=== PATIENT | female | born 1950 | race Caucasian/White ===

== ENCOUNTER → 2017-02-13 | Outpatient (CLI) | payer BC ==
[~2017-02-13] MED LIST: ALPR-411 PO; AMOX500C3 PO; AMT25 PO; ASCO500T16 PO; ASPI1CHW26 PO; CHOLTAB3 PO; ERGO1TAB10 PO; GABA-113 PO; GABA1CAP4 PO; LEVO112T4 PO; LSX40 PO; LXP/20 PO; MIRA1TAB3 PO; MULT-506 PO; NAPR550T22 PO; NRN600 PO; ONDA8TAB6 PO; OXYC-609 PO; PANT20TA PO; PLQ200 PO; SPR25 PO; SYMIN/8045 INH
== END | disposition home or self-care (01) ==
LOC: C.MAMM 10:04
DX: M85.89 Other specified disorders of bone density and structure, multiple sites (principal)

== ENCOUNTER → 2017-03-28 | Outpatient (CLI) | payer BC ==
[~2017-03-28] MED LIST changes: +DIAZ2TAB PO; +NAPR-1169 PO; -PANT20TA PO; +PANT20TA2 PO
[2017-03-28 14:40] LABS: BASO % 0.8 %; BASO ABS # 0.04 K/uL (0-0.2); COMPLETE YES; EOS % 9.1 %; HEMATOCRIT 36.8 % (37-47); IG% 0.4 %; LYMPH ABS # 1.37 K/uL (1.2-3.4); MEAN CELL VOLUME 94.4 fL (80-100); MEAN CORPUSCULAR HEMOGLOBIN 29.5 pg (25-34); MEAN CORPUSCULAR HGB CONC 31.3 g/dl (32-36); MEAN PLATELET VOLUME 9.6 fL (7.4-10.4); MONO % 11.2 %; NEUT % 52.5 %; PLATELET COUNT 287 K/uL (130-400); WHITE BLOOD COUNT 5.26 K/uL (4.8-10.8)
[2017-03-28 15:07] LABS: FERRITIN 336.7 ng/ml (8.0-388.0); THYROID STIMULATING HORMONE 0.052 uIu/ml (0.300-4.500)
[2017-04-02 00:28] LABS: CK TOTAL 107 U/L (29-143); CK-BB None Detected (None Detected); CK-MB 0 % (<5); CK-MM 100 % (95-100)
--- NOTE | 2017-04-04 07:04 | CODING QUERY MEDICAL NECESSITY ---
CQSUPPORTING DIAGNOSIS NEEDED A supporting diagnosis is required for the test/procedure performed on this patient in order for us to be reimbursed by the patient's insurance. Please provide a supporting diagnosis for the following test/procedure listed below next to the test name along with your signature. *If there is no additional diagnosis for this patient that would support the following test/procedure please document that below next to the test/procedure. Test(s)/Procedure(s) that require a supporting diagnosis: DOS 03/28/17 VITAMIN D TEST Provider Signature: Date: Thank you Azalea Chakraborty Health Information Management Once completed, please kindly fax back to [phone] For questions please call [phone]
== END | disposition home or self-care (01) ==
LOC: C.LAB 12:43
DX: D64.9 Anemia, unspecified (principal); M19.90 Unspecified osteoarthritis, unspecified site; R60.9 Edema, unspecified; E03.9 Hypothyroidism, unspecified; E55.9 Vitamin D deficiency, unspecified

== ENCOUNTER → 2017-04-08 | Outpatient (CLI) | payer BC ==
--- NOTE | 2017-04-08 18:12 | ECHOCARDIOGRAM REPORT ---
*NOTICE TO RECEIVING CONSTITUTION PARTY AGENCY This information is strictly Confidential and protected under [place] law. [place] law prohibits you from making any further disclosure of this information unless further disclosure is expressly permitted by the written consent of the person to whom it pertains or is authorized by law. A general authorization for the release of medical or other information is not sufficient for this purpose. Hospital accepts no responsibility if the information is made available to any other person, INCLUDING THE PATIENT. Interpretation Summary * Name: ELENI DILLON Study Date: 04/08/2017 02:58 PM BP: 124/61 mmHg * Patient Location: [facility] HR: 98 * : 1950 (M/d/yyyy) Gender: Female Height: 62 in * Age: 66 yrs Ethnicity: [place] Weight: 155 lb * Ordering Physician: Eleuterio Amaya * Referring Physician: Eleuterio Amaya D.O. * Performed By: Kristi Cooney RDCS * * Reason For Study: SYSTOLIC MURMUR * BSA: 1.7 m2 * -- Conclusions -- * There is borderline asymmetric left ventricular hypertrophy. * Left ventricular systolic function is normal. * Grade I diastolic dysfunction, (abnormal relaxation pattern). * There is moderate tricuspid regurgitation. * Right ventricular systolic pressure is normal. * Compared to an echocardiogram from 2014, the trans-aortic velocity is slightly higher but no significant Procedure Details * A complete two-dimensional transthoracic echocardiogram was performed (2D, M-mode, Doppler and color flow Doppler). Left Ventricle * The left ventricle is normal in size. * There is borderline asymmetric left ventricular hypertrophy. * Ejection Fraction = 60-65%. * Left ventricular systolic function is normal. * Grade I diastolic dysfunction, (abnormal relaxation pattern). Right Ventricle * The right ventricle is normal in size and function. Atria * The left atrial size is normal. * Right atrial size is normal. Mitral Valve * The mitral valve is grossly normal. * Significant mitral regurgitation is absent. Tricuspid Valve * The tricuspid valve is not well visualized, but is grossly normal. * There is moderate tricuspid regurgitation. * Right ventricular systolic pressure is normal. Aortic Valve * Aortic valve sclerosis mild, without significant aortic valvular stenosis. * No hemodynamically significant valvular aortic stenosis. * There is no significant aortic regurgitation. Great Vessels * The aortic root is normal size. Pericardium/Pleural * There is no pericardial effusion. MMode 2D Measurements and Calculations IVSd 1.2 cm IVSs 1.5 cm LVIDd 3.1 cm LVIDs 2.1 cm LVPWd 1.1 cm LVPWs 1.8 cm IVS/LVPW 1.2 FS 33.6 % EDV(Teich) 38.4 ml ESV(Teich) 13.9 ml EF(Teich) 63.8 % EDV(cubed) 30.3 ml ESV(cubed) 8.9 ml EF(cubed) 70.7 % % IVS thick 21.3 % % LVPW thick 64.9 % LV mass(C)d 107.4 grams LV mass(C)dI 62.6 grams/m\S\2 LV mass(C)s 118.5 grams LV mass(C)sI 69.1 grams/m\S\2 SV(Teich) 24.5 ml SI(Teich) 14.3 ml/m\S\2 SV(cubed) 21.4 ml SI(cubed) 12.5 ml/m\S\2 Ao root diam 2.7 cm Ao root area 5.7 cm\S\2 LA dimension 3.4 cm LA/Ao 1.3 LVOT diam 2.0 cm LVOT area 3.0 cm\S\2 LVAd ap4 25.7 cm\S\2 LVLd ap4 7.5 cm EDV(MOD-sp4) 72.7 ml EDV(sp4-el) 75.0 ml LVAs ap4 13.7 cm\S\2 LVLs ap4 5.9 cm ESV(MOD-sp4) 30.0 ml ESV(sp4-el) 27.1 ml EF(MOD-sp4) 58.8 % EF(sp4-el) 63.9 % LVAd ap2 24.9 cm\S\2 LVLd ap2 7.6 cm EDV(MOD-sp2) 70.8 ml EDV(sp2-el) 69.7 ml LVAs ap2 14.0 cm\S\2 LVLs ap2 6.3 cm ESV(MOD-sp2) 30.0 ml ESV(sp2-el) 26.3 ml EF(MOD-sp2) 57.6 % EF(sp2-el) 62.2 % LVLd %diff 1.4 % EDV(MOD-bp) 72.1 ml LVLs %diff 6.1 % ESV(MOD-bp) 30.9 ml EF(MOD-bp) 57.1 % SV(MOD-sp4) 42.7 ml SI(MOD-sp4) 24.9 ml/m\S\2 SV(MOD-sp2) 40.8 ml SI(MOD-sp2) 23.8 ml/m\S\2 SV(MOD-bp) 41.2 ml SI(MOD-bp) 24.0 ml/m\S\2 SV(sp4-el) 47.9 ml SI(sp4-el) 27.9 ml/m\S\2 SV(sp2-el) 43.4 ml SI(sp2-el) 25.3 ml/m\S\2 Doppler Measurements and Calculations MV E max claudia 56.8 cm/sec MV A max claudia 86.3 cm/sec MV E/A 0.66 MV dec time 0.28 sec Ao V2 max 232.4 cm/sec Ao max PG 21.6 mmHg Ao max PG (full) 17.8 mmHg Ao V2 mean 160.4 cm/sec Ao mean PG 11.5 mmHg Ao mean PG (full) 9.2 mmHg Ao V2 VTI 40.7 cm OLIVIA(I,A) 1.7 cm\S\2 OLIVIA(I,D) 1.7 cm\S\2 OLIVIA(V,A) 1.3 cm\S\2 OLIVIA(V,D) 1.3 cm\S\2 LV V1 max PG 3.8 mmHg LV V1 mean PG 2.4 mmHg LV V1 max 97.0 cm/sec LV V1 mean 72.0 cm/sec LV V1 VTI 22.1 cm SV(Ao) 232.5 ml SI(Ao) 135.6 ml/m\S\2 SV(LVOT) 67.3 ml SI(LVOT) 39.2 ml/m\S\2 TR max claudia 242.3 cm/sec
== END | disposition home or self-care (01) ==
LOC: C.CPL 14:48
DX: R01.1 Cardiac murmur, unspecified (principal)

== ENCOUNTER → 2017-06-06 | Outpatient (CLI) | payer BC ==
[~2017-06-06] MED LIST changes: -DIAZ2TAB PO; -NAPR-1169 PO; +PANT20TA PO; -PANT20TA2 PO
--- NOTE | 2017-06-06 10:08 | DIAGNOSTIC IMAGING REPORT ---
Limited pelvic ultrasound ABDOMEN FOR HERNIA CLINICAL HISTORY: R LABIA SWELLING labial edema TECHNIQUE: Ultrasound COMPARISON STUDY: None FINDINGS: Mild edematous change of the right leg is compared to the left. There is be a combination of mildly edematous tissue combine with potential post therapeutic scar formation. No evidence for abscess collection or hernia. IMPRESSION: Mild soft tissue edema combined with post therapeutic scar formation of the right labial region. No evidence for abscess collection or hernia. Electronically signed by: Sj Hassan M.D. 06/06/2017 10:07 AM Dictated Date/Time: 06/06/2017 10:05 AM
== END | disposition home or self-care (01) ==
LOC: C.ULTR 09:08
DX: R60.0 Localized edema (principal); K44.9 Diaphragmatic hernia without obstruction or gangrene

== ENCOUNTER → 2017-07-10 | Outpatient (CLI) | payer BC ==
--- NOTE | 2017-07-10 14:45 | DIAGNOSTIC IMAGING REPORT ---
ABDOMEN AND PELVIS CT WITHOUT CONTRAST CT DOSE: 784.69 mGycm HISTORY: LABIAL LESION TECHNIQUE: Multiaxial CT images of the abdomen and pelvis were performed without contrast. A dose lowering technique was utilized adhering to the principles of ALARA. COMPARISON STUDY: Abdomen and pelvis CT 03/15/2016. FINDINGS: Mild asymmetric thickening within the right labia in comparison to the left. The thickening has slight progressed. This measures up to 1.5 cm in thickness. No fluid collections identified. Mild subcutaneous fat stranding within the mons pubis. The lung bases are clear. No pneumoperitoneum. No pneumatosis. 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 This is progressed on the right and not significant changed on the left. Small bony fragment which extends into the right acetabulum. Fragmentation and nonunited fracture within the left iliac bone which extends to the sacroiliac joint. Progressive widening of the left sacroiliac joint. Abnormal thickening within the proximal right groin adductor muscles. These demonstrate irregularity with loss of the normal fat planes. This measures up to 3 cm in thickness, previous measuring 2.3 cm. There is also an irregular 12 mm nodule abutting the anterior surface of the adductor muscles within the right groin. There is a single enlarged right inguinal lymph node which is increased in size and a single enlarged left inguinal lymph node which is increased in size. These measure 2.1 x 1.2 cm and 1.7 x 1.1 cm, respectively. Right lower quadrant colostomy. Multiple small bowel loops within the parastomal hernia. The moderate to large peristomal hernia has increased in size. The bladder is unremarkable. Prior hysterectomy. Mild thickening along the left vaginal cuff, unchanged. Small hiatus hernia. A few prominent loops of small bowel within the left side the abdomen. These are fluid-filled. These measure up to 3 cm in diameter. This raises the possibility of a partial small bowel obstruction. No retroperitoneal lymphadenopathy. The unenhanced liver, spleen, adrenal glands, pancreas are unremarkable. There is a punctate stone within the left kidney. No hydronephrosis. There is an atrophic right kidney demonstrating moderate hydroureteronephrosis. This remains unchanged. There are few bladder calculi present. Cholelithiasis. Old, healed right sacral wing fracture. IMPRESSION: 1. Mild asymmetric thickening within the right labia in comparison to the left. This has slightly progressed. No fluid collections identified. 2. Increase in size of the bilateral inguinal lymph nodes as described above. This nonspecific but could be due to metastatic disease. 3. Progressive abnormal thickening within the proximal right groin adductor muscles has described above. There is also an irregular 12 mm soft tissue nodule abutting the anterior surface of the right groin muscles. These findings raise the possibility of metastatic disease. 4. Progressive fragmentation of the old nonunited right pubic ring fractures. There is a small fragment extending into the right acetabulum. Nonunited old left pubic ring fractures remain unchanged. 5. Subacute to old nonunited left iliac wing fracture which extends to the sacroiliac joint. There is also mild widening of the left sacroiliac joint. 6. No change in the moderate right hydroureteronephrosis. 7. A few prominent fluid-filled loops of small bowel within the left side the abdomen. This could represent a developing partial small bowel obstruction. Clinical correlation recommended. 8. Increase in size in the right lower quadrant peristomal hernia. 9. Additional findings as described above. Electronically signed by: Ben Gant M.D. 07/10/2017 2:43 PM Dictated Date/Time: 07/10/2017 2:24 PM
== END | disposition home or self-care (01) ==
LOC: C.CTS 13:40
PROVIDERS: ATTEND Colon & Rectal Surgery
DX: N90.89 Other specified noninflammatory disorders of vulva and perineum (principal)

== ENCOUNTER → 2017-08-14 | Day surgery (SDC) | payer BC ==
[~2017-08-14] VITALS: Ht 157.5 cm; Wt 72.0 kg
[2017-08-14 09:39] VITALS: BP 123/62; PULSE 86; TEMP 36.6; O2SAT 98; Ht 157.5 cm; Wt 72.0 kg
[2017-08-14 09:59] LABS: HEMATOCRIT 32.7 % (37-47); MEAN CELL VOLUME 93.7 fL (80-100); MEAN CORPUSCULAR HEMOGLOBIN 30.7 pg (25-34); MEAN PLATELET VOLUME 8.9 fL (7.4-10.4); PLATELET COUNT 230 K/uL (130-400); RED BLOOD COUNT 3.49 M/uL (4.2-5.4); WHITE BLOOD COUNT 5.03 K/uL (4.8-10.8)
[2017-08-14 10:10] LABS: PROTHROMBIN TIME (PATIENT) 10.5 SECONDS (9.0-12.0)
[2017-08-14 10:28] LABS: MEAN CORPUSCULAR HGB CONC 32.7 g/dl (32-36)
--- NOTE | 2017-08-14 11:54 | Discharge Instructions ---
Discharge Instructions Procedure Procedure Date: Aug 14, 2017. Reason for visit: Hx Anal Ca, Mass In Rt Groin Abductor Muscle. Discharge Discharge Date: Aug 14, 2017. Discharge Diagnosis: same Instructions Activity Recommendations: No limitations Return to School/Work: no limitations Recommended Home Diet: Resume Previous Diet Provider Instructions: ACTIVITY RECOMMENDATIONS: * Rest today. * Resume regular activity in one day. MEDICATIONS: * May take Tylenol or Ibuprofen as needed for pain. DIET: * Resume previous diet. SPECIAL CARE INSTRUCTIONS: Call your doctor if: * Temperature above 101 degrees F. * Pain not relieved by pain medicine ordered. * Increased drainage or redness from incision. * Notify your doctor with any questions or concerns. Call your doctor or go to the nearest Emergency Department if you experience: * Increased chest pain or shortness of breath. FOLLOW UP VISIT: Follow-up with Referring Physician as scheduled. Allergies Coded Allergies: POLLEN (Verified Allergy, Intermediate, RUNNY NOSE, ITCHY EYES, SNEEZING, 08/14/17) Denia Brian Recommendations: Call your doctor if: * Temperature above 101 degrees * Pain not relieved by pain medicine ordered * There is increased drainage or redness from any incision * You have any unanswered questions or concerns. Your Doctors Instructions noted above were prepared by provider Ben Gant. Patient Signature Section: Patient Instructions Signature Page Phyllis Sweeney Patient (or Guardian) Signature/Date: I have read and understand the instructions given to me by my caregivers. Caregiver/RN/Doctor Signature/Date: The above-named patient and/or guardian has received patient instructions on this date. + Original Patient Signature Page (only) stays with chart. Please make copy for patient.
--- NOTE | 2017-08-14 12:14 | DIAGNOSTIC IMAGING REPORT ---
CT-GUIDED FINE-NEEDLE ASPIRATION OF A RIGHT GROIN ABNORMALITY CLINICAL HISTORY: Right groin thickening. History of malignancy. Assess for metastatic disease. COMPARISON STUDY: Abdomen and pelvis CT 07/10/2017. PROCEDURE: Written informed consent was obtained. The patient was positioned supine on the CT table. Preliminary imaging was performed to determine a safe needle entry site. The right groin was prepped and draped in usual sterile fashion. 1% lidocaine was used for local anesthesia. A total of [address] guidance with a 22-gauge spinal needle and a 22-gauge Marcelo needle were made through the abnormal thickening within the proximal right adductor muscles and the adjacent 12 mm soft tissue nodule. Specimens were given to the on-site pathologist who determined adequate tissue for diagnosis. There were no immediate complications. IMPRESSION: CT-guided fine-needle aspiration of the abnormally thickened proximal right adductor muscles and the adjacent 12 mm soft tissue nodule. Pathology results pending. Electronically signed by: Ben Gant M.D. 08/14/2017 12:13 PM Dictated Date/Time: 08/14/2017 12:10 PM
[2017-08-14 12:15] VITALS: BP 109/58; PULSE 81; TEMP 36.5; O2SAT 98
[2017-08-14 12:33] VITALS: BP 116/55; PULSE 79; TEMP 36.4; O2SAT 96
[2017-08-14 12:45] VITALS: BP 121/61; PULSE 82; TEMP 36.6; O2SAT 95
[2017-08-14 13:15] VITALS: BP 127/61; PULSE 83; TEMP 36.5; O2SAT 95
== END | disposition home or self-care (01) ==
LOC: C.ACU 09:01
PROVIDERS: ATTEND Internal Medicine Hematology & Oncology
DX: C53.9 Malignant neoplasm of cervix uteri, unspecified (principal); C21.1 Malignant neoplasm of anal canal

== ENCOUNTER → 2017-08-27 | Outpatient (CLI) | payer BC ==
[~2017-08-27] MED LIST changes: -GABA1CAP4 PO; -NRN600 PO
--- NOTE | 2017-08-27 10:23 | DIAGNOSTIC IMAGING REPORT ---
PET/CT SKULL-THIGH CLINICAL HISTORY: CERVICAL CARCINOMA COMPARISON STUDY: 10/10/2014, CT scan dated 07/10/2017 FINDINGS: The patient was injected with 12.2 mCi of F 18 labeled FDG. Following the standard induction phase, PET/CT scanning was performed from the skull base to the upper thigh region. Within the neck, there is persistent increased activity fusing to the right lobe of the thyroid which appears larger than the left lobe. Activity within neck is otherwise unremarkable with no evidence of pathologic gianni activity. Within the thorax, there is no pathologic gianni or parenchymal activity. Within the abdomen and pelvis, there is evidence of right-sided hydronephrosis. There is no pathologic hepatic or adrenal gland activity. There is no pathologic gianni activity. There is physiologic urinary tract and bowel activity. Note is made of cholelithiasis. There is a punctate nonobstructing left renal calculus. There is a right lower quadrant ostomy with a parastomal hernia. There is rectal prolapse. There are multiple pelvic fractures. When compared the recent CT scan, there is persistent thickening and loss of the normal surrounding fat planes involving the right pectoralis muscle. This demonstrates mild diffuse increased FDG activity with SUV maximum of 3. By history, this area was previously biopsied. There are similar but less pronounced findings on the left. Given the multiple pelvic fractures, it is conceivable that this finding relates to hematoma and fibrosis IMPRESSION: 1. Asymmetric thyroid with persistent increased activity fusing to the right lobe 2. No evidence of pathologic gianni activity within the neck chest abdomen or pelvis 3. Cholelithiasis 4. Persistent right-sided hydronephrosis 5. Extensive pelvic fractures 6. Right lower quadrant ostomy with a parastomal hernia 7. Pelvic floor relaxation with rectal prolapse 8. Persistent thickening and loss of the normal surrounding fat planes involving the pectineus muscles, most pronounced on the right. There is mild associated increased FDG activity with SUV maximum of 3 on the right, and 2.7 the left. As stated above, given the multiple pelvic fractures, this may relate to secondary hematoma and fibrosis. Electronically signed by: Aayush Wood M.D. 08/27/2017 10:22 AM Dictated Date/Time: 08/27/2017 10:08 AM
== END | disposition home or self-care (01) ==
LOC: C.PET 07:50
PROVIDERS: ATTEND Internal Medicine Hematology & Oncology
DX: C53.9 Malignant neoplasm of cervix uteri, unspecified (principal); C21.1 Malignant neoplasm of anal canal; E07.9 Disorder of thyroid, unspecified; K80.20 Calculus of gallbladder without cholecystitis without obstruction; S32.9XXA Fracture of unspecified parts of lumbosacral spine and pelvis, initial encounter for closed fracture; X58.XXXA Exposure to other specified factors, initial encounter; K43.5 Parastomal hernia without obstruction or gangrene; Z93.3 Colostomy status; N81.89 Other female genital prolapse; K62.3 Rectal prolapse; R93.5 Abnormal findings on diagnostic imaging of other abdominal regions, including retroperitoneum

== ENCOUNTER → 2017-09-01 | Outpatient (CLI) | payer BC ==
--- NOTE | 2017-09-01 12:52 | DIAGNOSTIC IMAGING REPORT ---
ULTRASOUND OF THE THYROID GLAND CLINICAL HISTORY: Abnormal PET examination. COMPARISON STUDY: Thyroid ultrasound dated 10/20/2014. PET/CT dated 08/27/2017. TECHNIQUE: Real-time, grayscale, and color flow sonography of the thyroid gland is performed utilizing a high-frequency linear transducer. Images are reviewed in the transverse and longitudinal planes. FINDINGS: Right lobe: The right lobe of the thyroid gland is atrophic and heterogeneous in echotexture, measuring 3.5 x 1.6 x 1.1 cm. A 0.3 x 0.2 x 0.3 cm hypoechoic nodule is noted in the lower pole. This is unchanged from 2013. Left lobe: The left lobe of the thyroid gland is markedly atrophic and heterogeneous in echotexture, measuring 3.0 x 1.0 x 0.6 cm. Isthmus: The thyroid isthmus is heterogeneous in echotexture and measures 0.3 cm in AP diameter. IMPRESSION: 1. Atrophic and heterogeneous thyroid gland suggesting the sequelae of thyroiditis. Correlation with clinical history and serum thyroid function studies will be required. 2. No concerning thyroid lesion is identified. Electronically signed by: Abad Roque M.D. 09/01/2017 12:51 PM Dictated Date/Time: 09/01/2017 12:48 PM
== END | disposition home or self-care (01) ==
LOC: C.ULTR 12:09
DX: R94.6 Abnormal results of thyroid function studies (principal); Z86.39 Personal history of other endocrine, nutritional and metabolic disease; E03.4 Atrophy of thyroid (acquired)

== ENCOUNTER → 2017-09-11 | Day surgery (SDC) | payer BC ==
[2017-09-04 09:10] VITALS: Ht 157.5 cm; Wt 79.2 kg
--- NOTE | 2017-09-04 09:56 | PAT Medication Instructions ---
Service Date Sep 04, 2017. Current Home Medication List Alprazolam (Alprazolam), 0.25-0.5 MG PO Q4-6HRS PRN for Anxiety Amitriptyline HCl (Amitriptyline HCl), 25 MG PO HS Amoxicillin (Amoxil), 500 MG PO [id number] Ascorbic Acid (Ascorbic Acid), 500 MG PO BID Aspirin (Aspirin Adult Low Strengt), 81 MG PO QAM Budesonide/Formoterol Fumarate (Symbicort 80/4.5 Inhaler), 2 PUFFS INH BID PRN for SOB/Wheezing Ergocalciferol (Vitamin D2), 1 TAB PO QAM Escitalopram Oxalate (Escitalopram Oxalate), 30 MG PO QPM Furosemide (Furosemide), 40 MG PO QAM Gabapentin (Neurontin), 600 MG PO TID Hydroxychloroquine Sulfate (Hydroxychloroquine Sulfat), 100 MG PO QAM Levothyroxine Sodium (Levothyroxine Sodium), 112 MCG PO QAM Mirabegron (Myrbetriq Er), 50 MG PO QAM Multivitamin (Multivitamin), 1 TAB PO [id number] Naproxen Sodium (Naprosyn Ds), 550 MG PO BID Ondansetron Hcl (Zofran), 8 MG PO TID PRN for Nausea Oxycodone HCl (Oxycodone HCl), 5-10 MG PO Q3H PRN for Severe Pain Pantoprazole Sodium (Protonix), 40 MG PO QAM Spironolactone (Spironolactone), 25 MG PO BID Medication Instructions For Your Scheduled Surgery - Check with surgeon for instructions: Aspirin (Aspirin Adult Low Strengt), 81 MG PO QAM Naproxen Sodium (Naprosyn Ds), 550 MG PO BID - Hold the following medications the morning of surgery: Spironolactone (Spironolactone), 25 MG PO BID Ascorbic Acid (Ascorbic Acid), 500 MG PO BID Ergocalciferol (Vitamin D2), 1 TAB PO QAM Furosemide (Furosemide), 40 MG PO QAM - Take the following medications the morning of surgery with a sip of water OTHERWISE NOTHING TO EAT OR DRINK AFTER MIDNIGHT: Alprazolam (Alprazolam), 0.25-0.5 MG PO Q4-6HRS PRN for Anxiety Amoxicillin (Amoxil), 500 MG PO [id number] Pantoprazole Sodium (Protonix), 40 MG PO QAM Gabapentin (Neurontin), 600 MG PO TID Budesonide/Formoterol Fumarate (Symbicort 80/4.5 Inhaler), 2 PUFFS INH BID PRN for SOB/Wheezing Oxycodone HCl (Oxycodone HCl), 5-10 MG PO Q3H PRN for Severe Pain (use if needed up to 4 hours prior to surgery) Mirabegron (Myrbetriq Er), 50 MG PO QAM Ondansetron Hcl (Zofran), 8 MG PO TID PRN for Nausea Levothyroxine Sodium (Levothyroxine Sodium), 112 MCG PO QAM Hydroxychloroquine Sulfate (Hydroxychloroquine Sulfat), 100 MG PO QAM - Take the following medications as scheduled the night before surgery: Spironolactone (Spironolactone), 25 MG PO BID Ascorbic Acid (Ascorbic Acid), 500 MG PO BID Amitriptyline HCl (Amitriptyline HCl), 25 MG PO HS Alprazolam (Alprazolam), 0.25-0.5 MG PO Q4-6HRS PRN for Anxiety Gabapentin (Neurontin), 600 MG PO TID Escitalopram Oxalate (Escitalopram Oxalate), 30 MG PO QPM Budesonide/Formoterol Fumarate (Symbicort 80/4.5 Inhaler), 2 PUFFS INH BID PRN for SOB/Wheezing Oxycodone HCl (Oxycodone HCl), 5-10 MG PO Q3H PRN for Severe Pain Multivitamin (Multivitamin), 1 TAB PO [id number] Ondansetron Hcl (Zofran), 8 MG PO TID PRN for Nausea If you have any questions please call us at [phone] or [phone] or [phone]
[2017-09-04 10:26] LABS: BASO % 0.6 %; BASO ABS # 0.03 K/uL (0-0.2); COMPLETE YES; EOS % 10.8 %; HEMATOCRIT 35.3 % (37-47); IG% 0.6 %; LYMPH % 28.9 %; LYMPH ABS # 1.34 K/uL (1.2-3.4); MEAN CELL VOLUME 94.4 fL (80-100); MEAN CORPUSCULAR HEMOGLOBIN 29.9 pg (25-34); MEAN CORPUSCULAR HGB CONC 31.7 g/dl (32-36); MEAN PLATELET VOLUME 9.4 fL (7.4-10.4); MONO % 7.5 %; NEUT % 51.6 %; PLATELET COUNT 261 K/uL (130-400); RED BLOOD COUNT 3.74 M/uL (4.2-5.4); WHITE BLOOD COUNT 4.64 K/uL (4.8-10.8)
[2017-09-04 11:38] LABS: BUN/CREATININE RATIO 16.7 (10-20); CALCIUM 9.5 mg/dl (8.5-10.1); CREATININE 1.7 mg/dl (0.60-1.20); POTASSIUM 4.1 mmol/L (3.5-5.1)
[~2017-09-11] VITALS: Ht 157.5 cm; Wt 79.2 kg
[~2017-09-11] MED LIST changes: +CEFAZOLIN 1000MG/55 ML D5W 55 ML IV SCH; -CHOLTAB3 PO; +LACTATED RINGER'S 1000ML IV SCH
--- NOTE | 2017-09-11 08:31 | History & Physical Bridge Note ---
H&P Re-Evaluation Bridge Note: I have examined the patient, reviewed the History & Physical and in the interval since the performance of the History & Physical I have noted the following changes of clinical significance: No changes noted
== END | disposition home or self-care (01) ==
LOC: C.ACU 08:30
PROVIDERS: ATTEND Surgery
DX: R19.09 Other intra-abdominal and pelvic swelling, mass and lump (principal); Z53.9 Procedure and treatment not carried out, unspecified reason

== ENCOUNTER → 2017-09-12 | Outpatient (CLI) | payer BC ==
[~2017-09-12] MED LIST changes: -CEFAZOLIN 1000MG/55 ML D5W 55 ML IV SCH; -LACTATED RINGER'S 1000ML IV SCH
[2017-09-12 15:07] LABS: BLOOD UREA NITROGEN 32 mg/dl (7-18); BUN/CREATININE RATIO 19.1 (10-20); CALCIUM 9.9 mg/dl (8.5-10.1); CARBON DIOXIDE 29 mmol/L (21-32); CHLORIDE 103 mmol/L (98-107); GLUCOSE 94 mg/dl (70-99); POTASSIUM 3.7 mmol/L (3.5-5.1); SODIUM 138 mmol/L (136-145)
[2017-09-12 15:08] LABS: PHOSPHORUS 2.9 mg/dl (2.5-4.9)
== END | disposition home or self-care (01) ==
LOC: C.LAB 12:42
DX: N18.3 Chronic kidney disease, stage 3 (moderate) (principal)

== ENCOUNTER 2017-09-25 10:50 | Emergency (ER) | payer BC ==
[~2017-09-25] VITALS: Ht 157.5 cm; Wt 75.0 kg
[~2017-09-25 10:50] MED LIST changes: -PANT20TA PO; +PANT20TA2 PO
[2017-09-25 11:02] VITALS: PULSE 90; TEMP 36.7; O2SAT 95; Ht 157.5 cm; Wt 75.0 kg
[2017-09-25] MEDS ORDERED: DIAZEPAM 5MG TAB PO STA (11:36)
--- NOTE | 2017-09-25 11:42 | EMERGENCY ROOM VISIT NOTE ---
History Report prepared by Susu: Kristi Chong Under the Supervision of: Dr. Charlie Barney M.D. First contact with patient: 11:34 Chief Complaint: PELVIC PAIN Stated Complaint: RT PELVIC PAIN History of Present Illness The patient is a 67 year old female who presents to the Emergency Room with complaints of worsened pelvic pain that began 7 days ago after standing up from a chair. She currently rates her discomfort as a 10/10 in severity and describes her pain as a sharp pain. 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 She states that her last radiation treatment was in [id number]. The patient states that due to this she always experiences pain. She states that her pain worsened over the past week. The patient states that she has been using Gabapentin, Naproxen, and Oxycodone for her pain. She additionally notes chronic sciatic nerve pain. The patient denies burning with urination. She additionally reports that in March 2016 she was evaluated in [facility] for a week and then a week in [place] after being found to have pelvic bone fractures. The patient states that she then spent two weeks in [facility]. She denies any fever, chills, nausea, or vomiting. Source of History: patient Onset: 7 days ago Position: pelvis Symptom Intensity: 10/10 Quality: sharp Timing: worsening Associated Symptoms: No fevers, No chills, No nausea, No vomiting Review of Systems See HPI for pertinent positives and negatives. A total of ten systems were reviewed and were otherwise negative. Past Medical & Surgical Medical Problems: (1) Anal cancer (2) Back pain with sciatica (3) Cervical cancer (4) Colorectal cancer (5) DVT (deep venous thrombosis) (6) Encephalopathy (7) Gait instability (8) Pelvic fracture (9) severe lower back pain Family History Hypertension Social History Smoking Status: Never Smoker Alcohol Use: none Drug Use: none Marital Status: Housing Status: lives with family Occupation Status: retired Current/Historical Medications Scheduled Amitriptyline HCl (Amitriptyline HCl), 25 MG PO HS Amoxicillin (Amoxil), 500 MG PO [id number] Ascorbic Acid (Ascorbic Acid), 500 MG PO BID Aspirin (Aspirin Adult Low Strengt), 81 MG PO QAM Ergocalciferol (Vitamin D2), 1 TAB PO QAM Escitalopram Oxalate (Escitalopram Oxalate), 30 MG PO QPM Furosemide (Furosemide), 40 MG PO QAM Gabapentin (Neurontin), 600-900 MG PO TID Hydroxychloroquine Sulfate (Hydroxychloroquine Sulfat), 100 MG PO QAM Levothyroxine Sodium (Levothyroxine Sodium), 112 MCG PO QAM Mirabegron (Myrbetriq Er), 50 MG PO QAM Multivitamin (Multivitamin), 1 TAB PO [id number] Naproxen (Naprosyn), 500 MG PO BID Pantoprazole Sodium (Protonix), 40 MG PO QAM Spironolactone (Spironolactone), 25 MG PO BID Scheduled PRN Alprazolam (Alprazolam), 0.25-0.5 MG PO Q4-6HRS PRN for Anxiety Budesonide/Formoterol Fumarate (Symbicort 80/4.5 Inhaler), 2 PUFFS INH BID PRN for SOB/Wheezing Diazepam (Valium), 2 MG PO QID PRN for Muscle Spasms Ondansetron Hcl (Zofran), 8 MG PO TID PRN for Nausea Oxycodone HCl (Oxycodone HCl), 1-3 TAB PO Q4 PRN for Severe Pain Allergies Coded Allergies: POLLEN (Verified Allergy, Intermediate, RUNNY NOSE, ITCHY EYES, SNEEZING, 09/25/17) NO KNOWN DRUG ALLERGIES (Verified Allergy, Unknown, , 09/25/17) Physical Exam Vital Signs Date Time Temp Pulse Resp B/P (MAP) Pulse Ox O2 Delivery O2 Flow Rate FiO2 09/25/17 13:57 110/59 09/25/17 11:02 36.7 90 16 116/72 95 Room Air Physical Exam GENERAL: Awake, alert, well-appearing, in no distress HENT: Normocephalic, atraumatic. Oropharynx unremarkable. EYES: Normal conjunctiva. Sclera non-icteric. NECK: Supple. No nuchal rigidity. FROM. No JVD. RESPIRATORY: Clear to auscultation. CARDIAC: Regular rate, normal rhythm. Extremities warm and well perfused. Pulses equal. ABDOMEN: Soft, non-distended. No tenderness to palpation. No rebound or guarding. No masses. Anterior ostomy site c/d/i. RECTAL: Deferred. MUSCULOSKELETAL: Chest examination reveals no tenderness. Mild tenderness in the right lumbar region extending distally in the sciatica distribution otherwise distal strength and sensation intact. There is no CVA tenderness to palpation. No joint edema. LOWER EXTREMITIES: Calves are equal size bilaterally and non-tender. No edema. No discoloration. NEURO: Normal sensorium. No sensory or motor deficits noted. SKIN: No rash or jaundice noted. Medical Decision & Procedures Medications Administered Medications (Trade) Dose Ordered Sig/Dave Route Start Time Stop Time Status Last Admin Dose Admin Diazepam (Valium Tab) 5 mg NOW STAT PO 09/25/17 11:36 09/25/17 11:48 DC 09/25/17 12:21 5 MG Dexamethasone Sodium Phosphate (Decadron Inj) 10 mg NOW ONCE IM 09/25/17 12:30 09/25/17 12:31 DC 09/25/17 12:31 10 MG ED Course 1135: The patient was evaluated in room B9. A complete history and physical exam was performed. 1136: Ordered Valium Tab 5 mg PO. 1230: Ordered Decadron Inj 10 mg IM. 1315: The patient was reevaluated and she is doing well. I discussed the exam findings and she is ready for discharge shortly. Medical Decision I reviewed the patient's past medical history, medications, and the nursing notes as described above. The patient's presentation and history were concerning for Lumbar radiculopathy , muscular strain, chronic arthritis. The patient is a a 67 yo woman with a pmhx of chronic pain with chronic pelvic pain 2/2 pelvic fx and chronic sciatica who presents to the ED with right lumbar pain for past 7 days after feeling onset after standing up from a chair per HPI. On arrival the patient is in NAD, AFVSS. Patient has mild ttp in right lower lumbar area extending distally in sciatic distribution. Distal PMS intact. Denies urinary retention. Patient already taking Naproxen and oxycodone at home. Given Valium for muscle relaxation and single dose of dexamethasone for additional anti-inflammatory effect. Patient feeling improved. Findings and plan for follow-up reviewed with patient. Patient agreeable and d/c'd per discharge instructions. Medication Reconcilliation Current Medication List: was personally reviewed by me Blood Pressure Screening Patient's blood pressure: Normal blood pressure Blood pressure disposition: Did not require urgent referral Impression Primary Impression: Radiculopathy of lumbar region Scribe Attestation The scribe's documentation has been prepared under my direction and personally reviewed by me in its entirety. I confirm that the note above accurately reflects all work, treatment, procedures, and medical decision making performed by me. Departure Information Dispostion Home / Self-Care Prescriptions Diazepam (VALIUM) 2 Mg Tab 2 MG PO QID Y for Muscle Spasms, #5 TAB Prov: Charlie Barney M.D. 09/25/17 Referrals No Doctor, Assigned (PCP) Forms HOME CARE DOCUMENTATION FORM, IMPORTANT VISIT INFORMATION, WORK / SCHOOL INSTRUCTIONS Patient Instructions Lumbar Radiculopathy, My [facility] Additional Instructions Please follow up with your primary care physician in the next 1-3 days for re- evaluation. You likely have sciatica. Otherwise, your exam did not show signs of an emergent condition at this time. Continue your current medications as prescribed. Valium for additional muscle relaxation as needed. (Do not take your Xanax if using this medication. Do not take your oxycodone at the same time as this medication). Heating pad at 20 minute intervals throughout the day for muscle relaxation. Return to the emergency department for worsening symptoms as described in the accompanying instructions.
[2017-09-25] MEDS: DEXAMETHASONE SOD INJ 10 MG/ML VIAL IV ONE ×2 (12:21→12:27)
[2017-09-25] MEDS ORDERED: DEXAMETHASONE SOD INJ 10 MG/ML VIAL IM ONE (12:30)
[2017-09-25] MEDS ORDERED: NAPR-1169 PO (12:40)
[2017-09-25] MEDS ORDERED: DIAZ2TAB PO (13:33)
[2017-09-25 13:57] VITALS: BP 110/59
== END 2017-09-25 13:59 | disposition home or self-care (01) ==
LOC: C.EDB 10:51
DX: M54.16 Radiculopathy, lumbar region (principal); C21.0 Malignant neoplasm of anus, unspecified; C76.0 Malignant neoplasm of head, face and neck; G93.40 Encephalopathy, unspecified; R26.9 Unspecified abnormalities of gait and mobility; Z82.49 Family history of ischemic heart disease and other diseases of the circulatory system; Z79.82 Long term (current) use of aspirin

== ENCOUNTER → 2017-12-22 | Outpatient (CLI) | payer BC ==
[~2017-12-22] MED LIST changes: +ACET-749 PO; +NAPR-1169 PO; -NAPR550T22 PO
[2017-12-22 14:40] LABS: BASO ABS # 0.05 K/uL (0-0.2); EOS % 6.3 %; EOS ABS # 0.33 K/uL (0-0.5); HEMATOCRIT 35.2 % (37-47); HEMOGLOBIN 11.1 g/dL (12.0-16.0); IG# 0.02 K/uL (0.00-0.02); LYMPH % 32.2 %; LYMPH ABS # 1.68 K/uL (1.2-3.4); MEAN CELL VOLUME 93.4 fL (80-100); MEAN CORPUSCULAR HEMOGLOBIN 29.4 pg (25-34); MEAN CORPUSCULAR HGB CONC 31.5 g/dl (32-36); MEAN PLATELET VOLUME 9.6 fL (7.4-10.4); MONO % 11.7 %; MONO ABS # 0.61 K/uL (0.11-0.59); NEUT % 48.4 %; NEUT ABS # 2.52 K/uL (1.4-6.5); PLATELET COUNT 295 K/uL (130-400); RED CELL DISTRIBUTION WIDTH CV 14.4 % (11.5-14.5); RED CELL DISTRIBUTION WIDTH SD 49.3 fL (36.4-46.3); WHITE BLOOD COUNT 5.21 K/uL (4.8-10.8)
[2017-12-22 14:54] LABS: BLOOD UREA NITROGEN 21 mg/dl (7-18); CALCIUM 9.8 mg/dl (8.5-10.1); CARBON DIOXIDE 33 mmol/L (21-32); CREATININE 1.21 mg/dl (0.60-1.20); GLUCOSE 82 mg/dl (70-99); POTASSIUM 3.8 mmol/L (3.5-5.1); SODIUM 138 mmol/L (136-145)
== END | disposition home or self-care (01) ==
LOC: C.LAB 13:22
DX: N28.9 Disorder of kidney and ureter, unspecified (principal)

== ENCOUNTER → 2017-12-24 | Day surgery (SDC) | payer BC ==
[2017-12-19 12:07] VITALS: Ht 157.5 cm; Wt 72.7 kg
[~2017-12-24] VITALS: Ht 157.5 cm; Wt 72.7 kg
[~2017-12-24] MED LIST changes: +ATROPINE SULFATE 0.1 MG/ML 5ML SYR IV PRN; +BUPIVACAINE 0.5 % 5 MG/1 ML PF 10ML VIAL ONE; +CEFAZOLIN 1000MG IV PUSH 5 ML IV SCH; +EpHEDrine SULFATE INJ 50 MG/ML AMP IV PRN; +FENTANYL CITRATE INJ 50 MCG/1 ML 2 ML VIAL IV PRN; +FENTANYL CITRATE INJ 50 MCG/1 ML 2 ML VIAL ONE; +LACTATED RINGER'S 1000ML 1,000 ML IV SCH; +LIDOCAINE HCL 2% 2 ML VIAL (20MG/ML) ONE; +LIDOCAINE HCL 2% LOCAL 20 ML VIAL ONE; +MIDAZOLAM HCL 1 MG/ML 2ML VIAL ONE; +ONDANSETRON INJ 2 MG/ML 2 ML VIAL IV PRN; +PROPOFOL IV EMULSION 10 MG/ML 20 ML VIAL IV ONE; +SODIUM CHLORIDE 0.9% 1000ML 1,000 ML IV SCH
--- NOTE | 2017-12-24 07:37 | [facility] Post Operative Brief Note ---
Immediate Operative Summary Operative Date Dec 24, 2017. Pre-Operative Diagnosis Right Carpal Tunnel Syndrome Post-Operative Diagnosis same Procedure(s) Performed Right Carpal Tunnel Release Surgeon Dr Burch Technical Planner Surgeon(s) BRAYAN Colmenares Estimated Blood Loss minimal Findings Consistent with Post-Op Diagnosis Specimens none Drains None Anesthesia Type MAC Disposition Accompanied Pt To Recover: no Disposition: Recovery Room / PACU
[2017-12-24 07:40] VITALS: TEMP 37
--- NOTE | 2017-12-24 07:41 | Discharge Instructions-SurgCtr ---
Discharge Instructions Date of Service Dec 24, 2017. Visit Reason for Visit: Right Carpal Tunnel Syndrome Discharge Discharge Diagnosis / Problem: RIGHT CARPAL TUNNEL SYNDROME Discharge Goals Goal(s): Decrease discomfort, Therapeutic intervention Activity Recommendations Activity Limitations: per Instructions/Follow-up section Anesthesia . Post Anesthesia Instructions: If you have had General Anesthesia or IV Sedation: * Do not drive today. * Resume driving when surgeon permits. * Do not make important decisions or sign legal documents today. * Call surgeon for: 1. Temperature elevations greater than 101 degrees F. 2. Uncontrollable pain. 3. Excessive bleeding. 4. Persistent nausea and vomiting. 5. Medication intolerance (nausea, vomiting or rash). * For nausea and vomiting use only clear liquids such as: tea, soda, bouillon until nausea subsides, then gradually increase diet as tolerated. * If you have any concerns or questions, call your surgeon's office. If physician is unavailable and it is an emergency, call 911 or go to the nearest emergency room. . Instructions / Follow-Up Instructions / Follow-Up MEDICATIONS: * Resume previous medications unless instructed otherwise by your surgeon. * Always take pain medication on a full stomach or with food to avoid upset stomach. * Do not drink alcohol or drive while taking narcotics. * Tylenol may be taken if narcotic not needed. SPECIAL CARE INSTRUCTIONS: __ None __ Keep extremity elevated and iced x 48 hours; apply ice 20-30 minutes 8-10 times/day. May remove at night. __ Sling __24 hrs/day __ Remove at night __ Shoulder Immobilizer __ 24 hrs/day __ Remove at night _X_ Dressing _X_ Maintain until seen in office, may shower with plastic over site __ Remove dressings in 24-48 hours and then may shower __ Cover incisions with band-aids after showering __ Do not remove steri-strips Call physician if chills or temperature rises above 102 degrees or pain unrelieved by prescribed pain medications at . . FOLLOW UP IN 2 WEEKS Diet Recommendations Home Diet: resume previous diet Procedures Procedures Performed: Right Carpal Tunnel Release Pending Studies Studies pending at discharge: no Medical Emergencies . Who to Call and When: Medical Emergencies: If at any time you feel your situation is an emergency, please call 911 immediately. . Non-Emergent Contact Non-Emergency issues call your: Surgeon . . "Provider Documentation" section prepared by Nick Luong. .
--- NOTE | 2017-12-24 07:56 | OPERATIVE REPORT ---
DATE OF OPERATION: 12/24/2017 SURGEON: Ziggy Burch MD CUSTOMS IMPORT SPECIALIST: BRAYAN Tipton PREOPERATIVE DIAGNOSIS: Right carpal tunnel syndrome. POSTOPERATIVE DIAGNOSIS: Same. PROCEDURE PERFORMED: Right carpal tunnel release. COMPLICATIONS: None. ESTIMATED BLOOD LOSS: Minimal. TOURNIQUET TIME: 5 minutes at 250 mmHg. ANESTHESIA: Local with IV sedation. OPERATIVE INDICATIONS: The patient is a 67-year-old female who has had a history of multiple recurrent cancers in the past. She has also developed multiple insufficiency fractures particular around her pelvis region. Over the years, she developed numbness and discomfort in both hands, right side a bit worse than the left. She had some thenar atrophy. She had nerve studies that showed moderate to severe bilateral carpal tunnel syndrome. It also has suggested some slight ulnar nerve compression at the wrist. The patient elected to proceed with right carpal tunnel release. She really was not having much in the way ulnar nerve symptoms and I felt that the release of the transverse carpal ligament does increase the dimensions of the Guyon's canal and I felt confident that this would treat both of her nerve issues distally. OPERATIVE PROCEDURE: The patient was taken to the operating room, identified and placed on the operating table in the supine position. All contact areas were appropriately padded. IV antibiotics were provided by anesthesia team. A right forearm tourniquet was placed. Some IV sedation was provided. 7 mL of a 50:50 combination of 0.5% Marcaine and 2% lidocaine were then injected in and around the proposed incision site. The right hand was then prepped and draped in the usual sterile fashion. The right hand was elevated and exsanguinated with Esmarch and tourniquet was placed at 250 mmHg. A 2.5-cm incision was made just ulnar to the palmaris longus tendon. Blunt dissection was carried through the subcutaneous tissue down the level of the palmar fascia. The palmar fascia was incised longitudinally in line with skin incision. The underlying transverse carpal ligament was identified. It was transected distally with the use of a [place] blade knife and then bluntly spread. Attention was then drawn proximally. Blunt dissection was carried out above and below the ligament proximally. The ligament was then transected for a minimum distance of 2 cm proximal to the wrist flexion crease. The ligament was bluntly spread and found to be completely released. The wound was irrigated with copious amounts of normal saline. Tourniquet was let down for a tourniquet time of 5 minutes. Hemostasis was assured with the use of electrocautery. The skin was then closed with 5-0 nylon suture in a horizontal mattress fashion. The hand was then cleaned and dried and a sterile dressing of Xeroform, 4 x 4, sterile cast padding and Mj bandage were applied. The patient then transferred to the recovery room in stable condition. The patient tolerated the procedure well with no complications. All needle and sponge counts were correct at the end of the operation. I attest to the content of the Intraoperative Record and any orders documented therein. Any exception s are noted below.
[2017-12-24 08:05] VITALS: BP 145/75; PULSE 87; O2SAT 100
--- NOTE | 2017-12-24 08:13 | Anesthesiology Progress Note ---
Anesthesia Post Op Note Date & Time Dec 24, 2017 at 08:12 Vital Signs Pain Intensity: 0 Vital Signs Past 12 Hours Date Time Temp Pulse Resp B/P (MAP) Pulse Ox O2 Delivery O2 Flow Rate FiO2 12/24/17 08:05 87 16 145/75 (98) 100 Room Air 12/24/17 07:40 37.0 90 16 111/66 (81) 95 Room Air 12/24/17 06:30 37.1 92 16 124/79 (94) 96 Room Air Notes Mental Status: alert / awake / arousable, participated in evaluation Nausea / Vomiting: adequately controlled Pain: adequately controlled Airway Patency, RR, SpO2: stable & adequate BP & HR: stable & adequate Hydration State: stable & adequate Anesthetic Complications: no major complications apparent
== END | disposition home or self-care (01) ==
LOC: X.SURG 06:11
PROVIDERS: ATTEND Orthopaedic Surgery Sports Medicine
DX: G56.01 Carpal tunnel syndrome, right upper limb (principal); Z85.048 Personal history of other malignant neoplasm of rectum, rectosigmoid junction, and anus; Z98.890 Other specified postprocedural states; Z90.710 Acquired absence of both cervix and uterus; Z82.49 Family history of ischemic heart disease and other diseases of the circulatory system; Z82.3 Family history of stroke; Z83.3 Family history of diabetes mellitus; Z80.3 Family history of malignant neoplasm of breast

== ENCOUNTER → 2018-01-28 | Outpatient (CLI) | payer BC ==
[~2018-01-28] MED LIST changes: -ATROPINE SULFATE 0.1 MG/ML 5ML SYR IV PRN; -BUPIVACAINE 0.5 % 5 MG/1 ML PF 10ML VIAL ONE; -CEFAZOLIN 1000MG IV PUSH 5 ML IV SCH; -EpHEDrine SULFATE INJ 50 MG/ML AMP IV PRN; -FENTANYL CITRATE INJ 50 MCG/1 ML 2 ML VIAL IV PRN; -FENTANYL CITRATE INJ 50 MCG/1 ML 2 ML VIAL ONE; -LACTATED RINGER'S 1000ML 1,000 ML IV SCH; -LIDOCAINE HCL 2% 2 ML VIAL (20MG/ML) ONE; -LIDOCAINE HCL 2% LOCAL 20 ML VIAL ONE; -MIDAZOLAM HCL 1 MG/ML 2ML VIAL ONE; -ONDANSETRON INJ 2 MG/ML 2 ML VIAL IV PRN; -PROPOFOL IV EMULSION 10 MG/ML 20 ML VIAL IV ONE; -SODIUM CHLORIDE 0.9% 1000ML 1,000 ML IV SCH; +SULI200T4 PO
[2018-01-28 17:24] LABS: BLOOD UREA NITROGEN 27 mg/dl (7-18); CALCIUM 9.8 mg/dl (8.5-10.1); CARBON DIOXIDE 31 mmol/L (21-32); CREATININE 1.43 mg/dl (0.60-1.20); GLUCOSE 93 mg/dl (70-99); POTASSIUM 3.6 mmol/L (3.5-5.1); SODIUM 139 mmol/L (136-145)
== END | disposition home or self-care (01) ==
LOC: C.LABBC 13:48
DX: I10 Essential (primary) hypertension (principal)

== ENCOUNTER → 2018-02-11 | Day surgery (SDC) | payer BC ==
[2018-02-04 09:25] VITALS: Ht 157.5 cm; Wt 75.0 kg
[~2018-02-11] VITALS: Ht 157.5 cm; Wt 75.0 kg
[~2018-02-11] MED LIST changes: -ACET-749 PO; +ATROPINE SULFATE 0.1 MG/ML 5ML SYR IV PRN; +BUPIVACAINE 0.5 % 5 MG/1 ML MPF 30ML VIAL ONE; +CEFAZOLIN 1000MG IV PUSH 7.5 ML IV SCH; +DEXAMETHASONE SOD INJ 4 MG/ML VIAL ONE; +EpHEDrine SULFATE INJ 50 MG/ML AMP IV PRN; +FENTANYL CITRATE INJ 50 MCG/1 ML 2 ML VIAL IV PRN; +FENTANYL CITRATE INJ 50 MCG/1 ML 2 ML VIAL ONE; +FLUMAZENIL 0.1 MG/1 ML 10 ML VIAL IV PRN; +HYDROmorphone INJ 2 MG/ML SYR/VIAL IV PRN; +LABETALOL HCL IV 5 MG/ML 20ML IV PRN; +LACTATED RINGER'S 1000ML 1,000 ML IV SCH; +LIDOCAINE HCL 2% 2 ML VIAL (20MG/ML) ONE; +LIDOCAINE HCL 2% LOCAL 20 ML VIAL ONE; +MEPERIDINE HCL 25 MG/ML CARP IV PRN; +MIDAZOLAM HCL 1 MG/ML 2ML VIAL ONE; +NALOXONE HCL 0.4 MG/1 ML VIAL/CARP IV PRN; -NAPR-1169 PO; -ONDA8TAB6 PO; +ONDANSETRON INJ 2 MG/ML 2 ML VIAL IV PRN; +ONDANSETRON INJ 2 MG/ML 2 ML VIAL ONE; +PHENYLEPHRINE 100MCG/ML 5ML SYR IV PRN; +PROPOFOL IV EMULSION 10 MG/ML 20 ML VIAL IV ONE; +SODIUM CHLORIDE 0.9% 1000ML 1,000 ML IV SCH
--- NOTE | 2018-02-11 08:16 | [facility] Post Operative Brief Note ---
Immediate Operative Summary Operative Date Feb 11, 2018. Pre-Operative Diagnosis Left Carpal Tunnel Syndrome Post-Operative Diagnosis Same Procedure(s) Performed Left Carpal Tunnel Release Surgeon Dr. Burch Environmental Engineering Aide Surgeon(s) Nicole Luong PA-C Estimated Blood Loss Minimal Findings Consistent with Post-Op Diagnosis Specimens None Drains None Anesthesia Type MAC Complication(s) none Disposition Disposition: Recovery Room / PACU
[2018-02-11 08:19] VITALS: TEMP 36.5
--- NOTE | 2018-02-11 08:19 | Discharge Instructions-SurgCtr ---
Discharge Instructions Date of Service Feb 11, 2018. Visit Reason for Visit: Left Carpal Tunnel Syndrome Discharge Discharge Diagnosis / Problem: left carpal tunnel syndrome Discharge Goals Goal(s): Decrease discomfort, Improve function, Therapeutic intervention Activity Recommendations Activity Limitations: per Instructions/Follow-up section Anesthesia . Post Anesthesia Instructions: If you have had General Anesthesia or IV Sedation: * Do not drive today. * Resume driving when surgeon permits. * Do not make important decisions or sign legal documents today. * Call surgeon for: 1. Temperature elevations greater than 101 degrees F. 2. Uncontrollable pain. 3. Excessive bleeding. 4. Persistent nausea and vomiting. 5. Medication intolerance (nausea, vomiting or rash). * For nausea and vomiting use only clear liquids such as: tea, soda, bouillon until nausea subsides, then gradually increase diet as tolerated. * If you have any concerns or questions, call your surgeon's office. If physician is unavailable and it is an emergency, call 911 or go to the nearest emergency room. . Instructions / Follow-Up Instructions / Follow-Up MEDICATIONS: * Resume previous medications unless instructed otherwise by your surgeon. * Always take pain medication on a full stomach or with food to avoid upset stomach. * Do not drink alcohol or drive while taking narcotics. * Ibuprofen or Tylenol may be taken if narcotic not needed. SPECIAL CARE INSTRUCTIONS: __ None __ Keep extremity elevated and iced x 48 hours; apply ice 20-30 minutes 8-10 times/day. May remove at night. __ Sling __24 hrs/day __ Remove at night __ Shoulder Immobilizer __ 24 hrs/day __ Remove at night _x_ Dressing _x_ Maintain until seen in office, may shower with plastic over site __ Remove dressings in 24-48 hours and then may shower __ Cover incisions with band-aids after showering __ Do not remove steri-strips Call physician if chills or temperature rises above 102 degrees or pain unrelieved by prescribed pain medications at . . follow up in 2 weeks Diet Recommendations Home Diet: resume previous diet Procedures Procedures Performed: Left Carpal Tunnel Release Pending Studies Studies pending at discharge: no Medical Emergencies . Who to Call and When: Medical Emergencies: If at any time you feel your situation is an emergency, please call 911 immediately. . Non-Emergent Contact Non-Emergency issues call your: Surgeon . . "Provider Documentation" section prepared by Nick Luong. .
--- NOTE | 2018-02-11 08:39 | OPERATIVE REPORT ---
DATE OF OPERATION: 02/11/2018 SURGEON: Ziggy Burch MD. CORPORATE PILOT: BRAYAN Tipton. PREOPERATIVE DIAGNOSIS: Left carpal tunnel syndrome. POSTOPERATIVE DIAGNOSIS: Same. PROCEDURE PERFORMED: Left carpal tunnel release. COMPLICATIONS: None. ESTIMATED BLOOD LOSS: Minimal. TOURNIQUET TIME: 6 minutes at 250 mmHg. ANESTHESIA: Local with IV sedation. OPERATIVE INDICATIONS: The patient is a 67-year-old female who has had multiple cancers in the past, who has had a several year history of bilateral hand pain, discomfort and numbness that gradually gotten worse over time. She had nerve studies that revealed moderate to severe bilateral carpal tunnel syndrome. It was suggested that she had a little bit of a mild ulnar neuropathy at the wrist as well based on the nerve test. She had underwent a right carpal tunnel release about 6 weeks ago and she is making significant recovery and elected to proceed with left carpal tunnel release. I did not feel she needed additional addressing of The Guyon's canal as releasing the carpal tunnel will increase the dimensions of the canal and take pressure off the ulnar nerve as well. OPERATIVE PROCEDURE: The patient was taken to the operating room, identified and placed on the operating table in supine position. All contact areas were appropriately padded. IV antibiotics were provided by anesthesia team. A left forearm tourniquet was placed. Some IV sedation was provided. About 5 mL of a 50:50 combination of 0.5% Marcaine and 2% lidocaine were then injected in and around the proposed incision site. The left hand was then prepped and draped in usual sterile fashion. Left arm was elevated and exsanguinated with Esmarch and tourniquet was placed at 250 mmHg. A 2.5-3 cm incision was made in the palm just ulnar to the palmaris longus tendon. Blunt dissection carried through subcutaneous tissue down below the palmar fascia. The palmar fascia was incised longitudinally in line with skin incision. The underlying transverse carpal ligament was identified. It was cleaned of all soft tissues. We transected distally with use of a [place] blade knife and then bluntly spread. Attention was then drawn proximally. Blunt dissection was carried out above and below the ligament proximally. The ligament was then transected from minimum distance of 3 cm proximal to the wrist flexion crease. The ligament was bluntly spread and found to be completely released. The wound was irrigated with copious amounts of normal saline. The tourniquet was let down for a tourniquet time of 6 minutes. Hemostasis was assured with use of electrocautery. The wound was once again irrigated and the skin was closed with 5-0 nylon suture in a horizontal mattress fashion. The hand was then cleaned and dried and a sterile dressing of Xeroform, 4 x 4, sterile cast padding and Mj bandage were applied. The patient then transferred to the recovery room in stable condition. The patient tolerated the procedure well with no complication. All needle and sponge counts were correct at the end of the operation. I attest to the content of the Intraoperative Record and any orders documented therein. Any exception s are noted below.
[2018-02-11 08:45] VITALS: BP 152/78; PULSE 82; O2SAT 95
--- NOTE | 2018-02-11 08:59 | Anesthesia Progress Nt - [facility] ---
Anesthesia Post Op Note Date & Time Feb 11, 2018 at 08:59 Vital Signs Pain Intensity: 0 Vital Signs Past 12 Hours Date Time Temp Pulse Resp B/P (MAP) Pulse Ox O2 Delivery O2 Flow Rate FiO2 02/11/18 08:45 82 16 152/78 (102) 95 Room Air 02/11/18 08:19 36.5 86 12 130/74 (92) 97 Room Air 02/11/18 06:47 36.8 89 20 128/78 (95) 97 Room Air Notes Mental Status: alert / awake / arousable, participated in evaluation Pt Amnestic to Procedure: Yes Nausea / Vomiting: adequately controlled Pain: adequately controlled Airway Patency, RR, SpO2: stable & adequate BP & HR: stable & adequate Hydration State: stable & adequate Anesthetic Complications: no major complications apparent
== END | disposition home or self-care (01) ==
LOC: X.SURG 06:30
PROVIDERS: ATTEND Orthopaedic Surgery Sports Medicine
DX: G56.02 Carpal tunnel syndrome, left upper limb (principal); M19.90 Unspecified osteoarthritis, unspecified site; E06.3 Autoimmune thyroiditis; E66.9 Obesity, unspecified; Z68.30 Body mass index [BMI] 30.0-30.9, adult; Z90.710 Acquired absence of both cervix and uterus; Z79.899 Other long term (current) drug therapy; Z98.890 Other specified postprocedural states; Z86.718 Personal history of other venous thrombosis and embolism; Z85.048 Personal history of other malignant neoplasm of rectum, rectosigmoid junction, and anus; Z85.41 Personal history of malignant neoplasm of cervix uteri

== ENCOUNTER 2018-04-06 14:07 | Inpatient (IN) | payer BC, OTHER ==
[~2018-04-06] VITALS: Ht 157.5 cm; Wt 73.6 kg
[~2018-04-06 14:07] MED LIST changes: -ATROPINE SULFATE 0.1 MG/ML 5ML SYR IV PRN; -BUPIVACAINE 0.5 % 5 MG/1 ML MPF 30ML VIAL ONE; -CEFAZOLIN 1000MG IV PUSH 7.5 ML IV SCH; -DEXAMETHASONE SOD INJ 4 MG/ML VIAL ONE; -EpHEDrine SULFATE INJ 50 MG/ML AMP IV PRN; -FENTANYL CITRATE INJ 50 MCG/1 ML 2 ML VIAL IV PRN; -FENTANYL CITRATE INJ 50 MCG/1 ML 2 ML VIAL ONE; -FLUMAZENIL 0.1 MG/1 ML 10 ML VIAL IV PRN; -HYDROmorphone INJ 2 MG/ML SYR/VIAL IV PRN; -LABETALOL HCL IV 5 MG/ML 20ML IV PRN; -LACTATED RINGER'S 1000ML 1,000 ML IV SCH; -LIDOCAINE HCL 2% 2 ML VIAL (20MG/ML) ONE; -LIDOCAINE HCL 2% LOCAL 20 ML VIAL ONE; -MEPERIDINE HCL 25 MG/ML CARP IV PRN; -MIDAZOLAM HCL 1 MG/ML 2ML VIAL ONE; -NALOXONE HCL 0.4 MG/1 ML VIAL/CARP IV PRN; -ONDANSETRON INJ 2 MG/ML 2 ML VIAL IV PRN; -ONDANSETRON INJ 2 MG/ML 2 ML VIAL ONE; -PHENYLEPHRINE 100MCG/ML 5ML SYR IV PRN; -PROPOFOL IV EMULSION 10 MG/ML 20 ML VIAL IV ONE; -SODIUM CHLORIDE 0.9% 1000ML 1,000 ML IV SCH
[2018-04-06] MEDS ORDERED: MoRPHine SULFATE 4 MG/ML 1 ML CARP\\VIAL IV STA ×2 (14:41→20:27)
[2018-04-06] MEDS ORDERED: SODIUM CHLORIDE 0.9% 500ML 500 ML IV STA (14:41)
[2018-04-06] MEDS ORDERED: ONDANSETRON INJ 2 MG/ML 2 ML VIAL IV STA (14:41)
--- NOTE | 2018-04-06 14:49 | EMERGENCY ROOM VISIT NOTE ---
ED Visit Note First contact with patient: 14:27 CHIEF COMPLAINT: Abdominal pain HISTORY OF PRESENTING ILLNESS: This is a 67-year-old female presents to the emergency department with complaint of abdominal pain. Patient was referred here by her doctor with concern for possible bowel obstruction. Patient states that she has been having increased abdominal pain and pressure for the past 2 days. She has a complex surgical history of a resection of the anus and rectum and colostomy from 2007 secondary to cancer, she reports a history of bowel obstruction in the past, and states this feels the same. She reports that she had some vomiting and diarrhea approximately 4-5 days ago with some chills, she states that her son also had GI symptoms that she felt that she just had a viral GI illness. She has not had any output from her colostomy since Friday morning, though she has been passing a little bit of gas. She has associated nausea and decreased appetite, but has not been vomiting since . She states the pain has been constant, progressively worsening, describes as a pressure and bloating feeling, worse with eating, currently rates as 5/10. She denies any other symptoms of headache, fevers, chest pain, shortness of breath, back pain, bloody or black stools, urinary symptoms, or unusual rash. She does note that she has had a cough for the past 5 days with a runny nose and congestion, she thinks that she may have bronchitis. The cough has been mostly nonproductive. REVIEW OF SYSTEMS: A complete 10 point review of systems was reviewed with the patient with pertinent positives and negatives as per history of present illness. All else were negative. PAST MEDICAL HISTORY: Reviewed in chart. SOCIAL HISTORY: Lives at home. Denies tobacco use. ALLERGIES: No known allergies. PHYSICAL EXAM: CONSTITUTIONAL: Pleasant and cooperative. No acute distress. Slightly pale, but nontoxic appearing. Well appearing and well nourished. HEENT: Normocephalic, atraumatic. Pupils equal, round and reactive to light, EOMI. TMs normal. Pharynx normal. Tacky mucous membranes. NECK: Supple, full active range of motion without discomfort. RESPIRATORY: Clear to auscultation bilaterally with no wheezing, crackles, rhonchi or stridor. Equal expansion bilaterally. CARDIOVASCULAR: Regular rate and rhythm with no murmurs, rubs or gallops. Normal peripheral perfusion. No edema. GASTROINTESTINAL: Soft, diffusely tender to palpation, protuberant, but not distended. No rebound tenderness or guarding. No palpable masses or HSM. Hypoactive bowel sounds in all quadrants. No CVA tenderness. Right lower quadrant colostomy stoma, no drainage noted in the bag. MUSCULOSKELETAL: Full range of motion of all joints without discomfort. INTEGUMENTARY: No rash or other significant dermatologic conditions noted. NEUROLOGIC: Alert and oriented X 4 with normal affect. Normal strength and sensation in all 4 extremities. No focal neurologic deficits noted. Normal speech. ED COURSE AND MEDICAL DECISION MAKING: CC: Patient presenting with complaint of abdominal pain and nausea DIFFERENTIAL DIAGNOSIS: Includes, but not limited to small bowel obstruction, ileus, partial bowel obstruction, incarcerated/strangulated hernia, colitis, adhesions, postviral gastroparesis, dehydration, among others. INTERPRETATION OF LABS: No leukocytosis, no anemia, mild hypokalemia, no other significant electrolyte abnormalities, renal function within baseline, elevated alk phos, normal lipase. UA negative. IMAGING: ABDOMEN AND PELVIS CT WITH IV AND ORAL CONTRAST CT DOSE: 556.67 mGy.cm HISTORY: Acute generalized abdominal pain . History of cervical carcinoma eval obstruction TECHNIQUE: Multiaxial CT images of the abdomen and pelvis were performed following the use of intravenous and oral contrast. A dose lowering technique was utilized adhering to the principles of ALARA. COMPARISON STUDY: CT abdomen and pelvis 07/10/2017, PET CT 08/27/2017, pelvic MRI 10/03/2017 FINDINGS: Multifocal multisegmental partially imaged groundglass opacities about the lung bases are noted which are seen most prominently within a bronchovascular distribution measuring up to 7 mm. Minimal tree-in-bud nodularity of the right middle lobe. Additionally, there is mild subsegmental bibasilar atelectasis. No pneumatosis or pneumoperitoneum. Imaged inferior cardiac chambers are unremarkable. Partially imaged catheter is seen within the cavoatrial junction superiorly. Coronary arterial calcifications are noted. Liver is unremarkable without suspicious mass lesions or intrahepatic biliary ductal dilation. Mild gallbladder distention with layering cholelithiasis. No wall thickening or pericholecystic fluid identified. The pancreas and adrenal glands are within normal limits. 1.27 m cyst of the inferior pole left kidney. Redemonstration of multifocal cortical thinning about the right kidney with moderate right-sided hydroureteronephrosis extending to level of the ureterovesicular junction. Moderate urinary bladder distention. Postoperative changes of the pelvis with prior hysterectomy. Relaxation of the pelvic floor musculature redemonstrated with prolapsed rectum. Moderate atherosclerosis of the aorta without aneurysm. No bulky adenopathy identified. Bilateral inguinal chain lymph nodes are seen measuring up to 8 mm on the right, unchanged. Small sliding-type hiatal hernia. There is no small bowel obstruction. Right lower quadrant ostomy with peristomal hernia containing mesenteric fat and small bowel loops is seen, diastases of 4.7 cm. There is mild swirling of the mid mesentery with mild mesenteric edema. No suspicious lytic or blastic bony lesions. Severe facet arthrosis of the lower lumbar spine. Remote fractures of the sacrum with multiple subacute appearing pelvic ring and right acetabular fractures redemonstrated. Severe intervertebral disc space narrowing at L4-L5 and L5-S1. There is mild displacement of the right acetabular fractures. Prominent subcortical cystic changes with severe joint space narrowing about the left hip. Prominent subcortical cystic changes involve the right femoral neck. IMPRESSION: 1. Right lower quadrant ostomy with parastomal hernia redemonstrated. No evidence of small bowel obstruction. 2. Multiple groundglass opacities of the imaged bilateral lung bases suggest infectious or inflammatory pneumonitis. 3. Mild gallbladder distention with cholelithiasis. 4. Multiple subacute appearing pelvic fractures redemonstrated. 5. Postoperative changes of the pelvis with pelvic floor relaxation and rectal prolapse redemonstrated. 6. Additional findings as above. MEDICATION RECONCILIATION: I attest that I have personally reviewed the patient 's current medication list. INITIAL VITAL SIGNS REVIEW: I reviewed the patient's initial vital signs and interpret them as follows: T: Afebrile; BP: Normotensive; HR: Tachycardic; RR : Within normal limits; Pulse Ox: Within normal limits on room air. Blood pressure screening: The patient was found to have normal blood pressure on screening and does not require follow-up for repeat blood pressure check. SUMMARY: Patient was evaluated at bedside, history and physical exam performed. She is pleasant and overall in good spirits. Patient is alert and oriented, no acute distress, but does appear uncomfortable , resting in the stretcher. Patient's abdomen is protuberant but soft and nondistended. She is diffusely tender throughout, but no rebound tenderness. She is noted to be mildly tachycardic and does appear to be slightly dehydrated on exam. She is nontoxic-appearing. Orders were placed at bedside for labs, UA, IV fluids for hydration, CT abdomen/ pelvis with IV and oral contrast to evaluate for bowel obstruction. Patient discussed with Dr. Chairez, who agrees with my assessment and plan. Labs and imaging reviewed as above, no significant abnormalities and CT read by radiologist as no bowel obstruction. I discussed at length with Dr. Chairez, while there is no evidence of definite bowel obstruction, I do feel the patient may have a developing obstruction, or an ileus, as she still has not had any output from her colostomy and she states the symptoms are similar to previous bowel obstructions. I discussed with Dr. Archer, general surgery, who agrees to consult on the patient and recommends nasogastric tube to low intermittent suction, keeping n.p.o. with IV fluids. I spoke with Dr. Burch, hospitalist service, who agrees to admit the patient. I discussed CT findings of the lungs concerning for a possible pneumonia, given patient's recent complaint of cough. A chest x-ray was added and will defer to the hospitalist team regarding antibiotic treatment. Patient reassessed multiple times throughout ED stay, she remained stable and well-appearing, her pain has been well controlled with IV morphine. Patient was updated on all results and plan for admission, she verbalized understanding and was agreeable to this plan. The patient was stable at time of admission. Problem List Medical Problems: (1) Anal cancer Status: Resolved (2) Back pain with sciatica Status: Chronic (3) Cervical cancer Status: Resolved (4) Colorectal cancer Status: Chronic (5) DVT (deep venous thrombosis) Status: Resolved (6) Encephalopathy Status: Resolved Current/Historical Medications Scheduled Amitriptyline HCl (Amitriptyline HCl), 25 MG PO HS Amoxicillin (Amoxil), 500 MG PO [id number] Ascorbic Acid (Ascorbic Acid), 500 MG PO BID Aspirin (Aspirin Adult Low Strengt), 81 MG PO QAM Ergocalciferol (Vitamin D2), 1 TAB PO QAM Escitalopram Oxalate (Escitalopram Oxalate), 30 MG PO QPM Furosemide (Furosemide), 40 MG PO QAM Gabapentin (Neurontin), 900 MG PO TID Hydroxychloroquine Sulfate (Hydroxychloroquine Sulfat), 100 MG PO QAM Levothyroxine Sodium (Levothyroxine Sodium), 112 MCG PO QAM Mirabegron (Myrbetriq Er), 50 MG PO QAM Multivitamin (Multivitamin), 1 TAB PO [id number] Pantoprazole Sodium (Protonix), 40 MG PO QAM Spironolactone (Spironolactone), 25 MG PO BID Sulindac (Clinoril), 200 MG PO Q12H Scheduled PRN Alprazolam (Alprazolam), 0.25-0.5 MG PO Q4-6HRS PRN for Anxiety Budesonide/Formoterol Fumarate (Symbicort 80/4.5 Inhaler), 2 PUFFS INH BID PRN for SOB/Wheezing Oxycodone HCl (Oxycodone HCl), 1-3 TAB PO Q4 PRN for Severe Pain Allergies Coded Allergies: POLLEN (Verified Allergy, Intermediate, RUNNY NOSE, ITCHY EYES, SNEEZING, 02/11/18) NO KNOWN DRUG ALLERGIES (Verified Allergy, Unknown, , 02/11/18) Vital Signs Date Time Temp Pulse Resp B/P (MAP) Pulse Ox O2 Delivery O2 Flow Rate FiO2 04/06/18 23:35 90 18 178/91 93 Room Air 04/06/18 22:26 91 18 144/87 90 Room Air 04/06/18 21:11 99 18 144/87 90 Room Air 04/06/18 19:31 83 18 142/78 96 Room Air 04/06/18 18:03 91 18 169/87 93 Room Air 04/06/18 16:10 85 18 171/94 97 Room Air 04/06/18 15:47 86 04/06/18 14:14 36.9 111 18 125/71 93 Room Air Laboratory Results 04/06/18 15:00 Red Blood Count 4.37, Mean Corpuscular Volume 88.1, Mean Corpuscular Hemoglobin 30.0, Mean Corpuscular Hemoglobin Concent 34.0, Mean Platelet Volume 9.4, Neutrophils (%) (Auto) 60.9, Lymphocytes (%) (Auto) 23.6, Monocytes (%) (Auto) 7.4, Eosinophils (%) (Auto) 6.5, Basophils (%) (Auto) 0.9, Neutrophils # (Auto) 3.57, Lymphocytes # (Auto) 1.38, Monocytes # (Auto) 0.43, Eosinophils # (Auto) 0.38, Basophils # (Auto) 0.05 04/06/18 15:00 Test 04/06/18 15:00 04/06/18 15:30 White Blood Count 5.85 K/uL (4.8-10.8) Red Blood Count 4.37 M/uL (4.2-5.4) Hemoglobin 13.1 g/dL (12.0-16.0) Hematocrit 38.5 % (37-47) Mean Corpuscular Volume 88.1 fL (80-100) Mean Corpuscular Hemoglobin 30.0 pg (25-34) Mean Corpuscular Hemoglobin Concent 34.0 g/dl (32-36) Platelet Count 304 K/uL (130-400) Mean Platelet Volume 9.4 fL (7.4-10.4) Neutrophils (%) (Auto) 60.9 % Lymphocytes (%) (Auto) 23.6 % Monocytes (%) (Auto) 7.4 % Eosinophils (%) (Auto) 6.5 % Basophils (%) (Auto) 0.9 % Neutrophils # (Auto) 3.57 K/uL (1.4-6.5) Lymphocytes # (Auto) 1.38 K/uL (1.2-3.4) Monocytes # (Auto) 0.43 K/uL (0.11-0.59) Eosinophils # (Auto) 0.38 K/uL (0-0.5) Basophils # (Auto) 0.05 K/uL (0-0.2) RDW Standard Deviation 45.0 fL (36.4-46.3) RDW Coefficient of Variation 13.9 % (11.5-14.5) Immature Granulocyte % (Auto) 0.7 % Immature Granulocyte # (Auto) 0.04 K/uL (0.00-0.02) Anion Gap 8.0 mmol/L (3-11) Est Creatinine Clear Calc Drug Dose 28.7 ml/min Estimated GFR () 33.8 Estimated GFR (Non- 29.2 BUN/Creatinine Ratio 11.8 (10-20) Calcium Level 10.2 mg/dl (8.5-10.1) Total Bilirubin 0.7 mg/dl (0.2-1) Direct Bilirubin 0.4 mg/dl (0-0.2) Aspartate Amino Transf (AST/SGOT) 50 U/L (15-37) Alanine Aminotransferase (ALT/SGPT) 44 U/L (12-78) Alkaline Phosphatase 221 U/L (45-117) Total Protein 8.8 gm/dl (6.4-8.2) Albumin 4.3 gm/dl (3.4-5.0) Lipase 288 U/L (73-393) Urine Color YELLOW Urine Appearance CLEAR (CLEAR) Urine pH 5.0 (4.5-7.5) Urine Specific [place] 1.013 (1.000-1.030) Urine Protein NEG (NEG) Urine Glucose (UA) NEG (NEG) Urine Ketones NEG (NEG) Urine Occult Blood NEG (NEG) Urine Nitrite NEG (NEG) Urine Bilirubin NEG (NEG) Urine Urobilinogen NEG (NEG) Urine Leukocyte Esterase NEG (NEG) Medications Administered Medications (Trade) Dose Ordered Sig/Dave Route Start Time Stop Time Status Last Admin Dose Admin Ondansetron HCl (Zofran Inj) 4 mg NOW STAT IV 04/06/18 14:41 04/06/18 14:44 DC 04/06/18 15:02 4 MG Morphine Sulfate (MoRPHine SULFATE INJ) 4 mg NOW STAT IV 04/06/18 14:41 04/06/18 14:44 DC 04/06/18 15:03 4 MG Sodium Chloride 500 ml @ 999 mls/hr Q31M STAT IV 04/06/18 14:41 04/06/18 15:11 DC 04/06/18 15:02 999 MLS/HR Sodium Chloride 1,000 ml @ 125 mls/hr Q8H STAT IV 04/06/18 20:27 04/07/18 04:26 04/06/18 21:12 125 MLS/HR Morphine Sulfate (MoRPHine SULFATE INJ) 4 mg NOW STAT IV 04/06/18 20:27 04/06/18 20:30 DC 04/06/18 20:27 4 MG Departure Information Impression Primary Impression: Abdominal pain Additional Impression: Nausea Dispostion Admitted as an inpatient Condition FAIR Referrals Eleuterio Amaya Jr,D.O. (PCP) Patient Instructions [facility] Problem Qualifiers Primary Impression: Abdominal pain Abdominal location: generalized Qualified Codes: R10.84 - Generalized abdominal pain
[2018-04-06] MEDS ORDERED: OPTIRAY 320 IV PRN (15:00)
[2018-04-06 15:18] LABS: BASO % 0.9 %; BASO ABS # 0.05 K/uL (0-0.2); EOS % 6.5 %; EOS ABS # 0.38 K/uL (0-0.5); HEMATOCRIT 38.5 % (37-47); HEMOGLOBIN 13.1 g/dL (12.0-16.0); IG# 0.04 K/uL (0.00-0.02); LYMPH % 23.6 %; LYMPH ABS # 1.38 K/uL (1.2-3.4); MEAN CELL VOLUME 88.1 fL (80-100); MEAN PLATELET VOLUME 9.4 fL (7.4-10.4); MONO % 7.4 %; MONO ABS # 0.43 K/uL (0.11-0.59); NEUT % 60.9 %; NEUT ABS # 3.57 K/uL (1.4-6.5); PLATELET COUNT 304 K/uL (130-400); RED CELL DISTRIBUTION WIDTH CV 13.9 % (11.5-14.5); WHITE BLOOD COUNT 5.85 K/uL (4.8-10.8)
[2018-04-06 15:37] LABS: ALBUMIN 4.3 gm/dl (3.4-5.0); CALCIUM 10.2 mg/dl (8.5-10.1); CREATININE 1.75 mg/dl (0.60-1.20); POTASSIUM 3.2 mmol/L (3.5-5.1)
[2018-04-06 15:40] LABS: TOTAL PROTEIN 8.8 gm/dl (6.4-8.2)
--- NOTE | 2018-04-06 18:14 | DIAGNOSTIC IMAGING REPORT ---
ABDOMEN AND PELVIS CT WITH IV AND ORAL CONTRAST CT DOSE: 556.67 mGy.cm HISTORY: Acute generalized abdominal pain . History of cervical carcinoma eval obstruction TECHNIQUE: Multiaxial CT images of the abdomen and pelvis were performed following the use of intravenous and oral contrast. A dose lowering technique was utilized adhering to the principles of ALARA. COMPARISON STUDY: CT abdomen and pelvis 07/10/2017, PET CT 08/27/2017, pelvic MRI 10/03/2017 FINDINGS: Multifocal multisegmental partially imaged groundglass opacities about the lung bases are noted which are seen most prominently within a bronchovascular distribution measuring up to 7 mm. Minimal tree-in-bud nodularity of the right middle lobe. Additionally, there is mild subsegmental bibasilar atelectasis. No pneumatosis or pneumoperitoneum. Imaged inferior cardiac chambers are unremarkable. Partially imaged catheter is seen within the cavoatrial junction superiorly. Coronary arterial calcifications are noted. Liver is unremarkable without suspicious mass lesions or intrahepatic biliary ductal dilation. Mild gallbladder distention with layering cholelithiasis. No wall thickening or pericholecystic fluid identified. The pancreas and adrenal glands are within normal limits. 1.27 m cyst of the inferior pole left kidney. Redemonstration of multifocal cortical thinning about the right kidney with moderate right-sided hydroureteronephrosis extending to level of the ureterovesicular junction. Moderate urinary bladder distention. Postoperative changes of the pelvis with prior hysterectomy. Relaxation of the pelvic floor musculature redemonstrated with prolapsed rectum. Moderate atherosclerosis of the aorta without aneurysm. No bulky adenopathy identified. Bilateral inguinal chain lymph nodes are seen measuring up to 8 mm on the right, unchanged. Small sliding-type hiatal hernia. There is no small bowel obstruction. Right lower quadrant ostomy with peristomal hernia containing mesenteric fat and small bowel loops is seen, diastases of 4.7 cm. There is mild swirling of the mid mesentery with mild mesenteric edema. No suspicious lytic or blastic bony lesions. Severe facet arthrosis of the lower lumbar spine. Remote fractures of the sacrum with multiple subacute appearing pelvic ring and right acetabular fractures redemonstrated. Severe intervertebral disc space narrowing at L4-L5 and L5-S1. There is mild displacement of the right acetabular fractures. Prominent subcortical cystic changes with severe joint space narrowing about the left hip. Prominent subcortical cystic changes involve the right femoral neck. IMPRESSION: 1. Right lower quadrant ostomy with parastomal hernia redemonstrated. No evidence of small bowel obstruction. 2. Multiple groundglass opacities of the imaged bilateral lung bases suggest infectious or inflammatory pneumonitis. 3. Mild gallbladder distention with cholelithiasis. 4. Multiple subacute appearing pelvic fractures redemonstrated. 5. Postoperative changes of the pelvis with pelvic floor relaxation and rectal prolapse redemonstrated. 6. Additional findings as above. Electronically signed by: Kenton Hilton M.D. 04/06/2018 6:13 PM Dictated Date/Time: 04/06/2018 5:58 PM
--- NOTE | 2018-04-06 19:09 | EMERGENCY ROOM VISIT NOTE ---
ED Visit Note First contact with patient: 14:29 Patient was seen by our PA/ATTORNEY. I was involved in the patient's care and did evaluate the patient myself. I was involved in the care throughout the ER stay. The patient presents with symptoms of a small bowel obstruction. She has had obstructions before. She has a colostomy and has had no output in several days. She feels bloated and has colicky pain. Workup here does not show any obvious findings of small bowel obstruction by CT imaging. Laboratory testing was somewhat reassuring. Despite fluids and pain and nausea medication, the patient does not feel any better, there has been no output in her colostomy bag. Surgery will be consulted. Medicine will also be consulted. I think she has an ileus or possibly an early partial small bowel obstruction.
[2018-04-06] MEDS ORDERED: SODIUM CHLORIDE 0.9% 1000ML 1,000 ML IV STA (20:27)
--- NOTE | 2018-04-06 20:41 | Surgery Consultation ---
Consultation Date of Consultation: April 06, 2018. Attending Physician: History of Present Illness CHIEF COMPLAINT: Abdominal pain HISTORY OF PRESENTING ILLNESS: This is a 67-year-old female presents to the emergency department with complaint of abdominal pain. Patient was referred here by her doctor with concern for possible bowel obstruction. Patient states that she has been having increased abdominal pain and pressure for the past 2 days. She has a history of a total colectomy and colostomy from 2007 secondary to cancer, she reports a history of bowel obstruction in the past, and states this feels the same. She reports that she had some vomiting and diarrhea approximately 4-5 days ago with some chills, she states that her son also had GI symptoms that she felt that she just had a viral GI illness. She has not had any output from her colostomy since Friday morning. She has associated nausea and decreased appetite, but has not been vomiting since .[] REVIEW OF SYSTEMS: A complete 10 point review of systems was reviewed with the patient with pertinent positives and negatives as per history of present illness. All else were negative. I saw pt at ER, I reviewed pt's H/P with pt, pt is still have some abdominal pain, nothing pass in stoma, pt denies fever, but pt has some cough, Past Medical/Surgical History Medical Problems: (1) Abdominal pain Status: Acute (2) Arthritis Status: Acute (3) Head trauma Status: Acute (4) Laceration of ear Status: Acute (5) Leg pain, right Status: Acute (6) Nausea Status: Acute (7) Radiculopathy of lumbar region Status: Acute (8) Sciatica Status: Acute (9) Seizure-like activity Status: Acute Family History Hypertension Social History Smoking Status: Never Smoker Smokeless Tobacco Use: No Alcohol Use: none Drug Use: none Marital Status: Housing Status: lives with family Occupation Status: retired Allergies Coded Allergies: POLLEN (Verified Allergy, Intermediate, RUNNY NOSE, ITCHY EYES, SNEEZING, 02/11/18) NO KNOWN DRUG ALLERGIES (Verified Allergy, Unknown, , 02/11/18) Home Medications Scheduled Amitriptyline HCl (Amitriptyline HCl), 25 MG PO HS Amoxicillin (Amoxil), 500 MG PO [id number] Ascorbic Acid (Ascorbic Acid), 500 MG PO BID Aspirin (Aspirin Adult Low Strengt), 81 MG PO QAM Ergocalciferol (Vitamin D2), 1 TAB PO QAM Escitalopram Oxalate (Escitalopram Oxalate), 30 MG PO QPM Furosemide (Furosemide), 40 MG PO QAM Gabapentin (Neurontin), 900 MG PO TID Hydroxychloroquine Sulfate (Hydroxychloroquine Sulfat), 100 MG PO QAM Levothyroxine Sodium (Levothyroxine Sodium), 112 MCG PO QAM Mirabegron (Myrbetriq Er), 50 MG PO QAM Multivitamin (Multivitamin), 1 TAB PO [id number] Pantoprazole Sodium (Protonix), 40 MG PO QAM Spironolactone (Spironolactone), 25 MG PO BID Sulindac (Clinoril), 200 MG PO Q12H Scheduled PRN Alprazolam (Alprazolam), 0.25-0.5 MG PO Q4-6HRS PRN for Anxiety Budesonide/Formoterol Fumarate (Symbicort 80/4.5 Inhaler), 2 PUFFS INH BID PRN for SOB/Wheezing Oxycodone HCl (Oxycodone HCl), 1-3 TAB PO Q4 PRN for Severe Pain Current Inpatient Medications Current Inpatient Medications Medications (Trade) Dose Ordered Sig/Dave Route Start Time Stop Time Status Last Admin Dose Admin Ioversol (Optiray 320) 100 ml UD PRN IV 04/06/18 15:00 04/10/18 14:59 Review of Systems Constitutional: No fever, No chills, No sweats, No weight loss, No weakness, No fatigue, No problem reported Eyes: No worsening of vision, No eye pain, No redness, No discharge, No diplopia, No problem reported ENT: No hearing loss, No unusual epistaxis, No nasal symptoms, No sore throat, No tinnitus, No dental problems, No trouble swallowing, No problem reported Respiratory: + cough Cardiovascular: No chest pain, No orthopnea, No PND, No edema, No claudication , No palpitations, No problem reported Abdomen: + pain, + nausea, + vomiting, + problem reported (rectal and colon cancer, total colectomy with stoma) Musculoskeletal: No joint pain, No muscle pain, No swelling, No calf pain, No problem reported Genitourinary - Female: No dysuria, No urinary frequency, No urinary urgency, No urinary incontinence, No urinary retention, No hematuria, No dysmenorrhea, No menorrhagia, No metrorrhagia, No rash, No vaginal bleeding, No vaginal discharge, No vaginal itching, No vulvodynia, No , No problem reported Neurologic: No memory loss, No paralysis, No weakness, No numbness/tingling, No vertigo, No balance problems, No problem reported Psychiatric: No depression symptoms, No anhedonism, No anxiety, No insomnia, No substance abuse, No problem reported Endocrine: No fatigue, No excessive thirst, No excessive urination, No problem reported Hematologic / Lymphatic: + problem reported (right groin lymph node resection) , No abnormal bleeding/bruising, No clotting problems, No swollen lymph nodes, No night sweats Physical Exam Date Time Temp Pulse Resp B/P (MAP) Pulse Ox O2 Delivery O2 Flow Rate FiO2 04/06/18 19:31 83 18 142/78 96 Room Air 04/06/18 18:03 91 18 169/87 93 Room Air 04/06/18 16:10 85 18 171/94 97 Room Air 04/06/18 15:47 86 04/06/18 14:14 36.9 111 18 125/71 93 Room Air General Appearance: WD/WN, no apparent distress Head: normocephalic Eyes: normal inspection ENT: normal ENT inspection Neck: supple, no JVD Respiratory/Chest: chest non-tender, lungs clear, normal breath sounds Cardiovascular: regular rate, rhythm, no edema, no gallop, no JVD, no murmur Abdomen/GI: normal bowel sounds, soft (stoma intactno gas and stool in bag, no rebound pain), + tenderness Extremities/Musculoskelatal: normal inspection, no calf tenderness, normal capillary refill Neurologic/Psych: no motor/sensory deficits, alert, normal mood/affect, oriented x 3 Skin: normal color, warm/dry, no rash Lymphatic: no adenopathy Laboratory Results Last 24 Hours Test 04/06/18 15:00 04/06/18 15:30 White Blood Count 5.85 K/uL Red Blood Count 4.37 M/uL Hemoglobin 13.1 g/dL Hematocrit 38.5 % Mean Corpuscular Volume 88.1 fL Mean Corpuscular Hemoglobin 30.0 pg Mean Corpuscular Hemoglobin Concent 34.0 g/dl Platelet Count 304 K/uL Mean Platelet Volume 9.4 fL Neutrophils (%) (Auto) 60.9 % Lymphocytes (%) (Auto) 23.6 % Monocytes (%) (Auto) 7.4 % Eosinophils (%) (Auto) 6.5 % Basophils (%) (Auto) 0.9 % Neutrophils # (Auto) 3.57 K/uL Lymphocytes # (Auto) 1.38 K/uL Monocytes # (Auto) 0.43 K/uL Eosinophils # (Auto) 0.38 K/uL Basophils # (Auto) 0.05 K/uL RDW Standard Deviation 45.0 fL RDW Coefficient of Variation 13.9 % Immature Granulocyte % (Auto) 0.7 % Immature Granulocyte # (Auto) 0.04 K/uL Sodium Level 139 mmol/L Potassium Level 3.2 mmol/L Chloride Level 101 mmol/L Carbon Dioxide Level 30 mmol/L Anion Gap 8.0 mmol/L Blood Urea Nitrogen 21 mg/dl Creatinine 1.75 mg/dl Est Creatinine Clear Calc Drug Dose 28.7 ml/min Estimated GFR () 33.8 Estimated GFR (Non- 29.2 BUN/Creatinine Ratio 11.8 Random Glucose 88 mg/dl Calcium Level 10.2 mg/dl Total Bilirubin 0.7 mg/dl Direct Bilirubin 0.4 mg/dl Aspartate Amino Transf (AST/SGOT) 50 U/L Alanine Aminotransferase (ALT/SGPT) 44 U/L Alkaline Phosphatase 221 U/L Total Protein 8.8 gm/dl Albumin 4.3 gm/dl Lipase 288 U/L Urine Color YELLOW Urine Appearance CLEAR Urine pH 5.0 Urine Specific [place] 1.013 Urine Protein NEG Urine Glucose (UA) NEG Urine Ketones NEG Urine Occult Blood NEG Urine Nitrite NEG Urine Bilirubin NEG Urine Urobilinogen NEG Urine Leukocyte Esterase NEG Assessment & Plan CT scan- FINDINGS: Multifocal multisegmental partially imaged groundglass opacities about the lung bases are noted which are seen most prominently within a bronchovascular distribution measuring up to 7 mm. Minimal tree-in-bud nodularity of the right middle lobe. Additionally, there is mild subsegmental bibasilar atelectasis. No pneumatosis or pneumoperitoneum. Imaged inferior cardiac chambers are unremarkable. Partially imaged catheter is seen within the cavoatrial junction superiorly. Coronary arterial calcifications are noted. Liver is unremarkable without suspicious mass lesions or intrahepatic biliary ductal dilation. Mild gallbladder distention with layering cholelithiasis. No wall thickening or pericholecystic fluid identified. The pancreas and adrenal glands are within normal limits. 1.27 m cyst of the inferior pole left kidney. Redemonstration of multifocal cortical thinning about the right kidney with moderate right-sided hydroureteronephrosis extending to level of the ureterovesicular junction. Moderate urinary bladder distention. Postoperative changes of the pelvis with prior hysterectomy. Relaxation of the pelvic floor musculature redemonstrated with prolapsed rectum. Moderate atherosclerosis of the aorta without aneurysm. No bulky adenopathy identified. Bilateral inguinal chain lymph nodes are seen measuring up to 8 mm on the right, unchanged. Small sliding-type hiatal hernia. There is no small bowel obstruction. Right lower quadrant ostomy with peristomal hernia containing mesenteric fat and small bowel loops is seen, diastases of 4.7 cm. There is mild swirling of the mid mesentery with mild mesenteric edema. No suspicious lytic or blastic bony lesions. Severe facet arthrosis of the lower lumbar spine. Remote fractures of the sacrum with multiple subacute appearing pelvic ring and right acetabular fractures redemonstrated. Severe intervertebral disc space narrowing at L4-L5 and L5-S1. There is mild displacement of the right acetabular fractures. Prominent subcortical cystic changes with severe joint space narrowing about the left hip. Prominent subcortical cystic changes involve the right femoral neck. IMPRESSION: 1. Right lower quadrant ostomy with parastomal hernia redemonstrated. No evidence of small bowel obstruction. 2. Multiple groundglass opacities of the imaged bilateral lung bases suggest infectious or inflammatory pneumonitis. 3. Mild gallbladder distention with cholelithiasis. 4. Multiple subacute appearing pelvic fractures redemonstrated. 5. Postoperative changes of the pelvis with pelvic floor relaxation and rectal prolapse redemonstrated. 6. Additional findings as above. assessment: This is a 67-year-old female presents to the emergency department with complaint of abdominal pain. Patient was referred here by her doctor with concern for possible bowel obstruction. Patient states that she has been having increased abdominal pain and pressure for the past 2 days. She has a history of a total colectomy and colostomy from 2007 secondary to cancer, IMP: possible partial SBO. pneumonitis plan: now no indication for surgery, I recommend that hospitalist will admit pt to hospital , NPO, NG Tube, iv fluid, iv antibiotic, repeat labs in am i will F/U pt,
--- NOTE | 2018-04-06 20:46 | DIAGNOSTIC IMAGING REPORT ---
CHEST ONE VIEW PORTABLE CLINICAL HISTORY: cough, eval PNA dyspnea COMPARISON STUDY: 03/14/2016 FINDINGS: Residual central catheter in the right atrium. Lungs are clear. Mild chronic elevation right hemidiaphragm. IMPRESSION: No acute process. Chronic change. The above report was generated using voice recognition software. It may contain grammatical, syntax or spelling errors. Electronically signed by: Sj Hassan M.D. 04/06/2018 8:45 PM Dictated Date/Time: 04/06/2018 8:44 PM
[2018-04-06] MEDS ORDERED: ALPRAZOLAM 0.5 MG TAB PO PRN (22:30)
[2018-04-06] MEDS ORDERED: BUDESONIDE/FORMOTEROL FUMARATE 80/4.5 60 PUFFS/INHALER INH PRN (22:30)
[2018-04-06] MEDS ORDERED: PIPERACILL/TAZOBAC CONSULT ACTIVE PRN (22:30)
[2018-04-06] MEDS ORDERED: ONDANSETRON INJ 2 MG/ML 2 ML VIAL IV PRN (22:30)
--- NOTE | 2018-04-06 22:59 | History and Physical ---
History & Physical Date & Time of Service: April 06, 2018 at 22:35 Chief Complaint: Dr Referred Primary Care Physician: Eleuterio Amaya Jr,D.O. History of Present Illness Source: patient 67yo female with history of total colectomy with end-colostomy for malignancy in 2007 presenting with diffuse abdominal pain, distention and pressure x 2 days as well as decreased output from her colostomy over the last 3 days. She was seen by her PCP earlier today for concern for possible SBO. Patient reports nausea/vomiting and diarrhea as well as some fevers 4-5 days ago, + sick contacts. Patient with diffuse abdominal pain and fullness presently. States that it feels similar to prior episode of SBO. ER Course: NSS, Morphine, Zofran, Past Medical/Surgical History Medical Problems: 1. Anal cancer 2. Anemia 3. Cervical cancer 4. Colorectal cancer 5. DVT Past Surgical History: Total colectomy Colestomy - 2007 Hysterectomy Hernia repair Foot Family History Hypertension Social History Smoking Status: Never Smoker Smokeless Tobacco Use: No Alcohol Use: none Drug Use: none Marital Status: Housing status: lives with family Occupational Status: retired Immunizations History of Influenza Vaccine: No History of Tetanus Vaccine?: UTD Tetanus Immunization Date: March 31, 2008 History of Pneumococcal: Yes Pneumococcal Date: Aug 14, 2008 History of Hepatitis B Vaccine: Unknown Allergies Coded Allergies: POLLEN (Verified Allergy, Intermediate, RUNNY NOSE, ITCHY EYES, SNEEZING, 02/11/18) NO KNOWN DRUG ALLERGIES (Verified Allergy, Unknown, , 02/11/18) Home Medications Scheduled Amitriptyline HCl (Amitriptyline HCl), 25 MG PO HS Amoxicillin (Amoxil), 500 MG PO [id number] Ascorbic Acid (Ascorbic Acid), 500 MG PO BID Aspirin (Aspirin Adult Low Strengt), 81 MG PO QAM Ergocalciferol (Vitamin D2), 1 TAB PO QAM Escitalopram Oxalate (Escitalopram Oxalate), 30 MG PO QPM Furosemide (Furosemide), 40 MG PO QAM Gabapentin (Neurontin), 900 MG PO TID Hydroxychloroquine Sulfate (Hydroxychloroquine Sulfat), 100 MG PO QAM Levothyroxine Sodium (Levothyroxine Sodium), 112 MCG PO QAM Mirabegron (Myrbetriq Er), 50 MG PO QAM Multivitamin (Multivitamin), 1 TAB PO [id number] Pantoprazole Sodium (Protonix), 40 MG PO QAM Spironolactone (Spironolactone), 25 MG PO BID Sulindac (Clinoril), 200 MG PO Q12H Scheduled PRN Alprazolam (Alprazolam), 0.25-0.5 MG PO Q4-6HRS PRN for Anxiety Budesonide/Formoterol Fumarate (Symbicort 80/4.5 Inhaler), 2 PUFFS INH BID PRN for SOB/Wheezing Oxycodone HCl (Oxycodone HCl), 1-3 TAB PO Q4 PRN for Severe Pain Review of Systems Constitutional: No fever, No chills, No sweats, No weight loss, No fatigue Eyes: No worsening of vision, No eye pain ENT: No hearing loss, No sore throat, No trouble swallowing Respiratory: No cough, No sputum, No wheezing, No shortness of breath Cardiovascular: No chest pain, No orthopnea, No edema, No claudication, No palpitations Abdomen: + pain, + nausea, + vomiting, + constipation, No diarrhea Musculoskeletal: No joint pain, No muscle pain Genitourinary - Female: No dysuria, No urinary frequency, No urinary urgency, No urinary incontinence Neurologic: No memory loss, No paralysis Hematologic / Lymphatic: No abnormal bleeding/bruising, No clotting problems Physical Exam Vital Signs Date Time Temp Pulse Resp B/P (MAP) Pulse Ox O2 Delivery O2 Flow Rate FiO2 04/06/18 22:26 91 18 144/87 90 Room Air 04/06/18 21:11 99 18 144/87 90 Room Air 04/06/18 19:31 83 18 142/78 96 Room Air 04/06/18 18:03 91 18 169/87 93 Room Air 04/06/18 16:10 85 18 171/94 97 Room Air 04/06/18 15:47 86 04/06/18 14:14 36.9 111 18 125/71 93 Room Air General Appearance: WD/WN, no apparent distress Head: normocephalic, atraumatic Eyes: normal inspection, PERRL, EOMI ENT: normal ENT inspection, hearing grossly normal, pharynx normal Neck: supple, no adenopathy, thyroid normal, no JVD, no carotid bruits, trachea midline Respiratory/Chest: chest non-tender, lungs clear, normal breath sounds, no respiratory distress, no accessory muscle use Cardiovascular: regular rate, rhythm, no edema, no gallop, no murmur Abdomen/GI: normal bowel sounds (diffusely tender with voluntary guarding), soft (colostomy in place, no output noted) Back: normal inspection, no CVA tenderness Extremities/Musculoskelatal: normal inspection, no calf tenderness, no pedal edema Diagnostics Laboratory Results Results Past 24 Hours Test 04/06/18 15:00 04/06/18 15:30 Range/Units White Blood Count 5.85 4.8-10.8 K/uL Red Blood Count 4.37 4.2-5.4 M/uL Hemoglobin 13.1 12.0-16.0 g/dL Hematocrit 38.5 37-47 % Mean Corpuscular Volume 88.1 80-100 fL Mean Corpuscular Hemoglobin 30.0 25-34 pg Mean Corpuscular Hemoglobin Concent 34.0 32-36 g/dl Platelet Count 304 130-400 K/uL Mean Platelet Volume 9.4 7.4-10.4 fL Neutrophils (%) (Auto) 60.9 % Lymphocytes (%) (Auto) 23.6 % Monocytes (%) (Auto) 7.4 % Eosinophils (%) (Auto) 6.5 % Basophils (%) (Auto) 0.9 % Neutrophils # (Auto) 3.57 1.4-6.5 K/uL Lymphocytes # (Auto) 1.38 1.2-3.4 K/uL Monocytes # (Auto) 0.43 0.11-0.59 K/uL Eosinophils # (Auto) 0.38 0-0.5 K/uL Basophils # (Auto) 0.05 0-0.2 K/uL RDW Standard Deviation 45.0 36.4-46.3 fL RDW Coefficient of Variation 13.9 11.5-14.5 % Immature Granulocyte % (Auto) 0.7 % Immature Granulocyte # (Auto) 0.04 0.00-0.02 K/uL Sodium Level 139 136-145 mmol/L Potassium Level 3.2 3.5-5.1 mmol/L Chloride Level 101 98-107 mmol/L Carbon Dioxide Level 30 21-32 mmol/L Anion Gap 8.0 3-11 mmol/L Blood Urea Nitrogen 21 7-18 mg/dl Creatinine 1.75 0.60-1.20 mg/dl Est Creatinine Clear Calc Drug Dose 28.7 ml/min Estimated GFR () 33.8 Estimated GFR (Non- 29.2 BUN/Creatinine Ratio 11.8 10-20 Random Glucose 88 70-99 mg/dl Calcium Level 10.2 8.5-10.1 mg/dl Total Bilirubin 0.7 0.2-1 mg/dl Direct Bilirubin 0.4 0-0.2 mg/dl Aspartate Amino Transf (AST/SGOT) 50 15-37 U/L Alanine Aminotransferase (ALT/SGPT) 44 12-78 U/L Alkaline Phosphatase 221 45-117 U/L Total Protein 8.8 6.4-8.2 gm/dl Albumin 4.3 3.4-5.0 gm/dl Lipase 288 73-393 U/L Urine Color YELLOW Urine Appearance CLEAR CLEAR Urine pH 5.0 4.5-7.5 Urine Specific [place] 1.013 1.000-1.030 Urine Protein NEG NEG Urine Glucose (UA) NEG NEG Urine Ketones NEG NEG Urine Occult Blood NEG NEG Urine Nitrite NEG NEG Urine Bilirubin NEG NEG Urine Urobilinogen NEG NEG Urine Leukocyte Esterase NEG NEG Diagnostic Radiology CHEST ONE VIEW PORTABLE CLINICAL HISTORY: cough, eval PNA dyspnea COMPARISON STUDY: 03/14/2016 FINDINGS: Residual central catheter in the right atrium. Lungs are clear. Mild chronic elevation right hemidiaphragm. IMPRESSION: No acute process. Chronic change. ################################################################################ ################ ABDOMEN AND PELVIS CT WITH IV AND ORAL CONTRAST CT DOSE: 556.67 mGy.cm HISTORY: Acute generalized abdominal pain . History of cervical carcinoma eval obstruction TECHNIQUE: Multiaxial CT images of the abdomen and pelvis were performed following the use of intravenous and oral contrast. A dose lowering technique was utilized adhering to the principles of ALARA. COMPARISON STUDY: CT abdomen and pelvis 07/10/2017, PET CT 08/27/2017, pelvic MRI 10/03/2017 FINDINGS: Multifocal multisegmental partially imaged groundglass opacities about the lung bases are noted which are seen most prominently within a bronchovascular distribution measuring up to 7 mm. Minimal tree-in-bud nodularity of the right middle lobe. Additionally, there is mild subsegmental bibasilar atelectasis. No pneumatosis or pneumoperitoneum. Imaged inferior cardiac chambers are unremarkable. Partially imaged catheter is seen within the cavoatrial junction superiorly. Coronary arterial calcifications are noted. Liver is unremarkable without suspicious mass lesions or intrahepatic biliary ductal dilation. Mild gallbladder distention with layering cholelithiasis. No wall thickening or pericholecystic fluid identified. The pancreas and adrenal glands are within normal limits. 1.27 m cyst of the inferior pole left kidney. Redemonstration of multifocal cortical thinning about the right kidney with moderate right-sided hydroureteronephrosis extending to level of the ureterovesicular junction. Moderate urinary bladder distention. Postoperative changes of the pelvis with prior hysterectomy. Relaxation of the pelvic floor musculature redemonstrated with prolapsed rectum. Moderate atherosclerosis of the aorta without aneurysm. No bulky adenopathy identified. Bilateral inguinal chain lymph nodes are seen measuring up to 8 mm on the right, unchanged. Small sliding-type hiatal hernia. There is no small bowel obstruction. Right lower quadrant ostomy with peristomal hernia containing mesenteric fat and small bowel loops is seen, diastases of 4.7 cm. There is mild swirling of the mid mesentery with mild mesenteric edema. No suspicious lytic or blastic bony lesions. Severe facet arthrosis of the lower lumbar spine. Remote fractures of the sacrum with multiple subacute appearing pelvic ring and right acetabular fractures redemonstrated. Severe intervertebral disc space narrowing at L4-L5 and L5-S1. There is mild displacement of the right acetabular fractures. Prominent subcortical cystic changes with severe joint space narrowing about the left hip. Prominent subcortical cystic changes involve the right femoral neck. IMPRESSION: 1. Right lower quadrant ostomy with parastomal hernia redemonstrated. No evidence of small bowel obstruction. 2. Multiple groundglass opacities of the imaged bilateral lung bases suggest infectious or inflammatory pneumonitis. 3. Mild gallbladder distention with cholelithiasis. 4. Multiple subacute appearing pelvic fractures redemonstrated. 5. Postoperative changes of the pelvis with pelvic floor relaxation and rectal prolapse redemonstrated. 6. Additional findings as above. Impression Assessment and Plan 67yo C female s/p colostomy presenting with concern for SBO 1. SBO - imaging does not suggest SBO at this time, however, patient's symptoms are concerning. Her abdomen is soft, nondistended, +BS, NGT in place for decompression. She is diffusely tender with voluntary guarding. No rebound. -NPO except meds -NGT in place to LIWS -IVF hydration -Replete electrolytes -Zosyn 3.375gm IV q 6 hours -Surgery consulted from the ER, recs appreciated. 2. Hypothytroidism - stable -Continue Synthroid 3. Anxiety - stable -Continue Xanax, Elavil and Lexapro 4. GERD - stable -Continue Protonix 5. F/E/N - NSS, monitor electrolytes, give Kdur 40meq po, NPO except meds 6. Ppx - Lovenox for DVT prophylaxis 7. Code - Full Resuscitation Status Full VTE Prophylaxis Will order VTE Prophylaxis: Yes
[2018-04-06 23:17] VITALS: Ht 157.5 cm; Wt 73.6 kg
[2018-04-06 23:52] VITALS: O2SAT 97
[2018-04-07 00:20] VITALS: BP 153/88; PULSE 90; TEMP 36.7; O2SAT 94
[2018-04-07] MEDS: SODIUM CHLORIDE 0.9% 1000ML 1,000 ML IV SCH ×2 (01:14→11:07)
[2018-04-07] MEDS ORDERED: PIPERACILL/TAZOBAC IV 3.375 GM in DEXTROSE 5% 100ML 100 ML IV ONE (01:15)
[2018-04-07] MEDS ORDERED: POTASSIUM CHLORIDE 10 MEQ TABCR PO ONE (01:30)
[2018-04-07] MEDS: ACETAMINOPHEN IV 650 MG in EMPTY BAG 0 ML IV PRN ×3 (03:06→17:13)
[2018-04-07 05:38] LABS: BASO % 0.6 %; BASO ABS # 0.04 K/uL (0-0.2); EOS % 4.5 %; EOS ABS # 0.29 K/uL (0-0.5); HEMOGLOBIN 11.4 g/dL (12.0-16.0); IG# 0.04 K/uL (0.00-0.02); LYMPH % 22.9 %; LYMPH ABS # 1.47 K/uL (1.2-3.4); MEAN CELL VOLUME 89.3 fL (80-100); MEAN CORPUSCULAR HEMOGLOBIN 29.1 pg (25-34); MEAN CORPUSCULAR HGB CONC 32.6 g/dl (32-36); MEAN PLATELET VOLUME 8.9 fL (7.4-10.4); MONO % 5.1 %; MONO ABS # 0.33 K/uL (0.11-0.59); NEUT % 66.3 %; NEUT ABS # 4.24 K/uL (1.4-6.5); PLATELET COUNT 269 K/uL (130-400); RED CELL DISTRIBUTION WIDTH CV 14.2 % (11.5-14.5); RED CELL DISTRIBUTION WIDTH SD 46.6 fL (36.4-46.3); WHITE BLOOD COUNT 6.41 K/uL (4.8-10.8)
[2018-04-07] MEDS: LEVOTHYROXINE 112 MCG TAB PO SCH (05:50)
[2018-04-07] MEDS: PIPERACILL/TAZOBAC IV 3.375 GM in DEXTROSE 5% 100ML 100 ML IV SCH ×2 (05:50→14:00)
[2018-04-07 05:58] LABS: ALBUMIN 3.4 gm/dl (3.4-5.0); CREATININE 1.52 mg/dl (0.60-1.20); POTASSIUM 3.5 mmol/L (3.5-5.1)
[2018-04-07 06:01] LABS: TOTAL PROTEIN 7.1 gm/dl (6.4-8.2)
[2018-04-07 07:14] VITALS: BP 131/77; PULSE 80; TEMP 36.5; O2SAT 92
[2018-04-07 07:55] VITALS: BP 146/75; PULSE 80; TEMP 36.6; O2SAT 94
[2018-04-07] MEDS: PANTOprazole SOD 40 MG TAB PO SCH (09:25)
[2018-04-07] MEDS: POTASSIUM CHLORIDE 20 MEQ TABCR PO SCH ×2 (09:25→17:13)
[2018-04-07] MEDS: ASCORBIC ACID 500 MG TAB PO SCH ×2 (09:25→20:39)
[2018-04-07] MEDS: ENOXAPARIN 30 MG/0.3 ML SYR SQ SCH (09:25)
[2018-04-07] MEDS: HYDROXYCHLOROQUINE SULFATE 200 MG TAB PO SCH (09:26)
[2018-04-07] MEDS: CHOLECALCIFEROL 400 INTER.UNIT TAB PO SCH (09:26)
[2018-04-07] MEDS: GABAPENTIN 300 MG CAP PO SCH ×3 (09:27→20:38)
[2018-04-07] MEDS: MIRABEGRON ER 25 MG TAB PO SCH (09:27)
[2018-04-07] MEDS: MULTIVITAMIN TAB PO SCH (09:28)
[2018-04-07] MEDS: ASPIRIN 81 MG ECTAB PO SCH (09:28)
[2018-04-07] MEDS: SULINDAC 200 MG TAB PO SCH ×2 (09:28→20:38)
--- NOTE | 2018-04-07 11:18 | Surgery Progress Note ---
Surgery Progress Note Date of Service April 07, 2018. Subjective Post OP Day: HD # 1 Feeling better today than last evening and yesterday. Less abdominal bloating and pain Has ostomy output this morning, light brown thick liquid stool about 75 cc No nausea or vomiting NGT with 230 cc dark brown output, some bleeding of right nares from NGT Objective Vital Signs: Date Time Temp Pulse Resp B/P (MAP) Pulse Ox O2 Delivery O2 Flow Rate FiO2 04/07/18 07:55 36.6 80 14 146/75 (98) 94 Room Air 04/07/18 07:22 Room Air 04/07/18 07:14 36.5 80 18 131/77 (95) 92 Room Air 04/07/18 00:20 Room Air 04/07/18 00:20 36.7 90 18 153/88 (109) 94 Room Air 04/06/18 23:52 91 18 153/76 97 Room Air 04/06/18 23:35 90 18 178/91 93 Room Air 04/06/18 23:17 Room Air 04/06/18 22:26 91 18 144/87 90 Room Air 04/06/18 21:11 99 18 144/87 90 Room Air 04/06/18 19:31 83 18 142/78 96 Room Air 04/06/18 18:03 91 18 169/87 93 Room Air 04/06/18 16:10 85 18 171/94 97 Room Air 04/06/18 15:47 86 04/06/18 14:14 36.9 111 18 125/71 93 Room Air Physical Exam: nasogastric drainage (dark brown/black output) General Appearance: WD/WN, no apparent distress Head: + pertinent finding (NGT in right nares) Neck: trachea midline Respiratory/Chest: no respiratory distress, no accessory muscle use Abdomen: non distended, soft, no organomegaly, no pulsatile mass, + abnormal bowel sounds (hypoactive bowel sounds), + pertinent finding (colostomy of the RLQ, with air present. Stool removed) Laboratory Results: Results Past 24 Hours Test 04/06/18 15:00 04/06/18 15:30 04/07/18 05:16 Range/Units White Blood Count 5.85 6.41 4.8-10.8 K/uL Red Blood Count 4.37 3.92 4.2-5.4 M/uL Hemoglobin 13.1 11.4 12.0-16.0 g/dL Hematocrit 38.5 35.0 37-47 % Mean Corpuscular Volume 88.1 89.3 80-100 fL Mean Corpuscular Hemoglobin 30.0 29.1 25-34 pg Mean Corpuscular Hemoglobin Concent 34.0 32.6 32-36 g/dl Platelet Count 304 269 130-400 K/uL Mean Platelet Volume 9.4 8.9 7.4-10.4 fL Neutrophils (%) (Auto) 60.9 66.3 % Lymphocytes (%) (Auto) 23.6 22.9 % Monocytes (%) (Auto) 7.4 5.1 % Eosinophils (%) (Auto) 6.5 4.5 % Basophils (%) (Auto) 0.9 0.6 % Neutrophils # (Auto) 3.57 4.24 1.4-6.5 K/uL Lymphocytes # (Auto) 1.38 1.47 1.2-3.4 K/uL Monocytes # (Auto) 0.43 0.33 0.11-0.59 K/uL Eosinophils # (Auto) 0.38 0.29 0-0.5 K/uL Basophils # (Auto) 0.05 0.04 0-0.2 K/uL RDW Standard Deviation 45.0 46.6 36.4-46.3 fL RDW Coefficient of Variation 13.9 14.2 11.5-14.5 % Immature Granulocyte % (Auto) 0.7 0.6 % Immature Granulocyte # (Auto) 0.04 0.04 0.00-0.02 K/uL Prothrombin Time 10.5 9.0-12.0 SECONDS Prothromb Time International Ratio 1.0 0.9-1.1 Sodium Level 139 140 136-145 mmol/L Potassium Level 3.2 3.5 3.5-5.1 mmol/L Chloride Level 101 103 98-107 mmol/L Carbon Dioxide Level 30 29 21-32 mmol/L Anion Gap 8.0 8.0 3-11 mmol/L Blood Urea Nitrogen 21 18 7-18 mg/dl Creatinine 1.75 1.52 0.60-1.20 mg/dl Est Creatinine Clear Calc Drug Dose 28.7 32.8 ml/min Estimated GFR () 33.8 40.1 Estimated GFR (Non- 29.2 34.6 BUN/Creatinine Ratio 11.8 11.7 10-20 Random Glucose 88 90 70-99 mg/dl Calcium Level 10.2 9.0 8.5-10.1 mg/dl Total Bilirubin 0.7 0.7 0.2-1 mg/dl Direct Bilirubin 0.4 0.3 0-0.2 mg/dl Aspartate Amino Transf (AST/SGOT) 50 37 15-37 U/L Alanine Aminotransferase (ALT/SGPT) 44 34 12-78 U/L Alkaline Phosphatase 221 179 45-117 U/L Total Protein 8.8 7.1 6.4-8.2 gm/dl Albumin 4.3 3.4 3.4-5.0 gm/dl Lipase 288 73-393 U/L Hepatitis C Antibody Screen NEG NEG Urine Color YELLOW Urine Appearance CLEAR CLEAR Urine pH 5.0 4.5-7.5 Urine Specific [place] 1.013 1.000-1.030 Urine Protein NEG NEG Urine Glucose (UA) NEG NEG Urine Ketones NEG NEG Urine Occult Blood NEG NEG Urine Nitrite NEG NEG Urine Bilirubin NEG NEG Urine Urobilinogen NEG NEG Urine Leukocyte Esterase NEG NEG Assessment & Plan Partial SBO? CT scan showing no evidence of bowel dilatation or obstruction. Had no ostomy output since Friday. 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 No obstruction. -Vitals stable, afebrile, no leukocytosis - NGT with 230 cc of dark brown/black output - + ostomy output - abdominal pain improved Plan: Continue current pain management, limit narcotics if possible DC NGT Start clear liquids, advised to take slow encourage ambulation and OOB to chair when possible Continue current medical management will follow Dr. Archer has seen and examined pt, agrees with above
[2018-04-07 11:56] VITALS: BP 137/86; PULSE 84; TEMP 36.4; O2SAT 96
[2018-04-07 15:05] VITALS: BP 169/92; PULSE 79; TEMP 36.5; O2SAT 95
--- NOTE | 2018-04-07 17:55 | Progress Note ---
Subjective Date of Service: April 07, 2018. Subjective Pt evaluation today including: conversation w/ patient, conversation w/ family , physical exam, chart review, lab review, review of studies, conversation w/ data management consultant, review of inpatient medication list Mild abdominal cramping pain, has passing gas, no nausea vomiting, NG tube has removed per surgeon Problem List Medical Problems: (1) Abdominal pain Status: Acute (2) Arthritis Status: Acute (3) Head trauma Status: Acute (4) Laceration of ear Status: Acute (5) Leg pain, right Status: Acute (6) Nausea Status: Acute (7) Radiculopathy of lumbar region Status: Acute (8) Sciatica Status: Acute (9) Seizure-like activity Status: Acute Review of Systems Constitutional: + weakness, + fatigue, No fever, No chills, No sweats, No weight loss, No problem reported Eyes: No worsening of vision, No eye pain, No redness, No discharge, No diplopia ENT: No hearing loss, No unusual epistaxis, No nasal symptoms, No sore throat, No tinnitus, No dental problems, No trouble swallowing Respiratory: No cough, No sputum, No wheezing, No shortness of breath, No dyspnea on exertion, No dyspnea at rest, No hemoptysis Cardiac: No chest pain, No orthopnea, No PND, No edema, No claudication, No palpitations Abdomen: No pain, No nausea, No vomiting, No diarrhea, No constipation Musculoskeletal: No joint pain, No muscle pain, No swelling, No calf pain Female : No dysuria, No urinary frequency, No hematuria, No incontinence, No abnormal vaginal bleeding, No vaginal discharge Neurologic: No memory loss, No paralysis, No weakness, No numbness/tingling, No vertigo, No balance problems Psychiatric: No depression symptoms, No anhedonism, No anxiety, No insomnia, No substance abuse Heme: No abnormal bleeding/bruising, No clotting problems, No swollen lymph nodes, No night sweats Endo: No fatigue, No excessive thirst, No excessive urination Skin: No rash, No itch, No new/changing skin lesions, No color change, No bleeding Objective Vital Signs Date Time Temp Pulse Resp B/P (MAP) Pulse Ox O2 Delivery O2 Flow Rate FiO2 04/07/18 15:15 Room Air 04/07/18 15:05 36.5 79 18 169/92 (117) 95 5/8/18 11:56 36.4 84 16 137/86 (103) 96 Room Air 04/07/18 11:17 Room Air 04/07/18 07:55 36.6 80 14 146/75 (98) 94 Room Air 04/07/18 07:22 Room Air 04/07/18 07:14 36.5 80 18 131/77 (95) 92 Room Air 04/07/18 00:20 Room Air 04/07/18 00:20 36.7 90 18 153/88 (109) 94 Room Air 04/06/18 23:52 91 18 153/76 97 Room Air 04/06/18 23:35 90 18 178/91 93 Room Air 04/06/18 23:17 Room Air 04/06/18 22:26 91 18 144/87 90 Room Air 04/06/18 21:11 99 18 144/87 90 Room Air 04/06/18 19:31 83 18 142/78 96 Room Air 04/06/18 18:03 91 18 169/87 93 Room Air Physical Exam General Appearance: WD/WN, no apparent distress Eyes: normal inspection, PERRL, EOMI, sclerae normal ENT: normal ENT inspection, hearing grossly normal, pharynx normal Neck: supple, no adenopathy, thyroid normal, no JVD, no carotid bruits, trachea midline Respiratory/Chest: chest non-tender, normal breath sounds, no respiratory distress, no accessory muscle use, + decreased breath sounds Cardiovascular: regular rate, rhythm, no edema, no gallop, no JVD, no murmur Abdomen: normal bowel sounds, non tender, soft, no organomegaly, no pulsatile mass, + pertinent finding (Colostomy bag in place is full of gas ) Extremities: normal range of motion, non-tender, normal inspection, no pedal edema, no calf tenderness, normal capillary refill, pelvis stable Neurologic/Psychiatric: sponsorship manager II-XII nml as tested, no motor/sensory deficits, alert, normal mood/affect, oriented x 3, + abnormal cerebellar tests Skin: normal color, warm/dry, no rash Lymphatic: no adenopathy Laboratory Results Last 24 Hours Test 04/07/18 05:16 White Blood Count 6.41 K/uL Red Blood Count 3.92 M/uL Hemoglobin 11.4 g/dL Hematocrit 35.0 % Mean Corpuscular Volume 89.3 fL Mean Corpuscular Hemoglobin 29.1 pg Mean Corpuscular Hemoglobin Concent 32.6 g/dl Platelet Count 269 K/uL Mean Platelet Volume 8.9 fL Neutrophils (%) (Auto) 66.3 % Lymphocytes (%) (Auto) 22.9 % Monocytes (%) (Auto) 5.1 % Eosinophils (%) (Auto) 4.5 % Basophils (%) (Auto) 0.6 % Neutrophils # (Auto) 4.24 K/uL Lymphocytes # (Auto) 1.47 K/uL Monocytes # (Auto) 0.33 K/uL Eosinophils # (Auto) 0.29 K/uL Basophils # (Auto) 0.04 K/uL RDW Standard Deviation 46.6 fL RDW Coefficient of Variation 14.2 % Immature Granulocyte % (Auto) 0.6 % Immature Granulocyte # (Auto) 0.04 K/uL Sodium Level 140 mmol/L Potassium Level 3.5 mmol/L Chloride Level 103 mmol/L Carbon Dioxide Level 29 mmol/L Anion Gap 8.0 mmol/L Blood Urea Nitrogen 18 mg/dl Creatinine 1.52 mg/dl Est Creatinine Clear Calc Drug Dose 32.8 ml/min Estimated GFR () 40.1 Estimated GFR (Non- 34.6 BUN/Creatinine Ratio 11.7 Random Glucose 90 mg/dl Calcium Level 9.0 mg/dl Total Bilirubin 0.7 mg/dl Direct Bilirubin 0.3 mg/dl Aspartate Amino Transf (AST/SGOT) 37 U/L Alanine Aminotransferase (ALT/SGPT) 34 U/L Alkaline Phosphatase 179 U/L Total Protein 7.1 gm/dl Albumin 3.4 gm/dl Assessment and Plan 67yo female s/p colostomy admitted for possible concern for SBO Possible SBO, improved, Surgeon on the case, removed NG tube, start clear liquid diet, and follow-up, continue IV fluids and supportive care Hypothytroidism - stable, Continue Synthroid Anxiety - stable, Continue Xanax, Elavil and Lexapro GERD - stable, Continue Protonix Possible aspiration pneumonitis, was on zosyn upon admission, repeat chest x- ray was no signs of infection, will DC antibiotic Decrease IV fluid GI DVT prophylaxis covered Increase activity Continued [facility] stay due to: multiple IV medications needed Discharge planning: home
[2018-04-07] MEDS: AMITRIPTYLINE HCL 25 MG TAB PO SCH (20:38)
[2018-04-07] MEDS: ESCITALOPRAM OXALATE 20 MG TAB PO SCH (20:38)
[2018-04-07 23:10] VITALS: BP 115/68; PULSE 80; TEMP 36.6; O2SAT 96
[2018-04-08 05:15] LABS: CALCIUM 9.1 mg/dl (8.5-10.1); CREATININE 1.94 mg/dl (0.60-1.20); POTASSIUM 3.6 mmol/L (3.5-5.1)
[2018-04-08] MEDS: LEVOTHYROXINE 112 MCG TAB PO SCH (05:41)
[2018-04-08 07:23] VITALS: BP 114/65; PULSE 80; TEMP 36.5; O2SAT 98
[2018-04-08] MEDS: CHOLECALCIFEROL 400 INTER.UNIT TAB PO SCH (08:45)
[2018-04-08] MEDS: MIRABEGRON ER 25 MG TAB PO SCH (08:45)
[2018-04-08] MEDS: MULTIVITAMIN TAB PO SCH (08:45)
[2018-04-08] MEDS: GABAPENTIN 300 MG CAP PO SCH ×3 (08:45→20:45)
[2018-04-08] MEDS: PANTOprazole SOD 40 MG TAB PO SCH (08:45)
[2018-04-08] MEDS: SULINDAC 200 MG TAB PO SCH ×2 (08:46→20:44)
[2018-04-08] MEDS: HYDROXYCHLOROQUINE SULFATE 200 MG TAB PO SCH (08:46)
[2018-04-08] MEDS: ASPIRIN 81 MG ECTAB PO SCH (08:46)
[2018-04-08] MEDS: POTASSIUM CHLORIDE 20 MEQ TABCR PO SCH ×2 (08:46→17:27)
[2018-04-08] MEDS: ASCORBIC ACID 500 MG TAB PO SCH ×2 (08:47→21:18)
[2018-04-08] MEDS: ENOXAPARIN 30 MG/0.3 ML SYR SQ SCH (08:47)
[2018-04-08] MEDS: LACTATED RINGER'S 1000ML 1,000 ML IV SCH (08:53)
[2018-04-08 10:31] VITALS: BP 114/65; PULSE 80; TEMP 36.5; O2SAT 98
[2018-04-08 15:17] VITALS: BP 133/79; PULSE 65; TEMP 36.7; O2SAT 97
--- NOTE | 2018-04-08 15:45 | Progress Note ---
Subjective Date of Service: April 08, 2018. Subjective Pt evaluation today including: conversation w/ patient, conversation w/ family , physical exam, chart review, lab review, review of studies, conversation w/ j2ee consultant, review of inpatient medication list Has bowel movement in \the colostomy bag, up and walk, no fever and chill, deny nausea vomiting, Problem List Medical Problems: (1) Abdominal pain Status: Acute (2) Arthritis Status: Acute (3) Head trauma Status: Acute (4) Laceration of ear Status: Acute (5) Leg pain, right Status: Acute (6) Nausea Status: Acute (7) Radiculopathy of lumbar region Status: Acute (8) Sciatica Status: Acute (9) Seizure-like activity Status: Acute Review of Systems Constitutional: No fever, No chills, No sweats, No weight loss, No weakness, No fatigue, No problem reported Eyes: No worsening of vision, No eye pain, No redness, No discharge, No diplopia ENT: No hearing loss, No unusual epistaxis, No nasal symptoms, No sore throat, No tinnitus, No dental problems, No trouble swallowing Respiratory: No cough, No sputum, No wheezing, No shortness of breath, No dyspnea on exertion, No dyspnea at rest, No hemoptysis Cardiac: No chest pain, No orthopnea, No PND, No edema, No claudication, No palpitations Abdomen: No pain, No nausea, No vomiting, No diarrhea, No constipation Musculoskeletal: No joint pain, No muscle pain, No swelling, No calf pain Female : No dysuria, No urinary frequency, No hematuria, No incontinence, No abnormal vaginal bleeding, No vaginal discharge Neurologic: No memory loss, No paralysis, No weakness, No numbness/tingling, No vertigo, No balance problems Psychiatric: No depression symptoms, No anhedonism, No anxiety, No insomnia, No substance abuse Heme: No abnormal bleeding/bruising, No clotting problems, No swollen lymph nodes, No night sweats Endo: No fatigue, No excessive thirst, No excessive urination Skin: No rash, No itch, No new/changing skin lesions, No color change, No bleeding Objective Vital Signs Date Time Temp Pulse Resp B/P (MAP) Pulse Ox O2 Delivery O2 Flow Rate FiO2 04/08/18 15:17 36.7 65 16 133/79 (97) 97 Room Air 04/08/18 10:31 36.5 80 18 98 Room Air 04/08/18 07:40 Room Air 04/08/18 07:23 36.5 80 18 114/65 (81) 98 Room Air 04/07/18 23:11 Room Air 04/07/18 23:10 36.6 80 16 115/68 (84) 96 Room Air Physical Exam General Appearance: WD/WN, no apparent distress Eyes: normal inspection, PERRL, EOMI, sclerae normal ENT: normal ENT inspection, hearing grossly normal, pharynx normal Neck: supple, no adenopathy, thyroid normal, no JVD, no carotid bruits, trachea midline Respiratory/Chest: chest non-tender, lungs clear, normal breath sounds, no respiratory distress, no accessory muscle use Cardiovascular: regular rate, rhythm, no edema, no gallop, no JVD, no murmur Abdomen: normal bowel sounds, soft, no organomegaly, no pulsatile mass, + pertinent finding (Colostomy bag in place, has stool in the back) Extremities: normal range of motion, non-tender, normal inspection, no pedal edema, no calf tenderness, normal capillary refill, pelvis stable Neurologic/Psychiatric: order editor II-XII nml as tested, no motor/sensory deficits, alert, normal mood/affect, oriented x 3 Skin: normal color, warm/dry, no rash Lymphatic: no adenopathy Laboratory Results Last 24 Hours Test 04/08/18 04:00 Sodium Level 138 mmol/L Potassium Level 3.6 mmol/L Chloride Level 106 mmol/L Carbon Dioxide Level 26 mmol/L Anion Gap 6.0 mmol/L Blood Urea Nitrogen 16 mg/dl Creatinine 1.94 mg/dl Est Creatinine Clear Calc Drug Dose 25.7 ml/min Estimated GFR () 29.9 Estimated GFR (Non- 25.8 BUN/Creatinine Ratio 8.1 Random Glucose 89 mg/dl Calcium Level 9.1 mg/dl Magnesium Level 1.9 mg/dl Assessment and Plan 67 yo female s/p colostomy admitted for possible concern for SBO Possible SBO, continue improved, Surgeon on the case, removed NG tube, start clear liquid diet, and follow-up, continue IV fluids and supportive care Further input will be per surgeon Hypothytroidism - stable, Continue Synthroid Anxiety - stable, Continue Xanax, Elavil and Lexapro GERD - stable, Continue Protonix Possible aspiration pneumonitis, was on zosyn upon admission, repeat chest x- ray was no signs of infection, will DC antibiotic Decrease IV fluid GI DVT prophylaxis covered Increase activity Discussed with patient and family answered a question Continued [facility] stay due to: multiple IV medications needed Discharge planning: home
[2018-04-08] MEDS: ESCITALOPRAM OXALATE 20 MG TAB PO SCH (20:44)
[2018-04-08] MEDS: AMITRIPTYLINE HCL 25 MG TAB PO SCH (20:45)
--- NOTE | 2018-04-08 21:04 | Surgery Progress Note ---
Surgery Progress Note Date of Service April 08, 2018. Subjective + feeling well pt is doing better, no abdominal pain, passed gas and BM, Objective Vital Signs: Date Time Temp Pulse Resp B/P (MAP) Pulse Ox O2 Delivery O2 Flow Rate FiO2 04/08/18 15:20 Room Air 04/08/18 15:17 36.7 65 16 133/79 (97) 97 Room Air 04/08/18 10:31 36.5 80 18 98 Room Air 04/08/18 07:40 Room Air 04/08/18 07:23 36.5 80 18 114/65 (81) 98 Room Air 04/07/18 23:11 Room Air 04/07/18 23:10 36.6 80 16 115/68 (84) 96 Room Air General Appearance: WD/WN, no apparent distress Head: normocephalic Neck: supple, no JVD Respiratory/Chest: chest non-tender, lungs clear Cardiovascular: regular rate, rhythm, no edema, no gallop Abdomen: normal bowel sounds, non tender, non distended, soft, no organomegaly Extremities: normal range of motion, non-tender, normal inspection Laboratory Results: Results Past 24 Hours Test 04/08/18 04:00 Range/Units Sodium Level 138 136-145 mmol/L Potassium Level 3.6 3.5-5.1 mmol/L Chloride Level 106 98-107 mmol/L Carbon Dioxide Level 26 21-32 mmol/L Anion Gap 6.0 3-11 mmol/L Blood Urea Nitrogen 16 7-18 mg/dl Creatinine 1.94 0.60-1.20 mg/dl Est Creatinine Clear Calc Drug Dose 25.7 ml/min Estimated GFR () 29.9 Estimated GFR (Non- 25.8 BUN/Creatinine Ratio 8.1 10-20 Random Glucose 89 70-99 mg/dl Calcium Level 9.1 8.5-10.1 mg/dl Magnesium Level 1.9 1.8-2.4 mg/dl Assessment & Plan soft diet may D/C home tomorrow,
[2018-04-08 23:15] VITALS: BP 125/65; PULSE 87; TEMP 36.5; O2SAT 95
[2018-04-08] MEDS: ACETAMINOPHEN IV 650 MG in EMPTY BAG 0 ML IV PRN (23:54)
[2018-04-09] MEDS: LEVOTHYROXINE 112 MCG TAB PO SCH (05:27)
[2018-04-09] MEDS: LACTATED RINGER'S 1000ML 1,000 ML IV SCH (05:28)
[2018-04-09 06:17] LABS: CALCIUM 8.8 mg/dl (8.5-10.1); CREATININE 1.47 mg/dl (0.60-1.20); POTASSIUM 3.8 mmol/L (3.5-5.1)
[2018-04-09 07:34] VITALS: BP 144/77; PULSE 79; TEMP 36.5; O2SAT 96
[2018-04-09] MEDS: ENOXAPARIN 30 MG/0.3 ML SYR SQ SCH (10:07)
[2018-04-09] MEDS: SULINDAC 200 MG TAB PO SCH (10:08)
[2018-04-09] MEDS: ASPIRIN 81 MG ECTAB PO SCH (10:09)
[2018-04-09] MEDS: PANTOprazole SOD 40 MG TAB PO SCH (10:09)
[2018-04-09] MEDS: HYDROXYCHLOROQUINE SULFATE 200 MG TAB PO SCH (10:09)
[2018-04-09] MEDS: ASCORBIC ACID 500 MG TAB PO SCH (10:09)
[2018-04-09] MEDS: MIRABEGRON ER 25 MG TAB PO SCH (10:09)
[2018-04-09] MEDS: GABAPENTIN 300 MG CAP PO SCH (10:09)
[2018-04-09] MEDS: MULTIVITAMIN TAB PO SCH (10:09)
[2018-04-09] MEDS: POTASSIUM CHLORIDE 20 MEQ TABCR PO SCH (10:09)
[2018-04-09] MEDS: CHOLECALCIFEROL 400 INTER.UNIT TAB PO SCH (10:09)
--- NOTE | 2018-04-09 12:39 | Discharge Instructions ---
Discharge Instructions Date of Service April 09, 2018. Admission Reason for Admission: Small Bowel Obstruction Discharge Discharge Diagnosis / Problem: partial small bowel obstruction Discharge Goals Goal(s): Decrease discomfort, Improve function, Increase independence, Improve disease control, Improve nutritional status, Learn about illness, Diagnostic testing, Therapeutic intervention, Screening, Prevent Disease Progression Activity Recommendations Activity Limitations: resume your previous activity . Instructions / Follow-Up Instructions / Follow-Up you have Partial SBO, resolved, continue low fiber diet - you need to follow up with your primary care physician in 1 week, - take medication as instructed, never overdose or any misuse, or take with alcohol, because misuse of medicine may cause organ damage or , call me , or your primary care physician if have questions of discharge medicaitons. - call your primary care physician, or go to local emergency room if has any fever/chill, chest pain, shortness of breathing, nausea/vomiting/abdominal pain , facial droop/slurry speech/local weakness, or if has any questions. - fall precaution - diet as instructed - you need to follow up with your subspecialist, as instructed - you should understand that it is important to follow up the above instruction , and "not following the above instruction" may cause delayed or missed care of your medical conditions which may cause permanent organ damage and even . Current Hospital Diet Patient's current hospital diet: Low Fiber Diet Discharge Diet Recommended Diet: Low Fiber Diet Pending Studies Studies pending at discharge: no Laboratory Results Meds Administered (Past 24Hrs) Medications (Trade) Dose Ordered Sig/Dave Route Start Time Stop Time Status Last Admin Dose Admin Amitriptyline HCl (Elavil Tab) 25 mg HS PO 04/07/18 21:00 05/07/18 20:59 04/08/18 20:45 25 MG Escitalopram Oxalate (Lexapro Tab) 30 mg QPM PO 04/07/18 21:00 05/07/18 20:59 04/08/18 20:44 30 MG Lactated Ringer's 1,000 ml @ 50 mls/hr Q20H IV 04/08/18 08:31 05/08/18 08:30 04/09/18 05:28 50 MLS/HR Medical Emergencies . Who to Call and When: Medical Emergencies: If at any time you feel your situation is an emergency, please call 911 immediately. . Non-Emergent Contact Non-Emergency issues call your: Primary Care Provider . . "Provider Documentation" section prepared by Nikolai Orta. .
--- NOTE | 2018-04-09 17:01 | Discharge Summary ---
Discharge Summary Date of Service April 09, 2018. Discharge Summary Admission Date: April 06, 2018 at 22:30 Discharge Date: April 09, 2018 Discharge Disposition: Home Principal Diagnosis: Partial SBO Immunizations: Have You Had Influenza Vaccine: No History of Tetanus Vaccine?: UTD Tetanus Immunization Date: March 31, 2008 History of Pneumococcal: Yes Pneumococcal Date: Aug 14, 2008 History of Hepatitis B Vaccine: Unknown Procedures: No Consultations: Surgeon Medication Reconciliation Continued Medications: Alprazolam (Alprazolam) 0.5 Mg Tab 0.25-0.5 MG PO Q4-6HRS PRN for Anxiety Amitriptyline HCl (Amitriptyline HCl) 25 Mg Tab 25 MG PO HS Ascorbic Acid (Ascorbic Acid) 500 Mg Tab 500 MG PO BID, TAB Aspirin (Aspirin Adult Low Strengt) 81 Mg Chw 81 MG PO QAM Budesonide/Formoterol Fumarate (Symbicort 80/4.5 Inhaler) Aero 2 PUFFS INH BID PRN for SOB/Wheezing, INHALER Ergocalciferol (Vitamin D2) 400 Unit Tab 1 TAB PO QAM Escitalopram Oxalate (Escitalopram Oxalate) 20 Mg Tab 30 MG PO QPM Furosemide (Furosemide) 40 Mg Tab 40 MG PO QAM Gabapentin (Neurontin) 300 Mg Cap 900 MG PO TID, CAP Hydroxychloroquine Sulfate (Hydroxychloroquine Sulfat) 200 Mg Tab 100 MG PO QAM Levothyroxine Sodium (Levothyroxine Sodium) 112 Mcg Tab 112 MCG PO QAM Mirabegron (Myrbetriq Er) 50 Mg Tab 50 MG PO QAM Multivitamin (Multivitamin) Tab 1 TAB PO [id number] Oxycodone HCl (Oxycodone HCl) 5 Mg Tab 1-3 TAB PO Q4 PRN for Severe Pain Pantoprazole Sodium (Protonix) 20 Mg Tab 40 MG PO QAM Spironolactone (Spironolactone) 25 Mg Tab 25 MG PO BID Sulindac (Clinoril) 200 Mg Tab 200 MG PO Q12H, TAB Discontinued Medications: Amoxicillin (Amoxil) 500 Mg Cap 500 MG PO [id number], CAP Discharge Exam Up and walk doing well, colostomy bag has produced of gas, no abdominal pain, denies nausea vomiting Review of Systems: Constitutional: No fever, No chills, No sweats, No weight loss, No weakness , No fatigue, No problem reported Eyes: No worsening of vision, No eye pain, No redness, No discharge, No diplopia, No problem reported ENT: No hearing loss, No unusual epistaxis, No nasal symptoms, No sore throat, No tinnitus, No dental problems, No trouble swallowing, No problem reported Respiratory: No cough, No sputum, No wheezing, No shortness of breath, No dyspnea on exertion, No dyspnea at rest, No hemoptysis, No problem reported Cardiovascular: No chest pain, No orthopnea, No PND, No edema, No claudication, No palpitations, No problem reported Abdomen: No pain, No nausea, No vomiting, No diarrhea, No constipation, No GI bleeding, No problem reported Musculoskeletal: No joint pain, No muscle pain, No swelling, No calf pain, No problem reported Genitourinary - Female: No dysuria, No urinary frequency, No urinary urgency , No urinary incontinence, No urinary retention, No hematuria, No dysmenorrhea, No menorrhagia, No metrorrhagia, No rash, No vaginal bleeding, No vaginal discharge, No vaginal itching, No vulvodynia, No , No problem reported Neurologic: No memory loss, No paralysis, No weakness, No numbness/tingling , No vertigo, No balance problems, No problem reported Psychiatric: No depression symptoms, No anhedonism, No anxiety, No insomnia , No substance abuse, No problem reported Endocrine: No fatigue, No excessive thirst, No excessive urination, No problem reported Hematologic / Lymphatic: No abnormal bleeding/bruising, No clotting problems , No swollen lymph nodes, No night sweats, No problem reported Integumentary: No rash, No itch, No new/changing skin lesions, No color change, No bleeding, No problem reported Physical Exam: General Appearance: WD/WN Eyes: normal inspection, PERRL ENT: normal ENT inspection, hearing grossly normal, TMs normal Neck: supple, no adenopathy, thyroid normal Respiratory/Chest: chest non-tender, normal breath sounds, no respiratory distress, + decreased breath sounds Cardiovascular: regular rate, rhythm, no edema, no gallop, no JVD Abdomen / GI: normal bowel sounds, non tender, soft, no organomegaly, no pulsatile mass, + pertinent finding (Colostomy bag in place, has production of gas and stool) Extremities: normal inspection, no calf tenderness, normal capillary refill , no pedal edema, normal range of motion Neurologic/Psychiatric: clinic physician II-XII nml as tested, no motor/sensory deficits , alert, normal mood/affect, normal reflexes Skin: normal color, warm/dry, no rash Hospital Course 67 yo female s/p colostomy admitted on April 06, 2018 for possible concern for SBO Possible partial SBO, continue improved, resolved Surgeon on the case, removed NG tube, started clear liquid diet, which has been advanced to low fiber diet, patient tolerated well Hypothyroidism - stable, Continue Synthroid Anxiety - stable, Continue Xanax, Elavil and Lexapro GERD - stable, Continue Protonix Possible aspiration pneumonitis upon admission, was on Zosyn upon admission, repeat chest x-ray was no signs of infection, DC'ed antibiotic Instructions / Follow-Up you have Partial SBO, resolved, continue low fiber diet - you need to follow up with your primary care physician in 1 week, - take medication as instructed, never overdose or any misuse, or take with alcohol, because misuse of medicine may cause organ damage or , call me , or your primary care physician if have questions of discharge medicaitons. - call your primary care physician, or go to local emergency room if has any fever/chill, chest pain, shortness of breathing, nausea/vomiting/abdominal pain , facial droop/slurry speech/local weakness, or if has any questions. - fall precaution - diet as instructed - you need to follow up with your subspecialist, as instructed - you should understand that it is important to follow up the above instruction , and "not following the above instruction" may cause delayed or missed care of your medical conditions which may cause permanent organ damage and even . Total Time Spent: Less than 30 minutes This includes examination of the patient, discharge planning, medication reconciliation, and communication with other providers. Discharge Instructions Please refer to the electronic Patient Visit Report (Discharge Instructions) for additional information. Additional Copies To Eleuterio Amaya Jr, D.O.
== END 2018-04-09 13:50 | disposition home or self-care (01) | DRG 390 ==
LOC: C.EDB 14:09 → C.MSW 22:30 → ENRESERV 23:32
PROVIDERS: ADMIT Internal Medicine; ATTEND Hospitalist
DX: K56.600 Partial intestinal obstruction, unspecified as to cause (principal); K43.5 Parastomal hernia without obstruction or gangrene; E03.9 Hypothyroidism, unspecified; K21.9 Gastro-esophageal reflux disease without esophagitis; F41.9 Anxiety disorder, unspecified; M54.16 Radiculopathy, lumbar region; R56.9 Unspecified convulsions; Z85.048 Personal history of other malignant neoplasm of rectum, rectosigmoid junction, and anus; Z85.41 Personal history of malignant neoplasm of cervix uteri; Z86.718 Personal history of other venous thrombosis and embolism

== ENCOUNTER 2021-04-23 10:33 | Inpatient (IN) ==
[2021-04-23] MEDS ORDERED: SODIUM CHLORIDE 0.9% 500 ML IV STA (11:34)
[2021-04-23] MEDS ORDERED: KETOROLAC TROMETHAMINE 15 MG/ML VIAL IV STA (11:34)
--- NOTE | 2021-04-23 11:49 | Emergency Department Note ---
Impression & Plan Acute left flank pain, Hematuria, Hydronephrosis, GISELL (acute kidney injury), Right shoulder strain ED Provider Note NAME: ELENI DILLON AGE: 70 SEX: F : 1950 ARRIVES VIA: Walk-In INFORMANT: [Patient] ED PROVIDER(S): [Abad Chairez MD] CHIEF COMPLAINT: Left flank pain HISTORY OF PRESENT ILLNESS: The patient is a 70-year-old female presents with 4 days of left flank pain. The pain is an 8/10. There has been no nausea or vomiting, no fever, no shortness of breath, no diarrhea. She has noticed some urgency and pressure with urination. The patient did take an oxycodone this morning and it did help the pain. The patient has had kidney stones before and she thinks this feels somewhat similar. There has been no fall or trauma. No cough or cold or congestion. The patient states that in addition to the flank pain, she has pain in her right shoulder from twisting when she reached today. REVIEW OF SYSTEMS: See HPI for pertinent positives and negatives. A total of ten systems were reviewed and were otherwise negative. PMHx/PSHx: See Below SOCIAL HISTORY: See Below. PHYSICAL EXAM: GENERAL: Patient is in no acute distress. HEENT: No acute trauma, normocephalic atraumatic, mucous membranes moist, no nasal congestion, no scleral icterus. NECK: No stridor, no adenopathy, no meningismus, trachea is midline. LUNGS: Clear to auscultation bilaterally, no wheeze, no rhonchi, breath sounds equal. HEART: 3/6 systolic murmur, regular rate and rhythm. ABDOMEN: Soft, nontender, bowel sounds positive, no hernias, no peritonitis. A colostomy is present. EXTREMITIES: No cyanosis. Patient does have some chronic skin change and chronic edema to her lower extremities. She has pain with movement of the right shoulder although, there is clinically no findings of dislocation. She has no evidence for right upper extremity neurovascular compromise. NEUROLOGIC: Oriented x 3, no acute motor or sensory deficits, no focal weakness. SKIN: No rash, no jaundice, no diaphoresis. Back: Left flank discomfort to percussion. No rash. DIFFERENTIAL DIAGNOSIS: Appendicitis, ovarian cyst, ovarian torsion, infections, diverticulitis, UTI, obstruction, mesenteric ischemia, aortic pathology, inflammatory bowel disease, renal colic, PUD, pancreatitis, biliary pathology, hernia, volvulus, constipation, shoulder strain, shoulder dislocation, shoulder fracture, as well as other pathologies. EMERGENCY DEPARTMENT COURSE/PROCEDURES: ECG: Indication was for flank pain/chest pain. The ECG shows a normal sinus rhythm with a rate of 70. There is some LVH present. There is no ST elevation, no PVCs. The QTc is 414. Continuous Cardiac Monitoring: An order was placed for continuous cardiac monitoring. The monitor shows a rate of 73 with normal sinus rhythm. MEDICAL DECISION MAKING: There is no leukocytosis or concerning anemia. There is a normal platelet count. Creatinine is 1.5, mildly elevated. There was a normal potassium. Calcium slightly high at 10.4. No worrisome liver enzyme elevation. No evidence for pancreatitis. ECG shows a sinus rhythm, no acute ischemia. Cardiac enzyme testing x1 is not consistent with acute cardiac injury. Urinalysis shows hematuria, no infection. Covid testing is negative. Chest film does not show pneumonia or free air. Abdominal and pelvis CT shows an atrophied right kidney with hydronephrosis. The left kidney has new moderate hydronephrosis. No ureteral stone seen. Right shoulder film did not show any fracture or dislocation. The patient presents with left flank discomfort. She was not toxic, she was not febrile. She was given IV Toradol for pain control, she received IV saline. I discussed the patient's case with urology. Hospitalization is warranted as the patient is likely going to need a ureteral stent. She basally only has 1 functioning kidney and now this kidney demonstrates obstructed urine flow. I spoke to the patient, I talked to the case resource manager. The on-call hospitalist was consulted. Of note, I suspect the patient has strained her right shoulder, no fracture or dislocation by exam or imaging. 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 History of pelvic fracture History of recurrent UTIs NONE CURRENT/ON MAINTENANCE ABX FOR Incomplete bladder emptying Iron deficiency HX OF Left knee DJD Lymphedema THERAPY FOR Pathologic acetabular fracture Pelvic fracture Pressure ulcer of right buttock, stage 1 Seasonal allergies Spinal stenosis Urge and stress incontinence Surgical History Colostomy in place H/O foot surgery History of carpal tunnel release of both wrists History of colonoscopy History of hernia repair X2 SURGERIES WITH STOMA RELOCATED FOR BOTH HERNIA SURGERIES History of hysterectomy History of urologic surgery HX URETERAL STENT AND SINCE REMOVED History of wisdom tooth extraction Nausea and vomiting after administration of anesthetic agent Family History Sister Coronary heart disease Diabetes Nephrolithiasis Breast cancer Brother Diabetes Father Coronary heart disease Diabetes Hypertension Myocardial infarction Grandmother Diabetes Social History Smoking Status: Never smoker Hx Alcohol Use: No Hx Substance Use: No Preferred Language: Spanish Communication Ability: Effective Visual Impairment: Limited Hearing Ability: Normal Beliefs That Will Affect Care: None marital status: Current Living Situation: Spouse current occupational status: retired Feels Safe at Home: Yes Assistive Devices: Glasses and Walker Allergies Allergies Allergy/AdvReac Type Severity Reaction Status Date / Time pollen extracts Allergy Intermediate RUNNY Verified 04/23/21 11:42 NOSE, ITCHY EYES, SNEEZING sulfamethoxazole Allergy Unknown Shakiness Verified 04/23/21 11:42 [From Bactrim] trimethoprim [From Bactrim] Allergy Unknown Shakiness Verified 04/23/21 11:42 Home Meds Home Medications Medication Instructions Recorded Confirmed mirabegron 50 mg tablet,extended 50 mg PO QAM 06/15/19 04/23/21 release 24 hr multivitamin 1 tab PO QDL 06/15/19 04/23/21 amoxicillin 500 mg capsule 125 mg PO QAM cap 06/16/19 04/23/21 budesonide-formoterol HFA 80 2 puffs INH BID PRN 06/16/19 04/23/21 mcg-4.5 mcg/actuation aerosol inhaler escitalopram oxalate 20 mg tablet 30 mg PO HS tab 06/16/19 04/23/21 gabapentin 600 mg tablet 900 mg PO TID tab 06/16/19 04/23/21 hydrochlorothiazide 25 mg tablet 25 mg PO QAM 06/16/19 04/23/21 hydroxychloroquine 200 mg tablet 100 mg PO QAM tab 06/16/19 04/23/21 oxycodone 5 mg capsule 5 mg PO UD PRN cap 06/16/19 04/23/21 pantoprazole 40 mg tablet,delayed 40 mg PO QAM 06/16/19 04/23/21 release spironolactone 25 mg tablet 25 mg PO BID 06/16/19 04/23/21 sulindac 200 mg tablet 200 - 300 mg PO BID 06/16/19 04/23/21 ascorbic acid (vitamin C) [Vitamin 500 mg PO BID 09/15/19 04/23/21 C] cholecalciferol (vitamin D3) 2,000 unit PO BID 09/15/19 04/23/21 [Vitamin D3] denosumab 60 mg/mL subcutaneous 60 mg SQ UD ml 01/06/20 04/23/21 syringe amitriptyline 25 mg tablet 25 mg PO HS tab 05/08/20 04/23/21 calcium carbonate 500 mg calcium 500 mg PO UD PRN 05/08/20 04/23/21 (1,250 mg) capsule tamsulosin 0.4 mg PO QAM 05/17/20 04/23/21 levothyroxine 150 mcg PO DAILY 04/23/21 04/23/21 pregabalin 100 mg PO TID 04/23/21 04/23/21 rosuvastatin 5 mg PO HS 04/23/21 04/23/21 Results & Data (ED) Vital Signs Vital Signs - 24 hr 04/23/21 10:37 04/23/21 11:12 04/23/21 11:18 Temperature 36.5 C Temperature Source Temporal Artery Scan Pulse Rate 72 72 Pulse Rate [Right Finger] 73 Pulse Rhythm Respiratory Rate 16 16 18 Respiratory Effort / Characteristics Non-Labored Spontaneous Respiratory Depth Normal Respiratory Pattern Regular Blood Pressure 155/82 H 171/80 H Blood Pressure [Right Arm] 171/80 H Blood Pressure Mean 106 110 Blood Pressure Mean [Right Arm] 110 Blood Pressure Position Sitting Blood Pressure Position [Right Arm] Lying Pulse Oximetry 92 95 Oxygen Delivery Method Room Air Room Air Sepsis Recent Fever Within 48 Hours No Sepsis New/Unexplained Change in Mental Status N/A Sepsis Action Taken by Nursing No Action Required 04/23/21 12:07 04/23/21 12:30 04/23/21 13:31 Temperature Temperature Source Pulse Rate 70 75 68 Pulse Rate [Right Finger] 70 Pulse Rhythm Regular Respiratory Rate 16 14 15 Respiratory Effort / Characteristics Respiratory Depth Respiratory Pattern Blood Pressure 164/67 H 158/60 H 173/91 H Blood Pressure [Right Arm] 164/67 H Blood Pressure Mean 99 92 118 Blood Pressure Mean [Right Arm] 99 Blood Pressure Position Blood Pressure Position [Right Arm] Lying Pulse Oximetry 95 Oxygen Delivery Method Room Air Sepsis Recent Fever Within 48 Hours Sepsis New/Unexplained Change in Mental Status Sepsis Action Taken by Nursing 04/23/21 14:00 04/23/21 15:41 04/23/21 16:00 Temperature Temperature Source Pulse Rate 68 71 69 Pulse Rate [Right Finger] Pulse Rhythm Respiratory Rate 13 14 14 Respiratory Effort / Characteristics Respiratory Depth Respiratory Pattern Blood Pressure 174/89 H 161/84 H 140/63 Blood Pressure [Right Arm] Blood Pressure Mean 117 109 88 Blood Pressure Mean [Right Arm] Blood Pressure Position Blood Pressure Position [Right Arm] Pulse Oximetry Oxygen Delivery Method Sepsis Recent Fever Within 48 Hours Sepsis New/Unexplained Change in Mental Status Sepsis Action Taken by Detention Medications Current Medication List: was personally reviewed by me Laboratory Data Attestation: I reviewed the patient's lab results. Result diagrams: 04/23/21 12:09 04/23/21 12:09 Lab Results 04/23/21 04/23/21 04/23/21 Range/Units 12:09 12:09 13:05 WBC 7.61 (4.8-10.8) K/uL RBC 4.08 L (4.2-5.4) M/uL Hgb 13.0 (12.0-16.0) g/dL Hct 40.3 (37-47) % MCV 98.8 (80-100) fL MCH 31.9 (25-34) pg MCHC 32.3 (32-36) g/dL RDW Std Deviation 48.4 H (36.4-46.3) fL RDW Coeff of Anh 13.4 (11.5-14.5) % Plt Count 217 (130-400) K/uL MPV 9.4 (7.4-10.4) fL Immature Gran % (Auto) 1.1 % Neut % (Auto) 42.2 % Lymph % (Auto) 44.0 % Patrick % (Auto) 8.5 % Eos % (Auto) 3.8 % Baso % (Auto) 0.4 % Neut # (Auto) 3.21 (1.4-6.5) K/uL Lymph # (Auto) 3.35 (1.2-3.4) K/uL Patrick # (Auto) 0.65 H (0.11-0.59) K/uL Eos # (Auto) 0.29 (0-0.5) K/uL Baso # (Auto) 0.03 (0-0.2) K/uL Immature Gran # (Auto) 0.08 H (0.00-0.02) K/uL Sodium 140 (136-145) mmol/L Potassium 4.2 (3.5-5.1) mmol/L Chloride 106 (98-107) mmol/L Carbon Dioxide 29 (21-32) mmol/L Anion Gap 5.0 (3-11) BUN 36 H (7-18) mg/dl Creatinine 1.50 H (0.6-1.2) mg/dl Est Cr Clr Drug Dosing 33.0 ml/min Est GFR ( Amer) 39.9 ml/min Est GFR (Non-Af Amer) 34.4 ml/min BUN/Creatinine Ratio 24.2 H (10-20) Glucose 84 (70-99) mg/dl Calcium 10.4 H (8.5-10.1) mg/dl Total Bilirubin 0.4 (0.2-1) mg/dl AST 20 (15-37) U/L ALT 22 (12-78) U/L Alkaline Phosphatase 77 (45-117) U/L Troponin I < 0.015 (0-0.045) ng/ml Total Protein 7.9 (6.4-8.2) gm/dl Albumin 4.2 (3.4-5.0) gm/dl Globulin 3.7 (2.5-4.0) gm/dl Albumin/Globulin Ratio 1.1 (0.9-2) Lipase 141 (73-393) U/L Urine Color Yellow Urine Appearance Clear (Clear) Urine pH 5.5 (4.5-7.5) Ur Specific [place] 1.014 (1.000-1.030) Urine Protein Negative (Negative) Urine Glucose (UA) Negative (Negative) Urine Ketones Negative (Negative) Urine Blood Trace H (Negative) Urine Nitrite Negative (Negative) Urine Bilirubin Negative (Negative) Urine Urobilinogen Negative (Negative) Ur Leukocyte Esterase Negative (Negative) Urine WBC (Auto) 1-5 (0-5) /hpf Urine RBC (Auto) >30 H (0-4) /hpf U Hyaline Cast (Auto) 1-5 (0-5) /lpf U Epithel Cells (Auto) 20-30 H (0-5) /lpf Urine Bacteria (Auto) Negative (Negative) COVID-19 Eval Order SARS-CoV-2 (PCR) (Negative) 04/23/21 04/23/21 Range/Units 14:09 14:09 WBC (4.8-10.8) K/uL RBC (4.2-5.4) M/uL Hgb (12.0-16.0) g/dL Hct (37-47) % MCV (80-100) fL MCH (25-34) pg MCHC (32-36) g/dL RDW Std Deviation (36.4-46.3) fL RDW Coeff of Anh (11.5-14.5) % Plt Count (130-400) K/uL MPV (7.4-10.4) fL Immature Gran % (Auto) % Neut % (Auto) % Lymph % (Auto) % Patrick % (Auto) % Eos % (Auto) % Baso % (Auto) % Neut # (Auto) (1.4-6.5) K/uL Lymph # (Auto) (1.2-3.4) K/uL Patrick # (Auto) (0.11-0.59) K/uL Eos # (Auto) (0-0.5) K/uL Baso # (Auto) (0-0.2) K/uL Immature Gran # (Auto) (0.00-0.02) K/uL Sodium (136-145) mmol/L Potassium (3.5-5.1) mmol/L Chloride (98-107) mmol/L Carbon Dioxide (21-32) mmol/L Anion Gap (3-11) BUN (7-18) mg/dl Creatinine (0.6-1.2) mg/dl Est Cr Clr Drug Dosing ml/min Est GFR ( Amer) ml/min Est GFR (Non-Af Amer) ml/min BUN/Creatinine Ratio (10-20) Glucose (70-99) mg/dl Calcium (8.5-10.1) mg/dl Total Bilirubin (0.2-1) mg/dl AST (15-37) U/L ALT (12-78) U/L Alkaline Phosphatase (45-117) U/L Troponin I (0-0.045) ng/ml Total Protein (6.4-8.2) gm/dl Albumin (3.4-5.0) gm/dl Globulin (2.5-4.0) gm/dl Albumin/Globulin Ratio (0.9-2) Lipase (73-393) U/L Urine Color Urine Appearance (Clear) Urine pH (4.5-7.5) Ur Specific [place] (1.000-1.030) Urine Protein (Negative) Urine Glucose (UA) (Negative) Urine Ketones (Negative) Urine Blood (Negative) Urine Nitrite (Negative) Urine Bilirubin (Negative) Urine Urobilinogen (Negative) Ur Leukocyte Esterase (Negative) Urine WBC (Auto) (0-5) /hpf Urine RBC (Auto) (0-4) /hpf U Hyaline Cast (Auto) (0-5) /lpf U Epithel Cells (Auto) (0-5) /lpf Urine Bacteria (Auto) (Negative) COVID-19 Eval Order Covid19 at [facility] SARS-CoV-2 (PCR) NEGATIVE (Negative) Administered Medications Discontinued Medications Sodium Chloride (Nss) 500 mls @ 999 mls/hr IV .Q31M STA Stop: 04/23/21 12:04 Last Infusion: 04/23/21 14:36 Dose: 0 mls/hr Documented by: [id number] Admin: 04/23/21 12:00 Dose: 999 mls/hr Documented by: [id number] Ketorolac Tromethamine (Ketorolac Tromethamine 15 Mg/Ml Vial) 15 mg IV NOW STA Stop: 04/23/21 11:35 Last Admin: 04/23/21 12:10 Dose: 15 mg Documented by: [id number] Imaging Data Radiologist's Impression: Shoulder X-Ray 04/23/21 11:33 XR shoulder RT min 2V routine CLINICAL HISTORY: Right shoulder pain status post trauma COMPARISON: None. DISCUSSION: No acute fractures or dislocations are visualized. There are nonaggressive appearing subcentimeter cystic humeral head lesions with sclerotic rims. There are mild degenerative changes. IMPRESSION: No fractures or dislocations identified. ACT 112: Negative or not required by law. Electronically signed by: Aayush Wood M.D. 04/23/2021 1:28 PM Abdomen/Pelvis CT 04/23/21 11:34 CT SCAN OF THE ABDOMEN AND PELVIS WITHOUT IV CONTRAST CLINICAL HISTORY: Left flank pain. COMPARISON STUDY: Abdominal CT dated 08/26/2019. TECHNIQUE: CT scan of the abdomen and pelvis is performed from the lung bases to the proximal femora. Images are reviewed in the axial, sagittal, and coronal planes. IV contrast was not administered for this examination. A dose lowering technique was utilized adhering to the principles of ALARA. The examination is degraded by streak artifact from the right arm which could not be elevated above the abdomen. CT DOSE: 963.45 mGycm FINDINGS: Lung bases: The heart is normal in size and without pericardial effusion. The lung bases are clear noting bibasilar scarring/atelectasis. There is a small hiatal hernia. Liver: The unenhanced liver is normal in size, contour, and attenuation. There is no intrahepatic biliary ductal dilatation. Gallbladder: There are calcified gallstones with no CT evidence of acute cholecystitis. Spleen: Normal in size and attenuation. Pancreas: The unenhanced pancreas is moderately atrophic and grossly unremarkable. Adrenal glands: Unremarkable. Kidneys: There is markedly asymmetric cortical atrophy of the right kidney as compared to the left. Severe right hydroureteronephrosis is unchanged from prior studies. Moderate left hydroureteronephrosis is new from previous. No obstructing stone or lesion is clearly identified. There are least 5 nonobstructing left renal calculi which measure up to 9 mm. There are least 3 small nonobstructing right renal calculi which measure up to 4 mm. There is no evidence of contour deforming renal mass lesion. Abdominal vasculature: The abdominal aorta is normal in course and caliber noting moderate atherosclerotic calcification. Bowel: There is postoperative change from left colonic resection with a double barrel colostomy in the left lower quadrant. There is a large parastomal hernia which contains small bowel loops. No bowel obstruction is identified. The cecum appears to be located in the expected location of the rectum. A structure that may represent the appendix is seen on image #323. This is similar to previous. Peritoneum: There is no intraperitoneal free air or abdominal ascites. Lymphadenopathy: A prominent left inguinal lymph node on image #302 measures 1.1 cm in short axis. This is similar to previous. Pelvic viscera: Numerous surgical clips are seen throughout the pelvis. The bladder is normal as visualized. The uterus is surgically absent. Skeletal structures: The skeletal structures are osteopenic. There is moderate lumbosacral spondylosis. 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 No lytic or blastic lesions are seen. IMPRESSION: 1. There is moderate left hydroureteronephrosis, which is age indeterminant but new from 08/26/2019. No obstructing stone or lesion is clearly identified. 2. Severe right hydroureteronephrosis with marked cortical atrophy of the right kidney is similar to previous. 3. Bilateral nephrolithiasis. 4. Cholelithiasis. 5. A left lower quadrant colostomy with a large parastomal hernia is unchanged. No bowel obstruction is identified. 6. 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 7. Additional findings as above. ACT 112: Negative or not required by law. Electronically signed by: Abad Roque M.D. 04/23/2021 1:08 PM Chest X-Ray 04/23/21 11:34 XR chest 1V portable HISTORY: left flank pain COMPARISON: Chest 10/23/2020. FINDINGS: No pneumothorax. No pleural effusions. The heart is top normal in size. This remains unchanged. Left subclavian catheter terminates in the distal SVC. Mild bibasilar interstitial thickening persists. No new focal lung consolidations to suggest pneumonia. No evidence for pulmonary edema. IMPRESSION: No significant change compared to the prior study. No acute process. ACT 112: Negative or not required by law. Electronically signed by: Ben Gant M.D. 04/23/2021 2:17 PM Discharge Plan Visit Data Chief Complaint: Flank Pain Stated Complaint: PAIN IN LEFT SIDE ED Provider: Abad Chairez Discharge Problem: Acute left flank pain, Hematuria, Hydronephrosis, GISELL (acute kidney injury), Right shoulder strain Patient Disposition: Admitted As Inpatient Condition: Good Discharge Instructions Interventions: ED Discharge Assessment Last Done: 04/23/21 16:21 Forms Stand Alone Forms: [facility] [place] CadenceMD Prescriptions Prescriptions: No Action Prolia 60 mg/mL syringe 60 mg SQ UD RF: 0 oxycodone 5 mg capsule 5 mg PO UD PRN (Reason: pain) RF: 0 gabapentin 600 mg tablet 900 mg PO TID RF: 0 amoxicillin 500 mg capsule 125 mg PO QAM RF: 0 hydrochlorothiazide 25 mg tablet 25 mg PO QAM RF: 0 pantoprazole [Protonix] 40 mg tablet,delayed release (DR/EC) 40 mg PO QAM RF: 0 spironolactone [Aldactone] 25 mg tablet 25 mg PO BID RF: 0 sulindac 200 mg tablet 200 - 300 mg PO BID RF: 0 multivitamin [Multiple Vitamins] tablet 1 tab PO QDL RF: 0 Myrbetriq 50 mg tablet extended release 24 hr 50 mg PO QAM RF: 0 Symbicort 80-4.5 mcg/actuation HFA aerosol inhaler 2 puffs INH BID PRN (Reason: SEASONAL ALLERGIES) RF: 0 escitalopram oxalate [Lexapro] 20 mg tablet 30 mg PO HS RF: 0 hydroxychloroquine [Plaquenil] 200 mg tablet 100 mg PO QAM RF: 0 ascorbic acid (vitamin C) [Vitamin C] 500 mg Tablet 500 mg PO BID RF: 0 cholecalciferol (vitamin D3) [Vitamin D3] 2,000 unit Capsule 2,000 unit PO BID RF: 0 amitriptyline 25 mg tablet 25 mg PO HS RF: 0 calcium carbonate 500 mg calcium (1,250 mg) capsule 500 mg PO UD PRN (Reason: Heartburn) RF: 0 tamsulosin 0.4 mg capsule 0.4 mg PO QAM RF: 0 levothyroxine 150 mcg tablet 150 mcg PO DAILY RF: 0 rosuvastatin 5 mg tablet 5 mg PO HS RF: 0 pregabalin 100 mg capsule 100 mg PO TID RF: 0 Referrals Referrals: Eleuterio Amaya Jr, DO [Primary Care Provider] - Discharge Problem: Hematuria Qualifiers: Hematuria type: other microscopic Qualified Code(s): R31.29 - Other microscopic hematuria Hydronephrosis Qualifiers: Hydronephrosis type: unspecified Qualified Code(s): N13.30 - Unspecified hydronephrosis Right shoulder strain Qualifiers: Encounter type: initial encounter Qualified Code(s): S46.911A - Strain of unspecified muscle, fascia and tendon at shoulder and upper arm level, right arm, initial encounter
[2021-04-23 12:20] LABS: Basophils # (auto) 0.03 K/uL (0-0.2); Basophils % (auto) 0.4 %; Eosinophils # (auto) 0.29 K/uL (0-0.5); Eosinophils % (auto) 3.8 %; Hematocrit (blood only) 40.3 % (37-47); Immature Granulocytes # (auto) 0.08 K/uL (0.00-0.02); Immature Granulocytes % (auto) 1.1 %; Lymphocytes # (auto) 3.35 K/uL (1.2-3.4); Mean Corpuscular Hemoglobin 31.9 pg (25-34); Mean Corpuscular Hgb Conc 32.3 g/dL (32-36); Mean Corpuscular Volume 98.8 fL (80-100); Mean Platelet Volume 9.4 fL (7.4-10.4); Monocytes # (auto) 0.65 K/uL (0.11-0.59); Monocytes % (auto) 8.5 %; Neutrophils # (auto) 3.21 K/uL (1.4-6.5); Neutrophils % (auto) 42.2 %; Platelet Count 217 K/uL (130-400); RDW Coefficient of Variation 13.4 % (11.5-14.5); RDW Standard Deviation 48.4 fL (36.4-46.3); Red Blood Count 4.08 M/uL (4.2-5.4); White Blood Count 7.61 K/uL (4.8-10.8)
[2021-04-23 12:37] LABS: Alanine Aminotransferase 22 U/L (12-78); Albumin Level 4.2 gm/dl (3.4-5.0); Aspartate Aminotransferase 20 U/L (15-37); BUN Creatinine Ratio 24.2 (10-20); Blood Urea Nitrogen 36 mg/dl (7-18); Calcium 10.4 mg/dl (8.5-10.1); Carbon Dioxide 29 mmol/L (21-32); Chloride 106 mmol/L (98-107); Est GFR (African American) 39.9 ml/min; Est GFR (Non-African American) 34.4 ml/min; Glucose 84 mg/dl (70-99); Lipase 141 U/L (73-393); Potassium 4.2 mmol/L (3.5-5.1); Sodium 140 mmol/L (136-145)
[2021-04-23 12:42] LABS: Albumin Globulin Ratio 1.1 (0.9-2); Alkaline Phosphatase 77 U/L (45-117); Bilirubin,Total 0.4 mg/dl (0.2-1); Globulin 3.7 gm/dl (2.5-4.0); Total Protein 7.9 gm/dl (6.4-8.2); Troponin I < 0.015 ng/ml (0-0.045)
--- NOTE | 2021-04-23 13:09 | CT Scan Report ---
CT SCAN OF THE ABDOMEN AND PELVIS WITHOUT IV CONTRAST CLINICAL HISTORY: Left flank pain. COMPARISON STUDY: Abdominal CT dated 08/26/2019. TECHNIQUE: CT scan of the abdomen and pelvis is performed from the lung bases to the proximal femora. Images are reviewed in the axial, sagittal, and coronal planes. IV contrast was not administered for this examination. A dose lowering technique was utilized adhering to the principles of ALARA. The ex amination is degraded by streak artifact from the right arm which could not be elevated above the abd omen. CT DOSE: 963.45 mGycm FINDINGS: Lung bases: The heart is normal in size and without pericardial effusion. The lung bases are clear no ting bibasilar scarring/atelectasis. There is a small hiatal hernia. Liver: The unenhanced liver is normal in size, contour, and attenuation. There is no intrahepatic jorge iary ductal dilatation. Gallbladder: There are calcified gallstones with no CT evidence of acute cholecystitis. Spleen: Normal in size and attenuation. Pancreas: The unenhanced pancreas is moderately atrophic and grossly unremarkable. Adrenal glands: Unremarkable. Kidneys: There is markedly asymmetric cortical atrophy of the right kidney as compared to the left. S evere right hydroureteronephrosis is unchanged from prior studies. Moderate left hydroureteronephrosi s is new from previous. No obstructing stone or lesion is clearly identified. There are least 5 nonob structing left renal calculi which measure up to 9 mm. There are least 3 small nonobstructing right r enal calculi which measure up to 4 mm. There is no evidence of contour deforming renal mass lesion. Abdominal vasculature: The abdominal aorta is normal in course and caliber noting moderate atheroscle rotic calcification. Bowel: There is postoperative change from left colonic resection with a double barrel colostomy in th e left lower quadrant. There is a large parastomal hernia which contains small bowel loops. No bowel obstruction is identified. The cecum appears to be located in the expected location of the rectum. A structure that may represent the appendix is seen on image #323. This is similar to previous. Peritoneum: There is no intraperitoneal free air or abdominal ascites. Lymphadenopathy: A prominent left inguinal lymph node on image #302 measures 1.1 cm in short axis. Th is is similar to previous. Pelvic viscera: Numerous surgical clips are seen throughout the pelvis. The bladder is normal as visu alized. The uterus is surgically absent. Skeletal structures: The skeletal structures are osteopenic. There is moderate lumbosacral spondylosi s. Chronic nonunited pelvic fractures are similar to previous. 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 No lytic or blastic lesions are seen. IMPRESSION: 1. There is moderate left hydroureteronephrosis, which is age indeterminant but new from 08/26/2019. N o obstructing stone or lesion is clearly identified. 2. Severe right hydroureteronephrosis with marked cortical atrophy of the right kidney is similar to previous. 3. Bilateral nephrolithiasis. 4. Cholelithiasis. 5. A left lower quadrant colostomy with a large parastomal hernia is unchanged. No bowel obstruction is identified. 6. Chronic nonunited pelvic fractures and chronic deformity of the bony pelvis is similar to previous . 7. Additional findings as above. ACT 112: Negative or not required by law. Electronically signed by: Abad Roque M.D. 04/23/2021 1:08 PM
[2021-04-23 13:15] LABS: Appearance Urine Clear (Clear); Bacteria Urine Automated Negative (Negative); Bilirubin Urine Negative (Negative); Blood Urine Trace (Negative); Color Urine Yellow; Epithelial Cell Urine Auto 20-30 /lpf (0-5); Glucose Urine UA Negative (Negative); Ketones Urine Negative (Negative); Leukocyte Esterase Urine Negative (Negative); Nitrite Urine Negative (Negative); Protein Urine Negative (Negative); RBC Urine Automated >30 /hpf (0-4); Specific Gravity Urine 1.014 (1.000-1.030); Urobilinogen Urine Negative (Negative); pH Urine 5.5 (4.5-7.5)
--- NOTE | 2021-04-23 13:29 | XRay Report ---
XR shoulder RT min 2V routine CLINICAL HISTORY: Right shoulder pain status post trauma COMPARISON: None. DISCUSSION: No acute fractures or dislocations are visualized. There are nonaggressive appearing subc entimeter cystic humeral head lesions with sclerotic rims. There are mild degenerative changes. IMPRESSION: No fractures or dislocations identified. ACT 112: Negative or not required by law. Electronically signed by: Aayush Wood M.D. 04/23/2021 1:28 PM
--- NOTE | 2021-04-23 14:18 | XRay Report ---
XR chest 1V portable HISTORY: left flank pain COMPARISON: Chest 10/23/2020. FINDINGS: No pneumothorax. No pleural effusions. The heart is top normal in size. This remains unchan ged. Left subclavian catheter terminates in the distal SVC. Mild bibasilar interstitial thickening pe rsists. No new focal lung consolidations to suggest pneumonia. No evidence for pulmonary edema. IMPRESSION: No significant change compared to the prior study. No acute process. ACT 112: Negative or not required by law. Electronically signed by: Ben Gant M.D. 04/23/2021 2:17 PM
--- NOTE | 2021-04-23 14:43 | Electrocardiogram Report ---
Test Reason : Blood Pressure : / mmHG Vent. Rate : 070 BPM Atrial Rate : 070 BPM P-R Int : 154 ms QRS Dur : 086 ms QT Int : 384 ms P-R-T Axes : 062 022 031 degrees QTc Int : 414 ms Normal sinus rhythm Possible Left atrial enlargement Left ventricular hypertrophy Abnormal ECG When compared with ECG of 17-MAY-2020 13:59, Nonspecific T wave abnormality no longer evident in Lateral leads Confirmed by Tonio Carrillo ([id number]) on 04/23/2021 2:43:15 PM Referred By: Confirmed By:Tonio Carrillo
--- NOTE | 2021-04-23 15:08 | History & Physical Report ---
Date of Service April 23, 2021 Assessment & Plan (1) Hydronephrosis: Unclear etiology of left hydronephrosis, patient has no obstructing stone. Has accompanying GISELL with mildly elevated creatinine. Hold HCTZ and spironolactone for now Admit to a nonmonitored bed Gentle IV hydration overnight N.p.o. after midnight for a urological procedure, stent placement on left per Dr. Christine Low-dose Dilaudid for analgesia (2) Heart murmur: Per 10/20 echo, patient has moderate to severe aortic stenosis which is likely etiology of her murmur This does increase surgical risk somewhat, still believe the benefits will outweigh risk Will need to be followed during the basis by cardiology History of Present Illness Chief Complaint: flank pain Primary Care Provider: Eleuterio Amaya Jr, DO This is a 70-year-old female with past medical history of anal cancer status post colostomy, nonfunctioning right-sided kidney that presents today complaining left flank pain. Patient is pleasant good historian. Patient is a known approximately 4 days of left flank pain which is worsened over time. She has had no systemic symptoms such as fever chills. She has not noticed any dysuria. I the did note that the patient is currently on any compression treatment for her lower extremity lymphedema and may have had increased urinary output which he attributed to this. Patient denies any nausea or vomiting. CT scan showed bilateral hydro which was unchanged on the right but no on the left. There were multiple stones on both sides, none of which were considered obstructing. Emergency room physician is already spoken to urology, tentative plan for left ureteral stent placement tomorrow. Allergies Allergy/AdvReac Type Severity Reaction Status Date / Time pollen extracts Allergy Intermediate RUNNY Verified 04/23/21 11:42 NOSE, ITCHY EYES, SNEEZING sulfamethoxazole Allergy Unknown Shakiness Verified 04/23/21 11:42 [From Bactrim] trimethoprim [From Bactrim] Allergy Unknown Shakiness Verified 04/23/21 11:42 Home Medications Medication Instructions Recorded Confirmed Type mirabegron 50 mg tablet,extended 50 mg PO QAM 06/15/19 04/23/21 History release 24 hr multivitamin 1 tab PO QDL 06/15/19 04/23/21 History amoxicillin 500 mg capsule 125 mg PO QAM cap 06/16/19 04/23/21 History budesonide-formoterol HFA 80 2 puffs INH BID PRN 06/16/19 04/23/21 History mcg-4.5 mcg/actuation aerosol inhaler escitalopram oxalate 20 mg tablet 30 mg PO HS tab 06/16/19 04/23/21 History gabapentin 600 mg tablet 900 mg PO TID tab 06/16/19 04/23/21 History hydrochlorothiazide 25 mg tablet 25 mg PO QAM 06/16/19 04/23/21 History hydroxychloroquine 200 mg tablet 100 mg PO QAM tab 06/16/19 04/23/21 History oxycodone 5 mg capsule 5 mg PO UD PRN cap 06/16/19 04/23/21 History pantoprazole 40 mg tablet,delayed 40 mg PO QAM 06/16/19 04/23/21 History release spironolactone 25 mg tablet 25 mg PO BID 06/16/19 04/23/21 History sulindac 200 mg tablet 200 - 300 mg PO BID 06/16/19 04/23/21 History ascorbic acid (vitamin C) [Vitamin 500 mg PO BID 09/15/19 04/23/21 History C] cholecalciferol (vitamin D3) 2,000 unit PO BID 09/15/19 04/23/21 History [Vitamin D3] denosumab 60 mg/mL subcutaneous 60 mg SQ UD ml 01/06/20 04/23/21 History syringe amitriptyline 25 mg tablet 25 mg PO HS tab 05/08/20 04/23/21 History calcium carbonate 500 mg calcium 500 mg PO UD PRN 05/08/20 04/23/21 History (1,250 mg) capsule tamsulosin 0.4 mg PO QAM 05/17/20 04/23/21 History levothyroxine 150 mcg PO DAILY 04/23/21 04/23/21 History pregabalin 100 mg PO TID 04/23/21 04/23/21 History rosuvastatin 5 mg PO HS 04/23/21 04/23/21 History Past Med/Surg History Medical History (Updated 04/23/21 @ 15:15 by Kulwinder Smallwood DO) Acid reflux OCCASSIONAL Anal cancer (~03/2008) HX OF Arthritis Bladder stone Brittle bones CURRENT FRACTURE R HIP, MULTIPLE PELVICE BREAKS AND FRACTURE IN BONE BELOW KNEE Carpal tunnel syndrome, bilateral Cervical cancer (~05/1990) HX OF Colorectal cancer HX OF Degenerative joint disease of both hips DVT (deep venous thrombosis) L LEG YRS AGO/NONE SINCE 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 History of pelvic fracture History of recurrent UTIs NONE CURRENT/ON MAINTENANCE ABX FOR Incomplete bladder emptying Iron deficiency HX OF Left knee DJD Lymphedema THERAPY FOR Pathologic acetabular fracture Pelvic fracture Pressure ulcer of right buttock, stage 1 Seasonal allergies Spinal stenosis Urge and stress incontinence Surgical History Colostomy in place H/O foot surgery History of carpal tunnel release of both wrists History of colonoscopy History of hernia repair X2 SURGERIES WITH STOMA RELOCATED FOR BOTH HERNIA SURGERIES History of hysterectomy History of urologic surgery HX URETERAL STENT AND SINCE REMOVED History of wisdom tooth extraction Nausea and vomiting after administration of anesthetic agent Family History Sister Coronary heart disease Diabetes Nephrolithiasis Breast cancer Brother Diabetes Father Coronary heart disease Diabetes Hypertension Myocardial infarction Grandmother Diabetes Social History Smoking Status: Never smoker Hx Alcohol Use: No Hx Substance Use: No Preferred Language: Bahamian Communication Ability: Effective Visual Impairment: Limited Hearing Ability: Normal Beliefs That Will Affect Care: None marital status: Current Living Situation: Spouse current occupational status: retired Feels Safe at Home: Yes Assistive Devices: Glasses and Walker Review of Systems Constitutional: no fever, no chills, no body aches, no weakness and no anorexia Respiratory: no cough, no chest congestion, no dyspnea, no dyspnea on exertion, no pain on inspiration and no pain with cough Cardiovascular: no chest pain, no chest pain at rest, no radiating jaw, neck or arm pain, no dyspnea, no dyspnea on exertion, no orthopnea, no palpitations and no lightheadedness Gastrointestinal: no abdominal pain, no nausea, no vomiting, no change in stools, no constipation and no diarrhea/loose stools Genitourinary: + urinary frequency and + flank pain; no dysuria, no urinary urgency, no urinary incontinence and no hematuria Musculoskeletal: no back pain, no neck pain, no loss of height, no joint pain and no swelling Integumentary: no rash and no lesions Neurologic: no gait abnormality and no localized weakness Psychiatric: as per Subjective / HPI Physical Exam Constitutional: well developed, cooperative and comfortable; no acute distress Neck: trachea midline, no thyromegaly Respiratory: normal respiratory effort, lungs clear to auscultation Auscultation: no crackles, no rales and no wheezes Cardiovascular: Rate/Rhythm: regular rate and regular rhythm Heart Sounds: normal S1, normal S2 and + murmur (systolic) Vessels: no JVD and no carotid bruit Gastrointestinal (Abdomen): normal bowel sounds, soft, nontender, no hepatosplenomegaly Musculoskeletal: no cyanosis or clubbing, extremities motor strength 5/5 Skin: no rashes, warm and dry Neurologic: PERRL, EOMI, accommodation nl, no face palsy, no dysarthria Results & Data Results & Data ([facility]) Vital Signs (Past 12 Hours) Vital Signs Temp Pulse Pulse Resp BP BP Pulse Ox 04/23/21 12:30 75 14 158/60 H 04/23/21 12:07 70 70 16 164/67 H 164/67 H 95 04/23/21 11:18 73 18 171/80 H 95 04/23/21 11:12 72 16 171/80 H 04/23/21 10:37 36.5 C 72 16 155/[address] SCAN OF THE ABDOMEN AND PELVIS WITHOUT IV CONTRAST CLINICAL HISTORY: Left flank pain. COMPARISON STUDY: Abdominal CT dated 08/26/2019. TECHNIQUE: CT scan of the abdomen and pelvis is performed from the lung bases to the proximal femora. Images are reviewed in the axial, sagittal, and coronal planes. IV contrast was not administered for this examination. A dose lowering technique was utilized adhering to the principles of ALARA. The examination is degraded by streak artifact from the right arm which could not be elevated above the abdomen. CT DOSE: 963.45 mGycm FINDINGS: Lung bases: The heart is normal in size and without pericardial effusion. The lung bases are clear noting bibasilar scarring/atelectasis. There is a small hiatal hernia. Liver: The unenhanced liver is normal in size, contour, and attenuation. There is no intrahepatic biliary ductal dilatation. Gallbladder: There are calcified gallstones with no CT evidence of acute cholecystitis. Spleen: Normal in size and attenuation. Pancreas: The unenhanced pancreas is moderately atrophic and grossly unremarkable. Adrenal glands: Unremarkable. Kidneys: There is markedly asymmetric cortical atrophy of the right kidney as compared to the left. Severe right hydroureteronephrosis is unchanged from prior studies. Moderate left hydroureteronephrosis is new from previous. No obstructing stone or lesion is clearly identified. There are least 5 nonobstructing left renal calculi which measure up to 9 mm. There are least 3 small nonobstructing right renal calculi which measure up to 4 mm. There is no evidence of contour deforming renal mass lesion. Abdominal vasculature: The abdominal aorta is normal in course and caliber noting moderate atherosclerotic calcification. Bowel: There is postoperative change from left colonic resection with a double barrel colostomy in the left lower quadrant. There is a large parastomal hernia which contains small bowel loops. No bowel obstruction is identified. The cecum appears to be located in the expected location of the rectum. A structure that may represent the appendix is seen on image #323. This is similar to previous. Peritoneum: There is no intraperitoneal free air or abdominal ascites. Lymphadenopathy: A prominent left inguinal lymph node on image #302 measures 1.1 cm in short axis. This is similar to previous. Pelvic viscera: Numerous surgical clips are seen throughout the pelvis. The bladder is normal as visualized. The uterus is surgically absent. Skeletal structures: The skeletal structures are osteopenic. There is moderate lumbosacral spondylosis. 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 No lytic or blastic lesions are seen. IMPRESSION: 1. There is moderate left hydroureteronephrosis, which is age indeterminant but new from 08/26/2019. No obstructing stone or lesion is clearly identified. 2. Severe right hydroureteronephrosis with marked cortical atrophy of the right kidney is similar to previous. 3. Bilateral nephrolithiasis. 4. Cholelithiasis. 5. A left lower quadrant colostomy with a large parastomal hernia is unchanged. No bowel obstruction is identified. 6. 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 7. Additional findings as above. PG Care Time/CCT Total # of Minutes Spent Total Time Spent with Patient: Total time spent is greater than 50% in coordination of care (as documented) at patient's floor/unit and/or counseling patient: Coding Level of Care Code 84254 Initial Inpt Care Lvl 3 Diagnoses Hydronephrosis N13.30 Heart murmur R01.1
[2021-04-23] MEDS ORDERED: HYDROmorphone INJ 0.5 MG/0.5 ML SYR IV PRN (16:55)
[2021-04-23] MEDS ORDERED: ONDANSETRON INJ 2 MG/ML 2 ML VIAL IV PRN (16:55)
[2021-04-23] MEDS ORDERED: ACETAMINOPHEN 325 MG TAB PO PRN (16:55)
[2021-04-23] MEDS ORDERED: CALCIUM CARBONATE 500 MG CHEWABLE TAB PO PRN (17:44)
[2021-04-23] MEDS: SODIUM CHLORIDE 0.9% 1000ML 1,000 ML IV SCH (17:46)
[2021-04-23] MEDS ORDERED: FLUTICASONE/VILANTEROL 200/25MCG 14 PUFFS/INHALER INH PRN (17:58)
[2021-04-23] MEDS: AMITRIPTYLINE HCL 25 MG TAB PO SCH (20:24)
[2021-04-23] MEDS: ASCORBIC ACID 500 MG TAB PO SCH (20:25)
[2021-04-23] MEDS: ROSUVASTATIN CALCIUM 5 MG TAB PO SCH (20:25)
[2021-04-23] MEDS: GABAPENTIN 300 MG CAP PO SCH (20:25)
[2021-04-23] MEDS: ESCITALOPRAM OXALATE 10 MG TAB PO SCH (20:25)
[2021-04-23] MEDS: CHOLECALCIFEROL 1,000 UNITS 25 MCG TAB PO SCH (20:25)
[2021-04-23] MEDS: oxyCODONE HCL IR 5 MG TAB (IMMEDIATE RELEASE) PO PRN (20:27)
[2021-04-24] MEDS ORDERED: oxyCODONE HCL IR 5 MG TAB (IMMEDIATE RELEASE) PO STA (04:35)
[2021-04-24] MEDS: LEVOTHYROXINE SODIUM 150 MCG TABLET PO SCH (04:43)
[2021-04-24] MEDS: SODIUM CHLORIDE 0.9% 1000ML 1,000 ML IV SCH ×2 (04:44→17:13)
[2021-04-24 06:33] LABS: Basophils # (auto) 0.05 K/uL (0-0.2); Basophils % (auto) 0.7 %; Eosinophils # (auto) 0.37 K/uL (0-0.5); Eosinophils % (auto) 5.4 %; Hematocrit (blood only) 33.1 % (37-47); Hemoglobin 10.6 g/dL (12.0-16.0); Immature Granulocytes # (auto) 0.03 K/uL (0.00-0.02); Immature Granulocytes % (auto) 0.4 %; Lymphocytes # (auto) 2.66 K/uL (1.2-3.4); Lymphocytes % (auto) 38.8 %; Mean Corpuscular Hemoglobin 31.6 pg (25-34); Mean Corpuscular Volume 98.8 fL (80-100); Mean Platelet Volume 9.1 fL (7.4-10.4); Monocytes # (auto) 0.64 K/uL (0.11-0.59); Monocytes % (auto) 9.3 %; Neutrophils % (auto) 45.4 %; Platelet Count 193 K/uL (130-400); RDW Coefficient of Variation 13.3 % (11.5-14.5); RDW Standard Deviation 48.3 fL (36.4-46.3); Red Blood Count 3.35 M/uL (4.2-5.4); White Blood Count 6.85 K/uL (4.8-10.8)
[2021-04-24 06:59] LABS: BUN Creatinine Ratio 21.5 (10-20); Calcium 8.9 mg/dl (8.5-10.1); Creatinine Clr Calc Pharmacy 32.7 ml/min; Est GFR (African American) 39.6 ml/min; Est GFR (Non-African American) 34.2 ml/min; Magnesium 2.3 mg/dl (1.8-2.4); Potassium 4.4 mmol/L (3.5-5.1)
[2021-04-24] MEDS: TAMSULOSIN HCL 0.4 MG CAP PO SCH (07:36)
[2021-04-24] MEDS: CHOLECALCIFEROL 1,000 UNITS 25 MCG TAB PO SCH ×2 (07:37→21:07)
[2021-04-24] MEDS: PANTOprazole 40 MG TAB PO SCH (07:37)
[2021-04-24] MEDS: ASCORBIC ACID 500 MG TAB PO SCH ×2 (07:37→21:07)
[2021-04-24] MEDS: HYDROXYCHLOROQUINE SULFATE 200 MG TAB PO SCH (07:37)
[2021-04-24] MEDS: GABAPENTIN 300 MG CAP PO SCH ×3 (07:37→21:07)
[2021-04-24] MEDS ORDERED: NON-FORMULARY MEDICATION (Mirabegron [Myrbetriq] 50 mg tablet extended release 24 hr) PO SCH (09:00)
--- NOTE | 2021-04-24 09:07 | Urology Consultation ---
Date of Consultation April 24, 2021 Assessment & Plan (1) Hydronephrosis: (2) GISELL (acute kidney injury): (3) Acute left flank pain: 70yo F with a hx of nonfunctioning right-sided kidney who was admitted with intractable left flank pain, GISELL, and left-sided hydronephrosis - Hospital course, CT imaging, labs, and past medical/surgical hx reviewed. - Plan of care and imaging reviewed with Dr. Christine. - CT abdomen pelvis remarkable for moderate left hydronephrosis and severe right hydronephrosis with marked cortical atrophy of the right kidney. - Unclear etiology of left hydronephrosis, patient has no obstructing stones or lesions noted on CT. - She is afebrile, VSS. - Labs reviewed -Wbc stable, Creatinine 1.51 - Urinalysis not suggestive of infection - Given her history of nonfunctioning right kidney in the setting of left flank pain, left-sided hydronephrosis, and GISELL will proceed with OR today for Cystoscopy, left ureteral stent placement. - Risks and benefits to be reviewed with patient by . OR notified. Preoperative CXR and EKG in chart. - Will cover with IV Ciprofloxacin preoperatively. - Keep NPO for procedure - Patient agreeable with plan. Expected clinical course reviewed with patient, all questions were answered Supervising Physician Co-Signing Physician Notes agree with above. plan for cysto, left ureteral stent placement History of Present Illness Attending Physician: Tad Morin MD History of Present Illness 70-year-old female with a complex medical hx who presented to the ER with left flank pain for approximately [address] abdomen pelvis was completed and remarkable for moderate left hydronephrosis and severe right hydronephrosis with marked cortical atrophy of the right kidney. Past medical hx includes mixed incontinence, pelvic fracture, DJD, anal cancer with colostomy, chronic back pain Past surgical hx includes cystolithopaxy, colostomy, hernia repair, hysterectomy Patient is known to our service, previously followed with Dr. Christine. Prior office notes reviewed - Complex medical history including numerous abd ominal surgeries -colectomy, colostomyrevisions on multiple occasions, abdominal hernia repairs on multiple occasions. Prior right ureteral stenting secondary to scarring presumably from other surgeries- Question of a right ureteral reimplant. Hx of cystolithopaxy and right retrograde pyelogram Aug [address] a/p IMPRESSION: 1. There is moderate left hydroureteronephrosis, which is age indeterminant but new from 08/26/2019. No obstructing stone or lesion is clearly identified. 2. Severe right hydroureteronephrosis with marked cortical atrophy of the right kidney is similar to previous. 3. Bilateral nephrolithiasis. 4. Cholelithiasis. 5. A left lower quadrant colostomy with a large parastomal hernia is unchanged. No bowel obstruction is identified. 6. 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 Chart review: Afebrile Wbc 6.85 Hgb 10.6 Cr 1.51 Urinalysis with >30RBC, Negative bacteria, negative leukocyte, negative nitrite Pt examined at bedside this AM. Awake, resting in bed on arrival. Appears fatigued. She reports ongoing left flank pain, currently rates pain 3/10. Denies right- sided pain. Denies suprapubic pain. Denies fevers or chills. No nausea or vomiting. Denies hematuria. Some mild dysuria. Feels she is emptying her bladder well. Some urgency and frequency. No hesitancy. She reports some baseline urinary incontinence/leakage, wears a daily safety pad. She is on flomax. Offers no additional complaints at this time. Allergies Allergy/AdvReac Type Severity Reaction Status Date / Time pollen extracts Allergy Intermediate RUNNY Verified 04/23/21 11:42 NOSE, ITCHY EYES, SNEEZING sulfamethoxazole Allergy Unknown Shakiness Verified 04/23/21 11:42 [From Bactrim] trimethoprim [From Bactrim] Allergy Unknown Shakiness Verified 04/23/21 11:42 Home Medications Medication Instructions Recorded Confirmed Type mirabegron 50 mg tablet,extended 50 mg PO QAM 06/15/19 04/23/21 History release 24 hr multivitamin 1 tab PO QDL 06/15/19 04/23/21 History amoxicillin 500 mg capsule 125 mg PO QAM cap 06/16/19 04/23/21 History budesonide-formoterol HFA 80 2 puffs INH BID PRN 06/16/19 04/23/21 History mcg-4.5 mcg/actuation aerosol inhaler escitalopram oxalate 20 mg tablet 30 mg PO HS tab 06/16/19 04/23/21 History gabapentin 600 mg tablet 900 mg PO TID tab 06/16/19 04/23/21 History hydrochlorothiazide 25 mg tablet 25 mg PO QAM 06/16/19 04/23/21 History hydroxychloroquine 200 mg tablet 100 mg PO QAM tab 06/16/19 04/23/21 History oxycodone 5 mg capsule 5 mg PO UD PRN cap 06/16/19 04/23/21 History pantoprazole 40 mg tablet,delayed 40 mg PO QAM 06/16/19 04/23/21 History release spironolactone 25 mg tablet 25 mg PO BID 06/16/19 04/23/21 History sulindac 200 mg tablet 200 - 300 mg PO BID 06/16/19 04/23/21 History ascorbic acid (vitamin C) [Vitamin 500 mg PO BID 09/15/19 04/23/21 History C] cholecalciferol (vitamin D3) 2,000 unit PO BID 09/15/19 04/23/21 History [Vitamin D3] denosumab 60 mg/mL subcutaneous 60 mg SQ UD ml 01/06/20 04/23/21 History syringe amitriptyline 25 mg tablet 25 mg PO HS tab 05/08/20 04/23/21 History calcium carbonate 500 mg calcium 500 mg PO UD PRN 05/08/20 04/23/21 History (1,250 mg) capsule tamsulosin 0.4 mg PO QAM 05/17/20 04/23/21 History levothyroxine 150 mcg PO DAILY 04/23/21 04/23/21 History pregabalin 100 mg PO TID 04/23/21 04/23/21 History rosuvastatin 5 mg PO HS 04/23/21 04/23/21 History Patient History Medical History (Updated 04/24/21 @ 14:38 by Arthur Mazariegos MD) Acid reflux OCCASSIONAL Anal cancer (~03/2008) HX OF Aortic stenosis, moderate Arthritis Bladder stone Brittle bones CURRENT FRACTURE R HIP, MULTIPLE PELVICE BREAKS AND FRACTURE IN BONE BELOW KNEE Carpal tunnel syndrome, bilateral Cervical cancer (~05/1990) HX OF Colorectal cancer HX OF Degenerative joint disease of both hips DVT (deep venous thrombosis) L LEG YRS AGO/NONE SINCE 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 History of pelvic fracture History of recurrent UTIs NONE CURRENT/ON MAINTENANCE ABX FOR Incomplete bladder emptying Iron deficiency HX OF Left knee DJD Lymphedema THERAPY FOR Pathologic acetabular fracture Pelvic fracture Pressure ulcer of right buttock, stage 1 Seasonal allergies Spinal stenosis Urge and stress incontinence Surgical History Colostomy in place H/O foot surgery History of carpal tunnel release of both wrists History of colonoscopy History of hernia repair X2 SURGERIES WITH STOMA RELOCATED FOR BOTH HERNIA SURGERIES History of hysterectomy History of urologic surgery HX URETERAL STENT AND SINCE REMOVED History of wisdom tooth extraction Nausea and vomiting after administration of anesthetic agent Family History Sister Coronary heart disease Diabetes Nephrolithiasis Breast cancer Brother Diabetes Father Coronary heart disease Diabetes Hypertension Myocardial infarction Grandmother Diabetes Social History Smoking Status: Never smoker Second Hand Exposure: No; Do You Dip or Chew Tobacco: No; Tobacco Cessation Education Requested by Patient: No Hx Alcohol Use: No Hx Substance Use: No Preferred Language: Tamazight Communication Ability: Effective Visual Impairment: Limited Hearing Ability: Normal Stoner Out Required: No Beliefs That Will Affect Care: None marital status: Current Living Situation: Spouse current occupational status: retired Other Information That Helps Us Care for You: No Feels Safe at Home: Yes Assistive Devices: Glasses and Walker Review of Systems Review of Systems: All systems reviewed & are unremarkable except as noted in HPI & below Physical Exam Constitutional: well developed and well nourished; no acute distress Neck: normal visual inspection Respiratory: normal respiratory effort and able to speak in complete sentences; no labored breathing and no audible wheezes Cardiovascular: Extremities: no calf tenderness Gastrointestinal (Abdomen): Percussion/Palpation: abdomen soft; abdomen nontender and no guarding Colostomy present Musculoskeletal: Head/Neck/Chest: normocephalic and head atraumatic Skin: Warm and dry Neurologic: awake Psychiatric: Orientation: alert, oriented x 3 and cooperative Genitourinary: + CVA tenderness (Left ) Results & Data ([facility]) Vital Signs (Past 12 Hours) Vital Signs Temp Pulse Resp BP BP Pulse Ox 04/24/21 07:36 36.6 C 82 16 134/75 95 04/23/21 22:13 37 C 78 14 129/72 95 PG Care Time/CCT Total # of Minutes Spent Total Time Spent with Patient: Total time spent is greater than 50% in coordination of care (as documented) at patient's floor/unit and/or counseling patient: Coding Level of Care Code 75649 Initial Inpt Care Lvl 3 Diagnoses Hydronephrosis N13.30 Hydronephrosis type: unspecified GISELL (acute kidney injury) N17.9 Acute left flank pain R10.9 (1) Hydronephrosis Hydronephrosis type: unspecified Qualified Code(s): N13.30 - Unspecified hydronephrosis
[2021-04-24] MEDS: MULTIVITAMIN TAB PO SCH (10:18)
[2021-04-24] MEDS: oxyCODONE HCL IR 5 MG TAB (IMMEDIATE RELEASE) PO PRN ×2 (10:32→21:29)
[2021-04-24] MEDS ORDERED: CIPROFLOXACIN / D5W 200 MG/100 ML BAG IV STA (11:30)
[2021-04-24] MEDS ORDERED: ONDANSETRON INJ 2 MG/ML 2 ML VIAL IV PRN (14:35)
[2021-04-24] MEDS ORDERED: fentaNYL citrate 100 MCG/2 ML VIAL IV PRN (14:35)
[2021-04-24] MEDS ORDERED: ePHEDrine sulfate 50 MG/ML AMP IV PRN (14:35)
[2021-04-24] MEDS ORDERED: ATROPINE SULFATE 0.1 MG/ML 10ML SYR IV PRN (14:35)
--- NOTE | 2021-04-24 14:39 | Anesthesiology Consultation ---
Date of Service April 24, 2021 Assessment & Plan (1) Encounter for pre-operative examination: Chart Review Chart Review: Acceptable Risk for Surgery and Patient NOT seen in Pre Admission Testing Consults Requested none History Surgery Operation Date: 04/24/21 07:00 Proposed Procedures p Cystoscopy, Left Ureteral Stent Insertion - Madhav Christine MD Height/Weight Height: 5 ft Weight: 85.7 kg Allergies Allergy/AdvReac Type Severity Reaction Status Date / Time pollen extracts Allergy Intermediate RUNNY Verified 04/23/21 11:42 NOSE, ITCHY EYES, SNEEZING sulfamethoxazole Allergy Unknown Shakiness Verified 04/23/21 11:42 [From Bactrim] trimethoprim [From Bactrim] Allergy Unknown Shakiness Verified 04/23/21 11:42 Medications Home Medications Medication Instructions Recorded Confirmed Last Taken mirabegron 50 mg tablet,extended 50 mg PO QAM 06/15/19 04/23/21 04/23/21 release 24 hr multivitamin 1 tab PO QDL 06/15/19 04/23/21 04/22/21 amoxicillin 500 mg capsule 125 mg PO QAM cap 06/16/19 04/23/21 04/22/21 budesonide-formoterol HFA 80 2 puffs INH BID PRN 06/16/19 04/23/21 04/22/21 mcg-4.5 mcg/actuation aerosol inhaler escitalopram oxalate 20 mg tablet 30 mg PO HS tab 06/16/19 04/23/21 04/22/21 gabapentin 600 mg tablet 900 mg PO TID tab 06/16/19 04/23/21 04/23/21 hydrochlorothiazide 25 mg tablet 25 mg PO QAM 06/16/19 04/23/21 04/22/21 hydroxychloroquine 200 mg tablet 100 mg PO QAM tab 06/16/19 04/23/21 04/22/21 oxycodone 5 mg capsule 5 mg PO UD PRN cap 06/16/19 04/23/21 04/23/21 pantoprazole 40 mg tablet,delayed 40 mg PO QAM 06/16/19 04/23/21 04/23/21 release spironolactone 25 mg tablet 25 mg PO BID 06/16/19 04/23/21 04/22/21 sulindac 200 mg tablet 200 - 300 mg PO BID 06/16/19 04/23/21 04/22/21 ascorbic acid (vitamin C) [Vitamin 500 mg PO BID 09/15/19 04/23/21 04/22/21 C] cholecalciferol (vitamin D3) 2,000 unit PO BID 09/15/19 04/23/21 04/22/21 [Vitamin D3] denosumab 60 mg/mL subcutaneous 60 mg SQ UD ml 01/06/20 04/23/21 04/22/21 syringe amitriptyline 25 mg tablet 25 mg PO HS tab 05/08/20 04/23/21 04/22/21 calcium carbonate 500 mg calcium 500 mg PO UD PRN 05/08/20 04/23/21 04/22/21 (1,250 mg) capsule tamsulosin 0.4 mg PO QAM 05/17/20 04/23/21 04/22/21 levothyroxine 150 mcg PO DAILY 04/23/21 04/23/21 04/22/21 pregabalin 100 mg PO TID 04/23/21 04/23/21 04/22/21 rosuvastatin 5 mg PO HS 04/23/21 04/23/21 04/22/21 Active Medications Generic Name Dose Route Start Last Admin Trade Name Freq PRN Reason Stop Dose Admin Amitriptyline HCl 25 mg 04/23/21 21:00 04/23/21 20:24 Amitriptyline Hcl 25 Mg Tab PO 05/23/21 20:59 25 mg HS RICARDO Administration Ascorbic Acid 500 mg 04/23/21 21:00 04/24/21 07:37 Ascorbic Acid 500 Mg Tab PO 05/23/21 20:59 Not Given BID RICARDO Escitalopram Oxalate 30 mg 04/23/21 21:00 04/23/21 20:25 Escitalopram Oxalate 10 Mg Tab PO 05/23/21 20:59 30 mg HS RICARDO Administration Gabapentin 900 mg 04/23/21 21:00 04/24/21 14:39 Gabapentin 300 Mg Cap PO 05/23/21 20:59 Not Given TID RICARDO Hydroxychloroquine Sulfate 100 mg 04/24/21 09:00 04/24/21 07:37 Hydroxychloroquine Sulfate 200 Mg Tab PO 05/24/21 08:59 100 mg QAM RICARDO Administration Sodium Chloride 1,000 mls @ 75 mls/hr 04/23/21 16:55 04/24/21 04:44 Nss 1000ml IV 05/23/21 16:54 75 mls/hr .[id number] RICARDO Administration Levothyroxine Sodium 150 mcg 04/24/21 06:30 04/24/21 04:43 Levothyroxine Sodium 150 Mcg Tablet PO 05/24/21 06:29 150 mcg DAILYBB RICARDO Administration Miscellaneous 1 ea 04/24/21 00:00 04/24/21 07:35 Mirabegron [Myrbetriq] 50 Mg Tablet Extended Release 24 Hr~Order Awaiting Action N/A 05/24/21 00:00 Not Given QS RICARDO Miscellaneous 1 ea 04/24/21 00:00 04/24/21 07:35 Denosumab ((Prolia)~Order Awaiting Action N/A 05/24/21 00:00 Not Given QS RICARDO Multivitamins 1 tab 04/24/21 11:30 04/24/21 10:18 Multivitamin Tab PO 05/24/21 11:29 Not Given QDL RICARDO Oxycodone HCl 5 mg 04/23/21 17:53 04/24/21 10:32 Oxycodone Hcl Ir 5 Mg Tab (Immediate Release) PO 05/07/21 17:52 5 mg DAILY PRN Administration Pain Pantoprazole Sodium 40 mg 04/24/21 09:00 04/24/21 07:37 Pantoprazole 40 Mg Tab PO 05/24/21 08:59 40 mg QAM RICARDO Administration Rosuvastatin Calcium 5 mg 04/23/21 21:00 04/23/21 20:25 Rosuvastatin Calcium 5 Mg Tab PO 05/23/21 20:59 5 mg HS RICARDO Administration Tamsulosin HCl 0.4 mg 04/24/21 09:00 04/24/21 07:36 Tamsulosin Hcl 0.4 Mg Cap PO 05/24/21 08:59 0.4 mg QAM RICARDO Administration Vitamin D 2,000 units 04/23/21 21:00 04/24/21 07:37 Cholecalciferol 1,000 Units 25 Mcg Tab PO 05/23/21 20:59 Not Given BID RICARDO NPO Date Last Intake of Fluids: 04/23/21 Time Last Intake of Fluids: 22:30 Last Intake of Fluids Comment: small sip with medications Date Last Intake of Solids: 04/23/21 Time Last Intake of Solids: 22:30 Past Medical History Medical History (Updated 04/24/21 @ 14:38 by Arthur Mazariegos MD) Acid reflux OCCASSIONAL Anal cancer (~03/2008) HX OF Aortic stenosis, moderate Arthritis Bladder stone Brittle bones CURRENT FRACTURE R HIP, MULTIPLE PELVICE BREAKS AND FRACTURE IN BONE BELOW KNEE Carpal tunnel syndrome, bilateral Cervical cancer (~05/1990) HX OF Colorectal cancer HX OF Degenerative joint disease of both hips DVT (deep venous thrombosis) L LEG YRS AGO/NONE SINCE 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 History of pelvic fracture History of recurrent UTIs NONE CURRENT/ON MAINTENANCE ABX FOR Incomplete bladder emptying Iron deficiency HX OF Left knee DJD Lymphedema THERAPY FOR Pathologic acetabular fracture Pelvic fracture Pressure ulcer of right buttock, stage 1 Seasonal allergies Spinal stenosis Urge and stress incontinence Exercise / Class Metabolic Activity II 4-5 Yardwork/Stairs/Walk up hill Past Family History Family History Sister Coronary heart disease Diabetes Nephrolithiasis Breast cancer Brother Diabetes Father Coronary heart disease Diabetes Hypertension Myocardial infarction Grandmother Diabetes Past Surgical History Surgical History Colostomy in place H/O foot surgery History of carpal tunnel release of both wrists History of colonoscopy History of hernia repair X2 SURGERIES WITH STOMA RELOCATED FOR BOTH HERNIA SURGERIES History of hysterectomy History of urologic surgery HX URETERAL STENT AND SINCE REMOVED History of wisdom tooth extraction Nausea and vomiting after administration of anesthetic agent Past Anesthesia History No Hx of Anesthesia Complications and No Family Hx of Anesthesia Complications History of PONV No Hx of Motion Sickness and History of PONV Social History Smoking Status: Never smoker Do You Dip or Chew Tobacco: No Hx Alcohol Use: No Hx Substance Use: No substance use type: does not use Physical Exam Vital Signs Last Vital Signs Temp 36.8 C 04/24/21 12:57 Pulse 82 04/24/21 07:36 Resp 18 04/24/21 12:57 BP 147/66 H 04/24/21 12:57 Pulse Ox 98 04/24/21 12:57 Testing Laboratory Results 04/24/21 06:13 04/24/21 06:13 Urine Color Yellow 04/23/21 13:05 Urine Appearance Clear (Clear) 04/23/21 13:05 Urine pH 5.5 (4.5-7.5) 04/23/21 13:05 Ur Specific [place] 1.014 (1.000-1.030) 04/23/21 13:05 Urine Protein Negative (Negative) 04/23/21 13:05 Urine Glucose (UA) Negative (Negative) 04/23/21 13:05 Urine Ketones Negative (Negative) 04/23/21 13:05 Urine Nitrite Negative (Negative) 04/23/21 13:05 Ur Leukocyte Esterase Negative (Negative) 04/23/21 13:05 Urine WBC (Auto) 1-5 /hpf (0-5) 04/23/21 13:05 Urine RBC (Auto) >30 /hpf (0-4) H 04/23/21 13:05 U Hyaline Cast (Auto) 1-5 /lpf (0-5) 04/23/21 13:05 U Epithel Cells (Auto) 20-30 /lpf (0-5) H 04/23/21 13:05 Urine Bacteria (Auto) Negative (Negative) 04/23/21 13:05 Electrocardiogram Date: 04/23/21 DICTATED BY: Tonio Carrillo MD Test Reason : Blood Pressure : / mmHG Vent. Rate : 070 BPM Atrial Rate : 070 BPM P-R Int : 154 ms QRS Dur : 086 ms QT Int : 384 ms P-R-T Axes : 062 022 031 degrees QTc Int : 414 ms Normal sinus rhythm Possible Left atrial enlargement Left ventricular hypertrophy Abnormal ECG When compared with ECG of 17-MAY-2020 13:59, Nonspecific T wave abnormality no longer evident in Lateral leads Confirmed by Tonio Carrillo ([id number]) on 04/23/2021 2:43:15 PM Echocardiogram Date: 10/13/20 LV Function: normal Valvular Disease: + EF 60%
[2021-04-24] MEDS ORDERED: MIDAZOLAM HCL 1 MG/ML 2ML VIAL ONE ×2 (15:27→15:44)
[2021-04-24] MEDS ORDERED: fentaNYL citrate 100 MCG/2 ML VIAL ONE (15:27)
--- NOTE | 2021-04-24 16:20 | Anesthesiology Progress Note ---
Date of Service April 24, 2021 Anesthesia Post Procedure Vital Signs Vital Signs: Temp Pulse Pulse Resp BP BP Pulse Ox 04/24/21 16:15 86 12 164/71 H 97 04/24/21 16:05 36 C L 90 12 170/76 H 95 04/24/21 12:57 36.8 C 18 147/66 H 98 04/24/21 07:36 36.6 C 82 16 134/75 95 04/23/21 22:13 37 C 78 14 129/72 95 04/23/21 17:13 36.6 C 68 18 158/82 H 99 Pain Intensity Left Flank: Pain Intensity: 7 Right Shoulder: Pain Intensity: 7 Transfer of Care Handoff Completed per policy Notes Mental Status: alert / awake / arousable Patient Amnestic to Procedure: Yes Nausea / Vomiting: adequately controlled Pain: adequately controlled Airway Patency, RR, SpO2: stable & adequate BP & HR: stable & adequate Hydration State: stable & adequate Anesthetic Complications: no major complications apparent
--- NOTE | 2021-04-24 16:27 | Fluoroscopy Report ---
INTRAOPERATIVE RADIOGRAPHS CLINICAL HISTORY: Left ureteral stent placement. Fluoroscopy time: 6 seconds FINDINGS: 2 spot fluoroscopic views of the left abdomen are correlated with abdominal CT dated 021. On the initial image a calcification projects over the upper pole of the left kidney. Numerous s urgical clips are seen in the pelvis. The second image shows the proximal end of a left ureteral sten t coiled in the expected location of the left renal pelvis. IMPRESSION: Intraoperative images from a left ureteral stent placement procedure as above. Electronically signed by: Abad Roque M.D. 04/24/2021 4:26 PM
[2021-04-24] MEDS ORDERED: LIDOCAINE 2% 2 ML VIAL/AMP(20MG/ML) INFIL ONE (16:42)
[2021-04-24] MEDS ORDERED: PROPOFOL IV EMULSION 10 MG/ML 20 ML VIAL IV ONE (16:42)
[2021-04-24] MEDS ORDERED: ONDANSETRON INJ 2 MG/ML 2 ML VIAL ONE (16:42)
--- NOTE | 2021-04-24 17:05 | Hospitalist Progress Note ---
Date of Service April 24, 2021 Assessment & Plan (1) Hydronephrosis: Mrs. Sweeney is a 70 year old female who was admitted with admitted with intractable left flank pain, GISELL, and left-sided hydronephrosis yesterday. Dr Christine took her to the OR today for a systolic STEMI, left ureteral stent placement and cystolitholapaxy. She has just returned to her room. Patient offers no complaints at this time. She denies any pain in her abdomen or left flank. She denies any nausea or vomiting. She has not had any fever or chills. She denies any complications related to anesthesia. Retrograde Pyelogram showed appropriate ureteral stent placement -- which hopefully will relieve for hydronephrosis. Patient has chronic right severe hydronephrosis and her right kidney is nonfunctional. -- Continue IVF's. -- Monitor daily labs. -- Analgesics for pain. (2) GISELL (acute kidney injury): -- Continue IVF's. -- Monitor daily labs. -- Hold Hydrochlorothiazide. -- Hold Spironolactone. (3) Aortic stenosis: Moderate . -- No symptoms related to aortic stenosis. -- Continue Rosuvastatin 5 mg daily at bedtime which can slow the progression of aortic valvular disease. Admission and Anticipated Discharge Date Admission Date: April 23, 2021 Subjective Mrs. Sweeney is a 70 year old female who was admitted with admitted with intractable left flank pain, GISELL, and left-sided hydronephrosis yesterday. Dr Christine took her to the OR today for a systolic STEMI, left ureteral stent placement and cystolitholapaxy. She has just returned to her room. Patient offers no complaints at this time. She denies any pain in her abdomen or left flank. She denies any nausea or vomiting. She has not had any fever or chills. She denies any complications related to anesthesia. Review of Systems Review of Systems: All systems reviewed & are unremarkable except as noted in Subjective Physical Exam Physical Exam: GENERAL: Patient in no acute distress. HEENT: Head is atraumatic, normocephalic. EOM's intact. Facies symmetric. No perioral cyanosis. NECK: No JVD. JVP is at the level of the clavicle sitting upright. Carotid upstrokes are + 2 bilaterally. No bruits are noted. CHEST/LUNGS: Clear to auscultation throughout all lung alvarez. No wheezes, rales, or crackles. CVS: S1 and S2 are regular with a grade 2/6 crescendo decrescendo basal systolic murmur heard best over the right 2nd intercostal space, radiates the left sternal border. Aortic valve closure sound is audible both the apex and the base. PMI is nonpalpable. No lifts, heaves, or thrills. No abdominal aortic or renal bruits. ABDOMINAL EXAM: Bowel sounds are present. No masses, organomegaly, or tenderness. Left lower quadrant colostomy noted. EXTREMITIES: No clubbing or cyanosis. Very mild lymphedema bilateral lower extremities. Intact posterior tibial and radial pulses bilaterally. NEUROLOGIC EXAM: Patient is awake, alert, and oriented. Pleasant and cooperative. Answers questions appropriately. Speech is clear. Gait pattern was not assessed. Results & Data Results & Data ([facility]) Vital Signs (Past 12 Hours) Vital Signs Temp Pulse Pulse Resp BP Pulse Ox 04/24/21 16:15 86 12 164/71 H 97 04/24/21 16:05 36 C L 90 12 170/76 H 95 04/24/21 12:57 36.8 C 18 147/66 H 98 04/24/21 07:36 36.6 C 82 16 134/75 95 Laboratory Results Laboratory Results - last 24 hr 04/24/21 04/24/21 04/24/21 06:13 06:13 15:56 WBC 6.85 RBC 3.35 L Hgb 10.6 L Hct 33.1 L MCV 98.8 MCH 31.6 MCHC 32.0 RDW Std Deviation 48.3 H RDW Coeff of Anh 13.3 Plt Count 193 MPV 9.1 Immature Gran % (Auto) 0.4 Neut % (Auto) 45.4 Lymph % (Auto) 38.8 Gulf % (Auto) 9.3 Eos % (Auto) 5.4 Baso % (Auto) 0.7 Neut # (Auto) 3.10 Lymph # (Auto) 2.66 Gulf # (Auto) 0.64 H Eos # (Auto) 0.37 Baso # (Auto) 0.05 Immature Gran # (Auto) 0.03 H Sodium 143 Potassium 4.4 Chloride 110 H Carbon Dioxide 27 Anion Gap 6.0 BUN 33 H Creatinine 1.51 H Est Cr Clr Drug Dosing 32.7 Est GFR ( Amer) 39.6 Est GFR (Non-Af Amer) 34.2 BUN/Creatinine Ratio 21.5 H Glucose 91 Calcium 8.9 Magnesium 2.3 Stone Source Pending Stone Weight Pending Stone Composition Pending Stone Composition 2 Pending Diagnostic Findings Retrograde Pyelogram 04/24/21: 2 spot fluoroscopic views of the left abdomen are correlated with abdominal CT dated 04/23/2021. On the initial image a calcification projects over the upper pole of the left kidney. Numerous surgical clips are seen in the pelvis. The second image shows the proximal end of a left ureteral stent coiled in the expected location of the left renal pelvis. IMPRESSION: -- Intraoperative images from a left ureteral stent placement procedure as above. CT SCAN ABDOMEN PELVIS 04/23/21: Lung bases: The heart is normal in size and without pericardial effusion. The lung bases are clear noting bibasilar scarring/atelectasis. There is a small hiatal hernia. Liver: The unenhanced liver is normal in size, contour, and attenuation. There is no intrahepatic biliary ductal dilatation. Gallbladder: There are calcified gallstones with no CT evidence of acute cholecystitis. Spleen: Normal in size and attenuation. Pancreas: The unenhanced pancreas is moderately atrophic and grossly unremarkable. Adrenal glands: Unremarkable. Kidneys: There is markedly asymmetric cortical atrophy of the right kidney as compared to the left. Severe right hydroureteronephrosis is unchanged from prior studies. Moderate left hydroureteronephrosis is new from previous. No obs tructing stone or lesion is clearly identified. There are least 5 nonobstructing left renal calculi which measure up to 9 mm. There are least 3 small nonobstructing right renal calculi which measure up to 4 mm. There is no evidence of contour deforming renal mass lesion. Abdominal vasculature: The abdominal aorta is normal in course and caliber noting moderate atherosclerotic calcification. Bowel: There is postoperative change from left colonic resection with a double barrel colostomy in the left lower quadrant. There is a large parastomal hernia which contains small bowel loops. No bowel obstruction is identified. The cecum appears to be located in the expected location of the rectum. A structure that may represent the appendix is seen on image #323. This is similar to previous. Peritoneum: There is no intraperitoneal free air or abdominal ascites. Lymphadenopathy: A prominent left inguinal lymph node on image #302 measures 1.1 cm in short axis. This is similar to previous. Pelvic viscera: Numerous surgical clips are seen throughout the pelvis. The bladder is normal as visualized. The uterus is surgically absent. Skeletal structures: The skeletal structures are osteopenic. There is moderate lumbosacral spondylosis. 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 No lytic or blastic lesions are seen. IMPRESSION: 1. There is moderate left hydroureteronephrosis, which is age indeterminant but new from 08/26/2019. No obstructing stone or lesion is clearly identified. 2. Severe right hydroureteronephrosis with marked cortical atrophy of the right kidney is similar to previous. 3. Bilateral nephrolithiasis. 4. Cholelithiasis. 5. A left lower quadrant colostomy with a large parastomal hernia is unchanged. No bowel obstruction is identified. 6. 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 7. Additional findings as above. Medications Administered Medications mirabegron 50 mg tablet,extended release 24 hr 50 mg PO QAM 06/15/19 [History Confirmed 04/23/21] multivitamin 1 tab PO QDL 06/15/19 [History Confirmed 04/23/21] amoxicillin 500 mg capsule 125 mg PO QAM cap 06/16/19 [History Confirmed 04/23/21] budesonide-formoterol HFA 80 mcg-4.5 mcg/actuation aerosol inhaler 2 puffs INH BID PRN 06/16/19 [History Confirmed 04/23/21] escitalopram oxalate 20 mg tablet 30 mg PO HS tab 06/16/19 [History Confirmed 04/23/21] gabapentin 600 mg tablet 900 mg PO TID tab 06/16/19 [History Confirmed 04/23/21] hydrochlorothiazide 25 mg tablet 25 mg PO QAM 06/16/19 [History Confirmed 04/23/21] hydroxychloroquine 200 mg tablet 100 mg PO QAM tab 06/16/19 [History Confirmed 04/23/21] oxycodone 5 mg capsule 5 mg PO UD PRN cap 06/16/19 [History Confirmed 04/23/21] pantoprazole 40 mg tablet,delayed release 40 mg PO QAM 06/16/19 [History Confirmed 04/23/21] spironolactone 25 mg tablet 25 mg PO BID 06/16/19 [History Confirmed 04/23/21] sulindac 200 mg tablet 200 - 300 mg PO BID 06/16/19 [History Confirmed 04/23/21] ascorbic acid (vitamin C) [Vitamin C] 500 mg PO BID 09/15/19 [History Confirmed 04/23/21] cholecalciferol (vitamin D3) [Vitamin D3] 2,000 unit PO BID 09/15/19 [History Confirmed 04/23/21] denosumab 60 mg/mL subcutaneous syringe 60 mg SQ UD ml 01/06/20 [History Confirmed 04/23/21] amitriptyline 25 mg tablet 25 mg PO HS tab 05/08/20 [History Confirmed 04/23/21] calcium carbonate 500 mg calcium (1,250 mg) capsule 500 mg PO UD PRN 05/08/20 [History Confirmed 04/23/21] tamsulosin 0.4 mg PO QAM 05/17/20 [History Confirmed 04/23/21] levothyroxine 150 mcg PO DAILY 04/23/21 [History Confirmed 04/23/21] pregabalin 100 mg PO TID 04/23/21 [History Confirmed 04/23/21] rosuvastatin 5 mg PO HS 04/23/21 [History Confirmed 04/23/21] Home Medications Acetaminophen (Acetaminophen 325 Mg Tab) 650 mg PO Q4H PRN PRN Reason: pain/fever Stop: 05/23/21 16:54 Amitriptyline HCl (Amitriptyline Hcl 25 Mg Tab) 25 mg PO HS RICARDO Stop: 05/23/21 20:59 Last Admin: 04/23/21 20:24 Dose: 25 mg Documented by: Ascorbic Acid (Ascorbic Acid 500 Mg Tab) 500 mg PO BID RICARDO Stop: 05/23/21 20:59 Last Admin: 04/24/21 07:37 Dose: Not Given Documented by: Calcium Carbonate (Calcium Carbonate 500 Mg Chewable Tab) 500 mg PO UD PRN PRN Reason: Heartburn Stop: 05/23/21 17:43 Escitalopram Oxalate (Escitalopram Oxalate 10 Mg Tab) 30 mg PO HS RICARDO Stop: 05/23/21 20:59 Last Admin: 04/23/21 20:25 Dose: 30 mg Documented by: Fluticasone/Vilanterol (Fluticasone/Vilanterol 200/25mcg 14 Puffs/Inhaler) 1 puffs INH DAILY PRN; Protocol PRN Reason: SEASONAL ALLERGIES Stop: 05/23/21 17:57 Gabapentin (Gabapentin 300 Mg Cap) 900 mg PO TID [facility] Stop: 05/23/21 20:59 Last Admin: 04/24/21 14:39 Dose: Not Given Documented by: Hydromorphone HCl (Hydromorphone Inj 0.5 Mg/0.5 Ml Syr) 0.5 mg IV Q8H PRN PRN Reason: Pain Stop: 05/07/21 16:54 Hydroxychloroquine Sulfate (Hydroxychloroquine Sulfate 200 Mg Tab) 100 mg PO QAM [facility] Stop: 05/24/21 08:59 Last Admin: 04/24/21 07:37 Dose: 100 mg Documented by: Sodium Chloride (Nss 1000ml) 1,000 mls @ 75 mls/hr IV .[id number] [facility] Stop: 05/23/21 16:54 Last Admin: 04/24/21 17:13 Dose: 75 mls/hr Documented by: Levothyroxine Sodium (Levothyroxine Sodium 150 Mcg Tablet) 150 mcg PO DAILYBB [facility] Stop: 05/24/21 06:29 Last Admin: 04/24/21 04:43 Dose: 150 mcg Documented by: Miscellaneous (Mirabegron [Myrbetriq] 50 Mg Tablet Extended Release 24 Hr~Order Awaiting Action) 1 ea N/A QS [facility] Stop: 05/24/21 00:00 Last Admin: 04/24/21 17:14 Dose: Not Given Documented by: Miscellaneous (Denosumab ((Prolia)~Order Awaiting Action) 1 ea N/A QS [facility] Stop: 05/24/21 00:00 Last Admin: 04/24/21 17:14 Dose: Not Given Documented by: Multivitamins (Multivitamin Tab) 1 tab PO QDL [facility] Stop: 05/24/21 11:29 Last Admin: 04/24/21 10:18 Dose: Not Given Documented by: Ondansetron HCl (Ondansetron Inj 2 Mg/Ml 2 Ml Vial) 4 mg IV Q6H PRN PRN Reason: Nausea Stop: 05/23/21 16:54 Oxycodone HCl (Oxycodone Hcl Ir 5 Mg Tab (Immediate Release)) 5 mg PO DAILY PRN PRN Reason: Pain Stop: 05/07/21 17:52 Last Admin: 04/24/21 10:32 Dose: 5 mg Documented by: Pantoprazole Sodium (Pantoprazole 40 Mg Tab) 40 mg PO QAM [facility] Stop: 05/24/21 08:59 Last Admin: 04/24/21 07:37 Dose: 40 mg Documented by: Pregabalin (Pregabalin 100 Mg Cap) 100 mg PO TID RICARDO Stop: 05/23/21 20:59 Rosuvastatin Calcium (Rosuvastatin Calcium 5 Mg Tab) 5 mg PO HS RICARDO Stop: 05/23/21 20:59 Last Admin: 04/23/21 20:25 Dose: 5 mg Documented by: Tamsulosin HCl (Tamsulosin Hcl 0.4 Mg Cap) 0.4 mg PO QAM [facility] Stop: 05/24/21 08:59 Last Admin: 04/24/21 07:36 Dose: 0.4 mg Documented by: Vitamin D (Cholecalciferol 1,000 Units 25 Mcg Tab) 2,000 units PO BID [facility] Stop: 05/23/21 20:59 Last Admin: 04/24/21 07:37 Dose: Not Given Documented by: PG Care Time/CCT Total # of Minutes Spent Total Time Spent with Patient: Total time spent is greater than 50% in coordination of care (as documented) at patient's floor/unit and/or counseling patient:25 Coding Level of Care Code 99799 Subseq Hosp Care Lvl 3 Diagnoses Hydronephrosis N13.30 Hydronephrosis type: unspecified GISELL (acute kidney injury) N17.9 Aortic stenosis I35.0 Time Spent (min) 40 (1) Hydronephrosis Hydronephrosis type: unspecified Qualified Code(s): N13.30 - Unspecified hydronephrosis
--- NOTE | 2021-04-24 17:07 | Operative Report ---
PG Post Operative Report Pre & Post Diagnosis Operation Date: 04/24/21 07:00 Pre-Op Diagnosis: Hydronephrosis, acute kidney injury, acute left flank pain Post-Op Diagnosis: Hydronephrosis, acute kidney injury, acute left flank pain, bladder stones I identified the patient and participated in the time-out.: Yes Procedure Operation Date: 04/24/21 07:00 Actual Procedures p Cystoscopy, Left Ureteral Stent Insertion, Cystolithopaxy - Madhav Christine MD Surgeon Shalmo Christine MD Extension Agent none Estimated Blood Loss 0 Findings Consistent with Post-Op Diagnosis Specimens Stone for chemical analysis Description of Procedure The patient was identified in the preoperative holding area, appropriate informed consents were reviewed and completed and the patient was transferred to the operative suite. Upon arrival, appropriate antibiotics and anesthesia were administered and the patient was placed in dorsal lithotomy position and prepped and draped in sterile fashion. To begin the case I passed a 22 Somali cystoscope per urethra. Inspection revealed a moderately trabeculated bladder with several smooth/round stones in the dependent portion of the bladder. These appeared to be bladder stones rather than passed ureteral stones but I am uncertain about this. Before irrigating these out of the bladder I turned my attention to the left UO which I cannulated with a sensor wire and a 5 Somali open-ended catheter. There is mild resistance in the distal ureter and under fluoroscopic guidance the seem to correspond to the location of a clip in the distal ureter. I was able to navigate the wire beyond this without significant manipulation. After positioning the wire in the kidney I placed a 6 Somali by 24 cm double-J ureteral stent seeing a good curl in the kidney as well as the bladder. There was good drainage through and around the stent. I then removed the bladder stones and passed them off the table for chemical analysis. I attest to the content of the Intraoperative Record and any orders documented therein. Any exceptions are noted below.
[2021-04-24] MEDS: AMITRIPTYLINE HCL 25 MG TAB PO SCH (21:07)
[2021-04-24] MEDS: PREGABALIN 100 MG CAP PO SCH (21:07)
[2021-04-24] MEDS: ROSUVASTATIN CALCIUM 5 MG TAB PO SCH (21:07)
[2021-04-24] MEDS: ESCITALOPRAM OXALATE 10 MG TAB PO SCH (21:07)
[2021-04-24] MEDS ORDERED: PHENAZOPYRIDINE HCL 200 MG TAB PO PRN (22:31)
[2021-04-25] MEDS: LEVOTHYROXINE SODIUM 150 MCG TABLET PO SCH (06:13)
[2021-04-25] MEDS: SODIUM CHLORIDE 0.9% 1000ML 1,000 ML IV SCH (06:14)
--- NOTE | 2021-04-25 07:35 | Urology Progress Note ---
Date of Service April 25, 2021 Assessment & Plan (1) Hydronephrosis: (2) GISELL (acute kidney injury): (3) Acute left flank pain: 70yo F with a hx of nonfunctioning right-sided kidney admitted with intractable left flank pain, GISELL, and left-sided hydronephrosis - Hx of chronic right-sided hydronephrosis and nonfunctional right kidney; CTAP from yesterday showed left hydronephrosis of unclear etiology. - She is postop day #1 status post Cystoscopy, Left Ureteral Stent Insertion, and Cystolithopaxy with Dr. Christine - Continues to have left-sided abdominal/flank discomfort, likely related to stent. - She remains afebrile. - Labs reviewed, Wbc stable and creatinine improved to 1.39 (previously 1.51). - Voiding spontaneously without difficulty. - Recommend continue supportive care and pain control. - Continue tamsulosin and pyridium prn. Can consider adding Oxybutynin prn for bladder spasms. - Will arrange outpatient follow-up with our service following discharge. - Expected clinical course reviewed with patient, all questions were answered. Thank you for allowing us to participate in the acute care of Mrs. Sweeney. Please reconsult us with additional questions, concerns or changes in patient status. Admission and Anticipated Discharge Date Admission Date: April 23, 2021 Subjective Pt examined at bedside this AM. Awake, alert, sitting in bedside chair on arrival. She reports left flank discomfort that radiates to her left groin. Denies fevers or chills. No nausea or vomiting. Tolerating PO diet. Some hematuria and dysuria as expected. She also reports urinary urgency and frequency. Feels she is emptying her bladder well. Chart review: Afebrile Urine output overnight - 220ml Review of Systems Constitutional: as per Subjective / HPI Gastrointestinal: as per Subjective / HPI Genitourinary: as per Subjective / HPI Physical Exam Constitutional: well developed and well nourished; no acute distress Respiratory: normal respiratory effort and able to speak in complete sentences; no labored breathing Gastrointestinal (Abdomen): Percussion/Palpation: + abdomen tender (mild suprapubic tenderness noted with palpation) and abdomen soft; abdomen not rigid Colostomy present Skin: Warm and dry Neurologic: awake Psychiatric: Orientation: alert, oriented x 3 and cooperative Results & Data ([facility]) Vital Signs (Past 12 Hours) Vital Signs Temp Pulse Resp BP Pulse Ox 04/25/21 03:44 37 C 95 H 12 169/90 H 92 04/24/21 22:56 36.9 C 104 H 12 157/78 H 95 04/24/21 19:36 36.4 C L 97 H 14 158/79 H 96 PG Care Time/CCT Total # of Minutes Spent Total Time Spent with Patient: Total time spent is greater than 50% in coordination of care (as documented) at patient's floor/unit and/or counseling patient: Coding Level of Care Code 22043 Subseq Hosp Care Lvl 2 Diagnoses Hydronephrosis N13.30 Hydronephrosis type: unspecified GISELL (acute kidney injury) N17.9 Acute left flank pain R10.9 (1) Hydronephrosis Hydronephrosis type: unspecified Qualified Code(s): N13.30 - Unspecified hydronephrosis
[2021-04-25] MEDS: oxyCODONE HCL IR 5 MG TAB (IMMEDIATE RELEASE) PO PRN (08:17)
[2021-04-25] MEDS: GABAPENTIN 300 MG CAP PO SCH ×3 (08:29→20:55)
[2021-04-25] MEDS: PANTOprazole 40 MG TAB PO SCH (08:29)
[2021-04-25] MEDS: MULTIVITAMIN TAB PO SCH (08:30)
[2021-04-25] MEDS: TAMSULOSIN HCL 0.4 MG CAP PO SCH (08:30)
[2021-04-25] MEDS: ASCORBIC ACID 500 MG TAB PO SCH ×2 (08:30→20:55)
[2021-04-25] MEDS: HYDROXYCHLOROQUINE SULFATE 200 MG TAB PO SCH (08:30)
[2021-04-25] MEDS: CHOLECALCIFEROL 1,000 UNITS 25 MCG TAB PO SCH ×2 (08:31→20:54)
[2021-04-25] MEDS: PREGABALIN 100 MG CAP PO SCH ×3 (08:34→20:54)
--- NOTE | 2021-04-25 09:28 | Anesthesiology Progress Note ---
Date of Service April 25, 2021 Anesthesia Post Procedure Vital Signs Vital Signs: Temp Pulse Pulse Resp BP Pulse Ox 04/25/21 08:20 36.8 C 104 H 22 161/75 H 91 04/25/21 03:44 37 C 95 H 12 169/90 H 92 04/24/21 22:56 36.9 C 104 H 12 157/78 H 95 04/24/21 19:36 36.4 C L 97 H 14 158/79 H 96 04/24/21 18:46 36.7 C 95 H 16 147/75 H 98 04/24/21 17:43 36.5 C 89 18 171/88 H 98 04/24/21 17:15 36.7 C 88 16 159/74 H 98 04/24/21 16:40 36.8 C 97 H 16 168/77 H 97 04/24/21 16:15 86 12 164/71 H 97 04/24/21 16:05 36 C L 90 12 170/76 H 95 04/24/21 12:57 36.8 C 18 147/66 H 98 Pain Intensity Left Flank: Pain Intensity: 7 Right Shoulder: Pain Intensity: 0 Notes Mental Status: alert / awake / arousable and participated in evaluation Patient Amnestic to Procedure: Yes Nausea / Vomiting: adequately controlled Pain: adequately controlled Airway Patency, RR, SpO2: stable & adequate BP & HR: stable & adequate Hydration State: stable & adequate Anesthetic Complications: no major complications apparent
--- NOTE | 2021-04-25 10:01 | Hospitalist Progress Note ---
Date of Service April 25, 2021 Assessment & Plan (1) Hydronephrosis: Mrs. Sweeney is a 70 year old female who was admitted with admitted with intractable left flank pain, GISELL, and left-sided hydronephrosis yesterday. Dr Christine took her to the OR today for a systolic STEMI, left ureteral stent placement and cystolitholapaxy. She has just returned to her room. Patient offers no complaints at this time. She denies any pain in her abdomen or left flank. She denies any nausea or vomiting. She has not had any fever or chills. She denies any complications related to anesthesia. Retrograde Pyelogram showed appropriate ureteral stent placement. Patient has chronic right severe hydronephrosis and her right kidney is nonfunctional. -- Continue IVF's. -- Check CBC with diff, BMP today. -- Increase Oxycodone to 10 mg q 8 hours as needed, first dose now. -- Likely discharge tomorrow if pain controlled and renal function at baseline. -- Follow-up with Urology as an outpatient. (2) GISELL (acute kidney injury): -- Continue IVF's. -- Check BMP today. -- Hold Hydrochlorothiazide. -- Hold Spironolactone. (3) Aortic stenosis: Moderate . -- No symptoms related to aortic stenosis. -- Continue Rosuvastatin 5 mg daily at bedtime which can slow the progression of aortic valvular disease. (4) HTN (hypertension): Due to hydronephrosis with GISELL, her diuretics are currently on hold. -- Continue to monitor. -- Pain may be playing a role in elevated BP readings. Admission and Anticipated Discharge Date Admission Date: April 23, 2021 Subjective Mrs. Sweeney is a 70 year old female who was admitted with admitted with intractable left flank pain, GISELL, and left-sided hydronephrosis 04/23/21. Dr Christine took her to the OR 04/24/21 for a Cystoscopy, Left Ureteral Stent Placement and Cystolitholapaxy. Patient is currently being seen in 383-2, patient is sitting in a bedside chair. She complains of discomfort in her left abdomen and every time she stands up - she feels the urge to urinate. She has had some hematuria. She denies any fevers, chills, or dysuria. No nausea or vomiting. She is chronically on Oxycodone and her usual home maintenance dose isn't controlling her current pain. She requests something more. CBC with Diff, BMP are pending. Stone analysis ordered, no results are back yet. Review of Systems Review of Systems: All systems reviewed & are unremarkable except as noted in Subjective Physical Exam Physical Exam: GENERAL: Patient in no acute distress. HEENT: Head is atraumatic, normocephalic. EOM's intact. Facies symmetric. No perioral cyanosis. NECK: No JVD. JVP is at the level of the clavicle sitting upright. Carotid upstrokes are + 2 bilaterally. No bruits are noted. CHEST/LUNGS: Clear to auscultation throughout all lung alvarez. No wheezes, rales, or crackles. CVS: S1 and S2 are regular with a grade 2/6 crescendo decrescendo basal systolic murmur heard best over the right 2nd intercostal space, radiates the left sternal border. Aortic valve closure sound is audible both the apex and the base. PMI is nonpalpable. No lifts, heaves, or thrills. No abdominal aortic or renal bruits. ABDOMINAL EXAM: Bowel sounds are present. Tender to palpation in the LLQ. Left lower quadrant colostomy also noted. EXTREMITIES: No clubbing or cyanosis. Very mild lymphedema bilateral lower extremities. Intact posterior tibial and radial pulses bilaterally. NEUROLOGIC EXAM: Patient is awake, alert, and oriented. Pleasant and cooperative. Answers questions appropriately. Speech is clear. Gait pattern was not assessed. Results & Data Results & Data ([facility]) Vital Signs (Past 12 Hours) Vital Signs Temp Pulse Resp BP Pulse Ox 04/25/21 08:20 36.8 C 104 H 22 161/75 H 91 04/25/21 03:44 37 C 95 H 12 169/90 H 92 04/24/21 22:56 36.9 C 104 H 12 157/78 H 95 PG Care Time/CCT Total # of Minutes Spent Total Time Spent with Patient: Total time spent is greater than 50% in coordination of care (as documented) at patient's floor/unit and/or counseling patient:25 Coding Level of Care Code 49562 Subseq Hosp Care Lvl 3 Diagnoses Hydronephrosis N13.30 Hydronephrosis type: unspecified GISELL (acute kidney injury) N17.9 Aortic stenosis I35.0 HTN (hypertension) I10 Time Spent (min) 40 (1) Hydronephrosis Hydronephrosis type: unspecified Qualified Code(s): N13.30 - Unspecified hydronephrosis
[2021-04-25] MEDS ORDERED: oxyCODONE HCL IR 5 MG TAB (IMMEDIATE RELEASE) PO PRN (10:30)
[2021-04-25] MEDS ORDERED: oxyCODONE HCL IR 5 MG TAB (IMMEDIATE RELEASE) PO ONE (10:32)
[2021-04-25 10:57] LABS: Basophils # (auto) 0.02 K/uL (0-0.2); Basophils % (auto) 0.2 %; Eosinophils # (auto) 0.47 K/uL (0-0.5); Eosinophils % (auto) 5.3 %; Hematocrit (blood only) 38.6 % (37-47); Hemoglobin 12.3 g/dL (12.0-16.0); Immature Granulocytes # (auto) 0.03 K/uL (0.00-0.02); Immature Granulocytes % (auto) 0.3 %; Lymphocytes # (auto) 1.36 K/uL (1.2-3.4); Lymphocytes % (auto) 15.4 %; Mean Corpuscular Hemoglobin 31.7 pg (25-34); Mean Corpuscular Hgb Conc 31.9 g/dL (32-36); Mean Corpuscular Volume 99.5 fL (80-100); Mean Platelet Volume 9.3 fL (7.4-10.4); Monocytes # (auto) 0.65 K/uL (0.11-0.59); Monocytes % (auto) 7.3 %; Neutrophils # (auto) 6.32 K/uL (1.4-6.5); Neutrophils % (auto) 71.5 %; Platelet Count 224 K/uL (130-400); RDW Coefficient of Variation 13.3 % (11.5-14.5); Red Blood Count 3.88 M/uL (4.2-5.4); White Blood Count 8.85 K/uL (4.8-10.8)
[2021-04-25 11:17] LABS: BUN Creatinine Ratio 18.1 (10-20); Calcium 9.2 mg/dl (8.5-10.1); Creatinine Clr Calc Pharmacy 35.6 ml/min; Est GFR (African American) 43.8 ml/min; Est GFR (Non-African American) 37.8 ml/min; Potassium 3.9 mmol/L (3.5-5.1)
[2021-04-25] MEDS: ROSUVASTATIN CALCIUM 5 MG TAB PO SCH (20:55)
[2021-04-25] MEDS: AMITRIPTYLINE HCL 25 MG TAB PO SCH (20:55)
[2021-04-25] MEDS: ESCITALOPRAM OXALATE 10 MG TAB PO SCH (20:56)
[2021-04-26] MEDS: LEVOTHYROXINE SODIUM 150 MCG TABLET PO SCH (06:19)
[2021-04-26] MEDS: GABAPENTIN 300 MG CAP PO SCH ×2 (09:16→13:40)
[2021-04-26] MEDS: PANTOprazole 40 MG TAB PO SCH (09:16)
[2021-04-26] MEDS: TAMSULOSIN HCL 0.4 MG CAP PO SCH (09:16)
[2021-04-26] MEDS: HYDROXYCHLOROQUINE SULFATE 200 MG TAB PO SCH (09:16)
[2021-04-26] MEDS: PREGABALIN 100 MG CAP PO SCH ×2 (09:16→13:40)
[2021-04-26] MEDS: CHOLECALCIFEROL 1,000 UNITS 25 MCG TAB PO SCH (09:17)
[2021-04-26] MEDS: ASCORBIC ACID 500 MG TAB PO SCH (09:17)
[2021-04-26] MEDS: MULTIVITAMIN TAB PO SCH (12:29)
--- NOTE | 2021-04-26 15:06 | Orthopedic Consultation ---
Date of Service April 26, 2021 Assessment & Plan (1) Rotator cuff tear, right: I went over diagnosis and treatment options with her at the bedside. I think the best course of treatment at this time would be a cortisone injection to the right shoulder. I ordered in the materials and the medicine for the cortisone shot. I can do it later tomorrow afternoon. However, if she is discharged before then we can provide her with a cortisone injection in the office. History of Present Illness Reason for Consultation: Right shoulder pain . Requesting Physician: . Attending Physician: Juan Poe Gustavo Ferguson is a pleasant 70-year-old female who is a patient of Dr. Ramirez. She denies any previous history of right shoulder pain. She says about 5 days ago she was reaching over to turn off a lamp when she injured her right shoulder. She has been having right shoulder pain since. Unfortunately she is now admitted to the hospital with other medical conditions. She does have an x-ray of her right shoulder which shows some arthritis. Orthopedics was consulted to evaluate and treat. . Allergies Allergy/AdvReac Type Severity Reaction Status Date / Time pollen extracts Allergy Intermediate RUNNY Verified 04/23/21 11:42 NOSE, ITCHY EYES, SNEEZING sulfamethoxazole Allergy Unknown Shakiness Verified 04/23/21 11:42 [From Bactrim] trimethoprim [From Bactrim] Allergy Unknown Shakiness Verified 04/23/21 11:42 Home Medications Medication Instructions Recorded Confirmed Type mirabegron 50 mg tablet,extended 50 mg PO QAM 06/15/19 04/23/21 History release 24 hr multivitamin 1 tab PO QDL 06/15/19 04/23/21 History amoxicillin 500 mg capsule 125 mg PO QAM cap 06/16/19 04/23/21 History budesonide-formoterol HFA 80 2 puffs INH BID PRN 06/16/19 04/23/21 History mcg-4.5 mcg/actuation aerosol inhaler escitalopram oxalate 20 mg tablet 30 mg PO HS tab 06/16/19 04/23/21 History gabapentin 600 mg tablet 900 mg PO TID tab 06/16/19 04/23/21 History hydrochlorothiazide 25 mg tablet 25 mg PO QAM 06/16/19 04/23/21 History hydroxychloroquine 200 mg tablet 100 mg PO QAM tab 06/16/19 04/23/21 History oxycodone 5 mg capsule 5 mg PO UD PRN cap 06/16/19 04/23/21 History pantoprazole 40 mg tablet,delayed 40 mg PO QAM 06/16/19 04/23/21 History release spironolactone 25 mg tablet 25 mg PO BID 06/16/19 04/23/21 History sulindac 200 mg tablet 200 - 300 mg PO BID 06/16/19 04/23/21 History ascorbic acid (vitamin C) [Vitamin 500 mg PO BID 09/15/19 04/23/21 History C] cholecalciferol (vitamin D3) 2,000 unit PO BID 09/15/19 04/23/21 History [Vitamin D3] denosumab 60 mg/mL subcutaneous 60 mg SQ UD ml 01/06/20 04/23/21 History syringe amitriptyline 25 mg tablet 25 mg PO HS tab 05/08/20 04/23/21 History calcium carbonate 500 mg calcium 500 mg PO UD PRN 05/08/20 04/23/21 History (1,250 mg) capsule tamsulosin 0.4 mg PO QAM 05/17/20 04/23/21 History levothyroxine 150 mcg PO DAILY 04/23/21 04/23/21 History pregabalin 100 mg PO TID 04/23/21 04/23/21 History rosuvastatin 5 mg PO HS 04/23/21 04/23/21 History 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 History of pelvic fracture History of recurrent UTIs NONE CURRENT/ON MAINTENANCE ABX FOR Incomplete bladder emptying Iron deficiency HX OF Left knee DJD Lymphedema THERAPY FOR Pathologic acetabular fracture Pelvic fracture Pressure ulcer of right buttock, stage 1 Seasonal allergies Spinal stenosis Urge and stress incontinence Surgical History Colostomy in place H/O foot surgery History of carpal tunnel release of both wrists History of colonoscopy History of hernia repair X2 SURGERIES WITH STOMA RELOCATED FOR BOTH HERNIA SURGERIES History of hysterectomy History of urologic surgery HX URETERAL STENT AND SINCE REMOVED History of wisdom tooth extraction Nausea and vomiting after administration of anesthetic agent Family History Sister Coronary heart disease Diabetes Nephrolithiasis Breast cancer Brother Diabetes Father Coronary heart disease Diabetes Hypertension Myocardial infarction Grandmother Diabetes Social History Smoking Status: Never smoker Second Hand Exposure: No; Do You Dip or Chew Tobacco: No; Tobacco Cessation Education Requested by Patient: No Hx Alcohol Use: No Hx Substance Use: No Preferred Language: Czech Communication Ability: Effective Visual Impairment: Limited Hearing Ability: Normal Montessori Teacher Required: No Beliefs That Will Affect Care: None marital status: Current Living Situation: Spouse current occupational status: retired Other Information That Helps Us Care for You: No Feels Safe at Home: Yes Assistive Devices: Walker Review of Systems All systems reviewed & are unremarkable except as noted in HPI & below. Physical Exam Physical examination the right shoulder, she has very poor active range of motion. She has pain with passive range of motion. She has pain over the glenohumeral joint line. . Constitutional WD/WN, vitals as above Eyes PERRL, conjunctivae normal, anicteric sclerae ENMT external ear and nose normal, oropharynx normal Neck trachea midline, no thyromegaly Respiratory normal respiratory effort Cardiovascular RRR, no murmur, no edema Gastrointestinal (Abdomen) normal bowel sounds, soft, nontender, no hepatosplenomegaly Psychiatric A+Ox3, euthymic affect Results & Data Results & Data Laboratory Results . Diagnostic Findings X-rays reviewed of the right shoulder show some moderate osteoarthritis. The humeral head is located within the glenoid.There is some blunting of the tuberosity which could be indicative of a rotator cuff tear. . PG Care Time/CCT Total # of Minutes Spent Total Time Spent with Patient: Total time spent is greater than 50% in coordination of care (as documented) at patient's floor/unit and/or counseling patient: Coding Level of Care Code 75324 Inpt Consult Level 4 Diagnoses Rotator cuff tear, right M75.101
[2021-04-26] MEDS ORDERED: TRIAMCINOLONE ACET 40 MG/ML VIAL IA ONE (15:45)
[2021-04-26] MEDS ORDERED: BUPIVACAINE/EPINEPHRINE 0.25% 1:200,000 30 ML VIAL INFIL ONE (15:45)
[2021-04-29 03:37] LABS: Component 2 DNR; Source BLADDER STONE
--- NOTE | 2021-05-02 09:41 | Discharge Summary ---
Date of Service April 26, 2021 Admission HPI Per Admitting Provider This is a 70-year-old female with past medical history of anal cancer status post colostomy, nonfunctioning right-sided kidney that presents today complaining left flank pain. Patient is pleasant good historian. Patient is a known approximately 4 days of left flank pain which is worsened over time. She has had no systemic symptoms such as fever chills. She has not noticed any dysuria. I the did note that the patient is currently on any compression treatment for her lower extremity lymphedema and may have had increased urinary output which he attributed to this. Patient denies any nausea or vomiting. CT scan showed bilateral hydro which was unchanged on the right but no on the left. There were multiple stones on both sides, none of which were considered obstructing. Emergency room physician is already spoken to urology, tentative plan for left ureteral stent placement tomorrow. Principal Diagnosis hydronephrosis Discharge Exam GENERAL: Patient in no acute distress. HEENT: Head is atraumatic, normocephalic. EOM's intact. Facies symmetric. No perioral cyanosis. NECK: No JVD. JVP is at the level of the clavicle sitting upright. Carotid upstrokes are + 2 bilaterally. No bruits are noted. CHEST/LUNGS: Clear to auscultation throughout all lung alvarez. No wheezes, rales, or crackles. CVS: S1 and S2 are regular with a grade 2/6 crescendo decrescendo basal systolic murmur heard best over the right 2nd intercostal space, radiates the left sternal border. Aortic valve closure sound is audible both the apex and the base. PMI is nonpalpable. No lifts, heaves, or thrills. No abdominal aortic or renal bruits. ABDOMINAL EXAM: Bowel sounds are present. nontender Left lower quadrant colostomy also noted. EXTREMITIES: No clubbing or cyanosis. Very mild lymphedema bilateral lower extremities. Intact posterior tibial and radial pulses bilaterally. NEUROLOGIC EXAM: Patient is awake, alert, and oriented. Pleasant and cooperative. Answers questions appropriately. Speech is clear. Gait pattern was not assessed. Discharge Data Allergies Allergy/AdvReac Type Severity Reaction Status Date / Time pollen extracts Allergy Intermediate RUNNY Verified 04/23/21 11:42 NOSE, ITCHY EYES, SNEEZING sulfamethoxazole Allergy Unknown Shakiness Verified 04/23/21 11:42 [From Bactrim] trimethoprim [From Bactrim] Allergy Unknown Shakiness Verified 04/23/21 11:42 Consultations 04/23/21 14:02 ED Decision to Admit Stat 04/23/21 16:55 Consult Urology Routine 04/26/21 10:27 Consult Orthopedic Surgery Routine Procedures Performed Operation Date: 04/24/21 07:00 Actual Procedures p Cystoscopy, Left Ureteral Stent Insertion, - Madhav Christine MD s Cystolithopaxy - Madhav Christine MD Ordered Studies 04/23/21 11:34 CT abd pelvis wo con Stat 04/24/21 13:00 FL retrograde includes kub Routine Hospital Course (1) Hydronephrosis: Unclear etiology of left hydronephrosis, patient has no obstructing stone. Has accompanying GISELL with mildly elevated creatinine. Hold HCTZ and spironolactone for now Admit to a nonmonitored bed Gentle IV hydration overnight N.p.o. after midnight for a urological procedure, stent placement on left per Dr. Christine Low-dose Dilaudid for analgesia On day of discharge:Appreciate input from urology - She is postop day #2 status post Cystoscopy, Left Ureteral Stent Insertion, and Cystolithopaxy with Dr. Christine - Continues to have left-sided abdominal/flank discomfort, likely related to stent. - She remains afebrile. - Labs reviewed, Wbc stable and creatinine improved to 1.39 (previously 1.51). - Voiding spontaneously without difficulty. - Recommend continue supportive care and pain control. - Continue tamsulosin and pyridium prn. Can consider adding Oxybutynin prn for bladder spasms. - Will arrange outpatient follow-up with our service following discharge. - Expected clinical course reviewed with patient, all questions were answered. (2) Heart murmur: Per 10/20 echo, patient has moderate to severe aortic stenosis which is likely etiology of her murmur This does increase surgical risk somewhat, still believe the benefits will outweigh risk Will need to be followed during the basis by cardiology (3) Rotator cuff tear, right: Appreciate input from Ortho: I went over diagnosis and treatment options with her at the bedside. I think the best course of treatment at this time would be a cortisone injection to the right shoulder. I ordered in the materials and the medicine for the cortisone shot. I can do it later tomorrow afternoon. However, if she is discharged before then we can provide her with a cortisone injection in the office Total Time Total Time Spent Total Time Spent (In Minutes): 34 Total Time Includes: Examination of the Patient, Discharge Planning, Medication Reconciliation and Communication With Other Providers Discharge Plan Discharge Items Patient Disposition: Home - Self-Care Reason For Visit: FLANK PAIN Discharge Diagnosis: Flank pain Condition on Discharge: Good Activity: Resume your previous activity Non-emergency contact: Primary Care Provider Call non-emergency contact if: you have any medication questions Follow-up/Referrals: Eleuterio Amaya Jr, [Primary Care Provider] - Diet: Heart Healthy Addtl Attending Provider Instructions: You were seen by Urology and had a stent placed. Continue tamsulosin and pyridium prn. Can consider adding Oxybutynin prn for bladder spasms. Will followup with Urology as an outpatient. in regards to right shoulder: best course of treatment at this time would be a cortisone injection to the right shoulder. will recommend followup with PT. Pending Studies at Discharge: No Stand-Alone Forms: My [facility] [employer], Smoking Cessation Medications and DC Order Prescriptions: Continued Prolia 60 mg/mL syringe 60 mg SQ UD RF: 0 oxycodone 5 mg capsule 5 mg PO UD PRN (Reason: pain) RF: 0 gabapentin 600 mg tablet 900 mg PO TID RF: 0 amoxicillin 500 mg capsule 125 mg PO QAM RF: 0 hydrochlorothiazide 25 mg tablet 25 mg PO QAM RF: 0 pantoprazole [Protonix] 40 mg tablet,delayed release (DR/EC) 40 mg PO QAM RF: 0 spironolactone [Aldactone] 25 mg tablet 25 mg PO BID RF: 0 sulindac 200 mg tablet 200 - 300 mg PO BID RF: 0 multivitamin [Multiple Vitamins] tablet 1 tab PO QDL RF: 0 Myrbetriq 50 mg tablet extended release 24 hr 50 mg PO QAM RF: 0 Symbicort 80-4.5 mcg/actuation HFA aerosol inhaler 2 puffs INH BID PRN (Reason: SEASONAL ALLERGIES) RF: 0 escitalopram oxalate [Lexapro] 20 mg tablet 30 mg PO HS RF: 0 hydroxychloroquine [Plaquenil] 200 mg tablet 100 mg PO QAM RF: 0 ascorbic acid (vitamin C) [Vitamin C] 500 mg Tablet 500 mg PO BID RF: 0 cholecalciferol (vitamin D3) [Vitamin D3] 2,000 unit Capsule 2,000 unit PO BID RF: 0 amitriptyline 25 mg tablet 25 mg PO HS RF: 0 calcium carbonate 500 mg calcium (1,250 mg) capsule 500 mg PO UD PRN (Reason: Heartburn) RF: 0 tamsulosin 0.4 mg capsule 0.4 mg PO QAM RF: 0 levothyroxine 150 mcg tablet 150 mcg PO DAILY RF: 0 rosuvastatin 5 mg tablet 5 mg PO HS RF: 0 pregabalin 100 mg capsule 100 mg PO TID RF: 0 Discharge Orders: Discharge Order (Routine); Ordered 04/26/21 Ordered By: Juan Meléndez/Other Patient Handouts: Having a Ureteral Stent, Cystoscopy Admission Data Admit Date/Time: 04/23/21 15:20 Attending Provider: Juan Chen Admit Provider: Kulwinder Smallwood Primary Care Provider: Eleuterio Amaya Jr Other Providers: Tad Morin ; Kulwinder Smallwood ; Madhav Christine ; Claudio Bright Other Interventions: Discharge Summary Assessment (RN) Last Done: 04/26/21 17:54 Coding Level of Care Code D/C Day Management >30 mins Diagnoses Hydronephrosis N13.30 Heart murmur R01.1 Rotator cuff tear, right M75.101
== END 2021-04-25 19:15 | disposition home or self-care (01) | DRG 661 ==
LOC: ED 10:33 → SUATTDRO 15:20 → 3N 15:20

== ENCOUNTER 2021-05-03 18:14 | Inpatient (IN) ==
--- NOTE | 2021-05-03 18:58 | Emergency Department Note ---
History of Present Illness General Chief complaint: Kidney Stone Stated complaint: PAIN- HERE LAST WEEK WITH KIDNEY STONE Time Seen by Provider: 05/03/21 18:34 Source: patient Mode of arrival: ambulatory Limitations: no limitations History of Present Illness Maximum Pain Intensity: 6 This patient is a 70-year-old female who comes in after having increasing weakness and feeling like she is disoriented. She does have weakness in her legs and has history of spinal stenosis she does use a walker at home. She was recently hospitalized 10 days ago for 4 days after having a kidney stone on the right and stent placement. Her says since she has been home she has been very weak she is fallen twice he thinks on Friday. She fell on her buttock but does not think she hit her head or have any injuries. She feels like she has been disoriented at times and told me there was an instance where she did recognize her that seems to be a week or so ago. She denies dysuria hematuria she has had no pain related to her stent. She has some chronic back pain which is unchanged. He has no focal numbness or weakness with exception of both her legs feel weak. She has had normal bowel and bladder function. No difficulty speaking or swallowing. No fever or chills or cough or shortness of breath with exception of a cough related to her mild allergy she is had a Covid vaccines. No blood or melena in her stool. Normal ostomy output Home Medications Medication Instructions Recorded Confirmed Type mirabegron 50 mg tablet,extended 50 mg PO QAM 06/15/19 05/03/21 History release 24 hr multivitamin 1 tab PO QDL 06/15/19 05/03/21 History amoxicillin 500 mg capsule 125 mg PO QAM cap 06/16/19 05/03/21 History budesonide-formoterol HFA 80 2 puffs INH BID PRN 06/16/19 05/03/21 History mcg-4.5 mcg/actuation aerosol inhaler escitalopram oxalate 20 mg tablet 30 mg PO HS tab 06/16/19 05/03/21 History gabapentin 600 mg tablet 900 mg PO TID tab 06/16/19 05/03/21 History hydrochlorothiazide 25 mg tablet 25 mg PO QAM 06/16/19 05/03/21 History hydroxychloroquine 200 mg tablet 100 mg PO QAM tab 06/16/19 05/03/21 History oxycodone 5 mg capsule 5 mg PO UD PRN cap 06/16/19 05/03/21 History pantoprazole 40 mg tablet,delayed 40 mg PO QAM 06/16/19 05/03/21 History release spironolactone 25 mg tablet 25 mg PO BID 06/16/19 05/03/21 History sulindac 200 mg tablet 200 - 300 mg PO BID 06/16/19 05/03/21 History ascorbic acid (vitamin C) [Vitamin 500 mg PO BID 09/15/19 05/03/21 History C] cholecalciferol (vitamin D3) 2,000 unit PO BID 09/15/19 05/03/21 History [Vitamin D3] denosumab 60 mg/mL subcutaneous 60 mg SQ UD ml 01/06/20 05/03/21 History syringe amitriptyline 25 mg tablet 25 mg PO HS tab 05/08/20 05/03/21 History tamsulosin 0.4 mg PO QAM 05/17/20 05/03/21 History levothyroxine 150 mcg PO QAM 04/23/21 05/03/21 History pregabalin 100 mg PO TID 04/23/21 05/03/21 History rosuvastatin 5 mg PO HS 04/23/21 05/03/21 History calcium carbonate [Tums 500] 500 mg PO DAILY PRN 05/03/21 05/03/21 History Allergies Allergy/AdvReac Type Severity Reaction Status Date / Time pollen extracts Allergy Intermediate RUNNY Verified 05/03/21 19:16 NOSE, ITCHY EYES, SNEEZING sulfamethoxazole Allergy Unknown Shakiness Verified 05/03/21 19:16 [From Bactrim] trimethoprim [From Bactrim] Allergy Unknown Shakiness Verified 05/03/21 19:16 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 History of pelvic fracture History of recurrent UTIs NONE CURRENT/ON MAINTENANCE ABX FOR Incomplete bladder emptying Iron deficiency HX OF Left knee DJD Lymphedema THERAPY FOR Pathologic acetabular fracture Pelvic fracture Pressure ulcer of right buttock, stage 1 Seasonal allergies Spinal stenosis Urge and stress incontinence Surgical History Colostomy in place H/O foot surgery History of carpal tunnel release of both wrists History of colonoscopy History of hernia repair X2 SURGERIES WITH STOMA RELOCATED FOR BOTH HERNIA SURGERIES History of hysterectomy History of urologic surgery HX URETERAL STENT AND SINCE REMOVED History of wisdom tooth extraction Nausea and vomiting after administration of anesthetic agent Family History Sister Coronary heart disease Diabetes Nephrolithiasis Breast cancer Brother Diabetes Father Coronary heart disease Diabetes Hypertension Myocardial infarction Grandmother Diabetes Social History Smoking Status: Never smoker Second Hand Exposure: No; Hx Alcohol Use: No Hx Substance Use: No Preferred Language: Telugu Communication Ability: Effective Visual Impairment: Limited Hearing Ability: Normal Oral Surgery Assistant Required: No Beliefs That Will Affect Care: None marital status: Current Living Situation: Spouse current occupational status: retired Feels Safe at Home: Yes Assistive Devices: Walker Review of Systems A total of 10 systems reviewed and were otherwise negative Physical Exam Vital Signs Vital Signs - 24 hr 05/03/21 18:15 05/03/21 18:18 05/03/21 19:00 Temperature 36.9 C Temperature Source Temporal Artery Scan Pulse Rate 75 82 Pulse Rate [Apical] Pulse Rhythm Regular Pulse Rhythm [Apical] Pulse Strength [Apical] Respiratory Rate 16 18 Respiratory Effort / Characteristics Non-Labored Spontaneous Non-Labored Spontaneous Respiratory Depth Normal Blood Pressure 124/62 Blood Pressure [Right Arm] Blood Pressure Mean 82 Blood Pressure Mean [Right Arm] Pulse Oximetry 99 94 Oxygen Delivery Method Room Air Room Air Sepsis Recent Fever Within 48 Hours No Sepsis New/Unexplained Change in Mental Status No Sepsis Action Taken by Nursing No Action Required 05/03/21 19:46 05/03/21 20:36 05/03/21 21:00 Temperature 36.8 C Temperature Source Oral Pulse Rate Pulse Rate [Apical] 76 Pulse Rhythm Pulse Rhythm [Apical] Regular Pulse Strength [Apical] Normal Respiratory Rate 16 Respiratory Effort / Characteristics Non-Labored Non-Labored Non-Labored Respiratory Depth Normal Blood Pressure Blood Pressure [Right Arm] 140/61 Blood Pressure Mean Blood Pressure Mean [Right Arm] 87 Pulse Oximetry 99 Oxygen Delivery Method Room Air Sepsis Recent Fever Within 48 Hours Sepsis New/Unexplained Change in Mental Status Sepsis Action Taken by Nursing 05/03/21 21:08 05/03/21 21:10 05/03/21 22:00 Temperature Temperature Source Pulse Rate Pulse Rate [Apical] 78 Pulse Rhythm Pulse Rhythm [Apical] Pulse Strength [Apical] Respiratory Rate 16 Respiratory Effort / Characteristics Non-Labored Non-Labored Respiratory Depth Blood Pressure Blood Pressure [Right Arm] 118/76 Blood Pressure Mean Blood Pressure Mean [Right Arm] 90 Pulse Oximetry 98 Oxygen Delivery Method Room Air Room Air Sepsis Recent Fever Within 48 Hours Sepsis New/Unexplained Change in Mental Status Sepsis Action Taken by Nursing General: Well developed well nourished older female who appears in no acute distress, breathing comfortably on room air. Normal speech HEENT: Normal cephalic atraumatic. Pupils are equal round and reactive to light. Extraocular movements are intact. Oropharynx is pink with moist mucous membranes. No swelling of the mouth lips or tongue. Neck: Supple with a midline trachea. No meningeal signs or stiffness, no JVD or bruits. No Stridor. Chest: Clear to auscultation bilaterally. No wheezes or rhonchi. No increased work of breathing. Heart: Regular rate and rhythm without murmurs or gallops. Abdomen: Soft nontender, nondistended without rebound guarding or rigidity. Extremities: No cyanosis clubbing. Chronic bilateral lower extremity edema left greater than right which is chronic after she was involved in an accident. No calf tenderness . Spine/Back. Non tender to palpation. No CVA tenderness Skin: Good turgor without rashes. Neurologic exam: Cranial nerves two through 12 are intact. Motor and sensation are intact and symmetrical throughout. Medical Decision Making Differential Diagnosis Sepsis, intracranial process, electrolyte or metabolic abnormality complication related kidney stone or stent, anemia, CVA, Covid Medical Records Attestation: I reviewed the patient's medical records. Home Medications Current Medication List: was personally reviewed by me Laboratory Data Attestation: I reviewed the patient's lab results. Result diagrams: 05/03/21 19:06 05/03/21 19:06 Lab Results 05/03/21 05/03/21 05/03/21 Range/Units 19:06 19:06 19:06 WBC 6.96 (4.8-10.8) K/uL RBC 3.42 L (4.2-5.4) M/uL Hgb 11.1 L (12.0-16.0) g/dL Hct 34.3 L (37-47) % MCV 100.3 H (80-100) fL MCH 32.5 (25-34) pg MCHC 32.4 (32-36) g/dL RDW Std Deviation 48.3 H (36.4-46.3) fL RDW Coeff of Anh 13.2 (11.5-14.5) % Plt Count 204 (130-400) K/uL MPV 9.6 (7.4-10.4) fL Immature Gran % (Auto) 0.6 % Neut % (Auto) 51.0 % Lymph % (Auto) 33.9 % Ogle % (Auto) 7.8 % Eos % (Auto) 6.3 % Baso % (Auto) 0.4 % Neut # (Auto) 3.55 (1.4-6.5) K/uL Lymph # (Auto) 2.36 (1.2-3.4) K/uL Ogle # (Auto) 0.54 (0.11-0.59) K/uL Eos # (Auto) 0.44 (0-0.5) K/uL Baso # (Auto) 0.03 (0-0.2) K/uL Immature Gran # (Auto) 0.04 H (0.00-0.02) K/uL PT 9.4 (9.0-12.0) Seconds INR 0.9 (0.9-1.1) APTT 26.9 (21.0-31.0) Seconds PTT Ratio 1.0 Sodium 139 (136-145) mmol/L Potassium 4.1 (3.5-5.1) mmol/L Chloride 106 (98-107) mmol/L Carbon Dioxide 27 (21-32) mmol/L Anion Gap 6.0 (3-11) BUN 32 H (7-18) mg/dl Creatinine 1.57 H (0.6-1.2) mg/dl Est Cr Clr Drug Dosing Not Reportable Est GFR ( Amer) 37.8 ml/min Est GFR (Non-Af Amer) 32.6 ml/min BUN/Creatinine Ratio 20.1 H (10-20) Glucose 83 (70-99) mg/dl Lactate (0.4-2.0) mmol/L Calcium 9.2 (8.5-10.1) mg/dl Magnesium 2.2 (1.8-2.4) mg/dl Total Bilirubin 0.3 (0.2-1) mg/dl AST 39 H (15-37) U/L ALT 26 (12-78) U/L Alkaline Phosphatase 86 (45-117) U/L Troponin I < 0.015 (0-0.045) ng/ml Total Protein 6.9 (6.4-8.2) gm/dl Albumin 3.4 (3.4-5.0) gm/dl Globulin 3.5 (2.5-4.0) gm/dl Albumin/Globulin Ratio 1.0 (0.9-2) Procalcitonin (0-0.5) ng/ml Urine Color Urine Appearance (Clear) Urine pH (4.5-7.5) Ur Specific [place] (1.000-1.030) Urine Protein (Negative) Urine Glucose (UA) (Negative) Urine Ketones (Negative) Urine Blood (Negative) Urine Nitrite (Negative) Urine Bilirubin (Negative) Urine Urobilinogen (Negative) Ur Leukocyte Esterase (Negative) Urine WBC (Auto) (0-5) /hpf Urine RBC (Auto) (0-4) /hpf U Hyaline Cast (Auto) (0-5) /lpf U Epithel Cells (Auto) (0-5) /lpf Urine Bacteria (Auto) (Negative) COVID-19 Eval Order SARS-CoV-2 (PCR) (Negative) 05/03/21 05/03/21 05/03/21 Range/Units 19:06 19:40 19:43 WBC (4.8-10.8) K/uL RBC (4.2-5.4) M/uL Hgb (12.0-16.0) g/dL Hct (37-47) % MCV (80-100) fL MCH (25-34) pg MCHC (32-36) g/dL RDW Std Deviation (36.4-46.3) fL RDW Coeff of Anh (11.5-14.5) % Plt Count (130-400) K/uL MPV (7.4-10.4) fL Immature Gran % (Auto) % Neut % (Auto) % Lymph % (Auto) % Ogle % (Auto) % Eos % (Auto) % Baso % (Auto) % Neut # (Auto) (1.4-6.5) K/uL Lymph # (Auto) (1.2-3.4) K/uL Ogle # (Auto) (0.11-0.59) K/uL Eos # (Auto) (0-0.5) K/uL Baso # (Auto) (0-0.2) K/uL Immature Gran # (Auto) (0.00-0.02) K/uL PT (9.0-12.0) Seconds INR (0.9-1.1) APTT (21.0-31.0) Seconds PTT Ratio Sodium (136-145) mmol/L Potassium (3.5-5.1) mmol/L Chloride (98-107) mmol/L Carbon Dioxide (21-32) mmol/L Anion Gap (3-11) BUN (7-18) mg/dl Creatinine (0.6-1.2) mg/dl Est Cr Clr Drug Dosing Est GFR ( Amer) ml/min Est GFR (Non-Af Amer) ml/min BUN/Creatinine Ratio (10-20) Glucose (70-99) mg/dl Lactate 1.2 (0.4-2.0) mmol/L Calcium (8.5-10.1) mg/dl Magnesium (1.8-2.4) mg/dl Total Bilirubin (0.2-1) mg/dl AST (15-37) U/L ALT (12-78) U/L Alkaline Phosphatase (45-117) U/L Troponin I (0-0.045) ng/ml Total Protein (6.4-8.2) gm/dl Albumin (3.4-5.0) gm/dl Globulin (2.5-4.0) gm/dl Albumin/Globulin Ratio (0.9-2) Procalcitonin < 0.05 (0-0.5) ng/ml Urine Color Yellow Urine Appearance Cloudy A (Clear) Urine pH 5.5 (4.5-7.5) Ur Specific [place] 1.014 (1.000-1.030) Urine Protein 2+ H (Negative) Urine Glucose (UA) Negative (Negative) Urine Ketones Negative (Negative) Urine Blood 3+ H (Negative) Urine Nitrite Negative (Negative) Urine Bilirubin Negative (Negative) Urine Urobilinogen Negative (Negative) Ur Leukocyte Esterase 2+ H (Negative) Urine WBC (Auto) >30 H (0-5) /hpf Urine RBC (Auto) >30 H (0-4) /hpf U Hyaline Cast (Auto) 1-5 (0-5) /lpf U Epithel Cells (Auto) 10-20 H (0-5) /lpf Urine Bacteria (Auto) Negative (Negative) COVID-19 Eval Order SARS-CoV-2 (PCR) (Negative) 05/03/21 05/03/21 Range/Units 21:05 21:05 WBC (4.8-10.8) K/uL RBC (4.2-5.4) M/uL Hgb (12.0-16.0) g/dL Hct (37-47) % MCV (80-100) fL MCH (25-34) pg MCHC (32-36) g/dL RDW Std Deviation (36.4-46.3) fL RDW Coeff of Anh (11.5-14.5) % Plt Count (130-400) K/uL MPV (7.4-10.4) fL Immature Gran % (Auto) % Neut % (Auto) % Lymph % (Auto) % Ogle % (Auto) % Eos % (Auto) % Baso % (Auto) % Neut # (Auto) (1.4-6.5) K/uL Lymph # (Auto) (1.2-3.4) K/uL Ogle # (Auto) (0.11-0.59) K/uL Eos # (Auto) (0-0.5) K/uL Baso # (Auto) (0-0.2) K/uL Immature Gran # (Auto) (0.00-0.02) K/uL PT (9.0-12.0) Seconds INR (0.9-1.1) APTT (21.0-31.0) Seconds PTT Ratio Sodium (136-145) mmol/L Potassium (3.5-5.1) mmol/L Chloride (98-107) mmol/L Carbon Dioxide (21-32) mmol/L Anion Gap (3-11) BUN (7-18) mg/dl Creatinine (0.6-1.2) mg/dl Est Cr Clr Drug Dosing Est GFR ( Amer) ml/min Est GFR (Non-Af Amer) ml/min BUN/Creatinine Ratio (10-20) Glucose (70-99) mg/dl Lactate (0.4-2.0) mmol/L Calcium (8.5-10.1) mg/dl Magnesium (1.8-2.4) mg/dl Total Bilirubin (0.2-1) mg/dl AST (15-37) U/L ALT (12-78) U/L Alkaline Phosphatase (45-117) U/L Troponin I (0-0.045) ng/ml Total Protein (6.4-8.2) gm/dl Albumin (3.4-5.0) gm/dl Globulin (2.5-4.0) gm/dl Albumin/Globulin Ratio (0.9-2) Procalcitonin (0-0.5) ng/ml Urine Color Urine Appearance (Clear) Urine pH (4.5-7.5) Ur Specific [place] (1.000-1.030) Urine Protein (Negative) Urine Glucose (UA) (Negative) Urine Ketones (Negative) Urine Blood (Negative) Urine Nitrite (Negative) Urine Bilirubin (Negative) Urine Urobilinogen (Negative) Ur Leukocyte Esterase (Negative) Urine WBC (Auto) (0-5) /hpf Urine RBC (Auto) (0-4) /hpf U Hyaline Cast (Auto) (0-5) /lpf U Epithel Cells (Auto) (0-5) /lpf Urine Bacteria (Auto) (Negative) COVID-19 Eval Order Covid19 at [facility] SARS-CoV-2 (PCR) NEGATIVE (Negative) Imaging Data Attestation: I personally reviewed and interpreted this imaging study as follows: My Impression: X-rayno acute infiltrate, failure, pneumothorax seen. Radiologist's Impression: Abdomen/Pelvis CT 05/03/21 18:[address] WITHOUT CONTRAST CT DOSE: HISTORY: weakness, recent rt kidney stone/stent TECHNIQUE: Multiaxial CT images of the abdomen and pelvis were performed without contrast. A dose lowering technique was utilized adhering to the principles of ALARA. COMPARISON STUDY: Abdomen and pelvis CT 04/23/2021. FINDINGS: Left basilar linear densities favor scarring or atelectasis. Partially visualized central venous catheter at the right atrium. Small hiatus hernia. No pneumoperitoneum. No pneumatosis. There are old nonunited pubic ring fractures. Severe degenerative changes within the bilateral hips. There is deformity of the right femoral head. This remains unchanged. Small right hip effusion also persists. Soft tissue thickening within the right hip remains unchanged. Old nonunited left iliac bone fracture. Cholelithiasis. No gallbladder wall thickening. The unenhanced liver, spleen, adrenal glands, and pancreas are unremarkable. There is a small hiatus hernia. Suboptimal evaluation for bowel pathology due to the lack of intravenous and oral contrast. However, there is no definite bowel wall thickening or obstruction. A few scattered colonic diverticula. No evidence for acute diverticulitis. There is a left lower quadrant colostomy with a parastomal hernia containing multiple loops of small bowel. This remains unchanged. No bladder wall thickening. There is a punctate stone within the right kidney and a few small stones within the left kidney. There are severe right cortical renal atrophy is severe right hydroureteronephrosis, unchanged. No bladder wall thickening. There is been interval placement of a left ureteral stent which appears in good position. There is mild to moderate left hydronephrosis which is stable compared to the prior study. There is a 4 mm stone within the left renal pelvis. No ureteral stones identified. Multiple surgical clips within the deep pelvis IMPRESSION: 1. Interval placement of a left ureteral stent which appears in good position. Mild to moderate left hydronephrosis remains unchanged. 2. Bilateral nephrolithiasis. There is also a 4 mm stone within the left renal pelvis. No ureteral calculi identified. 3. Severe right hydroureteronephrosis with marked cortical atrophy of the right kidney is stable. 4. Cholelithiasis. 5. Left lower quadrant colostomy with a parastomal hernia. This remains unchanged. 6. No bowel wall thickening or obstruction. 7. 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 ACT 112: Negative or not required by law. Electronically signed by: Ben Gant M.D. 05/03/2021 8:39 PM Chest X-Ray 05/03/21 18:50 XR chest 1V portable HISTORY: SEPSIS COMPARISON: Chest 04/23/2021. FINDINGS: No pneumothorax. No pleural effusions. There is mild elevation/eventration of the right hemidiaphragm, unchanged. The heart remains mildly enlarged. No new focal lung consolidations to suggest pneumonia. No evidence for pulmonary edema. There is a left subclavian central venous catheter which terminates at the distal SVC. IMPRESSION: No significant change compared to the prior study. No acute process. ACT 112: Negative or not required by law. Electronically signed by: Ben Gant M.D. 05/03/2021 8:[address] 05/03/21 18:[address] DOSE: 1443.46 mGy.cm HISTORY: weakness TECHNIQUE: Multiaxial CT images of the head were performed without the use of intravenous contrast. Automated exposure control was utilized for this study. A dose lowering technique was utilized adhering to the principles of ALARA. Comparison: Head CT 05/21/2019. Findings: The paranasal sinuses and mastoid air cells are clear. The calvarium and skull base are intact. There is no mass, hematoma, midline shift, acute infarct. White matter hypodensity is nonspecific but suggestive of microvascular ischemic change. The ventricles and sulci demonstrate mild age-related involutional changes. Impression: No significant change compared to the prior study. No acute intracranial abnormality. ACT 112: Negative or not required by law. Electronically signed by: Ben Gant M.D. 05/03/2021 8:31 PM ECG Data Attestation: I personally reviewed and interpreted this ECG as follows: Indication: + weakness Rate (beats per minute): 79 Rhythm: + normal sinus ECG Intervals/blocks: + Normal QRS, + Normal QT and + Normal ND ECG [place]: + Normal ECG ST segments: + Normal ST segments ECG Findings: no PACs and no PVCs Comparison ECG Date: from (04/23/21) Change: no significant change MDM Narrative This patient comes in as described above. She was placed in room C6. She is here for treatment and evaluation and have weakness she also feels disoriented at times. This is gotten worse over the last week or so. She has no focal numbness weakness on exam to suggest a CVA both of her legs are weak at times. CAT scan of her head and abdomen/pelvis were obtained. EKG and blood work was obtained. She was reassessed frequently. She has a normal neurologic exam and it is nonfocal. CAT scan of her head was unremarkable. CAT scan her abdomen shows chronic hydro on the right, there is a intact stent on the left and ostomy is intact on the abdomen as well as no acute findings. She is no fever or white count urinalysis is somewhat suboptimal as there is epithelial cells but denies dysuria hematuria fever or chills. She is having weakness and inability to care for self she is been falling. I do think she would benefit from observation, PT OT evaluation possible rehab and further work-up. She has no change in bowel or bladder function nothing to suggest cauda equina. I did consult the [facility] hospitalist. Covid testing was negative. Continuous cardiac monitoring: Order was placed in EMR for continuous cardiac monitoring. The patient was noted to be normal sinus rhythm with a rate of 75 upon my evaluation. Impression & Plan Weakness, Gait instability, Frequent falls, Lab test negative for COVID-19 virus, History of ureter stent Discharge Plan Visit Data Chief Complaint: Kidney Stone Stated Complaint: PAIN- HERE LAST WEEK WITH KIDNEY STONE ED Provider: Claudio Marie Discharge Problem: Weakness, Gait instability, Frequent falls, Lab test negative for COVID-19 virus, History of ureter stent Forms Stand Alone Forms: My [facility] Prescriptions Prescriptions: No Action Prolia 60 mg/mL syringe 60 mg SQ UD RF: 0 oxycodone 5 mg capsule 5 mg PO UD PRN (Reason: pain) RF: 0 gabapentin 600 mg tablet 900 mg PO TID RF: 0 amoxicillin 500 mg capsule 125 mg PO QAM RF: 0 hydrochlorothiazide 25 mg tablet 25 mg PO QAM RF: 0 pantoprazole [Protonix] 40 mg tablet,delayed release (DR/EC) 40 mg PO QAM RF: 0 spironolactone [Aldactone] 25 mg tablet 25 mg PO BID RF: 0 sulindac 200 mg tablet 200 - 300 mg PO BID RF: 0 multivitamin [Multiple Vitamins] tablet 1 tab PO QDL RF: 0 Myrbetriq 50 mg tablet extended release 24 hr 50 mg PO QAM RF: 0 Symbicort 80-4.5 mcg/actuation HFA aerosol inhaler 2 puffs INH BID PRN (Reason: SEASONAL ALLERGIES) RF: 0 escitalopram oxalate [Lexapro] 20 mg tablet 30 mg PO HS RF: 0 hydroxychloroquine [Plaquenil] 200 mg tablet 100 mg PO QAM RF: 0 ascorbic acid (vitamin C) [Vitamin C] 500 mg Tablet 500 mg PO BID RF: 0 cholecalciferol (vitamin D3) [Vitamin D3] 2,000 unit Capsule 2,000 unit PO BID RF: 0 amitriptyline 25 mg tablet 25 mg PO HS RF: 0 tamsulosin 0.4 mg capsule 0.4 mg PO QAM RF: 0 levothyroxine 150 mcg tablet 150 mcg PO QAM RF: 0 rosuvastatin 5 mg tablet 5 mg PO HS RF: 0 pregabalin 100 mg capsule 100 mg PO TID RF: 0 calcium carbonate [Tums 500] 500 mg calcium (1,250 mg) Tablet,Chewable 500 mg PO DAILY PRN (Reason: Acid Reflux) RF: 0
[2021-05-03 19:21] LABS: Basophils # (auto) 0.03 K/uL (0-0.2); Basophils % (auto) 0.4 %; Eosinophils # (auto) 0.44 K/uL (0-0.5); Eosinophils % (auto) 6.3 %; Hematocrit (blood only) 34.3 % (37-47); Hemoglobin 11.1 g/dL (12.0-16.0); Immature Granulocytes # (auto) 0.04 K/uL (0.00-0.02); Immature Granulocytes % (auto) 0.6 %; Lymphocytes # (auto) 2.36 K/uL (1.2-3.4); Lymphocytes % (auto) 33.9 %; Mean Corpuscular Hemoglobin 32.5 pg (25-34); Mean Corpuscular Hgb Conc 32.4 g/dL (32-36); Mean Corpuscular Volume 100.3 fL (80-100); Mean Platelet Volume 9.6 fL (7.4-10.4); Monocytes # (auto) 0.54 K/uL (0.11-0.59); Monocytes % (auto) 7.8 %; Neutrophils # (auto) 3.55 K/uL (1.4-6.5); Platelet Count 204 K/uL (130-400); RDW Coefficient of Variation 13.2 % (11.5-14.5); RDW Standard Deviation 48.3 fL (36.4-46.3); Red Blood Count 3.42 M/uL (4.2-5.4); White Blood Count 6.96 K/uL (4.8-10.8)
[2021-05-03 19:37] LABS: Alanine Aminotransferase 26 U/L (12-78); Albumin Level 3.4 gm/dl (3.4-5.0); Aspartate Aminotransferase 39 U/L (15-37); BUN Creatinine Ratio 20.1 (10-20); Blood Urea Nitrogen 32 mg/dl (7-18); Calcium 9.2 mg/dl (8.5-10.1); Carbon Dioxide 27 mmol/L (21-32); Chloride 106 mmol/L (98-107); Est GFR (African American) 37.8 ml/min; Est GFR (Non-African American) 32.6 ml/min; Glucose 83 mg/dl (70-99); INR 0.9 (0.9-1.1); Magnesium 2.2 mg/dl (1.8-2.4); Partial Thromboplastin Time 26.9 Seconds (21.0-31.0); Potassium 4.1 mmol/L (3.5-5.1); Prothrombin Time 9.4 Seconds (9.0-12.0); Sodium 139 mmol/L (136-145)
[2021-05-03 19:42] LABS: Alkaline Phosphatase 86 U/L (45-117); Bilirubin,Total 0.3 mg/dl (0.2-1); Globulin 3.5 gm/dl (2.5-4.0); Total Protein 6.9 gm/dl (6.4-8.2); Troponin I < 0.015 ng/ml (0-0.045)
[2021-05-03 20:07] LABS: Appearance Urine Cloudy (Clear); Bacteria Urine Automated Negative (Negative); Bilirubin Urine Negative (Negative); Blood Urine 3+ (Negative); Color Urine Yellow; Glucose Urine UA Negative (Negative); Ketones Urine Negative (Negative); Leukocyte Esterase Urine 2+ (Negative); Nitrite Urine Negative (Negative); Protein Urine 2+ (Negative); RBC Urine Automated >30 /hpf (0-4); Specific Gravity Urine 1.014 (1.000-1.030); Urobilinogen Urine Negative (Negative); WBC Urine Automated >30 /hpf (0-5); pH Urine 5.5 (4.5-7.5)
--- NOTE | 2021-05-03 20:32 | CT Scan Report ---
HEAD CT NONCONTRAST CT DOSE: 1443.46 mGy.cm HISTORY: weakness TECHNIQUE: Multiaxial CT images of the head were performed without the use of intravenous contrast. A utomated exposure control was utilized for this study. A dose lowering technique was utilized adheri ng to the principles of ALARA. Comparison: Head CT 05/21/2019. Findings: The paranasal sinuses and mastoid air cells are clear. The calvarium and skull base are int act. There is no mass, hematoma, midline shift, acute infarct. White matter hypodensity is nonspecifi c but suggestive of microvascular ischemic change. The ventricles and sulci demonstrate mild age-rela galen involutional changes. Impression: No significant change compared to the prior study. No acute intracranial abnormality. ACT 112: Negative or not required by law. Electronically signed by: Ben Gant M.D. 05/03/2021 8:31 PM
--- NOTE | 2021-05-03 20:40 | CT Scan Report ---
ABDOMEN AND PELVIS CT WITHOUT CONTRAST CT DOSE: HISTORY: weakness, recent rt kidney stone/stent TECHNIQUE: Multiaxial CT images of the abdomen and pelvis were performed without contrast. A dose lo wering technique was utilized adhering to the principles of ALARA. COMPARISON STUDY: Abdomen and pelvis CT 04/23/2021. FINDINGS: Left basilar linear densities favor scarring or atelectasis. Partially visualized central v enous catheter at the right atrium. Small hiatus hernia. No pneumoperitoneum. No pneumatosis. There a re old nonunited pubic ring fractures. Severe degenerative changes within the bilateral hips. There i s deformity of the right femoral head. This remains unchanged. Small right hip effusion also persists . Soft tissue thickening within the right hip remains unchanged. Old nonunited left iliac bone fractu re. Cholelithiasis. No gallbladder wall thickening. The unenhanced liver, spleen, adrenal glands, and pancreas are unremarkable. There is a small hiatus hernia. Suboptimal evaluation for bowel pathology due to the lack of intravenous and oral contrast. However, there is no definite bowel wall thickenin g or obstruction. A few scattered colonic diverticula. No evidence for acute diverticulitis. There is a left lower quadrant colostomy with a parastomal hernia containing multiple loops of small bowel. T his remains unchanged. No bladder wall thickening. There is a punctate stone within the right kidney and a few small stones within the left kidney. There are severe right cortical renal atrophy is sever e right hydroureteronephrosis, unchanged. No bladder wall thickening. There is been interval placemen t of a left ureteral stent which appears in good position. There is mild to moderate left hydronephro sis which is stable compared to the prior study. There is a 4 mm stone within the left renal pelvis. No ureteral stones identified. Multiple surgical clips within the deep pelvis IMPRESSION: 1. Interval placement of a left ureteral stent which appears in good position. Mild to moderate left hydronephrosis remains unchanged. 2. Bilateral nephrolithiasis. There is also a 4 mm stone within the left renal pelvis. No ureteral ca lculi identified. 3. Severe right hydroureteronephrosis with marked cortical atrophy of the right kidney is stable. 4. Cholelithiasis. 5. Left lower quadrant colostomy with a parastomal hernia. This remains unchanged. 6. No bowel wall thickening or obstruction. 7. 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 ACT 112: Negative or not required by law. Electronically signed by: Ben Gant M.D. 05/03/2021 8:39 PM
--- NOTE | 2021-05-03 20:54 | XRay Report ---
XR chest 1V portable HISTORY: SEPSIS COMPARISON: Chest 04/23/2021. FINDINGS: No pneumothorax. No pleural effusions. There is mild elevation/eventration of the right hem idiaphragm, unchanged. The heart remains mildly enlarged. No new focal lung consolidations to suggest pneumonia. No evidence for pulmonary edema. There is a left subclavian central venous catheter which terminates at the distal SVC. IMPRESSION: No significant change compared to the prior study. No acute process. ACT 112: Negative or not required by law. Electronically signed by: Ben Gant M.D. 05/03/2021 8:53 PM
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
[2021-05-04] MEDS ORDERED: ONDANSETRON INJ 2 MG/ML 2 ML VIAL IV PRN (00:59)
[2021-05-04] MEDS ORDERED: SPIRONOLACTONE 25 MG TAB PO SCH (00:59)
[2021-05-04] MEDS ORDERED: ACETAMINOPHEN 325 MG TAB PO PRN (00:59)
[2021-05-04] MEDS: LACTATED RINGER'S 1,000 ML IV SCH ×2 (01:05→13:59)
[2021-05-04] MEDS ORDERED: CALCIUM CARBONATE 500 MG CHEWABLE TAB PO PRN (01:27)
[2021-05-04] MEDS: AMITRIPTYLINE HCL 25 MG TAB PO SCH ×2 (01:39→20:29)
[2021-05-04] MEDS: CHOLECALCIFEROL 1,000 UNITS 25 MCG TAB PO SCH ×3 (01:39→20:29)
[2021-05-04] MEDS: ESCITALOPRAM OXALATE 10 MG TAB PO SCH ×2 (01:39→20:30)
[2021-05-04] MEDS: oxyCODONE HCL IR 5 MG TAB (IMMEDIATE RELEASE) PO PRN ×3 (01:39→20:48)
[2021-05-04] MEDS: GABAPENTIN 300 MG CAP PO SCH ×4 (01:40→20:31)
--- NOTE | 2021-05-04 04:27 | Billing Data ---
Date of Service May 03, 2021 Coding Level of Care Code 78080 Initial Inpt Care Lvl 3
[2021-05-04] MEDS: LEVOTHYROXINE SODIUM 150 MCG TABLET PO SCH (06:08)
[2021-05-04 06:43] LABS: Basophils # (auto) 0.03 K/uL (0-0.2); Basophils % (auto) 0.5 %; Eosinophils % (auto) 6.9 %; Hematocrit (blood only) 31.3 % (37-47); Hemoglobin 10.1 g/dL (12.0-16.0); Immature Granulocytes # (auto) 0.01 K/uL (0.00-0.02); Immature Granulocytes % (auto) 0.2 %; Lymphocytes # (auto) 2.23 K/uL (1.2-3.4); Lymphocytes % (auto) 38.3 %; Mean Corpuscular Hemoglobin 31.6 pg (25-34); Mean Corpuscular Hgb Conc 32.3 g/dL (32-36); Mean Corpuscular Volume 97.8 fL (80-100); Mean Platelet Volume 9.6 fL (7.4-10.4); Monocytes # (auto) 0.47 K/uL (0.11-0.59); Monocytes % (auto) 8.1 %; Neutrophils # (auto) 2.68 K/uL (1.4-6.5); Platelet Count 193 K/uL (130-400); RDW Coefficient of Variation 13.2 % (11.5-14.5); RDW Standard Deviation 47.4 fL (36.4-46.3); White Blood Count 5.82 K/uL (4.8-10.8)
[2021-05-04 07:15] LABS: BUN Creatinine Ratio 18.7 (10-20); Calcium 8.8 mg/dl (8.5-10.1); Creatinine Clr Calc Pharmacy 35.5 ml/min; Est GFR (African American) 45.8 ml/min; Est GFR (Non-African American) 39.5 ml/min; Potassium 3.9 mmol/L (3.5-5.1)
[2021-05-04 07:26] LABS: Thyroid Stimulating Hormone 8.28 uIu/ml (0.300-4.500)
[2021-05-04 07:38] LABS: T4 Free Thyroxine 1.14 ng/dl (0.8-1.6)
--- NOTE | 2021-05-04 07:59 | Electrocardiogram Report ---
Test Reason : Blood Pressure : / mmHG Vent. Rate : 079 BPM Atrial Rate : 079 BPM P-R Int : 166 ms QRS Dur : 094 ms QT Int : 398 ms P-R-T Axes : 054 024 036 degrees QTc Int : 456 ms Poor data quality, interpretation may be adversely affected Normal sinus rhythm Left ventricular hypertrophy with repolarization abnormality Abnormal ECG When compared with ECG of 23-APR-2021 11:54, No significant change was found Confirmed by Carlin Porter ([id number]) on 05/04/2021 7:58:54 AM Referred By: Eleuterio Amaya Confirmed By:Carlin Porter
[2021-05-04] MEDS: PREGABALIN 100 MG CAP PO SCH ×3 (08:20→20:43)
[2021-05-04] MEDS: HYDROXYCHLOROQUINE SULFATE 200 MG TAB PO SCH (08:21)
[2021-05-04] MEDS: PANTOprazole 40 MG TAB PO SCH (08:21)
[2021-05-04] MEDS: AMOXICILLIN 500 MG CAP PO SCH (08:21)
[2021-05-04] MEDS: TAMSULOSIN HCL 0.4 MG CAP PO SCH (08:22)
[2021-05-04] MEDS: MIRABEGRON ER 25 MG TAB PO SCH (08:22)
[2021-05-04] MEDS: HEPARIN SOD 5,000 UNIT/0.5 ML VIAL SQ SCH ×2 (08:23→20:39)
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
[2021-05-04 08:34] LABS: Folate (Folic Acid) > 20.00 ng/ml (>5.38); Vitamin B12 437 pg/ml (193-986)
[2021-05-04] MEDS ORDERED: hydroCHLOROthiazide 25 MG TAB PO SCH (09:00)
[2021-05-04] MEDS: ROSUVASTATIN CALCIUM 5 MG TAB PO SCH (20:42)
--- NOTE | 2021-05-04 22:12 | Ultrasound Report ---
US venous doppler LE BI CLINICAL HISTORY: le pain COMPARISON STUDY: No previous studies for comparison. FINDINGS: Real-time and color flow Doppler imaging were performed. Flow was seen within the femoral, popliteal and calf veins with no intraluminal thrombus demonstrated. The saphenous vein is patent. Evaluation is limited due to subcutaneous edema and patient body habitus. IMPRESSION: No evidence of deep venous thrombosis. Limited exam. ACT 112: Negative or not required by law. The above report was generated using voice recognition software. It may contain grammatical, syntax o r spelling errors. Electronically signed by: Madeline Combs DO 05/04/2021 10:11 PM
[2021-05-05] MEDS: oxyCODONE HCL IR 5 MG TAB (IMMEDIATE RELEASE) PO PRN ×4 (03:07→19:27)
[2021-05-05] MEDS: LEVOTHYROXINE SODIUM 150 MCG TABLET PO SCH (05:31)
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
[2021-05-05] MEDS: HYDROXYCHLOROQUINE SULFATE 200 MG TAB PO SCH (08:51)
[2021-05-05] MEDS: GABAPENTIN 300 MG CAP PO SCH ×3 (08:51→20:35)
[2021-05-05] MEDS: PANTOprazole 40 MG TAB PO SCH (08:51)
[2021-05-05] MEDS: HEPARIN SOD 5,000 UNIT/0.5 ML VIAL SQ SCH ×2 (08:51→20:36)
[2021-05-05] MEDS: MIRABEGRON ER 25 MG TAB PO SCH (08:51)
[2021-05-05] MEDS: CHOLECALCIFEROL 1,000 UNITS 25 MCG TAB PO SCH ×2 (08:51→20:34)
[2021-05-05] MEDS: TAMSULOSIN HCL 0.4 MG CAP PO SCH (08:51)
[2021-05-05] MEDS: AMOXICILLIN 500 MG CAP PO SCH (08:51)
[2021-05-05] MEDS: PREGABALIN 100 MG CAP PO SCH ×3 (08:53→20:38)
[2021-05-05] MEDS: AMITRIPTYLINE HCL 25 MG TAB PO SCH (20:33)
[2021-05-05] MEDS: ESCITALOPRAM OXALATE 10 MG TAB PO SCH (20:34)
[2021-05-05] MEDS: ROSUVASTATIN CALCIUM 5 MG TAB PO SCH (20:36)
[2021-05-06] MEDS: oxyCODONE HCL IR 5 MG TAB (IMMEDIATE RELEASE) PO PRN ×4 (03:53→21:09)
[2021-05-06] MEDS: LEVOTHYROXINE SODIUM 150 MCG TABLET PO SCH (05:40)
[2021-05-06 07:24] LABS: BUN Creatinine Ratio 16.3 (10-20); Creatinine Clr Calc Pharmacy 32.9 ml/min; Est GFR (African American) 41.2 ml/min; Est GFR (Non-African American) 35.6 ml/min; Potassium 4.4 mmol/L (3.5-5.1)
[2021-05-06] MEDS: HYDROXYCHLOROQUINE SULFATE 200 MG TAB PO SCH (08:15)
[2021-05-06] MEDS: AMOXICILLIN 500 MG CAP PO SCH (08:15)
[2021-05-06] MEDS: GABAPENTIN 300 MG CAP PO SCH ×3 (08:15→20:36)
[2021-05-06] MEDS: PREGABALIN 100 MG CAP PO SCH ×3 (08:15→20:36)
[2021-05-06] MEDS: CHOLECALCIFEROL 1,000 UNITS 25 MCG TAB PO SCH ×2 (08:15→20:34)
[2021-05-06] MEDS: MIRABEGRON ER 25 MG TAB PO SCH (08:15)
[2021-05-06] MEDS: PANTOprazole 40 MG TAB PO SCH (08:15)
[2021-05-06] MEDS: TAMSULOSIN HCL 0.4 MG CAP PO SCH (08:15)
[2021-05-06] MEDS: HEPARIN SOD 5,000 UNIT/0.5 ML VIAL SQ SCH ×2 (08:16→20:30)
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
[2021-05-06] MEDS: hydroCHLOROthiazide 25 MG TAB PO SCH (17:48)
[2021-05-06] MEDS: AMITRIPTYLINE HCL 25 MG TAB PO SCH (20:33)
[2021-05-06] MEDS: ESCITALOPRAM OXALATE 10 MG TAB PO SCH (20:35)
[2021-05-06] MEDS: ROSUVASTATIN CALCIUM 5 MG TAB PO SCH (20:36)
[2021-05-06] MEDS: SPIRONOLACTONE 25 MG TAB PO SCH (20:37)
[2021-05-07] MEDS: LEVOTHYROXINE SODIUM 150 MCG TABLET PO SCH (05:19)
[2021-05-07 05:37] LABS: Basophils # (auto) 0.03 K/uL (0-0.2); Basophils % (auto) 0.5 %; Eosinophils # (auto) 0.39 K/uL (0-0.5); Eosinophils % (auto) 6.1 %; Hematocrit (blood only) 33.9 % (37-47); Hemoglobin 10.9 g/dL (12.0-16.0); Immature Granulocytes # (auto) 0.03 K/uL (0.00-0.02); Immature Granulocytes % (auto) 0.5 %; Lymphocytes # (auto) 1.99 K/uL (1.2-3.4); Lymphocytes % (auto) 31.3 %; Mean Corpuscular Hemoglobin 31.7 pg (25-34); Mean Corpuscular Hgb Conc 32.2 g/dL (32-36); Mean Corpuscular Volume 98.5 fL (80-100); Mean Platelet Volume 9.3 fL (7.4-10.4); Monocytes % (auto) 9.4 %; Neutrophils # (auto) 3.31 K/uL (1.4-6.5); Neutrophils % (auto) 52.2 %; Platelet Count 198 K/uL (130-400); RDW Coefficient of Variation 13.3 % (11.5-14.5); Red Blood Count 3.44 M/uL (4.2-5.4); White Blood Count 6.35 K/uL (4.8-10.8)
[2021-05-07 06:05] LABS: BUN Creatinine Ratio 15.6 (10-20); Calcium 9.6 mg/dl (8.5-10.1); Creatinine Clr Calc Pharmacy 28.8 ml/min; Est GFR (African American) 35.1 ml/min; Est GFR (Non-African American) 30.3 ml/min; Potassium 4.6 mmol/L (3.5-5.1)
[2021-05-07] MEDS: PREGABALIN 100 MG CAP PO SCH ×3 (09:29→21:12)
[2021-05-07] MEDS: oxyCODONE HCL IR 5 MG TAB (IMMEDIATE RELEASE) PO PRN ×2 (09:29→14:30)
[2021-05-07] MEDS: PANTOprazole 40 MG TAB PO SCH (09:30)
[2021-05-07] MEDS: HYDROXYCHLOROQUINE SULFATE 200 MG TAB PO SCH (09:30)
[2021-05-07] MEDS: TAMSULOSIN HCL 0.4 MG CAP PO SCH (09:30)
[2021-05-07] MEDS: hydroCHLOROthiazide 25 MG TAB PO SCH (09:30)
[2021-05-07] MEDS: AMOXICILLIN 500 MG CAP PO SCH (09:30)
[2021-05-07] MEDS: SPIRONOLACTONE 25 MG TAB PO SCH ×2 (09:30→21:02)
[2021-05-07] MEDS: GABAPENTIN 300 MG CAP PO SCH (09:31)
[2021-05-07] MEDS: CHOLECALCIFEROL 1,000 UNITS 25 MCG TAB PO SCH ×2 (09:31→21:05)
[2021-05-07] MEDS: HEPARIN SOD 5,000 UNIT/0.5 ML VIAL SQ SCH ×2 (09:31→21:06)
[2021-05-07] MEDS: MIRABEGRON ER 25 MG TAB PO SCH (10:37)
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
[2021-05-07] MEDS: GABAPENTIN 600 MG TAB PO SCH ×2 (14:30→21:06)
--- NOTE | 2021-05-07 16:25 | Billing Data ---
Date of Service May 07, 2021 Coding Level of Care Code 65948 Subseq Hosp Care Lvl 2
[2021-05-07] MEDS: DICLOFENAC SOD 1% GEL 100 GM TUBE EXT SCH ×2 (18:24→21:06)
[2021-05-07] MEDS: ROSUVASTATIN CALCIUM 5 MG TAB PO SCH (21:03)
[2021-05-07] MEDS: AMITRIPTYLINE HCL 25 MG TAB PO SCH (21:04)
[2021-05-07] MEDS: ESCITALOPRAM OXALATE 10 MG TAB PO SCH (21:04)
[2021-05-08] MEDS: oxyCODONE HCL IR 5 MG TAB (IMMEDIATE RELEASE) PO PRN ×4 (01:25→19:48)
[2021-05-08] MEDS: LEVOTHYROXINE SODIUM 150 MCG TABLET PO SCH (06:11)
[2021-05-08] MEDS: PANTOprazole 40 MG TAB PO SCH (08:49)
[2021-05-08] MEDS: AMOXICILLIN 500 MG CAP PO SCH (08:49)
[2021-05-08] MEDS: CHOLECALCIFEROL 1,000 UNITS 25 MCG TAB PO SCH ×2 (08:49→21:49)
[2021-05-08] MEDS: GABAPENTIN 600 MG TAB PO SCH ×3 (08:49→21:50)
[2021-05-08] MEDS: HYDROXYCHLOROQUINE SULFATE 200 MG TAB PO SCH (08:50)
[2021-05-08] MEDS: HEPARIN SOD 5,000 UNIT/0.5 ML VIAL SQ SCH ×2 (08:50→21:50)
[2021-05-08] MEDS: DICLOFENAC SOD 1% GEL 100 GM TUBE EXT SCH ×4 (08:50→21:49)
[2021-05-08] MEDS: SPIRONOLACTONE 25 MG TAB PO SCH ×2 (08:51→21:50)
[2021-05-08] MEDS: MIRABEGRON ER 25 MG TAB PO SCH (08:51)
[2021-05-08] MEDS: TAMSULOSIN HCL 0.4 MG CAP PO SCH (08:51)
[2021-05-08] MEDS: hydroCHLOROthiazide 25 MG TAB PO SCH (08:51)
[2021-05-08] MEDS: PREGABALIN 100 MG CAP PO SCH ×3 (08:57→21:50)
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
[2021-05-08] MEDS ORDERED: LACTATED RINGER'S 1,000 ML IV SCH (11:00)
--- NOTE | 2021-05-08 18:30 | Billing Data ---
Date of Service May 08, 2021 Coding Level of Care Code 28280 Subseq Hosp Care Lvl 1
[2021-05-08] MEDS: AMITRIPTYLINE HCL 25 MG TAB PO SCH (21:49)
[2021-05-08] MEDS: ESCITALOPRAM OXALATE 10 MG TAB PO SCH (21:49)
[2021-05-08] MEDS: ROSUVASTATIN CALCIUM 5 MG TAB PO SCH (21:50)
[2021-05-09] MEDS: oxyCODONE HCL IR 5 MG TAB (IMMEDIATE RELEASE) PO PRN ×2 (00:56→12:42)
[2021-05-09] MEDS: LEVOTHYROXINE SODIUM 150 MCG TABLET PO SCH (05:39)
[2021-05-09 07:22] LABS: BUN Creatinine Ratio 17.7 (10-20); Calcium 9.5 mg/dl (8.5-10.1); Creatinine Clr Calc Pharmacy 25.2 ml/min; Est GFR (African American) 29.8 ml/min; Est GFR (Non-African American) 25.7 ml/min; Potassium 4.4 mmol/L (3.5-5.1)
[2021-05-09] MEDS ORDERED: GABAPENTIN 400 MG CAP PO SCH (09:00)
[2021-05-09] MEDS: HYDROXYCHLOROQUINE SULFATE 200 MG TAB PO SCH (09:04)
[2021-05-09] MEDS: TAMSULOSIN HCL 0.4 MG CAP PO SCH (09:04)
[2021-05-09] MEDS: SPIRONOLACTONE 25 MG TAB PO SCH (09:04)
[2021-05-09] MEDS: PANTOprazole 40 MG TAB PO SCH (09:04)
[2021-05-09] MEDS: AMOXICILLIN 500 MG CAP PO SCH (09:04)
[2021-05-09] MEDS: CHOLECALCIFEROL 1,000 UNITS 25 MCG TAB PO SCH (09:05)
[2021-05-09] MEDS: MIRABEGRON ER 25 MG TAB PO SCH (09:05)
[2021-05-09] MEDS: hydroCHLOROthiazide 25 MG TAB PO SCH (09:06)
[2021-05-09] MEDS: HEPARIN SOD 5,000 UNIT/0.5 ML VIAL SQ SCH (09:06)
[2021-05-09] MEDS: GABAPENTIN 600 MG TAB PO SCH (09:06)
[2021-05-09] MEDS: DICLOFENAC SOD 1% GEL 100 GM TUBE EXT SCH ×2 (09:07→12:44)
[2021-05-09] MEDS: PREGABALIN 100 MG CAP PO SCH (09:20)
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
--- NOTE | 2021-05-09 16:26 | Billing Data ---
Date of Service May 09, 2021 Coding Level of Care Code D/C Day Management <30 mins
== END 2021-05-09 13:20 | DRG 556 ==
LOC: ED 18:14 → 2N 22:48 → SUATTDRO 22:48 → 2N 05-04 00:18

== ENCOUNTER 2021-05-23 20:47 | Inpatient (IN) ==
[2021-05-23] MEDS ORDERED: SODIUM CHLORIDE 0.9% 500 ML IV STA (20:58)
--- NOTE | 2021-05-23 21:26 | Emergency Department Note ---
Impression & Plan Subcapital fracture of right hip ED Provider Note NAME: ELENI DILLON AGE: 70 SEX: F : 1950 ARRIVES VIA: Ambulance INFORMANT: Patient, ED PROVIDER(S): Tonio Valdes DO CHIEF COMPLAINT: Right hip pain HPI: The patient is a 70-year-old female who is currently in rehab. She was sent from rehab because of right hip pain. The patient had an outpatient x-ray that did show a possible fracture. The patient states her pain started approximately 1 week ago. There was no definite trauma. The patient denies having any headache. She denies having any chest pain or difficulty breathing. She denies having any abdominal pain. She has been compliant with all of her outpatient medications. She has not injured this hip previously. She states the pain is moderate to severe with any movement. Pain is relieved minimally with remaining still. ROS: See above HPI for pertinent positives & negatives. A total of 10 systems reviewed and were otherwise negative. PAST MEDICAL HISTORY: See Below PAST SURGICAL HISTORY: See Below FAMILY HISTORY: See Below SOCIAL HISTORY: See Below HOME MEDICATIONS: See Below ALLERGIES: See Below VITALS: See Below PHYSICAL EXAMINATION: GENERAL: Patient is awake alert in no acute distress patient is resting comfortably and showing no signs of anxiety EYES: The conjunctivae are clear. The pupils are round and reactive. EARS, NOSE, MOUTH AND THROAT: The nose is without any evidence of any deformity. NECK: The neck is nontender and supple. RESPIRATORY: Normal respiratory effort is noted there is no evidence of wheezing rhonchi or rales CARDIOVASCULAR: Regular rate and rhythm was noted to auscultation. Left systolic murmur was noted. GASTROINTESTINAL: The abdomen is soft. Abdomen is nontender. MUSCULOSKELETAL/EXTREMITIES: The patient has pain with range of motion testing of the right hip. There is no definite deformity or shortening. SKIN: Skin is warm. Pulses are symmetric in both feet but there is significant stasis dermatitis noted to both lower extremities. NEUROLOGIC: Patient is awake alert and oriented x3. MEDICAL DECISION MAKING: The patient is a 70-year-old female who presented to the emergency department for an evaluation of right hip pain. The patient started having hip pain approximately 1 week ago. She has no definite trauma to the hip but when x-rays were obtained she was found to have a right hip fracture. This does have a sclerotic appearance to it and may require further work-up. I discussed the patient's laboratory and radiographic studies with her. I also discussed her case with the on-call [facility] hospitalist group. They have agreed to evaluate the patient in the emergency department for further management and disposition. The patient did not require any pain medication in the emergency department. Triage Nursing notes reviewed. Prior medical records reviewed Vital Signs: reviewed and remarkable for elevated blood pressure. Differential diagnosis: Fracture, dislocation, neurovascular compromise, compartment syndrome, soft tissue injury, as well as other pathologies. ER treatment provided: See below Diagnostics interpreted by me: ECG: EKG was obtained in the emergency department. My interpretation is normal sinus rhythm at 96 bpm. There is no ectopy. There was no acute ST segment abnormalities. This was compared to a tracing from May 032020. No significant changes were noted. Cardiac Monitoring: An order was placed for continuous cardiac monitoring. The monitor shows a rate of 98 bpm with sinus rhythm. Laboratory studies: As stated above and show below. Imaging studies: See below Consultation(s): The [facility] hospitalist group was notified about the patient. They will evaluate the patient in the emergency department. 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 History of pelvic fracture History of recurrent UTIs NONE CURRENT/ON MAINTENANCE ABX FOR Incomplete bladder emptying Iron deficiency HX OF Left knee DJD Lymphedema THERAPY FOR Pathologic acetabular fracture Pelvic fracture Pressure ulcer of right buttock, stage 1 Seasonal allergies Spinal stenosis Urge and stress incontinence Surgical History Colostomy in place H/O foot surgery History of carpal tunnel release of both wrists History of colonoscopy History of hernia repair X2 SURGERIES WITH STOMA RELOCATED FOR BOTH HERNIA SURGERIES History of hysterectomy History of urologic surgery HX URETERAL STENT AND SINCE REMOVED History of wisdom tooth extraction Nausea and vomiting after administration of anesthetic agent Family History Sister Coronary heart disease Diabetes Nephrolithiasis Breast cancer Brother Diabetes Father Coronary heart disease Diabetes Hypertension Myocardial infarction Grandmother Diabetes Social History Smoking Status: Never smoker Second Hand Exposure: No; Hx Alcohol Use: No Hx Substance Use: No Preferred Language: Armenian Communication Ability: Effective Visual Impairment: Limited Hearing Ability: Normal Report Writer Required: No Beliefs That Will Affect Care: None marital status: Current Living Situation: Spouse current occupational status: retired Feels Safe at Home: Yes Assistive Devices: Glasses and Walker Allergies Allergies Allergy/AdvReac Type Severity Reaction Status Date / Time pollen extracts Allergy Intermediate RUNNY Verified 05/23/21 21:36 NOSE, ITCHY EYES, SNEEZING sulfamethoxazole Allergy Unknown Shakiness Verified 05/23/21 21:36 [From Bactrim] trimethoprim [From Bactrim] Allergy Unknown Shakiness Verified 05/23/21 21:36 Home Meds Home Medications Medication Instructions Recorded Confirmed mirabegron 50 mg tablet,extended 50 mg PO QAM 06/15/19 05/23/21 release 24 hr multivitamin 1 tab PO QDL 06/15/19 05/23/21 amoxicillin 500 mg capsule 500 mg PO QAM cap 06/16/19 05/23/21 budesonide-formoterol HFA 80 2 puffs INH Q12 PRN 06/16/19 05/23/21 mcg-4.5 mcg/actuation aerosol inhaler escitalopram oxalate 20 mg tablet 30 mg PO HS tab 06/16/19 05/23/21 hydroxychloroquine 200 mg tablet 100 mg PO QAM tab 06/16/19 05/23/21 pantoprazole 40 mg tablet,delayed 40 mg PO QAM 06/16/19 05/23/21 release ascorbic acid (vitamin C) [Vitamin 500 mg PO BID 09/15/19 05/23/21 C] cholecalciferol (vitamin D3) 2,000 unit PO BID 09/15/19 05/23/21 [Vitamin D3] denosumab 60 mg/mL subcutaneous 60 mg SQ UD ml 01/06/20 05/23/21 syringe amitriptyline 25 mg tablet 25 mg PO HS tab 05/08/20 05/23/21 tamsulosin 0.4 mg PO QAM 05/17/20 05/23/21 levothyroxine 150 mcg PO QAM 04/23/21 05/23/21 pregabalin 100 mg PO TID 04/23/21 05/23/21 rosuvastatin 5 mg PO HS 04/23/21 05/23/21 calcium carbonate 500 mg PO DAILY PRN 05/03/21 05/23/21 acetaminophen 650 mg PO Q6 PRN 05/23/21 05/23/21 oxycodone 5 mg PO Q6 05/23/21 05/23/21 Previous Rx's Medication Instructions Recorded gabapentin 400 mg PO TID 30 Days #90 cap 05/09/21 Results & Data (ED) Vital Signs Vital Signs - 24 hr 05/23/21 20:58 05/23/21 21:02 05/23/21 22:17 Temperature 37.1 C Temperature Source Oral Pulse Rate 101 H Pulse Rate [Apical] 93 H Respiratory Rate 18 18 Respiratory Effort / Characteristics Non-Labored Spontaneous Non-Labored Spontaneous Respiratory Depth Normal Normal Blood Pressure 151/67 H Blood Pressure [Left Arm] 151/67 H Blood Pressure Mean 95 Blood Pressure Mean [Left Arm] 95 Pulse Oximetry 94 93 96 Oxygen Delivery Method Room Air Room Air Room Air Sepsis Recent Fever Within 48 Hours No Sepsis New/Unexplained Change in Mental Status N/A Sepsis Action Taken by Nursing No Action Required Home Medications Current Medication List: was personally reviewed by me Laboratory Data Attestation: I reviewed the patient's lab results. Result diagrams: 05/23/21 21:15 05/23/21 21:15 Lab Results 05/23/21 05/23/21 05/23/21 Range/Units 21:15 21:15 21:15 WBC 5.34 (4.8-10.8) K/uL RBC 2.92 L (4.2-5.4) M/uL Hgb 9.5 L (12.0-16.0) g/dL Hct 28.5 L (37-47) % MCV 97.6 (80-100) fL MCH 32.5 (25-34) pg MCHC 33.3 (32-36) g/dL RDW Std Deviation 47.3 H (36.4-46.3) fL RDW Coeff of Anh 13.2 (11.5-14.5) % Plt Count 221 (130-400) K/uL MPV 9.3 (7.4-10.4) fL Immature Gran % (Auto) 0.2 % Neut % (Auto) 48.1 % Lymph % (Auto) 32.4 % Glynn % (Auto) 13.3 % Eos % (Auto) 5.4 % Baso % (Auto) 0.6 % Neut # (Auto) 2.57 (1.4-6.5) K/uL Lymph # (Auto) 1.73 (1.2-3.4) K/uL Glynn # (Auto) 0.71 H (0.11-0.59) K/uL Eos # (Auto) 0.29 (0-0.5) K/uL Baso # (Auto) 0.03 (0-0.2) K/uL Immature Gran # (Auto) 0.01 (0.00-0.02) K/uL PT 9.9 (9.0-12.0) Seconds INR 1.0 (0.9-1.1) APTT 29.1 (21.0-31.0) Seconds PTT Ratio 1.1 Sodium 141 (136-145) mmol/L Potassium 4.2 (3.5-5.1) mmol/L Chloride 111 H (98-107) mmol/L Carbon Dioxide 26 (21-32) mmol/L Anion Gap 4.0 (3-11) BUN 31 H (7-18) mg/dl Creatinine 1.53 H (0.6-1.2) mg/dl Est Cr Clr Drug Dosing 33.2 ml/min Est GFR ( Amer) 39.0 ml/min Est GFR (Non-Af Amer) 33.6 ml/min BUN/Creatinine Ratio 20.1 H (10-20) Glucose 101 H (70-99) mg/dl Calcium 8.7 (8.5-10.1) mg/dl Total Bilirubin 0.2 (0.2-1) mg/dl AST 23 (15-37) U/L ALT 17 (12-78) U/L Alkaline Phosphatase 76 (45-117) U/L Troponin I < 0.015 (0-0.045) ng/ml Total Protein 6.4 (6.4-8.2) gm/dl Albumin 3.0 L (3.4-5.0) gm/dl Globulin 3.4 (2.5-4.0) gm/dl Albumin/Globulin Ratio 0.9 (0.9-2) Lipase 122 (73-393) U/L Urine Color Urine Appearance (Clear) Urine pH (4.5-7.5) Ur Specific Brandon (1.000-1.030) Urine Protein (Negative) Urine Glucose (UA) (Negative) Urine Ketones (Negative) Urine Blood (Negative) Urine Nitrite (Negative) Urine Bilirubin (Negative) Urine Urobilinogen (Negative) Ur Leukocyte Esterase (Negative) COVID-19 Eval Order 05/23/21 05/23/21 Range/Units 21:50 22:10 WBC (4.8-10.8) K/uL RBC (4.2-5.4) M/uL Hgb (12.0-16.0) g/dL Hct (37-47) % MCV (80-100) fL MCH (25-34) pg MCHC (32-36) g/dL RDW Std Deviation (36.4-46.3) fL RDW Coeff of Anh (11.5-14.5) % Plt Count (130-400) K/uL MPV (7.4-10.4) fL Immature Gran % (Auto) % Neut % (Auto) % Lymph % (Auto) % Glynn % (Auto) % Eos % (Auto) % Baso % (Auto) % Neut # (Auto) (1.4-6.5) K/uL Lymph # (Auto) (1.2-3.4) K/uL Glynn # (Auto) (0.11-0.59) K/uL Eos # (Auto) (0-0.5) K/uL Baso # (Auto) (0-0.2) K/uL Immature Gran # (Auto) (0.00-0.02) K/uL PT (9.0-12.0) Seconds INR (0.9-1.1) APTT (21.0-31.0) Seconds PTT Ratio Sodium (136-145) mmol/L Potassium (3.5-5.1) mmol/L Chloride (98-107) mmol/L Carbon Dioxide (21-32) mmol/L Anion Gap (3-11) BUN (7-18) mg/dl Creatinine (0.6-1.2) mg/dl Est Cr Clr Drug Dosing ml/min Est GFR ( Amer) ml/min Est GFR (Non-Af Amer) ml/min BUN/Creatinine Ratio (10-20) Glucose (70-99) mg/dl Calcium (8.5-10.1) mg/dl Total Bilirubin (0.2-1) mg/dl AST (15-37) U/L ALT (12-78) U/L Alkaline Phosphatase (45-117) U/L Troponin I (0-0.045) ng/ml Total Protein (6.4-8.2) gm/dl Albumin (3.4-5.0) gm/dl Globulin (2.5-4.0) gm/dl Albumin/Globulin Ratio (0.9-2) Lipase (73-393) U/L Urine Color Yellow Urine Appearance Clear (Clear) Urine pH 5.0 (4.5-7.5) Ur Specific Brandon 1.013 (1.000-1.030) Urine Protein Negative (Negative) Urine Glucose (UA) Negative (Negative) Urine Ketones Negative (Negative) Urine Blood Negative (Negative) Urine Nitrite Negative (Negative) Urine Bilirubin Negative (Negative) Urine Urobilinogen Negative (Negative) Ur Leukocyte Esterase Negative (Negative) COVID-19 Eval Order Covid19 at [facility] Administered Medications Discontinued Medications Sodium Chloride (Nss) 500 mls @ 999 mls/hr IV .Q31M STA Stop: 05/23/21 21:28 Last Infusion: 05/23/21 22:10 Dose: 0 mls/hr Documented by: [id number] Admin: 05/23/21 21:37 Dose: 999 mls/hr Documented by: [id number] Imaging Data Attestation: I personally reviewed and interpreted this imaging study as follows: My Impression: X-ray of the pelvis and right hip were obtained in the emergency department. My interpretation is displaced femoral neck fracture. There was some sclerosis so this may be age-indeterminate. Chest x-ray was obtained in the emergency department. My interpretation is elevation of the right hemidiaphragm. No definite infiltrate was noted. There was no free air. No acute disease. A port was noted in the left chest wall Discharge Plan Visit Data Chief Complaint: Hip Pain ED Provider: Tonio Valdse Discharge Problem: Subcapital fracture of right hip Forms Stand Alone Forms: My [facility] Prescriptions Prescriptions: No Action Prolia 60 mg/mL syringe 60 mg SQ UD RF: 0 amoxicillin 500 mg capsule 500 mg PO QAM RF: 0 pantoprazole [Protonix] 40 mg tablet,delayed release (DR/EC) 40 mg PO QAM RF: 0 multivitamin [Multiple Vitamins] tablet 1 tab PO QDL RF: 0 Myrbetriq 50 mg tablet extended release 24 hr 50 mg PO QAM RF: 0 Symbicort 80-4.5 mcg/actuation HFA aerosol inhaler 2 puffs INH Q12 PRN (Reason: SEASONAL ALLERGIES) RF: 0 escitalopram oxalate [Lexapro] 20 mg tablet 30 mg PO HS RF: 0 hydroxychloroquine [Plaquenil] 200 mg tablet 100 mg PO QAM RF: 0 ascorbic acid (vitamin C) [Vitamin C] 500 mg Tablet 500 mg PO BID RF: 0 cholecalciferol (vitamin D3) [Vitamin D3] 2,000 unit Capsule 2,000 unit PO BID RF: 0 amitriptyline 25 mg tablet 25 mg PO HS RF: 0 tamsulosin 0.4 mg capsule 0.4 mg PO QAM RF: 0 levothyroxine 150 mcg tablet 150 mcg PO QAM RF: 0 rosuvastatin 5 mg tablet 5 mg PO HS RF: 0 pregabalin 100 mg capsule 100 mg PO TID RF: 0 calcium carbonate 500 mg calcium (1,250 mg) Tablet,Chewable 500 mg PO DAILY PRN (Reason: Acid Reflux) RF: 0 gabapentin 400 mg Capsule 400 mg PO TID 30 Days Qty: 90 RF: 0 acetaminophen 325 mg Tablet 650 mg PO Q6 PRN (Reason: Fever Or Pain) RF: 0 oxycodone 5 mg tablet 5 mg PO Q6 RF: 0 Referrals Referrals: [facility] [Primary Care Provider] - Discharge Problem: Subcapital fracture of right hip Qualifiers: Encounter type: initial encounter Fracture type: closed Qualified Code(s): S72.011A - Unspecified intracapsular fracture of right femur, initial encounter for closed fracture
[2021-05-23 21:27] LABS: Basophils # (auto) 0.03 K/uL (0-0.2); Basophils % (auto) 0.6 %; Eosinophils # (auto) 0.29 K/uL (0-0.5); Eosinophils % (auto) 5.4 %; Hematocrit (blood only) 28.5 % (37-47); Hemoglobin 9.5 g/dL (12.0-16.0); Immature Granulocytes # (auto) 0.01 K/uL (0.00-0.02); Immature Granulocytes % (auto) 0.2 %; Lymphocytes # (auto) 1.73 K/uL (1.2-3.4); Lymphocytes % (auto) 32.4 %; Mean Corpuscular Hemoglobin 32.5 pg (25-34); Mean Corpuscular Hgb Conc 33.3 g/dL (32-36); Mean Corpuscular Volume 97.6 fL (80-100); Mean Platelet Volume 9.3 fL (7.4-10.4); Monocytes # (auto) 0.71 K/uL (0.11-0.59); Monocytes % (auto) 13.3 %; Neutrophils # (auto) 2.57 K/uL (1.4-6.5); Neutrophils % (auto) 48.1 %; Platelet Count 221 K/uL (130-400); RDW Coefficient of Variation 13.2 % (11.5-14.5); RDW Standard Deviation 47.3 fL (36.4-46.3); Red Blood Count 2.92 M/uL (4.2-5.4); White Blood Count 5.34 K/uL (4.8-10.8)
[2021-05-23 21:38] LABS: Partial Thromboplastin Ratio 1.1; Partial Thromboplastin Time 29.1 Seconds (21.0-31.0); Prothrombin Time 9.9 Seconds (9.0-12.0)
[2021-05-23 21:43] LABS: Alanine Aminotransferase 17 U/L (12-78); Aspartate Aminotransferase 23 U/L (15-37); BUN Creatinine Ratio 20.1 (10-20); Blood Urea Nitrogen 31 mg/dl (7-18); Calcium 8.7 mg/dl (8.5-10.1); Carbon Dioxide 26 mmol/L (21-32); Chloride 111 mmol/L (98-107); Creatinine Clr Calc Pharmacy 33.2 ml/min; Est GFR (Non-African American) 33.6 ml/min; Glucose 101 mg/dl (70-99); Lipase 122 U/L (73-393); Potassium 4.2 mmol/L (3.5-5.1); Sodium 141 mmol/L (136-145)
[2021-05-23 21:48] LABS: Albumin Globulin Ratio 0.9 (0.9-2); Alkaline Phosphatase 76 U/L (45-117); Bilirubin,Total 0.2 mg/dl (0.2-1); Globulin 3.4 gm/dl (2.5-4.0); Total Protein 6.4 gm/dl (6.4-8.2); Troponin I < 0.015 ng/ml (0-0.045)
[2021-05-23 22:27] LABS: Appearance Urine Clear (Clear); Bilirubin Urine Negative (Negative); Blood Urine Negative (Negative); Color Urine Yellow; Glucose Urine UA Negative (Negative); Ketones Urine Negative (Negative); Leukocyte Esterase Urine Negative (Negative); Nitrite Urine Negative (Negative); Protein Urine Negative (Negative); Specific Gravity Urine 1.013 (1.000-1.030); Urobilinogen Urine Negative (Negative)
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
[2021-05-24] MEDS ORDERED: NALOXONE HCL 0.4 MG/1 ML VIAL/CARP IV PRN (01:16)
[2021-05-24] MEDS ORDERED: MAGNESIUM HYDROXIDE SUSP 30 ML UDC PO PRN (01:16)
[2021-05-24] MEDS ORDERED: ACETAMINOPHEN 325 MG TAB PO PRN (01:16)
[2021-05-24] MEDS ORDERED: bisacodyL 10 MG SUPP PR PRN (01:16)
[2021-05-24] MEDS ORDERED: POLYETHYLENE (MIRALAX) 17 GM PACK PO PRN (01:16)
[2021-05-24] MEDS ORDERED: D5W AND 1/2NSS 1,000 ML IV SCH (01:16)
[2021-05-24] MEDS ORDERED: FLUTICASONE/VILANTEROL 100/25MCG 14 PUFFS/INHALER INH PRN (02:00)
[2021-05-24] MEDS: LEVOTHYROXINE SODIUM 150 MCG TABLET PO SCH (05:52)
--- NOTE | 2021-05-24 06:36 | XRay Report ---
XR hip RT min 2V HISTORY: 70 years-old Female pain acute right-sided hip pain without reported trauma COMPARISON: CT abdomen and pelvis 05/03/2021 TECHNIQUE: 2 views of the right hip FINDINGS: There is an acute basicervical fracture of the right femoral neck with mild comminution. Distraction of the fracture fragments measures up to 7 mm. No significant displacement. Moderate right hip osteoa rthritis. Study is limited secondary to positioning. Chronic appearing fractures of the right superio r and inferior pubic rami and right acetabulum. Surgical clips of the pelvis. IMPRESSION: 1. Acute basicervical fracture of the right femoral neck with mild fracture distraction. 2. Chronic pelvic ring fractures redemonstrated. ACT 112: Negative or not required by law. The above report was generated using voice recognition software. It may contain grammatical, syntax o r spelling errors. Electronically signed by: Mikhail Hilton M.D. 05/24/2021 6:35 AM
[2021-05-24 06:41] LABS: Basophils # (auto) 0.02 K/uL (0-0.2); Basophils % (auto) 0.4 %; Eosinophils % (auto) 6.5 %; Hematocrit (blood only) 28.7 % (37-47); Hemoglobin 9.2 g/dL (12.0-16.0); Immature Granulocytes # (auto) 0.01 K/uL (0.00-0.02); Immature Granulocytes % (auto) 0.2 %; Lymphocytes # (auto) 1.32 K/uL (1.2-3.4); Lymphocytes % (auto) 28.8 %; Mean Corpuscular Hemoglobin 31.4 pg (25-34); Mean Corpuscular Hgb Conc 32.1 g/dL (32-36); Monocytes # (auto) 0.65 K/uL (0.11-0.59); Monocytes % (auto) 14.2 %; Neutrophils # (auto) 2.29 K/uL (1.4-6.5); Neutrophils % (auto) 49.9 %; Platelet Count 208 K/uL (130-400); RDW Coefficient of Variation 13.3 % (11.5-14.5); RDW Standard Deviation 48.2 fL (36.4-46.3); Red Blood Count 2.93 M/uL (4.2-5.4); White Blood Count 4.59 K/uL (4.8-10.8)
[2021-05-24 06:54] LABS: Partial Thromboplastin Ratio 1.1; Partial Thromboplastin Time 29.4 Seconds (21.0-31.0)
[2021-05-24 07:09] LABS: BUN Creatinine Ratio 19.3 (10-20); Calcium 8.7 mg/dl (8.5-10.1); Creatinine Clr Calc Pharmacy 35.9 ml/min; Est GFR (African American) 43.8 ml/min; Est GFR (Non-African American) 37.8 ml/min; Potassium 4.1 mmol/L (3.5-5.1)
--- NOTE | 2021-05-24 07:35 | Hospitalist Progress Note ---
Date of Service May 24, 2021 Assessment & Plan Admission and Anticipated Discharge Date Admission Date: May 23, 2021 Results & Data Results & Data ([facility]) Vital Signs (Past 12 Hours) Vital Signs Temp Pulse Pulse Pulse Resp BP BP 05/24/21 05:16 05/24/21 03:52 36.9 C 94 H 18 150/82 H 05/24/21 01:23 37.2 C 98 H 16 163/74 H 05/24/21 00:16 93 H 18 168/94 H 05/23/21 22:17 93 H 18 151/67 H 05/23/21 21:02 05/23/21 20:58 37.1 C 101 H 18 151/67 H Pulse Ox Pulse Ox 05/24/21 05:16 95 05/24/21 03:52 96 05/24/21 01:23 95 05/24/21 00:16 96 05/23/21 22:17 96 05/23/21 21:02 93 05/23/21 20:58 94
[2021-05-24] MEDS: MIRABEGRON ER 25 MG TAB PO SCH (08:18)
[2021-05-24] MEDS: HYDROXYCHLOROQUINE SULFATE 200 MG TAB PO SCH (08:18)
[2021-05-24] MEDS: GABAPENTIN 400 MG CAP PO SCH ×3 (08:18→21:10)
[2021-05-24] MEDS: AMOXICILLIN 500 MG CAP PO SCH (08:18)
[2021-05-24] MEDS: TAMSULOSIN HCL 0.4 MG CAP PO SCH (08:19)
[2021-05-24] MEDS: PANTOprazole 40 MG TAB PO SCH (08:19)
[2021-05-24] MEDS: PREGABALIN 100 MG CAP PO SCH ×3 (08:19→21:10)
--- NOTE | 2021-05-24 08:24 | XRay Report ---
XR chest 1V portable HISTORY: 70 years-old Female Chest Pain acute atypical chest pain COMPARISON: Chest radiograph and CT abdomen and pelvis 05/03/2021 TECHNIQUE: Portable AP view the chest FINDINGS: Left subclavian Oltshc-f-Gffa catheter is unchanged. Mild cardiomegaly. Unchanged right hemidiaphragm atic elevation. Calcified plaque of the thoracic aorta. No pneumothorax, pleural effusion, airspace c onsolidation or overt pulmonary edema. Degenerative changes of the shoulders and spine. IMPRESSION: No acute process. ACT 112: Negative or not required by law. The above report was generated using voice recognition software. It may contain grammatical, syntax o r spelling errors. Electronically signed by: Mikhail Hilton M.D. 05/24/2021 8:22 AM
[2021-05-24] MEDS ORDERED: MoRPHine SULFATE 2 MG/ML CARP IV PRN ×2 (08:28→16:54)
[2021-05-24] MEDS: LACTATED RINGER'S 1,000 ML IV SCH ×2 (08:46→19:47)
[2021-05-24] MEDS: MoRPHine SULFATE 4 MG/ML 1 ML CARP\\VIAL IV PRN ×2 (10:09→15:46)
[2021-05-24] MEDS: MULTIVITAMIN TAB PO SCH (10:49)
[2021-05-24] MEDS: oxyCODONE HCL IR 5 MG TAB (IMMEDIATE RELEASE) PO PRN ×2 (12:02→21:27)
--- NOTE | 2021-05-24 16:33 | Orthopedic Consultation ---
Date of Service May 24, 2021 Assessment & Plan (1) Fracture of femoral neck, right, closed: We discussed patient's diagnosis and treatment options. Given her previous pelvic fractures and poor bone quality of the acetabulum, with necrosis, we recommended transfer to a tertiary care facility for additional care. We also discussed possible right hip resection arthroplasty but we agreed that transfer to a tertiary care facility would likely be her best option for return to her baseline ambulatory function. Otherwise, continue plan of care. She is orthopedically stable for discharge to tertiary facility. We discussed transferring her to [facility]. She is on board with this plan. History of Present Illness Reason for Consultation: Right hip femoral neck fracture Requesting Physician: . Attending Physician: DO Bess Bradford Phyllis is a 70 year old female with a past medical history of anemia, chronic back pain, GERD, RA, hyperlipidemia, hypothyroidism, anxiety, urge and stress incontinence, and previous cervix and colorectal cancer with lymph node involvement, which required four separate rounds of radiation (per patient). States she was at [facility] for rehab following a left ureteral stent removal. On 05/22/21, patient was transferring out of her bed when she developed significant right groin pain. She was unable to bear weight due to the pain. She had x-rays ordered and was referred to [facility] ER for further evaluation. Orthopedics was then consulted for a mildly displaced, pathologic right femoral neck fracture. Patient states she was having no right groin/hip pain prior to the incident. She was using a walker for ambulatory assistance prior to her new onset of hip pain. She denies any recent fever, chills, or sweats. She has no other complaints at this time. Allergies Allergy/AdvReac Type Severity Reaction Status Date / Time pollen extracts Allergy Intermediate RUNNY Verified 05/23/21 21:36 NOSE, ITCHY EYES, SNEEZING sulfamethoxazole Allergy Unknown Shakiness Verified 05/23/21 21:36 [From Bactrim] trimethoprim [From Bactrim] Allergy Unknown Shakiness Verified 05/23/21 21:36 Home Medications Medication Instructions Recorded Confirmed Type mirabegron 50 mg tablet,extended 50 mg PO QAM 06/15/19 05/23/21 History release 24 hr multivitamin 1 tab PO QDL 06/15/19 05/23/21 History amoxicillin 500 mg capsule 500 mg PO QAM cap 06/16/19 05/23/21 History budesonide-formoterol HFA 80 2 puffs INH Q12 PRN 06/16/19 05/23/21 History mcg-4.5 mcg/actuation aerosol inhaler escitalopram oxalate 20 mg tablet 30 mg PO HS tab 06/16/19 05/23/21 History hydroxychloroquine 200 mg tablet 100 mg PO QAM tab 06/16/19 05/23/21 History pantoprazole 40 mg tablet,delayed 40 mg PO QAM 06/16/19 05/23/21 History release ascorbic acid (vitamin C) [Vitamin 500 mg PO BID 09/15/19 05/23/21 History C] cholecalciferol (vitamin D3) 2,000 unit PO BID 09/15/19 05/23/21 History [Vitamin D3] denosumab 60 mg/mL subcutaneous 60 mg SQ UD ml 01/06/20 05/23/21 History syringe amitriptyline 25 mg tablet 25 mg PO HS tab 05/08/20 05/23/21 History tamsulosin 0.4 mg PO QAM 05/17/20 05/23/21 History levothyroxine 150 mcg PO QAM 04/23/21 05/23/21 History pregabalin 100 mg PO TID 04/23/21 05/23/21 History rosuvastatin 5 mg PO HS 04/23/21 05/23/21 History calcium carbonate 500 mg PO DAILY PRN 05/03/21 05/23/21 History gabapentin 400 mg PO TID 30 Days #90 cap 05/09/21 05/23/21 Rx acetaminophen 650 mg PO Q6 PRN 05/23/21 05/23/21 History oxycodone 5 mg PO Q6 05/23/21 05/23/21 History 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 History of pelvic fracture History of recurrent UTIs NONE CURRENT/ON MAINTENANCE ABX FOR Incomplete bladder emptying Iron deficiency HX OF Left knee DJD Lymphedema THERAPY FOR Pathologic acetabular fracture Pelvic fracture Pressure ulcer of right buttock, stage 1 Seasonal allergies Spinal stenosis Urge and stress incontinence Surgical History Colostomy in place H/O foot surgery History of carpal tunnel release of both wrists History of colonoscopy History of hernia repair X2 SURGERIES WITH STOMA RELOCATED FOR BOTH HERNIA SURGERIES History of hysterectomy History of urologic surgery HX URETERAL STENT AND SINCE REMOVED History of wisdom tooth extraction Nausea and vomiting after administration of anesthetic agent Family History Sister Coronary heart disease Diabetes Nephrolithiasis Breast cancer Brother Diabetes Father Coronary heart disease Diabetes Hypertension Myocardial infarction Grandmother Diabetes Social History Smoking Status: Never smoker Second Hand Exposure: No; Hx Alcohol Use: No Hx Substance Use: No Preferred Language: Kazakh Communication Ability: Effective Visual Impairment: Limited Hearing Ability: Normal Cream Tester Required: No Beliefs That Will Affect Care: None marital status: Current Living Situation: Rehab Current Living Situation Comment: [facility] current occupational status: retired Feels Safe at Home: Yes Safety Concerns: Feels Safe At This Time Assistive Devices: Oxygen - Continuous Review of Systems All systems reviewed & are unremarkable except as noted in HPI & below. Physical Exam . Musculoskeletal Patient was laying comfortably in bed upon arrival. A+Ox3. Right lower extremity: Shortened and externally rotated Pain with any attempted rotation of the hip Palpable tenderness at lateral and anterior aspect No erythema or ecchymosis Neurovascularly intact Appropriate ankle plantarflexion and dorsiflexion Results & Data Results & Data Laboratory Results . Diagnostic Findings Right hip x-rays obtained 05/23/21. These revealed: 1. Acute basicervical fracture of the right femoral neck with mild fracture distraction. 2. Chronic pelvic ring fractures at superior and inferior pubic rami were present. PG Care Time/CCT Total # of Minutes Spent Total Time Spent with Patient: Total time spent is greater than 50% in coordination of care (as documented) at patient's floor/unit and/or counseling patient: Coding Level of Care Code 95447 Inpt Consult Level 3 Diagnoses Fracture of femoral neck, right, closed S72.001A
[2021-05-24] MEDS ORDERED: HYDROmorphone INJ 0.5 MG/0.5 ML SYR IV PRN (16:49)
[2021-05-24] MEDS ORDERED: MoRPHine SULFATE 4 MG/ML 1 ML CARP\\VIAL IV PRN (16:54)
--- NOTE | 2021-05-24 17:32 | Medical Student Progress Note ---
Date of Service May 24, 2021 Assessment & Plan (1) Subcapital fracture of right hip: - Likely pathologic due to history of radiation in this area, osteoporosis and CKD - Pain is well controlled on Oxycodone - Per orthopedic consultation: surgery tomorrow - NPO at midnight Encounter type: initial encounter Fracture type: closed Qualified Code(s): S72.011A - Unspecified intracapsular fracture of right femur, initial encounter for closed fracture (2) GISELL (acute kidney injury): - Cr 1.5 in ED, likely prerenal etiology, baseline 1.15 - 1L of fluid given in ER - 100 ml/h X 2L ordered (3) Anemia: - hgb 9.5, down from prior lab results - type and screen ordered (4) Urge and stress incontinence: - Continue home Myrbetriq (5) Hyperlipidemia: (6) Lumbar spinal stenosis: - Continue home Gabapentin, Lyrica - oxycodone prn for pain (7) Hypothyroid: - Continue statin (8) GERD (gastroesophageal reflux disease): - Continue Protonix Admission and Anticipated Discharge Date Admission Date: May 23, 2021 Supervising Attestation I personally examined the patient and verified all nesbitt points of history and exam, discussed case, and agree with decision making with A Yalvigi MS2 Pain controlled. No other new complaints. Vitals noted, in general she is awake and alert pleasant no distress. HEENT normocephalic atraumatic mucous membranes moist. Breathing unlabored no accessory muscle use good effort. Skin shows no rashes no pallor or icterus. Pathologic fracture of hiporthopedics eval pending. Morbid obesity with BMI of 41presumably due to excess caloriesoutpatient follow-up. Otherwise as above. Subjective Ms Sweeney is a 70 year old female with a past medical history significant for cervical and colorectal cancer requiring radiation who presents for pathologic hip fracture. Phyllis was hospitalized earlier this month for weakness and frequent falls. She has spent the last 2 weeks in rehabilitation. There was no precipitating trauma or fall, she noticed 10/10 pain on waking and was brought to the ED. A right femoral neck fracture was noted on X-ray. This morning, she is overall doing well. Her pain is well controlled with oxycodone. Review of Systems Respiratory: no dyspnea Cardiovascular: no chest pain Gastrointestinal: no abdominal pain, no nausea and no vomiting Physical Exam Eyes: + anicteric sclerae Respiratory: normal respiratory effort, lungs clear to auscultation Cardiovascular: Rate/Rhythm: regular rate and regular rhythm Heart Sounds: + murmur Vessels: normal peripheral pulses and dorsalis pedis pulses present Extremities: normal capillary refill Gastrointestinal (Abdomen): normal bowel sounds, soft, nontender, no hepatosplenomegaly Skin: no rashes, warm and dry Psychiatric: A+Ox3, euthymic affect Results & Data ([facility]) Vital Signs (Past 12 Hours) Vital Signs Temp Pulse Pulse Resp BP Pulse Ox Pulse Ox 05/24/21 15:00 37 C 93 H 18 144/72 H 97 05/24/21 14:50 99 H 05/24/21 11:14 36.5 C 93 H 18 153/77 H 93 05/24/21 07:36 36.6 C 98 H 19 164/79 H 100 05/24/21 07:35 90 05/24/21 05:16 95
--- NOTE | 2021-05-24 19:53 | Billing Data ---
Date of Service May 24, 2021 Coding Level of Care Code 56086 Subseq Hosp Care Lvl 3
[2021-05-24] MEDS: ROSUVASTATIN CALCIUM 5 MG TAB PO SCH (21:10)
[2021-05-24] MEDS: AMITRIPTYLINE HCL 25 MG TAB PO SCH (21:10)
[2021-05-24] MEDS: ESCITALOPRAM OXALATE 10 MG TAB PO SCH (21:10)
[2021-05-24] MEDS: DOCUSATE SODIUM/SENNA 50/8.6MG TAB PO SCH (21:12)
--- NOTE | 2021-05-25 00:09 | Billing Data ---
Date of Service May 25, 2021 Coding Level of Care Code 75283 Initial Inpt Care Lvl 3
[2021-05-25] MEDS: LACTATED RINGER'S 1,000 ML IV SCH ×2 (04:40→14:01)
[2021-05-25] MEDS: LEVOTHYROXINE SODIUM 150 MCG TABLET PO SCH (04:40)
--- NOTE | 2021-05-25 05:48 | Electrocardiogram Report ---
Test Reason : Blood Pressure : / mmHG Vent. Rate : 096 BPM Atrial Rate : 096 BPM P-R Int : 162 ms QRS Dur : 084 ms QT Int : 362 ms P-R-T Axes : 059 042 043 degrees QTc Int : 457 ms Poor data quality, interpretation may be adversely affected Normal sinus rhythm Normal ECG When compared with ECG of 03-MAY-2021 18:54, No significant change was found Confirmed by Earle Martell ([id number]) on 05/25/2021 5:48:16 AM Referred By: REFERRED SELF Confirmed By:Earle Martell
[2021-05-25] MEDS: AMOXICILLIN 500 MG CAP PO SCH (07:54)
[2021-05-25] MEDS: MIRABEGRON ER 25 MG TAB PO SCH (07:54)
[2021-05-25] MEDS: HYDROXYCHLOROQUINE SULFATE 200 MG TAB PO SCH (07:54)
[2021-05-25] MEDS: PANTOprazole 40 MG TAB PO SCH (07:55)
[2021-05-25] MEDS: GABAPENTIN 400 MG CAP PO SCH ×3 (07:55→20:27)
[2021-05-25] MEDS: TAMSULOSIN HCL 0.4 MG CAP PO SCH (07:55)
[2021-05-25] MEDS: oxyCODONE HCL IR 5 MG TAB (IMMEDIATE RELEASE) PO PRN ×3 (08:11→20:23)
[2021-05-25] MEDS: PREGABALIN 100 MG CAP PO SCH ×3 (08:11→20:38)
[2021-05-25 08:29] LABS: Basophils # (auto) 0.04 K/uL (0-0.2); Basophils % (auto) 0.8 %; Eosinophils # (auto) 0.33 K/uL (0-0.5); Eosinophils % (auto) 6.8 %; Hematocrit (blood only) 29.4 % (37-47); Immature Granulocytes # (auto) 0.03 K/uL (0.00-0.02); Immature Granulocytes % (auto) 0.6 %; Lymphocytes # (auto) 1.28 K/uL (1.2-3.4); Lymphocytes % (auto) 26.4 %; Mean Corpuscular Hgb Conc 30.6 g/dL (32-36); Mean Corpuscular Volume 101.4 fL (80-100); Mean Platelet Volume 9.4 fL (7.4-10.4); Monocytes # (auto) 0.63 K/uL (0.11-0.59); Neutrophils # (auto) 2.54 K/uL (1.4-6.5); Neutrophils % (auto) 52.4 %; Platelet Count 217 K/uL (130-400); RDW Coefficient of Variation 13.2 % (11.5-14.5); White Blood Count 4.85 K/uL (4.8-10.8)
[2021-05-25 08:59] LABS: BUN Creatinine Ratio 20.7 (10-20); Calcium 8.8 mg/dl (8.5-10.1); Creatinine Clr Calc Pharmacy 36.3 ml/min; Est GFR (Non-African American) 37.1 ml/min; Potassium 4.4 mmol/L (3.5-5.1)
[2021-05-25] MEDS: MULTIVITAMIN TAB PO SCH (12:11)
--- NOTE | 2021-05-25 15:01 | Hospitalist Progress Note ---
Date of Service May 25, 2021 Assessment & Plan (1) Subcapital fracture of right hip: Phyllis Sweeney is a 70 yo F w/ pMHx of HTN, aortic stenosis, colostomy, hypothyroidism, lymphedema here for right hip pain found to have right hip fracture without trauma. Right pathologic hip fracture: - XR with partial displaced femoral neck fracture - Likely pathologic due to history of radiation in this area, osteoporosis and CKD - Pain is well controlled on Oxycodone - Per orthopedic consultation: recommended transfer to [facility] given history of fractures and signs of necrosis - Accepted for transfer, but awaiting bed availability Anemia: - continue to trend for now with AM labs - type and screened Anxiety: -Continue Lexapro -Continue Amitriptyline Chronic Back Pain 2/2 Spinal Stenosis: -Continue Oxycodone PRN -Continue Gabapentin -Continue Lyrica Chronic UTI's: -Continue Amoxicillin Urge and Stress Incontinence: -Continue Myrbetriq -Continue Flomax GERD: -Continue Protonix Rheumatoid Arthritis: -Continue Hydroxychloroquine Hypothyroidism: - continue Levothyroxine HLD: - continue statin (2) GISELL (acute kidney injury): (3) Anemia: (4) Urge and stress incontinence: (5) Hyperlipidemia: (6) Lumbar spinal stenosis: (7) Hypothyroid: (8) GERD (gastroesophageal reflux disease): Admission and Anticipated Discharge Date Admission Date: May 23, 2021 Supervising Physician Co-Signing Physician Notes I personally examined the patient and verified all nesbitt points of history and exam, discussed case, and agree with decision making with Dr De Paz Pain controlled. No other new complaints. still waiting on bed at [facility] Vitals noted, in general she is awake and alert pleasant no distress. HEENT normocephalic atraumatic mucous membranes moist. Breathing unlabored no accessory muscle use good effort. Skin shows no rashes no pallor or icterus. Pathologic fracture of hiporthopedics feels this needs tertiary level surgical interventionstill waiting on bed at [facility]. Pain controlled and stable, while we wait on bed. Morbid obesity with BMI of 41presumably due to excess caloriesoutpatient follow-up. Otherwise as above. Subjective Feels like her pain is well enough controlled at this moment in time. Is awaiting bed procurement at [facility] for transportation. Review of Systems Review of Systems: All systems reviewed & are unremarkable except as noted in Subjective Physical Exam Constitutional: WD/WN, vitals as above Eyes: PERRL, conjunctivae normal, anicteric sclerae Respiratory: normal respiratory effort, lungs clear to auscultation Auscultation: no crackles, no rales, no rhonchi and no wheezes Cardiovascular: Rate/Rhythm: regular rate and regular rhythm Heart Sounds: no gallop, no murmur and no cardiac rub Vessels: normal peripheral pulses; no JVD Extremities: no edema Neurologic: PERRL, EOMI, accommodation nl, no face palsy, no dysarthria CN's II-XI intact bilaterally and moves all extremities Psychiatric: Orientation: alert and oriented x 3 Results & Data Results & Data ([facility]) Vital Signs (Past 12 Hours) Vital Signs Temp Pulse Pulse Resp BP Pulse Ox 05/25/21 11:10 37.1 C 96 H 16 146/77 H 95 05/25/21 07:50 148/89 H 05/25/21 07:38 36.9 C 95 H 16 90/64 L 94 05/25/21 07:25 99 H 05/25/21 04:02 37.1 C 100 H 16 121/70 92 Laboratory Results 05/25/21 05/25/21 Range/Units 08:10 08:10 WBC 4.85 (4.8-10.8) K/uL RBC 2.90 L (4.2-5.4) M/uL Hgb 9.0 L (12.0-16.0) g/dL Hct 29.4 L (37-47) % MCV 101.4 H (80-100) fL MCH 31.0 (25-34) pg MCHC 30.6 L (32-36) g/dL RDW Std Deviation 49.0 H (36.4-46.3) fL RDW Coeff of Anh 13.2 (11.5-14.5) % Plt Count 217 (130-400) K/uL MPV 9.4 (7.4-10.4) fL Immature Gran % (Auto) 0.6 % Neut % (Auto) 52.4 % Lymph % (Auto) 26.4 % [place] % (Auto) 13.0 % Eos % (Auto) 6.8 % Baso % (Auto) 0.8 % Neut # (Auto) 2.54 (1.4-6.5) K/uL Lymph # (Auto) 1.28 (1.2-3.4) K/uL [place] # (Auto) 0.63 H (0.11-0.59) K/uL Eos # (Auto) 0.33 (0-0.5) K/uL Baso # (Auto) 0.04 (0-0.2) K/uL Immature Gran # (Auto) 0.03 H (0.00-0.02) K/uL Sodium 141 (136-145) mmol/L Potassium 4.4 (3.5-5.1) mmol/L Chloride 111 H (98-107) mmol/L Carbon Dioxide 25 (21-32) mmol/L Anion Gap 5.0 (3-11) BUN 29 H (7-18) mg/dl Creatinine 1.41 H (0.6-1.2) mg/dl Est Cr Clr Drug Dosing 36.3 ml/min Est GFR ( Amer) 43.0 ml/min Est GFR (Non-Af Amer) 37.1 ml/min BUN/Creatinine Ratio 20.7 H (10-20) Glucose 85 (70-99) mg/dl Calcium 8.8 (8.5-10.1) mg/dl Medications Administered Current Inpatient Medications Acetaminophen (Acetaminophen 325 Mg Tab) 650 mg PO Q6 PRN PRN Reason: Fever Or Pain Stop: 06/23/21 01:15 Amitriptyline HCl (Amitriptyline Hcl 25 Mg Tab) 25 mg PO [facility] Stop: 06/23/21 20:59 Last Admin: 05/24/21 21:10 Dose: 25 mg Documented by: Amoxicillin (Amoxicillin 500 Mg Cap) 500 mg PO [facility] Stop: 06/23/21 08:59 Last Admin: 05/25/21 07:54 Dose: 500 mg Documented by: Bisacodyl (Bisacodyl 10 Mg Supp) 10 mg WA DAILY PRN PRN Reason: Constipation Stop: 06/23/21 01:15 Escitalopram Oxalate (Escitalopram Oxalate 10 Mg Tab) 30 mg PO [facility] Stop: 06/23/21 20:59 Last Admin: 05/24/21 21:10 Dose: 30 mg Documented by: Fluticasone/Vilanterol (Fluticasone/Vilanterol 100/25mcg 14 Puffs/Inhaler) 1 puffs INH DAILY PRN PRN Reason: SEASONAL ALLERGIES Stop: 06/23/21 01:59 Gabapentin (Gabapentin 400 Mg Cap) 400 mg PO TID [facility] Stop: 06/23/21 08:59 Last Admin: 05/25/21 14:02 Dose: 400 mg Documented by: Hydromorphone HCl (Hydromorphone Inj 0.5 Mg/0.5 Ml Syr) 0.5 mg IV Q3H PRN PRN Reason: Pain (,8,9,10) Stop: 06/07/21 16:48 Last Admin: 05/24/21 17:23 Dose: 0.5 mg Documented by: Hydroxychloroquine Sulfate (Hydroxychloroquine Sulfate 200 Mg Tab) 100 mg PO QAM [facility] Stop: 06/23/21 08:59 Last Admin: 05/25/21 07:54 Dose: 100 mg Documented by: Lactated Ringer's (Lr) 1,000 mls @ 100 mls/hr IV .Q10H [facility] Stop: 06/23/21 07:59 Last Admin: 05/25/21 14:01 Dose: 100 mls/hr Documented by: Levothyroxine Sodium (Levothyroxine Sodium 150 Mcg Tablet) 150 mcg PO DAILYBB [facility] Stop: 06/23/21 06:29 Last Admin: 05/25/21 04:40 Dose: Not Given Documented by: Magnesium Hydroxide (Magnesium Hydroxide Susp 30 Ml Udc) 30 ml PO DAILY PRN PRN Reason: Constipation Stop: 06/23/21 01:15 Mirabegron (Mirabegron Er 25 Mg Tab) 50 mg PO QAM [facility] Stop: 06/23/21 08:59 Last Admin: 05/25/21 07:54 Dose: 50 mg Documented by: Miscellaneous (Denosumab [Prolia]: Order Awaiting Action) 1 ea N/A DAILY [facility] Stop: 06/23/21 08:59 Last Admin: 05/25/21 08:11 Dose: Not Given Documented by: Morphine Sulfate (Morphine Sulfate 4 Mg/Ml 1 Ml Carp\Vial) 4 mg IV Q3H PRN PRN Reason: Pain (5,6,7,) Stop: 06/07/21 08:27 Morphine Sulfate (Morphine Sulfate 2 Mg/Ml Carp) 2 mg IV Q3H PRN PRN Reason: Pain (1,2,3,4) & Pre PT Stop: 06/07/21 08:27 Multivitamins (Multivitamin Tab) 1 tab PO QDL [facility] Stop: 06/23/21 11:29 Last Admin: 05/25/21 12:11 Dose: 1 tab Documented by: Naloxone HCl (Naloxone Hcl 0.4 Mg/1 Ml Vial/Carp) 0.1 mg IV UD PRN PRN Reason: Opiate Overdose Stop: 06/23/21 01:15 Oxycodone HCl (Oxycodone Hcl Ir 5 Mg Tab (Immediate Release)) 5 mg PO Q6 PRN PRN Reason: Pain Stop: 06/07/21 01:15 Last Admin: 05/25/21 14:01 Dose: 5 mg Documented by: Pantoprazole Sodium (Pantoprazole 40 Mg Tab) 40 mg PO QAM [facility] Stop: 06/23/21 08:59 Last Admin: 05/25/21 07:55 Dose: 40 mg Documented by: Polyethylene Glycol (Polyethylene (Miralax) 17 Gm Pack) 17 gm PO DAILY PRN PRN Reason: Constipation Stop: 06/23/21 01:15 Pregabalin (Pregabalin 100 Mg Cap) 100 mg PO TID [facility] Stop: 06/23/21 08:59 Last Admin: 05/25/21 14:01 Dose: 100 mg Documented by: Rosuvastatin Calcium (Rosuvastatin Calcium 5 Mg Tab) 5 mg PO HS [facility] Stop: 06/23/21 20:59 Last Admin: 05/24/21 21:10 Dose: 5 mg Documented by: Senna/Docusate Sodium (Docusate Sodium/Senna 50/8.6mg Tab) 2 tab PO HS [facility] Stop: 06/23/21 20:59 Last Admin: 05/24/21 21:12 Dose: Not Given Documented by: Tamsulosin HCl (Tamsulosin Hcl 0.4 Mg Cap) 0.4 mg PO QAM [facility] Stop: 06/23/21 08:59 Last Admin: 05/25/21 07:55 Dose: 0.4 mg Documented by: Resident Activity Tracking Resident Involvement: Resident Care Provided Care Provided: Adult Hospital Medicine (1) Subcapital fracture of right hip Encounter type: initial encounter Fracture type: closed Qualified Code(s): S72.011A - Unspecified intracapsular fracture of right femur, initial encounter for closed fracture
--- NOTE | 2021-05-25 18:33 | Billing Data ---
Date of Service May 25, 2021 Coding Level of Care Code 35757 Subseq Hosp Care Lvl 2
[2021-05-25] MEDS: ROSUVASTATIN CALCIUM 5 MG TAB PO SCH (20:27)
[2021-05-25] MEDS: DOCUSATE SODIUM/SENNA 50/8.6MG TAB PO SCH (20:27)
[2021-05-25] MEDS: ESCITALOPRAM OXALATE 10 MG TAB PO SCH (20:27)
[2021-05-25] MEDS: AMITRIPTYLINE HCL 25 MG TAB PO SCH (20:27)
[2021-05-26] MEDS: LACTATED RINGER'S 1,000 ML IV SCH ×2 (00:01→09:18)
[2021-05-26] MEDS: oxyCODONE HCL IR 5 MG TAB (IMMEDIATE RELEASE) PO PRN ×3 (01:50→13:47)
[2021-05-26] MEDS: LEVOTHYROXINE SODIUM 150 MCG TABLET PO SCH (05:59)
[2021-05-26 06:23] LABS: Basophils # (auto) 0.03 K/uL (0-0.2); Basophils % (auto) 0.7 %; Eosinophils # (auto) 0.33 K/uL (0-0.5); Eosinophils % (auto) 7.2 %; Hematocrit (blood only) 26.8 % (37-47); Hemoglobin 8.4 g/dL (12.0-16.0); Lymphocytes # (auto) 1.25 K/uL (1.2-3.4); Lymphocytes % (auto) 27.4 %; Mean Corpuscular Hemoglobin 31.2 pg (25-34); Mean Corpuscular Hgb Conc 31.3 g/dL (32-36); Mean Corpuscular Volume 99.6 fL (80-100); Mean Platelet Volume 9.6 fL (7.4-10.4); Monocytes # (auto) 0.62 K/uL (0.11-0.59); Monocytes % (auto) 13.6 %; Neutrophils # (auto) 2.33 K/uL (1.4-6.5); Neutrophils % (auto) 51.1 %; Platelet Count 207 K/uL (130-400); RDW Coefficient of Variation 13.1 % (11.5-14.5); RDW Standard Deviation 47.9 fL (36.4-46.3); Red Blood Count 2.69 M/uL (4.2-5.4); White Blood Count 4.56 K/uL (4.8-10.8)
[2021-05-26 06:51] LABS: BUN Creatinine Ratio 18.4 (10-20); Calcium 8.8 mg/dl (8.5-10.1); Creatinine Clr Calc Pharmacy 37.6 ml/min; Est GFR (African American) 44.5 ml/min; Est GFR (Non-African American) 38.4 ml/min; Potassium 4.3 mmol/L (3.5-5.1)
[2021-05-26] MEDS: PREGABALIN 100 MG CAP PO SCH ×2 (08:15→13:47)
[2021-05-26] MEDS: HYDROXYCHLOROQUINE SULFATE 200 MG TAB PO SCH (08:16)
[2021-05-26] MEDS: AMOXICILLIN 500 MG CAP PO SCH (08:16)
[2021-05-26] MEDS: MIRABEGRON ER 25 MG TAB PO SCH (08:17)
[2021-05-26] MEDS: GABAPENTIN 400 MG CAP PO SCH ×2 (08:17→13:47)
[2021-05-26] MEDS: PANTOprazole 40 MG TAB PO SCH (08:18)
[2021-05-26] MEDS: TAMSULOSIN HCL 0.4 MG CAP PO SCH (08:19)
[2021-05-26] MEDS: MULTIVITAMIN TAB PO SCH (13:47)
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
--- NOTE | 2021-05-26 15:18 | Billing Data ---
Date of Service May 26, 2021 Coding Level of Care Code D/C Day Management <30 mins
== END 2021-05-26 15:21 | disposition short-term general hospital (02) | DRG 543 ==
LOC: ED 20:47 → 2W 23:33 → SUATTDRO 23:33 → 2W 05-24 01:21
DX: E78.5 Hyperlipidemia, unspecified; Z85.41 Personal history of malignant neoplasm of cervix uteri; K21.9 Gastro-esophageal reflux disease without esophagitis; D64.9 Anemia, unspecified; M84.451A Pathological fracture, right femur, initial encounter for fracture; N17.9 Acute kidney failure, unspecified; F41.9 Anxiety disorder, unspecified; Z68.41 Body mass index [BMI] 40.0-44.9, adult; N18.9 Chronic kidney disease, unspecified; X58.XXXA Exposure to other specified factors, initial encounter; Z88.2 Allergy status to sulfonamides; M06.9 Rheumatoid arthritis, unspecified; Z93.3 Colostomy status; E66.01 Morbid (severe) obesity due to excess calories; N39.0 Urinary tract infection, site not specified; Z87.440 Personal history of urinary (tract) infections; N39.46 Mixed incontinence; Y92.129 Unspecified place in nursing home as the place of occurrence of the external cause; Z85.048 Personal history of other malignant neoplasm of rectum, rectosigmoid junction, and anus; I12.9 Hypertensive chronic kidney disease with stage 1 through stage 4 chronic kidney disease, or unspecified chronic kidney disease; Z83.3 Family history of diabetes mellitus

== ENCOUNTER 2021-06-25 12:36 | Inpatient (IN) ==
[2021-06-25] MEDS ORDERED: RAPID SEQUENCE INDUCTION BAG ONE (12:47)
[2021-06-25] MEDS ORDERED: PROPOFOL IV EMULSION 10 MG/ML 100 ML VIAL IV ONE (12:56)
[2021-06-25 13:02] LABS: iSTAT Creatinine 1.8 mg/dl (0.6-1.3); iSTAT Hemoglobin 9.9 g/dl (12.0-16.0); iSTAT Ionized Calcium 1.12 mmol/l (1.12-1.32); iSTAT Potassium 4.6 mmol/L (3.3-5.0)
[2021-06-25] MEDS ORDERED: STAT IV Infusion **Titration per Protocol STA ×2 (13:04→15:31)
[2021-06-25] MEDS ORDERED: PROPOFOL BOLUS FROM BAG IV PRN ×2 (13:04→15:31)
--- NOTE | 2021-06-25 13:04 | Emergency Department Note ---
History of Present Illness General Chief complaint: Shortness of Breath/Dyspnea Stated complaint: sob Time Seen by Provider: 06/25/21 12:44 Source: EMS, RN notes reviewed and old records reviewed Mode of arrival: EMS Limitations: clinical acuity History of Present Illness Patient is brought in by EMS with [facility]. They told me that they needed me to come see her immediately as they felt she needed to be intubated. They got called out for wheezing her O2 sat was 60% and she was altered they tried BiPAP but she was vomiting with that when tolerated. Upon arrival she was not on the Muslim BiPAP with was was on 100% and the pulse ox was not picking up reliably she is altered and is unable to give any history. She did have one episode of emesis as I was examined her that was brownish. She was unable to give any further history. The patient's arrived and was able to give further history. He said that since March she has been having a lot of medical problems started with a kidney stone and a stent. She has chronic lymphedema of her legs secondary to cervical and anal cancer. The stent has been since removed she is been very weak and she has been at the rehab facility twice. She did have a femur fracture on the right they sent her to [facility] for possible repair but anesthesiolog was concerned about her aortic stenosis so they did not operate on her other doing further cardiac work-up and says they may replace her valve while they are doing hip but she still has an echo coming up. He states thought that she was breathing hard on Friday although he said she sounded okay when he talked her this morning. She seems like she is having memory issues in the last couple weeks he says. Home Medications Medication Instructions Recorded Confirmed Type mirabegron 50 mg tablet,extended 50 mg PO QAM 06/15/19 06/25/21 History release 24 hr (Myrbetriq) multivitamin (Multiple Vitamins) 1 tab PO QAM 06/15/19 06/25/21 History amoxicillin 500 mg capsule 500 mg PO QAM cap 06/16/19 06/25/21 History budesonide-formoterol HFA 80 2 puffs INH BIDM PRN 06/16/19 06/25/21 History mcg-4.5 mcg/actuation aerosol inhaler (Symbicort) escitalopram oxalate 20 mg tablet 30 mg PO QAM tab 06/16/19 06/25/21 History (Lexapro) hydroxychloroquine 200 mg tablet 100 mg PO QAM tab 06/16/19 06/25/21 History (Plaquenil) pantoprazole 40 mg tablet,delayed 40 mg PO QAM 06/16/19 06/25/21 History release (Protonix) ascorbic acid (vitamin C) 500 mg 500 mg PO BID 09/15/19 06/25/21 History tablet (Vitamin C) cholecalciferol (vitamin D3) 50 2,000 unit PO BIDM 09/15/19 06/25/21 History mcg (2,000 unit) capsule (Vitamin D3) amitriptyline 25 mg tablet 25 mg PO HS tab 05/08/20 06/25/21 History tamsulosin 0.4 mg capsule 0.4 mg PO QAM 05/17/20 06/25/21 History levothyroxine 150 mcg tablet 150 mcg PO QAM 04/23/21 06/25/21 History pregabalin 100 mg capsule 100 mg PO TID 04/23/21 06/25/21 History rosuvastatin 5 mg tablet 5 mg PO HS 04/23/21 06/25/21 History acetaminophen 325 mg tablet 650 mg PO Q6 PRN 05/23/21 06/25/21 History oxycodone 5 mg tablet 5 mg PO Q6 PRN 05/23/21 06/25/21 History enoxaparin 40 mg/0.4 mL 40 mg SUBCUT DAILY 06/25/21 06/25/21 History subcutaneous syringe (Lovenox) gabapentin 300 mg capsule 300 mg PO TIDM 06/25/21 06/25/21 History ipratropium 0.5 mg-albuterol 3 mg 3 ml INHALATION Q4H PRN 06/25/21 06/25/21 History (2.5 mg base)/3 mL nebulization soln metoprolol succinate 25 mg 25 mg PO HS 06/25/21 06/25/21 History tablet,extended release 24 hr spironolactone 25 mg tablet 25 mg PO QAM 06/25/21 06/25/21 History sulindac 200 mg tablet 100 mg PO BID PRN 06/25/21 06/25/21 History Allergies Allergy/AdvReac Type Severity Reaction Status Date / Time pollen extracts Allergy Intermediate RUNNY Verified 06/25/21 14:41 NOSE, ITCHY EYES, SNEEZING sulfamethoxazole Allergy Unknown Shakiness Verified 06/25/21 14:41 [From Bactrim] trimethoprim [From Bactrim] Allergy Unknown Shakiness Verified 06/25/21 14:41 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 History of pelvic fracture History of recurrent UTIs NONE CURRENT/ON MAINTENANCE ABX FOR Incomplete bladder emptying Iron deficiency HX OF Left knee DJD Lymphedema THERAPY FOR Pathologic acetabular fracture Pelvic fracture Pressure ulcer of right buttock, stage 1 Seasonal allergies Spinal stenosis Urge and stress incontinence Surgical History Colostomy in place H/O foot surgery History of carpal tunnel release of both wrists History of colonoscopy History of hernia repair X2 SURGERIES WITH STOMA RELOCATED FOR BOTH HERNIA SURGERIES History of hysterectomy History of urologic surgery HX URETERAL STENT AND SINCE REMOVED History of wisdom tooth extraction Nausea and vomiting after administration of anesthetic agent Family History Sister Coronary heart disease Diabetes Nephrolithiasis Breast cancer Brother Diabetes Father Coronary heart disease Diabetes Hypertension Myocardial infarction Grandmother Diabetes Social History Smoking Status: Never smoker Second Hand Exposure: No; Hx Alcohol Use: No Hx Substance Use: No Preferred Language: Indonesian Communication Ability: Effective Visual Impairment: Limited Hearing Ability: Normal Mathematician Research Required: No Beliefs That Will Affect Care: None marital status: Current Living Situation: Correction Current Living Situation Comment: [facility] current occupational status: retired Feels Safe at Home: Yes Assistive Devices: Glasses Review of Systems Unobtainable due to cognitive status and Unobtainable due to endotracheal tube Physical Exam Vital Signs Vital Signs - 24 hr 06/25/21 12:42 06/25/21 12:45 06/25/21 12:47 Pulse Rate 115 H 115 H Pulse Rate from SpO2 Sensor 115 H Respiratory Rate 40 H Respiratory Effort / Characteristics Short of Breath Respiratory Depth Shallow Respiratory Pattern Blood Pressure 164/126 H Blood Pressure [Left Arm] 164/126 H 216/116 H Blood Pressure Mean 138 Blood Pressure Mean [Left Arm] 138 149 Blood Pressure Position Sitting Pulse Oximetry 100 100 Oxygen Delivery Method Non-rebreather Fraction of Inspired Oxygen Sepsis Recent Fever Within 48 Hours No Sepsis New/Unexplained Change in Mental Status Yes Sepsis Action Taken by Nursing Physician Notified End-Tidal CO2 06/25/21 12:57 06/25/21 13:18 06/25/21 13:20 Pulse Rate 129 H 128 H Pulse Rate from SpO2 Sensor 130 H 129 H Respiratory Rate 22 Respiratory Effort / Characteristics Non-Labored Respiratory Depth Respiratory Pattern Blood Pressure Blood Pressure [Left Arm] Blood Pressure Mean Blood Pressure Mean [Left Arm] Blood Pressure Position Pulse Oximetry 100 96 95 Oxygen Delivery Method Mechanical Vent Fraction of Inspired Oxygen Sepsis Recent Fever Within 48 Hours Sepsis New/Unexplained Change in Mental Status Sepsis Action Taken by Nursing End-Tidal CO2 48 49 06/25/21 13:21 06/25/21 13:24 06/25/21 13:27 Pulse Rate Pulse Rate from SpO2 Sensor Respiratory Rate Respiratory Effort / Characteristics Labored Non-Labored Respiratory Depth Shallow Respiratory Pattern Tachypnea Blood Pressure Blood Pressure [Left Arm] 139/102 H Blood Pressure Mean Blood Pressure Mean [Left Arm] 114 Blood Pressure Position Pulse Oximetry Oxygen Delivery Method Mechanical Vent Mechanical Vent Fraction of Inspired Oxygen Sepsis Recent Fever Within 48 Hours Sepsis New/Unexplained Change in Mental Status Sepsis Action Taken by Nursing End-Tidal CO2 06/25/21 13:30 06/25/21 13:33 06/25/21 13:36 Pulse Rate 121 H 127 H Pulse Rate from SpO2 Sensor 122 H Respiratory Rate 22 22 Respiratory Effort / Characteristics Mechanically Ventilated Respiratory Depth Respiratory Pattern Blood Pressure Blood Pressure [Left Arm] Blood Pressure Mean Blood Pressure Mean [Left Arm] Blood Pressure Position Pulse Oximetry 97 97 Oxygen Delivery Method Fraction of Inspired Oxygen 50 50 Sepsis Recent Fever Within 48 Hours Sepsis New/Unexplained Change in Mental Status Sepsis Action Taken by Nursing End-Tidal CO2 42 49 06/25/21 13:40 06/25/21 14:00 06/25/21 14:13 Pulse Rate 122 H 115 H Pulse Rate from SpO2 Sensor 122 H Respiratory Rate 22 23 Respiratory Effort / Characteristics Mechanically Ventilated Respiratory Depth Respiratory Pattern Blood Pressure Blood Pressure [Left Arm] Blood Pressure Mean Blood Pressure Mean [Left Arm] Blood Pressure Position Pulse Oximetry 96 Oxygen Delivery Method Fraction of Inspired Oxygen 50 Sepsis Recent Fever Within 48 Hours Sepsis New/Unexplained Change in Mental Status Sepsis Action Taken by Nursing End-Tidal CO2 40 06/25/21 14:14 06/25/21 14:15 06/25/21 14:30 Pulse Rate 110 H 112 H Pulse Rate from SpO2 Sensor 112 H Respiratory Rate 23 22 Respiratory Effort / Characteristics Mechanically Ventilated Respiratory Depth Respiratory Pattern Blood Pressure 128/73 Blood Pressure [Left Arm] 140/76 128/73 Blood Pressure Mean 91 Blood Pressure Mean [Left Arm] 97 91 Blood Pressure Position Pulse Oximetry 98 100 Oxygen Delivery Method Mechanical Vent Fraction of Inspired Oxygen 50 50 Sepsis Recent Fever Within 48 Hours Sepsis New/Unexplained Change in Mental Status Sepsis Action Taken by Nursing End-Tidal CO2 48 37 06/25/21 14:45 06/25/21 15:00 06/25/21 15:15 Pulse Rate 102 H 98 H 95 H Pulse Rate from SpO2 Sensor 102 H 98 H 95 H Respiratory Rate 22 Respiratory Effort / Characteristics Mechanically Ventilated Respiratory Depth Respiratory Pattern Blood Pressure 112/60 98/53 L 100/53 L Blood Pressure [Left Arm] Blood Pressure Mean 77 68 68 Blood Pressure Mean [Left Arm] Blood Pressure Position Pulse Oximetry 100 100 100 Oxygen Delivery Method Mechanical Vent Mechanical Vent Fraction of Inspired Oxygen 50 50 Sepsis Recent Fever Within 48 Hours Sepsis New/Unexplained Change in Mental Status Sepsis Action Taken by Nursing End-Tidal CO2 35 34 32 06/25/21 15:30 Pulse Rate 100 H Pulse Rate from SpO2 Sensor 99 H Respiratory Rate 22 Respiratory Effort / Characteristics Mechanically Ventilated Respiratory Depth Respiratory Pattern Blood Pressure 117/62 Blood Pressure [Left Arm] Blood Pressure Mean 80 Blood Pressure Mean [Left Arm] Blood Pressure Position Pulse Oximetry 100 Oxygen Delivery Method Mechanical Vent Fraction of Inspired Oxygen 50 Sepsis Recent Fever Within 48 Hours Sepsis New/Unexplained Change in Mental Status Sepsis Action Taken by Nursing End-Tidal CO2 33 General: Well developed well nourished older female who appears altered and in extremis. She has increased work of breathing and opens her eyes but is noncommunicative. She did vomit brown emesis just as I got in the room. HEENT: Normal cephalic atraumatic. Pupils are equal round and reactive to light. Extraocular movements are intact. Oropharynx is pink with moist mucous membranes. No swelling of the mouth lips or tongue. Neck: Supple with a midline trachea. No meningeal signs or stiffness, no JVD or bruits. No Stridor. Chest: Clear to auscultation bilaterally. No wheezes or rhonchi. No increased work of breathing. Heart: Regular rate and rhythm without murmurs or gallops. Abdomen: Soft nontender, nondistended without rebound guarding or rigidity. There is an ostomy in the left abdomen Extremities: No cyanosis clubbing. She does have 1+ bilateral edema. No calf tenderness or assymetry Spine/Back. Non tender to palpation. No CVA tenderness Skin: Good turgor without rashes. Neurologic exam: Cranial nerves two through 12 are intact. Motor and sensation are intact and symmetrical throughout. Procedures Intubation Time out performed: Yes sedative: Etomidate Mg Given: 30 paralytic: Rocuronium Mg Given: 100 Laryngoscope: fiber optic video scope ET Tube Size: 7.5 ET Tube Uncuffed: Yes Tube Secured Depth (cm): 22 Tube Secured Location: teeth Tube Placement Confirmation: visualized tube passing through cords, equal breath sounds bilaterally, no breath sounds over epigastrium and confirmation by capnometry Patient Tolerated Procedure: well Intubation Complications: none Course Administered Medications Propofol (Diprivan) 1,000 mg in 100 mls @ 8.64 mls/hr IV .[id number] [facility]; Protocol Stop: 06/28/21 13:14 Last Admin: 06/25/21 18:58 Dose: 15 mcg/kg/min, 8.6 mls/hr Documented by: [id number] Cosigned by: [id number] Titration: 06/25/21 14:15 Dose: 20 mcg/kg/min, 11.5 mls/hr Documented by: [id number] Cosigned by: [id number] Admin: 06/25/21 13:08 Dose: 20 mcg/kg/min, 11.5 mls/hr Documented by: [id number] Cosigned by: [id number] Discontinued Medications Fentanyl Citrate (Fentanyl Citrate 100 Mcg/2 Ml Vial) Confirm Administered Dose 100 mcg .ROUTE .[facility] Stop: 06/25/21 17:43 Last Admin: 06/25/21 18:26 Dose: Not Given Documented by: [id number] Piperacillin Sod/Tazobactam Sod (Zosyn) 4.5 gm in 120 mls @ 240 mls/hr IV NOW ONE Stop: 06/25/21 14:08 Last Infusion: 06/25/21 17:00 Dose: 0 mls/hr Documented by: [id number] Admin: 06/25/21 14:43 Dose: 240 mls/hr Documented by: [id number] Parenteral Electrolytes (Normosol-R) 1,000 mls @ 80 mls/hr IV .[id number] RICARDO Stop: 07/25/21 15:29 Last Admin: 06/25/21 18:28 Dose: Not Given Documented by: [id number] Famotidine 20 mg/ Syringe 5 mls @ 2.5 mls/min IV Q12H [facility] Stop: 07/25/21 15:29 Last Admin: 06/25/21 18:28 Dose: Not Given Documented by: [id number] Ioversol (Optiray 320 125ml) 120 ml IV ONCE ONE Stop: 06/25/21 14:07 Last Admin: 06/25/21 14:07 Dose: 120 ml Documented by: [id number] Miscellaneous (Rapid Sequence Induction Bag) Confirm Administered Dose 1 ea .ROUTE .STK-MED ONE Stop: 06/25/21 12:48 Last Admin: 06/25/21 18:25 Dose: Not Given Documented by: [id number] Propofol (Propofol Iv Emulsion 10 Mg/Ml 100 Ml Vial) Confirm Administered Dose 1,000 mg IV .STK-MED ONE Stop: 06/25/21 12:57 Last Admin: 06/25/21 18:26 Dose: Not Given Documented by: [id number] Critical Care Time Critical Care Time: Yes Total Critical Care Time: 60 This patient came in unstable and needed emergent intubation and extensive work- up, consultations and aggressive management with IV medications and frequent reassessment and I have personally spent greater than swelling back 60 minutes of critical care time in the direct management of this patient. This includes bedside care, interpretation of diagnostic studies, and testing, discussion with consultants, patient, and family members, and other required patient management activities. This 60 minutes is in excess of all separately billable procedures. Medical Decision Making Differential Diagnosis Respiratory failure, aspiration, Covid, CHF, pneumonia, pneumothorax, sepsis, intracranial hemorrhage, electrolyte or metabolic abnormality, cardiac Medical Records Attestation: I reviewed the patient's medical records. Home Medications Current Medication List: was personally reviewed by me Laboratory Data Attestation: I reviewed the patient's lab results. Result diagrams: 06/25/21 12:45 06/25/21 12:45 Lab Results 06/25/21 06/25/21 06/25/21 Range/Units 12:45 12:45 12:45 WBC 9.63 (4.8-10.8) K/uL RBC 3.11 L (4.2-5.4) M/uL Hgb 9.3 L (12.0-16.0) g/dL POC Hgb (12.0-16.0) g/dl Hct 29.7 L (37-47) % POC Hct (37-47) % MCV 95.5 (80-100) fL MCH 29.9 (25-34) pg MCHC 31.3 L (32-36) g/dL RDW Std Deviation 49.7 H (36.4-46.3) fL RDW Coeff of Anh 14.2 (11.5-14.5) % Plt Count 249 (130-400) K/uL MPV 9.8 (7.4-10.4) fL Immature Gran % (Auto) 0.5 % Neut % (Auto) 84.2 % Lymph % (Auto) 11.3 % [place] % (Auto) 1.6 % Eos % (Auto) 2.2 % Baso % (Auto) 0.2 % Neut # (Auto) 8.11 H (1.4-6.5) K/uL Lymph # (Auto) 1.09 L (1.2-3.4) K/uL [place] # (Auto) 0.15 (0.11-0.59) K/uL Eos # (Auto) 0.21 (0-0.5) K/uL Baso # (Auto) 0.02 (0-0.2) K/uL Immature Gran # (Auto) 0.05 H (0.00-0.02) K/uL PT 10.5 (9.0-12.0) Seconds INR 1.0 (0.9-1.1) APTT 26.9 (21.0-31.0) Seconds PTT Ratio 1.0 POC pH (7.35-7.45) POC pCO2 (35-46) mmHg POC pO2 (80-95) mmHg POC HCO3 (19-24) robert/L POC Base Excess (-9-1.8) robert/L POC ABG O2 Sat (90-95) % POC Sodium (135-144) mmol/L Sodium 135 L (136-145) mmol/L POC Potassium (3.3-5.0) mmol/L Potassium 4.4 (3.5-5.1) mmol/L POC Chloride (101-112) mmol/L Chloride 105 (98-107) mmol/L Carbon Dioxide 21 (21-32) mmol/L POC Total CO2 (24-31) mmol/L Anion Gap 9.0 (3-11) POC Anion Gap (16-25) mmol/L POC BUN (7-18) mg/dl BUN 27 H (7-18) mg/dl Creatinine 1.65 H (0.6-1.2) mg/dl POC Creatinine (0.6-1.3) mg/dl Est Cr Clr Drug Dosing Not Reportable Est GFR ( Amer) 35.3 ml/min Est GFR (Non-Af Amer) 30.5 ml/min BUN/Creatinine Ratio 16.2 (10-20) Glucose 98 (70-99) mg/dl POC Glucose (other) (70-99) mg/dl Lactate (0.4-2.0) mmol/L Calcium 8.5 (8.5-10.1) mg/dl POC Ioniz Calcium Amy (1.12-1.32) mmol/l Magnesium 1.8 (1.8-2.4) mg/dl Total Bilirubin 0.5 (0.2-1) mg/dl AST 44 H (15-37) U/L ALT 35 (12-78) U/L Alkaline Phosphatase 150 H (45-117) U/L Troponin I < 0.015 (0-0.045) ng/ml Total Protein 7.9 (6.4-8.2) gm/dl Albumin 3.1 L (3.4-5.0) gm/dl Globulin 4.8 H (2.5-4.0) gm/dl Albumin/Globulin Ratio 0.6 L (0.9-2) Procalcitonin (0-0.5) ng/ml COVID-19 Eval Order SARS-CoV-2 (PCR) (Negative) 06/25/21 06/25/21 06/25/21 Range/Units 12:45 12:50 13:22 WBC (4.8-10.8) K/uL RBC (4.2-5.4) M/uL Hgb (12.0-16.0) g/dL POC Hgb 9.9 L (12.0-16.0) g/dl Hct (37-47) % POC Hct 29 L (37-47) % MCV (80-100) fL MCH (25-34) pg MCHC (32-36) g/dL RDW Std Deviation (36.4-46.3) fL RDW Coeff of Anh (11.5-14.5) % Plt Count (130-400) K/uL MPV (7.4-10.4) fL Immature Gran % (Auto) % Neut % (Auto) % Lymph % (Auto) % [place] % (Auto) % Eos % (Auto) % Baso % (Auto) % Neut # (Auto) (1.4-6.5) K/uL Lymph # (Auto) (1.2-3.4) K/uL [place] # (Auto) (0.11-0.59) K/uL Eos # (Auto) (0-0.5) K/uL Baso # (Auto) (0-0.2) K/uL Immature Gran # (Auto) (0.00-0.02) K/uL PT (9.0-12.0) Seconds INR (0.9-1.1) APTT (21.0-31.0) Seconds PTT Ratio POC pH (7.35-7.45) POC pCO2 (35-46) mmHg POC pO2 (80-95) mmHg POC HCO3 (19-24) robert/L POC Base Excess (-9-1.8) robert/L POC ABG O2 Sat (90-95) % POC Sodium 136 (135-144) mmol/L Sodium (136-145) mmol/L POC Potassium 4.6 (3.3-5.0) mmol/L Potassium (3.5-5.1) mmol/L POC Chloride 102 (101-112) mmol/L Chloride (98-107) mmol/L Carbon Dioxide (21-32) mmol/L POC Total CO2 23 L (24-31) mmol/L Anion Gap (3-11) POC Anion Gap 16.0 (16-25) mmol/L POC BUN 30 H (7-18) mg/dl BUN (7-18) mg/dl Creatinine (0.6-1.2) mg/dl POC Creatinine 1.8 H (0.6-1.3) mg/dl Est Cr Clr Drug Dosing Est GFR ( Amer) ml/min Est GFR (Non-Af Amer) ml/min BUN/Creatinine Ratio (10-20) Glucose (70-99) mg/dl POC Glucose (other) 104 H (70-99) mg/dl Lactate 1.5 (0.4-2.0) mmol/L Calcium (8.5-10.1) mg/dl POC Ioniz Calcium Amy 1.12 (1.12-1.32) mmol/l Magnesium (1.8-2.4) mg/dl Total Bilirubin (0.2-1) mg/dl AST (15-37) U/L ALT (12-78) U/L Alkaline Phosphatase (45-117) U/L Troponin I (0-0.045) ng/ml Total Protein (6.4-8.2) gm/dl Albumin (3.4-5.0) gm/dl Globulin (2.5-4.0) gm/dl Albumin/Globulin Ratio (0.9-2) Procalcitonin 0.26 (0-0.5) ng/ml COVID-19 Eval Order SARS-CoV-2 (PCR) (Negative) 06/25/21 06/25/21 06/25/21 Range/Units 13:23 14:23 14:23 WBC (4.8-10.8) K/uL RBC (4.2-5.4) M/uL Hgb (12.0-16.0) g/dL POC Hgb (12.0-16.0) g/dl Hct (37-47) % POC Hct (37-47) % MCV (80-100) fL MCH (25-34) pg MCHC (32-36) g/dL RDW Std Deviation (36.4-46.3) fL RDW Coeff of Anh (11.5-14.5) % Plt Count (130-400) K/uL MPV (7.4-10.4) fL Immature Gran % (Auto) % Neut % (Auto) % Lymph % (Auto) % [place] % (Auto) % Eos % (Auto) % Baso % (Auto) % Neut # (Auto) (1.4-6.5) K/uL Lymph # (Auto) (1.2-3.4) K/uL [place] # (Auto) (0.11-0.59) K/uL Eos # (Auto) (0-0.5) K/uL Baso # (Auto) (0-0.2) K/uL Immature Gran # (Auto) (0.00-0.02) K/uL PT (9.0-12.0) Seconds INR (0.9-1.1) APTT (21.0-31.0) Seconds PTT Ratio POC pH 7.24 L (7.35-7.45) POC pCO2 48 H (35-46) mmHg POC pO2 91 (80-95) mmHg POC HCO3 21 (19-24) robert/L POC Base Excess -7.0 (-9-1.8) robert/L POC ABG O2 Sat 95.0 (90-95) % POC Sodium (135-144) mmol/L Sodium (136-145) mmol/L POC Potassium (3.3-5.0) mmol/L Potassium (3.5-5.1) mmol/L POC Chloride (101-112) mmol/L Chloride (98-107) mmol/L Carbon Dioxide (21-32) mmol/L POC Total CO2 22 L (24-31) mmol/L Anion Gap (3-11) POC Anion Gap (16-25) mmol/L POC BUN (7-18) mg/dl BUN (7-18) mg/dl Creatinine (0.6-1.2) mg/dl POC Creatinine (0.6-1.3) mg/dl Est Cr Clr Drug Dosing Est GFR ( Amer) ml/min Est GFR (Non-Af Amer) ml/min BUN/Creatinine Ratio (10-20) Glucose (70-99) mg/dl POC Glucose (other) (70-99) mg/dl Lactate (0.4-2.0) mmol/L Calcium (8.5-10.1) mg/dl POC Ioniz Calcium Amy (1.12-1.32) mmol/l Magnesium (1.8-2.4) mg/dl Total Bilirubin (0.2-1) mg/dl AST (15-37) U/L ALT (12-78) U/L Alkaline Phosphatase (45-117) U/L Troponin I (0-0.045) ng/ml Total Protein (6.4-8.2) gm/dl Albumin (3.4-5.0) gm/dl Globulin (2.5-4.0) gm/dl Albumin/Globulin Ratio (0.9-2) Procalcitonin (0-0.5) ng/ml COVID-19 Eval Order Covid19 at [facility] SARS-CoV-2 (PCR) NEGATIVE (Negative) Imaging Data Radiologist's Impression: Abdomen/Pelvis CTA 06/25/21 12:57 CT angio abdomen pelvis w con CLINICAL HISTORY: vomiting, altered mental status COMPARISON STUDY: CT of the abdomen and pelvis May 03, 2021. TECHNIQUE: Helical axial images of the abdomen and pelvis were obtained during arterial phase following intravenous injection 120 cc of Optiray 320 IV. Sag ittal and coronal reconstructions were viewed as well as maximal intensity projections on an independent 3-D workstation. Automated exposure control was utilized for the study. A dose lowering technique was utilized adhering to the principles of ALARA. FINDINGS: Please note that the chest CT will be reported separately. No pneumatosis, free air or portal venous gas is present. Anasarca is noted with body wall edema. No hepatic lesions are identified. There is no biliary or pancreatic ductal dilatation. There are gallstones within the gallbladder. There is no evidence for acute cholecystitis. There is no evidence for a bowel obstruction. The caliber of the abdominal aorta is normal. There is no abdominal aortic dissection. Branch vessels are grossly patent. Severe right hydroureteronephrosis is again noted. This is similar to prior exam. Marked right renal cortical thinning is again noted. Moderate to severe left hydronephrosis has slightly progressed. The left ureteral stent has been removed. There is a 4 mm left renal calculus. There are no ureteral calculi. Postoperative findings within the pelvis are noted as well as old posttraumatic findings with nonunited fractures of the bilateral pubic rami, right acetabulum and left iliac bone. Note is made of a mildly distracted right femoral neck fracture. There is a right hip joint effusion. A descending colostomy is noted with parastomal hernia. There is no bowel obstruction. IMPRESSION: 1. No bowel obstruction. Left lower quadrant colostomy with parastomal hernia, unchanged. 2. Anasarca with body wall edema. 3. Subacute minimally distracted right femoral neck fracture without significant callus formation. 4. Moderate to severe left hydroureteronephrosis, slightly increased since prior exam. Interval removal of the left ureteral stent. 4 mm left renal calculus. No ureteral calculi. 5. No significant change in severe right hydroureteronephrosis. 6. Chronic nonunited pelvic fractures, as described above. ACT 112: Negative or not required by law. Electronically signed by: Ruddy Og M.D. 06/25/2021 2:57 PM Chest CTA 06/25/21 12:57 CT ANGIOGRAPHY OF THE CHEST, PULMONARY EMBOLUS PROTOCOL CLINICAL HISTORY: Respiratory difficulty. Tachypnea. COMPARISON STUDY: Chest CT January 06, 2012. Chest radiograph performed earlier today. TECHNIQUE: Following IV administration of 120 mL of Optiray, helical axial images of the chest were obtained utilizing the pulmonary embolus protocol. Maximal intensity projections and sagittal and coronal reformats were viewed on an independent 3D workstation. IV contrast was administered without complica tion. Automated exposure control was utilized for the study. A dose lowering technique was utilized adhering to the principles of ALARA. CT DOSE: 2324.54 mGy.cm FINDINGS: No pulmonary emboli are identified although the segmental and subsegmental pulmonary arteries are suboptimally assessed due to respiratory motion. There is no thoracic aortic dissection. A small hiatal hernia is present. There is moderate cardiomegaly. There is no pericardial effusion. Tip of the endotracheal tube is 7 mm above the chronic. Left subclavian Fhomew-e-Pukq is in place. No enlarged thoracic lymph nodes are identified. There is extensive left lower lobe airspace opacity with slight loss. There is moderate right lower lobe airspace opacity. There is mild bilateral upper lobe airspace opacities. Note is made of a 2.4 cm subpleural ground glass opacity within the right upper lobe. Interlobular septal thickening is noted. Lungs are suboptimally assessed due to respiratory motion. IMPRESSION: 1. No pulmonary emboli identified although segmental and subsegmental pulmonary arteries suboptimally assessed due to respiratory motion. 2. Multifocal airspace opacities throughout the lungs, greatest within the left lower lobe. The findings could reflect aspiration pneumonitis, pneumonia or atelectasis. Follow up chest CT in 3 months to ensure resolution is recommended. 3. Tip of endotracheal tube 7 mm above the david. 4. Interlobular septal thickening suggestive of mild interstitial pulmonary e mehnaz. ACT 112: Negative or not required by law. Electronically signed by: Ruddy Og M.D. 06/25/2021 2:38 PM Chest X-Ray 06/25/21 12:57 XR chest 1V portable HISTORY: 71 years-old Female SEPSIS acute sepsis COMPARISON: Chest radiograph 05/23/2021 TECHNIQUE: Portable AP view of the chest FINDINGS: Left subclavian Vrosqz-d-Ueaq catheter redemonstrated. Calcified plaque of the thoracic aorta. Endotracheal tube overlies the midline 1.9 cm superior to the david. Pulmonary vascular congestion with interstitial coarsening and left greater than right bibasilar consolidation. No pneumothorax or large pleural effusion identified. Degenerative changes of the shoulders and spine. IMPRESSION: 1. Cardiomegaly with pulmonary vascular congestion and mild interstitial coarsening, possibly representing mild pulmonary edema. 2. Left greater than right bibasilar consolidation. 3. Endotracheal tube terminates 1.9 cm superior to the david. ACT 112: Negative or not required by law. The above report was generated using voice recognition software. It may contain grammatical, syntax or spelling errors. Electronically signed by: Mikhail Hilton M.D. 06/25/2021 1:[address] 06/25/21 12:57 CT OF THE HEAD WITHOUT CONTRAST CLINICAL HISTORY: Altered mental status. COMPARISON STUDY: Head CT May 03, 2021. TECHNIQUE: Helical axial images of the head were obtained without IV contrast. Automated exposure control was utilized for the study. A dose lowering technique was utilized adhering to the principles of ALARA. FINDINGS: Secretions within the nasopharynx are likely related to intubation. No acute intracranial hemorrhage, midline shift or mass effect is present. Ventricular system is stable. Basal cisterns are patent. White matter hypodensities are similar to prior exam and suggest small vessel disease. There are no findings to suggest acute dural sinus thrombosis or acute territorial infarct. There is no calvarial fracture. IMPRESSION: No acute intracranial findings. No change in appearance of the brain. ACT 112: Negative or not required by law. Electronically signed by: Ruddy Og M.D. 06/25/2021 2:18 PM ECG Data Attestation: I personally reviewed and interpreted this ECG as follows: Indication: + altered mental status and + SOB/dyspnea Rate (beats per minute): 121 Rhythm: + sinus tachycardia ECG Intervals/blocks: + Normal QRS, + Normal QT and + Normal IA ECG [place]: + Normal ECG ST segments: + Nonspecific ST abnormalities ECG Findings: no PACs or no PVCs Comparison ECG Date: from (05/23/21) Change: the following changes noted (Nonspecific ST abnormalities are now present and sinus tachycardia is now present as well) MDM Narrative This patient comes in described above. She presents in extremis. She was hypoxemic and she was altered she had been vomiting. She was hypoxemic and unable to protect her airway so we did intubate her as outlined above. This was easily attempted on the first pass. She did not have any aspiration or problems during the procedure. Additionally when I looked at the cords there was no gross contamination of food or emesis. The tube was secured and placement was confirmed with equal breath sounds bilaterally, no breath sounds over the stomach and positive CO2 color change as well as imaging.. An extensive work-up was obtained. We did receive i-STAT labs prior to intubation and her creatinine was 1.8 with a normal potassium. Hemoglobin was 9.9. She does have some renal insufficiency and some chronic anemia. Chest x-ray suggested infiltrates in the base this is and potentially I think she does have a CHF/fluid overload component as well. She was hypertensive upon arrival. She was started on an IV propofol drip for sedation and extensive work-up was done. I did talk to her at length who arrived. She does have a CAT scan of her head chest a bdomen and pelvis. There is no bowel obstruction or acute intra-abdominal processes to explain her symptoms. She has hydronephrosis which has been going on chronically. CAT scan of her head is unremarkable. Chest shows no PE she does she may have some fluid overload but she looks like she has some infiltrates in the bases and may have aspirated. She was given Zosyn 4.5 g IV. Her blood gas initially showed a pH of 7.2 with elevated CO2 we did increase her her rate to blow off some CO2 as she had a respiratory acidosis. I did consult Dr. Plunkett, Nanotechnology Engineering Technician, who saw the patient in the emergency department and will be admitting her to the ICU. was happy with the plan and she will be admitted. Continuous cardiac monitoring: Due to the patient's altered mental status and respiratory distress/failure, an order was placed in EMR for continuous cardiac monitoring. The patient was noted to be in sinus tachycardia with 120 upon my evaluation. Impression & Plan Altered mental status, Aspiration pneumonia, SOB (shortness of breath), Hypoxemia Discharge Plan Visit Data Chief Complaint: Shortness of Breath/Dyspnea Stated Complaint: sob ED Provider: Claudio Marie Discharge Problem: Altered mental status, Aspiration pneumonia, SOB (shortness of breath), Hypoxemia Patient Disposition: Admitted As Inpatient Discharge Instructions Interventions: ED Discharge Assessment Last Done: 06/25/21 16:48 Discharge Problem: Altered mental status Qualifiers: Altered mental status type: unspecified Qualified Code(s): R41.82 - Altered mental status, unspecified Aspiration pneumonia Qualifiers: Aspiration pneumonia type: unspecified Laterality: bilateral Lung location: unspecified part of lung Qualified Code(s): J69.0 - Pneumonitis due to inhalation of food and vomit
[2021-06-25 13:07] LABS: Basophils # (auto) 0.02 K/uL (0-0.2); Basophils % (auto) 0.2 %; Eosinophils # (auto) 0.21 K/uL (0-0.5); Eosinophils % (auto) 2.2 %; Hematocrit (blood only) 29.7 % (37-47); Hemoglobin 9.3 g/dL (12.0-16.0); Immature Granulocytes # (auto) 0.05 K/uL (0.00-0.02); Immature Granulocytes % (auto) 0.5 %; Lymphocytes # (auto) 1.09 K/uL (1.2-3.4); Lymphocytes % (auto) 11.3 %; Mean Corpuscular Hemoglobin 29.9 pg (25-34); Mean Corpuscular Hgb Conc 31.3 g/dL (32-36); Mean Corpuscular Volume 95.5 fL (80-100); Mean Platelet Volume 9.8 fL (7.4-10.4); Monocytes # (auto) 0.15 K/uL (0.11-0.59); Monocytes % (auto) 1.6 %; Neutrophils # (auto) 8.11 K/uL (1.4-6.5); Neutrophils % (auto) 84.2 %; Platelet Count 249 K/uL (130-400); RDW Coefficient of Variation 14.2 % (11.5-14.5); RDW Standard Deviation 49.7 fL (36.4-46.3); Red Blood Count 3.11 M/uL (4.2-5.4); White Blood Count 9.63 K/uL (4.8-10.8)
[2021-06-25] MEDS: propofoL 1,000 MG/100 ML VIAL IV SCH ×2 (13:08→18:58)
[2021-06-25 13:18] LABS: Partial Thromboplastin Time 26.9 Seconds (21.0-31.0); Prothrombin Time 10.5 Seconds (9.0-12.0)
--- NOTE | 2021-06-25 13:35 | XRay Report ---
XR chest 1V portable HISTORY: 71 years-old Female SEPSIS acute sepsis COMPARISON: Chest radiograph 05/23/2021 TECHNIQUE: Portable AP view of the chest FINDINGS: Left subclavian Vcvdhz-k-Hzxm catheter redemonstrated. Calcified plaque of the thoracic aorta. Endotr acheal tube overlies the midline 1.9 cm superior to the david. Pulmonary vascular congestion with in terstitial coarsening and left greater than right bibasilar consolidation. No pneumothorax or large p leural effusion identified. Degenerative changes of the shoulders and spine. IMPRESSION: 1. Cardiomegaly with pulmonary vascular congestion and mild interstitial coarsening, possibly represe nting mild pulmonary edema. 2. Left greater than right bibasilar consolidation. 3. Endotracheal tube terminates 1.9 cm superior to the david. ACT 112: Negative or not required by law. The above report was generated using voice recognition software. It may contain grammatical, syntax o r spelling errors. Electronically signed by: Mikhail Hilton M.D. 06/25/2021 1:34 PM
[2021-06-25 13:39] LABS: iSTAT Arterial Blood Gas HCO3 21 meg/L (19-24); iSTAT Arterial Blood Gas pCO2 48 mmHg (35-46); iSTAT Arterial Blood Gas pH 7.24 (7.35-7.45); iSTAT Arterial Blood Gas pO2 91 mmHg (80-95); iSTAT Carbon Dioxide 22 mmol/L (24-31)
[2021-06-25] MEDS ORDERED: PIPERACILLIN/TAZOBACTAM 4.5 GM/120 ML BAG IV ONE (13:39)
[2021-06-25] MEDS ORDERED: PIPERACILL/TAZOBAC CONSULT ACTIVE PRN (13:39)
[2021-06-25 13:40] LABS: Alanine Aminotransferase 35 U/L (12-78); Albumin Level 3.1 gm/dl (3.4-5.0); Aspartate Aminotransferase 44 U/L (15-37); BUN Creatinine Ratio 16.2 (10-20); Blood Urea Nitrogen 27 mg/dl (7-18); Calcium 8.5 mg/dl (8.5-10.1); Carbon Dioxide 21 mmol/L (21-32); Chloride 105 mmol/L (98-107); Est GFR (African American) 35.3 ml/min; Est GFR (Non-African American) 30.5 ml/min; Glucose 98 mg/dl (70-99); Magnesium 1.8 mg/dl (1.8-2.4); Potassium 4.4 mmol/L (3.5-5.1); Sodium 135 mmol/L (136-145)
[2021-06-25 13:45] LABS: Albumin Globulin Ratio 0.6 (0.9-2); Alkaline Phosphatase 150 U/L (45-117); Bilirubin,Total 0.5 mg/dl (0.2-1); Globulin 4.8 gm/dl (2.5-4.0); Total Protein 7.9 gm/dl (6.4-8.2); Troponin I < 0.015 ng/ml (0-0.045)
[2021-06-25] MEDS ORDERED: OPTIRAY 320 125ml IV ONE (14:06)
--- NOTE | 2021-06-25 14:19 | CT Scan Report ---
CT OF THE HEAD WITHOUT CONTRAST CLINICAL HISTORY: Altered mental status. COMPARISON STUDY: Head CT May 03, 2021. TECHNIQUE: Helical axial images of the head were obtained without IV contrast. Automated exposure con trol was utilized for the study. A dose lowering technique was utilized adhering to the principles o f ALARA. FINDINGS: Secretions within the nasopharynx are likely related to intubation. No acute intracranial h emorrhage, midline shift or mass effect is present. Ventricular system is stable. Basal cisterns are patent. White matter hypodensities are similar to prior exam and suggest small vessel disease. There are no findings to suggest acute dural sinus thrombosis or acute territorial infarct. There is no jayla varial fracture. IMPRESSION: No acute intracranial findings. No change in appearance of the brain. ACT 112: Negative or not required by law. Electronically signed by: Ruddy Og M.D. 06/25/2021 2:18 PM
--- NOTE | 2021-06-25 14:39 | CT Scan Report ---
CT ANGIOGRAPHY OF THE CHEST, PULMONARY EMBOLUS PROTOCOL CLINICAL HISTORY: Respiratory difficulty. Tachypnea. COMPARISON STUDY: Chest CT January 06, 2012. Chest radiograph performed earlier today. TECHNIQUE: Following IV administration of 120 mL of Optiray, helical axial images of the chest were o btained utilizing the pulmonary embolus protocol. Maximal intensity projections and sagittal and cor onal reformats were viewed on an independent 3D workstation. IV contrast was administered without co mplication. Automated exposure control was utilized for the study. A dose lowering technique was ut ilized adhering to the principles of ALARA. CT DOSE: 2324.54 mGy.cm FINDINGS: No pulmonary emboli are identified although the segmental and subsegmental pulmonary arter ies are suboptimally assessed due to respiratory motion. There is no thoracic aortic dissection. A sm all hiatal hernia is present. There is moderate cardiomegaly. There is no pericardial effusion. Tip o f the endotracheal tube is 7 mm above the chronic. Left subclavian Tneevz-f-Ahqo is in place. No enla rged thoracic lymph nodes are identified. There is extensive left lower lobe airspace opacity with sl ight loss. There is moderate right lower lobe airspace opacity. There is mild bilateral upper lobe ai rspace opacities. Note is made of a 2.4 cm subpleural ground glass opacity within the right upper lob e. Interlobular septal thickening is noted. Lungs are suboptimally assessed due to respiratory motion . IMPRESSION: 1. No pulmonary emboli identified although segmental and subsegmental pulmonary arteries suboptimally assessed due to respiratory motion. 2. Multifocal airspace opacities throughout the lungs, greatest within the left lower lobe. The findi ngs could reflect aspiration pneumonitis, pneumonia or atelectasis. Follow up chest CT in 3 months to ensure resolution is recommended. 3. Tip of endotracheal tube 7 mm above the david. 4. Interlobular septal thickening suggestive of mild interstitial pulmonary edema. ACT 112: Negative or not required by law. Electronically signed by: Ruddy Og M.D. 06/25/2021 2:38 PM
--- NOTE | 2021-06-25 14:58 | CT Scan Report ---
CT angio abdomen pelvis w con CLINICAL HISTORY: vomiting, altered mental status COMPARISON STUDY: CT of the abdomen and pelvis May 03, 2021. TECHNIQUE: Helical axial images of the abdomen and pelvis were obtained during arterial phase followi ng intravenous injection 120 cc of Optiray 320 IV. Sagittal and coronal reconstructions were viewed a s well as maximal intensity projections on an independent 3-D workstation. Automated exposure control was utilized for the study. A dose lowering technique was utilized adhering to the principles of AL BOGDAN. FINDINGS: Please note that the chest CT will be reported separately. No pneumatosis, free air or port al venous gas is present. Anasarca is noted with body wall edema. No hepatic lesions are identified. There is no biliary or pancreatic ductal dilatation. There are gallstones within the gallbladder. The re is no evidence for acute cholecystitis. There is no evidence for a bowel obstruction. The caliber of the abdominal aorta is normal. There is no abdominal aortic dissection. Branch vessels are grossly patent. Severe right hydroureteronephrosis is again noted. This is similar to prior exam. Marked rig ht renal cortical thinning is again noted. Moderate to severe left hydronephrosis has slightly progre ssed. The left ureteral stent has been removed. There is a 4 mm left renal calculus. There are no ure teral calculi. Postoperative findings within the pelvis are noted as well as old posttraumatic findin gs with nonunited fractures of the bilateral pubic rami, right acetabulum and left iliac bone. Note i s made of a mildly distracted right femoral neck fracture. There is a right hip joint effusion. A chavo cending colostomy is noted with parastomal hernia. There is no bowel obstruction. IMPRESSION: 1. No bowel obstruction. Left lower quadrant colostomy with parastomal hernia, unchanged. 2. Anasarca with body wall edema. 3. Subacute minimally distracted right femoral neck fracture without significant callus formation. 4. Moderate to severe left hydroureteronephrosis, slightly increased since prior exam. Interval remov al of the left ureteral stent. 4 mm left renal calculus. No ureteral calculi. 5. No significant change in severe right hydroureteronephrosis. 6. Chronic nonunited pelvic fractures, as described above. ACT 112: Negative or not required by law. Electronically signed by: Ruddy Og M.D. 06/25/2021 2:57 PM
[2021-06-25] MEDS ORDERED: bisacodyL 10 MG SUPP PR PRN (15:20)
[2021-06-25] MEDS ORDERED: ICU PROTOCOL FOR HYPERGLYCEMIA PRN (15:20)
[2021-06-25] MEDS ORDERED: NORMOSOL-R 1,000 ML IV SCH (15:30)
[2021-06-25] MEDS ORDERED: FAMOTIDINE 20 MG in SYRINGE 3 ML IV SCH (15:30)
[2021-06-25] MEDS ORDERED: DEXTROSE 50% 50 ML SYRINGE IV PRN (15:31)
[2021-06-25] MEDS ORDERED: fentaNYL citrate 100 MCG/2 ML VIAL IV PRN ×2 (15:31)
[2021-06-25] MEDS ORDERED: GLUCOSE 10 TABS/TUBE PO PRN (15:31)
[2021-06-25] MEDS ORDERED: CARBOHYDRATES FOR HYPOGLYCEMIA PO PRN (15:31)
[2021-06-25] MEDS ORDERED: GLUCAGON FOR INJ 1 MG VIAL SQ PRN (15:31)
[2021-06-25] MEDS ORDERED: GLUCOSE 40% GEL 15 GM TUBE PO PRN (15:31)
[2021-06-25] MEDS ORDERED: propofoL 1,000 MG/100 ML VIAL IV SCH (15:45)
--- NOTE | 2021-06-25 16:00 | History & Physical Report ---
Date of Service June 25, 2021 Assessment & Plan (1) Respiratory failure with hypoxia: Plan: Patient is intubated for airway protection. Patient came in with hypoxia with no improvement on BIPAP. Now intubated, admit to ICU consult metal sprayer. (2) Acute encephalopathy: Plan: Patient appeared consufed prior to intubation, may be secondary to hypoxia (3) Aspiration pneumonia: Plan: Patient had emesis, prior to admission will monitor (4) Hypoxemia: (5) HTN (hypertension): Plan: hold metoprolol, montior BP (6) Aortic stenosis: Plan: no correction planned at this time. (7) GISELL (acute kidney injury): Plan: Gentle hydration. History of Present Illness Chief Complaint: Acute respiratory fsailure Primary Care Provider: [facility] 71 yo female with h/o anal cancer/ colostomy, of her right hip that has not undergone definitive operative management secondary to discovery of an aortic stenosis. is at bedside and he reports that she had been decreasing her mental status and conversations he had daily with her over the last 4 to 5 days and then recently she was transferred from [facility] to the ER for hypoxia difficulty breathing and decreased mentation. Patient did not respond to BIPAP as her oxygen level remaind low. She then had an episode of emesis and required emergent intubation to help protect her airways. Admission was then called. Allergies Allergy/AdvReac Type Severity Reaction Status Date / Time pollen extracts Allergy Intermediate RUNNY Verified 06/25/21 14:41 NOSE, ITCHY EYES, SNEEZING sulfamethoxazole Allergy Unknown Shakiness Verified 06/25/21 14:41 [From Bactrim] trimethoprim [From Bactrim] Allergy Unknown Shakiness Verified 06/25/21 14:41 Home Medications Medication Instructions Recorded Confirmed Type mirabegron 50 mg tablet,extended 50 mg PO QAM 06/15/19 06/25/21 History release 24 hr (Myrbetriq) multivitamin (Multiple Vitamins) 1 tab PO QAM 06/15/19 06/25/21 History amoxicillin 500 mg capsule 500 mg PO QAM cap 06/16/19 06/25/21 History budesonide-formoterol HFA 80 2 puffs INH BIDM PRN 06/16/19 06/25/21 History mcg-4.5 mcg/actuation aerosol inhaler (Symbicort) escitalopram oxalate 20 mg tablet 30 mg PO QAM tab 06/16/19 06/25/21 History (Lexapro) hydroxychloroquine 200 mg tablet 100 mg PO QAM tab 06/16/19 06/25/21 History (Plaquenil) pantoprazole 40 mg tablet,delayed 40 mg PO QAM 06/16/19 06/25/21 History release (Protonix) ascorbic acid (vitamin C) 500 mg 500 mg PO BID 09/15/19 06/25/21 History tablet (Vitamin C) cholecalciferol (vitamin D3) 50 2,000 unit PO BIDM 09/15/19 06/25/21 History mcg (2,000 unit) capsule (Vitamin D3) amitriptyline 25 mg tablet 25 mg PO HS tab 05/08/20 06/25/21 History tamsulosin 0.4 mg capsule 0.4 mg PO QAM 05/17/20 06/25/21 History levothyroxine 150 mcg tablet 150 mcg PO QAM 04/23/21 06/25/21 History pregabalin 100 mg capsule 100 mg PO TID 04/23/21 06/25/21 History rosuvastatin 5 mg tablet 5 mg PO HS 04/23/21 06/25/21 History acetaminophen 325 mg tablet 650 mg PO Q6 PRN 05/23/21 06/25/21 History oxycodone 5 mg tablet 5 mg PO Q6 PRN 05/23/21 06/25/21 History enoxaparin 40 mg/0.4 mL 40 mg SUBCUT DAILY 06/25/21 06/25/21 History subcutaneous syringe (Lovenox) gabapentin 300 mg capsule 300 mg PO TIDM 06/25/21 06/25/21 History ipratropium 0.5 mg-albuterol 3 mg 3 ml INHALATION Q4H PRN 06/25/21 06/25/21 History (2.5 mg base)/3 mL nebulization soln metoprolol succinate 25 mg 25 mg PO HS 06/25/21 06/25/21 History tablet,extended release 24 hr spironolactone 25 mg tablet 25 mg PO QAM 06/25/21 06/25/21 History sulindac 200 mg tablet 100 mg PO BID PRN 06/25/21 06/25/21 History 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 History of pelvic fracture History of recurrent UTIs NONE CURRENT/ON MAINTENANCE ABX FOR Incomplete bladder emptying Iron deficiency HX OF Left knee DJD Lymphedema THERAPY FOR Pathologic acetabular fracture Pelvic fracture Pressure ulcer of right buttock, stage 1 Seasonal allergies Spinal stenosis Urge and stress incontinence Surgical History Colostomy in place H/O foot surgery History of carpal tunnel release of both wrists History of colonoscopy History of hernia repair X2 SURGERIES WITH STOMA RELOCATED FOR BOTH HERNIA SURGERIES History of hysterectomy History of urologic surgery HX URETERAL STENT AND SINCE REMOVED History of wisdom tooth extraction Nausea and vomiting after administration of anesthetic agent Family History Sister Coronary heart disease Diabetes Nephrolithiasis Breast cancer Brother Diabetes Father Coronary heart disease Diabetes Hypertension Myocardial infarction Grandmother Diabetes Social History Smoking Status: Never smoker Second Hand Exposure: No; Hx Alcohol Use: No Hx Substance Use: No Preferred Language: Sami Communication Ability: Effective Visual Impairment: Limited Hearing Ability: Normal Coin Machine Operator Required: No Beliefs That Will Affect Care: Yazidi Yazidi Beliefs: sikh- [facility] de[facility] marital status: Current Living Situation: Custodial Current Living Situation Comment: [facility] current occupational status: retired Feels Safe at Home: Yes Assistive Devices: Glasses Review of Systems Review of Systems: Unobtainable due to endotracheal tube Physical Exam ENMT: external ear and nose normal, oropharynx normal (intubated) Neck: trachea midline, no thyromegaly Respiratory: normal respiratory effort, lungs clear to auscultation Cardiovascular: RRR, no murmur, no edema Gastrointestinal (Abdomen): normal bowel sounds, soft, nontender, no hepatosplenomegaly (colostomy bag noted.) Musculoskeletal: no cyanosis or clubbing, extremities motor strength 5/5 Skin: no rashes, warm and dry Neurologic: + obtunded (sedated and intubated) Lymphatic: no cervical or axillary lymphadenopathy Results & Data Results & Data ([facility]) Vital Signs (Past 12 Hours) Vital Signs Pulse Resp BP BP Pulse Ox 06/25/21 15:45 98 H 123/75 100 06/25/21 15:30 100 H 22 117/62 100 06/25/21 15:15 95 H 100/53 L 100 06/25/21 15:00 98 H 22 98/53 L 100 06/25/21 14:45 102 H 112/60 100 06/25/21 14:30 112 H 22 128/73 128/73 100 06/25/21 14:15 140/76 06/25/21 14:14 110 H 23 98 06/25/21 14:13 115 H 23 06/25/21 14:00 22 06/25/21 13:40 122 H 96 06/25/21 13:36 127 H 22 97 06/25/21 13:33 121 H 97 06/25/21 13:30 22 06/25/21 13:24 139/102 H 06/25/21 13:20 128 H 95 06/25/21 13:18 129 H 96 06/25/21 12:57 22 100 06/25/21 12:47 216/116 H 06/25/21 12:45 115 H 40 H 100 06/25/21 12:42 115 H 164/126 H 164/126 H 100 Code Status & VTE Plan VTE Prophylaxis Plan VTE Prophylaxis will be ordered: Yes PG Care Time/CCT Total # of Minutes Spent Total Time Spent with Patient: Total time spent is greater than 50% in coordination of care (as documented) at patient's floor/unit and/or counseling patient: Coding Level of Care Code 54695 Initial Inpt Care Lvl 3 Diagnoses Aspiration pneumonia J69.0 Aspiration pneumonia type: unspecified Laterality: bilateral Lung location: unspecified part of lung Hypoxemia R09.02 Respiratory failure with hypoxia J96.91 Acute encephalopathy G93.40 HTN (hypertension) I10 Aortic stenosis I35.0 GISELL (acute kidney injury) N17.9 (1) Aspiration pneumonia Aspiration pneumonia type: unspecified Laterality: bilateral Lung location: unspecified part of lung Qualified Code(s): J69.0 - Pneumonitis due to inhalation of food and vomit
--- NOTE | 2021-06-25 16:14 | Electrocardiogram Report ---
Test Reason : Blood Pressure : / mmHG Vent. Rate : 121 BPM Atrial Rate : 121 BPM P-R Int : 150 ms QRS Dur : 088 ms QT Int : 324 ms P-R-T Axes : 073 058 030 degrees QTc Int : 460 ms Sinus tachycardia Left atrial enlargement Nonspecific ST abnormality Anterolateral leads Abnormal ECG When compared with ECG of 23-MAY-2021 21:09, HR has increased by [address] abnormality now present Confirmed by Carlin Porter ([id number]) on 06/25/2021 4:13:48 PM Referred By: REFERRED SELF Confirmed By:Carlin Porter
--- NOTE | 2021-06-25 16:16 | Critical Care Consultation ---
Date of Consultation June 25, 2021 Assessment & Plan (1) Acute encephalopathy: Reason Critically Ill: 71-year-old female with acute hypoxic respiratory failure secondary to probable aspiration with acute encephalopathy PLAN: Neuro: Acute encephalopathy -Likely multifactorial: Toxic metabolic -Propofol for sedation -Bolus fentanyl for analgesia Resp: Acute hypoxic respiratory failure -Suspect aspiration pneumonitis -Ventilatory requirements decreasing -Consented for bronchoscopy by -Continue current antibiotics CV: Aortic stenosis -No definitive plan for correction at this time Hypertension -Holding metoprolol at this time Fluids/Renal: Acute kidney injury -Gentle hydration Normosol at 80 mils per hour ID: Aspiration pneumonitis -Plan for bronchoscopy GI/Nutrition: N.p.o. -OG tube to low intermittent suction Heme: Anemia DVT prophylaxis: Lovenox Endocrine: ICU hyperglycemia protocol Check A1c in a.m. Vascular access: Peripheral IVs Code Status: DNR in event of cardiac arrest Disposition: ICU (2) GISELL (acute kidney injury): (3) Fracture of femoral neck, right, closed: (4) Aortic stenosis, moderate: (5) HTN (hypertension): (6) Respiratory failure with hypoxia: Supervising Physician Co-Signing Physician Notes I have personally spent 45 minutes of critical care time in the direct management of this patient. This is a life/limb threatening event. This includes time spent evaluating patient, direct bedside care, chart review, placing orders, interpretation of diagnostic studies, discussion with consultants, patient, and/or family members regarding treatment decisions, as well as other required patient management activities. This time is exclusive of all separately billable procedures, and teaching time and separate from and in addition to any other critical care service time. History of Present Illness Reason for Consultation: Acute hypoxic respiratory failure and acute encephalopathy Requesting Physician: Claudio Marie Attending Physician: Juan Chen History of Present Illness Patient is a 71-year-old female with significant past medical history for anal cancer as well as another lower pelvic malignancy who recently had a fracture of her right hip that at this time has not undergone definitive operative management secondary to discovery of an aortic stenosis. is the historian he reports that she had been decreasing her mental status and conversations he had daily with her over the last 4 to 5 days and then recently she was transferred from [facility] for difficulty breathing and decreased mentation. In the emergency department she was found to be hypoxic and unable to be placed on BiPAP secondary to emesis and was immediately intubated. She undergone CT scanning at this time and we have been consulted for further evaluation and management. Allergies Allergy/AdvReac Type Severity Reaction Status Date / Time pollen extracts Allergy Intermediate RUNNY Verified 06/25/21 14:41 NOSE, ITCHY EYES, SNEEZING sulfamethoxazole Allergy Unknown Shakiness Verified 06/25/21 14:41 [From Bactrim] trimethoprim [From Bactrim] Allergy Unknown Shakiness Verified 06/25/21 14:41 Home Medications Medication Instructions Recorded Confirmed Type mirabegron 50 mg tablet,extended 50 mg PO QAM 06/15/19 06/25/21 History release 24 hr (Myrbetriq) multivitamin (Multiple Vitamins) 1 tab PO QAM 06/15/19 06/25/21 History amoxicillin 500 mg capsule 500 mg PO QAM cap 06/16/19 06/25/21 History budesonide-formoterol HFA 80 2 puffs INH BIDM PRN 06/16/19 06/25/21 History mcg-4.5 mcg/actuation aerosol inhaler (Symbicort) escitalopram oxalate 20 mg tablet 30 mg PO QAM tab 06/16/19 06/25/21 History (Lexapro) hydroxychloroquine 200 mg tablet 100 mg PO QAM tab 06/16/19 06/25/21 History (Plaquenil) pantoprazole 40 mg tablet,delayed 40 mg PO QAM 06/16/19 06/25/21 History release (Protonix) ascorbic acid (vitamin C) 500 mg 500 mg PO BID 09/15/19 06/25/21 History tablet (Vitamin C) cholecalciferol (vitamin D3) 50 2,000 unit PO BIDM 09/15/19 06/25/21 History mcg (2,000 unit) capsule (Vitamin D3) amitriptyline 25 mg tablet 25 mg PO HS tab 05/08/20 06/25/21 History tamsulosin 0.4 mg capsule 0.4 mg PO QAM 05/17/20 06/25/21 History levothyroxine 150 mcg tablet 150 mcg PO QAM 04/23/21 06/25/21 History pregabalin 100 mg capsule 100 mg PO TID 04/23/21 06/25/21 History rosuvastatin 5 mg tablet 5 mg PO HS 04/23/21 06/25/21 History acetaminophen 325 mg tablet 650 mg PO Q6 PRN 05/23/21 06/25/21 History oxycodone 5 mg tablet 5 mg PO Q6 PRN 05/23/21 06/25/21 History enoxaparin 40 mg/0.4 mL 40 mg SUBCUT DAILY 06/25/21 06/25/21 History subcutaneous syringe (Lovenox) gabapentin 300 mg capsule 300 mg PO TIDM 06/25/21 06/25/21 History ipratropium 0.5 mg-albuterol 3 mg 3 ml INHALATION Q4H PRN 06/25/21 06/25/21 History (2.5 mg base)/3 mL nebulization soln metoprolol succinate 25 mg 25 mg PO HS 06/25/21 06/25/21 History tablet,extended release 24 hr spironolactone 25 mg tablet 25 mg PO QAM 06/25/21 06/25/21 History sulindac 200 mg tablet 100 mg PO BID PRN 06/25/21 06/25/21 History Patient History Medical History Acid reflux OCCASSIONAL Anal cancer (~03/2008) HX OF Aortic stenosis, moderate Arthritis Bladder stone Brittle bones CURRENT FRACTURE R HIP, MULTIPLE PELVICE BREAKS AND FRACTURE IN BONE BELOW KNEE Carpal tunnel syndrome, bilateral Cervical cancer (~05/1990) HX OF Colorectal cancer HX OF Degenerative joint disease of both hips DVT (deep venous thrombosis) L LEG YRS AGO/NONE SINCE 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 History of pelvic fracture History of recurrent UTIs NONE CURRENT/ON MAINTENANCE ABX FOR Incomplete bladder emptying Iron deficiency HX OF Left knee DJD Lymphedema THERAPY FOR Pathologic acetabular fracture Pelvic fracture Pressure ulcer of right buttock, stage 1 Seasonal allergies Spinal stenosis Urge and stress incontinence Surgical History Colostomy in place H/O foot surgery History of carpal tunnel release of both wrists History of colonoscopy History of hernia repair X2 SURGERIES WITH STOMA RELOCATED FOR BOTH HERNIA SURGERIES History of hysterectomy History of urologic surgery HX URETERAL STENT AND SINCE REMOVED History of wisdom tooth extraction Nausea and vomiting after administration of anesthetic agent Family History Sister Coronary heart disease Diabetes Nephrolithiasis Breast cancer Brother Diabetes Father Coronary heart disease Diabetes Hypertension Myocardial infarction Grandmother Diabetes Social History Smoking Status: Never smoker Second Hand Exposure: No; Hx Alcohol Use: No Hx Substance Use: No Preferred Language: Swedish Communication Ability: Effective Visual Impairment: Limited Hearing Ability: Normal 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 nontoxic. Skin: Warm, dry, Head: Atraumatic Ears, nose, mouth and throat: airway obscured by endotracheal tube Cardiovascular: Normal peripheral perfusion Respiratory: no respiratory distress Gastrointestinal: Non distended Musculoskeletal: No deformity Results & Data Results & Data ([facility]) Vital Signs (Past 12 Hours) Vital Signs Pulse Resp BP BP Pulse Ox 06/25/21 16:05 22 100 06/25/21 16:00 95 H 124/63 100 06/25/21 15:45 98 H 123/75 100 06/25/21 15:30 100 H 22 117/62 100 06/25/21 15:15 95 H 100/53 L 100 06/25/21 15:00 98 H 22 98/53 L 100 06/25/21 14:45 102 H 112/60 100 06/25/21 14:30 112 H 22 128/73 128/73 100 06/25/21 14:15 140/76 06/25/21 14:14 110 H 23 98 06/25/21 14:13 115 H 23 06/25/21 14:00 22 06/25/21 13:40 122 H 96 06/25/21 13:36 127 H 22 97 06/25/21 13:33 121 H 97 06/25/21 13:30 22 06/25/21 13:24 139/102 H 06/25/21 13:20 128 H 95 06/25/21 13:18 129 H 96 06/25/21 12:57 22 100 06/25/21 12:47 216/116 H 06/25/21 12:45 115 H 40 H 100 06/25/21 12:42 115 H 164/126 H 164/126 H 100 Laboratory Results 06/25/21 06/25/21 06/25/21 Range/Units 14:23 14:23 13:23 WBC (4.8-10.8) K/uL RBC (4.2-5.4) M/uL Hgb (12.0-16.0) g/dL POC Hgb (12.0-16.0) g/dl Hct (37-47) % POC Hct (37-47) % MCV (80-100) fL MCH (25-34) pg MCHC (32-36) g/dL RDW Std Deviation (36.4-46.3) fL RDW Coeff of Anh (11.5-14.5) % Plt Count (130-400) K/uL MPV (7.4-10.4) fL Immature Gran % (Auto) % Neut % (Auto) % Lymph % (Auto) % Hart % (Auto) % Eos % (Auto) % Baso % (Auto) % Neut # (Auto) (1.4-6.5) K/uL Lymph # (Auto) (1.2-3.4) K/uL Hart # (Auto) (0.11-0.59) K/uL Eos # (Auto) (0-0.5) K/uL Baso # (Auto) (0-0.2) K/uL Immature Gran # (Auto) (0.00-0.02) K/uL PT (9.0-12.0) Seconds INR (0.9-1.1) APTT (21.0-31.0) Seconds PTT Ratio POC pH 7.24 L (7.35-7.45) POC pCO2 48 H (35-46) mmHg POC pO2 91 (80-95) mmHg POC HCO3 21 (19-24) robert/L POC Base Excess -7.0 (-9-1.8) robert/L POC ABG O2 Sat 95.0 (90-95) % POC Sodium (135-144) mmol/L Sodium (136-145) mmol/L POC Potassium (3.3-5.0) mmol/L Potassium (3.5-5.1) mmol/L POC Chloride (101-112) mmol/L Chloride (98-107) mmol/L Carbon Dioxide (21-32) mmol/L POC Total CO2 22 L (24-31) mmol/L Anion Gap (3-11) POC Anion Gap (16-25) mmol/L POC BUN (7-18) mg/dl BUN (7-18) mg/dl Creatinine (0.6-1.2) mg/dl POC Creatinine (0.6-1.3) mg/dl Est Cr Clr Drug Dosing Est GFR ( Amer) ml/min Est GFR (Non-Af Amer) ml/min BUN/Creatinine Ratio (10-20) Glucose (70-99) mg/dl POC Glucose (other) (70-99) mg/dl Lactate (0.4-2.0) mmol/L Calcium (8.5-10.1) mg/dl POC Ioniz Calcium Amy (1.12-1.32) mmol/l Magnesium (1.8-2.4) mg/dl Total Bilirubin (0.2-1) mg/dl AST (15-37) U/L ALT (12-78) U/L Alkaline Phosphatase (45-117) U/L Troponin I (0-0.045) ng/ml Total Protein (6.4-8.2) gm/dl Albumin (3.4-5.0) gm/dl Globulin (2.5-4.0) gm/dl Albumin/Globulin Ratio (0.9-2) Procalcitonin (0-0.5) ng/ml COVID-19 Eval Order Covid19 at [facility] SARS-CoV-2 (PCR) NEGATIVE (Negative) 06/25/21 06/25/21 06/25/21 Range/Units 13:22 12:50 12:45 WBC (4.8-10.8) K/uL RBC (4.2-5.4) M/uL Hgb (12.0-16.0) g/dL POC Hgb 9.9 L (12.0-16.0) g/dl Hct (37-47) % POC Hct 29 L (37-47) % MCV (80-100) fL MCH (25-34) pg MCHC (32-36) g/dL RDW Std Deviation (36.4-46.3) fL RDW Coeff of Anh (11.5-14.5) % Plt Count (130-400) K/uL MPV (7.4-10.4) fL Immature Gran % (Auto) % Neut % (Auto) % Lymph % (Auto) % Hart % (Auto) % Eos % (Auto) % Baso % (Auto) % Neut # (Auto) (1.4-6.5) K/uL Lymph # (Auto) (1.2-3.4) K/uL Hart # (Auto) (0.11-0.59) K/uL Eos # (Auto) (0-0.5) K/uL Baso # (Auto) (0-0.2) K/uL Immature Gran # (Auto) (0.00-0.02) K/uL PT (9.0-12.0) Seconds INR (0.9-1.1) APTT (21.0-31.0) Seconds PTT Ratio POC pH (7.35-7.45) POC pCO2 (35-46) mmHg POC pO2 (80-95) mmHg POC HCO3 (19-24) robert/L POC Base Excess (-9-1.8) robert/L POC ABG O2 Sat (90-95) % POC Sodium 136 (135-144) mmol/L Sodium (136-145) mmol/L POC Potassium 4.6 (3.3-5.0) mmol/L Potassium (3.5-5.1) mmol/L POC Chloride 102 (101-112) mmol/L Chloride (98-107) mmol/L Carbon Dioxide (21-32) mmol/L POC Total CO2 23 L (24-31) mmol/L Anion Gap (3-11) POC Anion Gap 16.0 (16-25) mmol/L POC BUN 30 H (7-18) mg/dl BUN (7-18) mg/dl Creatinine (0.6-1.2) mg/dl POC Creatinine 1.8 H (0.6-1.3) mg/dl Est Cr Clr Drug Dosing Est GFR ( Amer) ml/min Est GFR (Non-Af Amer) ml/min BUN/Creatinine Ratio (10-20) Glucose (70-99) mg/dl POC Glucose (other) 104 H (70-99) mg/dl Lactate 1.5 (0.4-2.0) mmol/L Calcium (8.5-10.1) mg/dl POC Ioniz Calcium Amy 1.12 (1.12-1.32) mmol/l Magnesium (1.8-2.4) mg/dl Total Bilirubin (0.2-1) mg/dl AST (15-37) U/L ALT (12-78) U/L Alkaline Phosphatase (45-117) U/L Troponin I (0-0.045) ng/ml Total Protein (6.4-8.2) gm/dl Albumin (3.4-5.0) gm/dl Globulin (2.5-4.0) gm/dl Albumin/Globulin Ratio (0.9-2) Procalcitonin 0.26 (0-0.5) ng/ml COVID-19 Eval Order SARS-CoV-2 (PCR) (Negative) 06/25/21 06/25/21 06/25/21 Range/Units 12:45 12:45 12:45 WBC 9.63 (4.8-10.8) K/uL RBC 3.11 L (4.2-5.4) M/uL Hgb 9.3 L (12.0-16.0) g/dL POC Hgb (12.0-16.0) g/dl Hct 29.7 L (37-47) % POC Hct (37-47) % MCV 95.5 (80-100) fL MCH 29.9 (25-34) pg MCHC 31.3 L (32-36) g/dL RDW Std Deviation 49.7 H (36.4-46.3) fL RDW Coeff of Anh 14.2 (11.5-14.5) % Plt Count 249 (130-400) K/uL MPV 9.8 (7.4-10.4) fL Immature Gran % (Auto) 0.5 % Neut % (Auto) 84.2 % Lymph % (Auto) 11.3 % Hart % (Auto) 1.6 % Eos % (Auto) 2.2 % Baso % (Auto) 0.2 % Neut # (Auto) 8.11 H (1.4-6.5) K/uL Lymph # (Auto) 1.09 L (1.2-3.4) K/uL Hart # (Auto) 0.15 (0.11-0.59) K/uL Eos # (Auto) 0.21 (0-0.5) K/uL Baso # (Auto) 0.02 (0-0.2) K/uL Immature Gran # (Auto) 0.05 H (0.00-0.02) K/uL PT 10.5 (9.0-12.0) Seconds INR 1.0 (0.9-1.1) APTT 26.9 (21.0-31.0) Seconds PTT Ratio 1.0 POC pH (7.35-7.45) POC pCO2 (35-46) mmHg POC pO2 (80-95) mmHg POC HCO3 (19-24) robert/L POC Base Excess (-9-1.8) robert/L POC ABG O2 Sat (90-95) % POC Sodium (135-144) mmol/L Sodium 135 L (136-145) mmol/L POC Potassium (3.3-5.0) mmol/L Potassium 4.4 (3.5-5.1) mmol/L POC Chloride (101-112) mmol/L Chloride 105 (98-107) mmol/L Carbon Dioxide 21 (21-32) mmol/L POC Total CO2 (24-31) mmol/L Anion Gap 9.0 (3-11) POC Anion Gap (16-25) mmol/L POC BUN (7-18) mg/dl BUN 27 H (7-18) mg/dl Creatinine 1.65 H (0.6-1.2) mg/dl POC Creatinine (0.6-1.3) mg/dl Est Cr Clr Drug Dosing Not Reportable Est GFR ( Amer) 35.3 ml/min Est GFR (Non-Af Amer) 30.5 ml/min BUN/Creatinine Ratio 16.2 (10-20) Glucose 98 (70-99) mg/dl POC Glucose (other) (70-99) mg/dl Lactate (0.4-2.0) mmol/L Calcium 8.5 (8.5-10.1) mg/dl POC Ioniz Calcium Amy (1.12-1.32) mmol/l Magnesium 1.8 (1.8-2.4) mg/dl Total Bilirubin 0.5 (0.2-1) mg/dl AST 44 H (15-37) U/L ALT 35 (12-78) U/L Alkaline Phosphatase 150 H (45-117) U/L Troponin I < 0.015 (0-0.045) ng/ml Total Protein 7.9 (6.4-8.2) gm/dl Albumin 3.1 L (3.4-5.0) gm/dl Globulin 4.8 H (2.5-4.0) gm/dl Albumin/Globulin Ratio 0.6 L (0.9-2) Procalcitonin (0-0.5) ng/ml COVID-19 Eval Order SARS-CoV-2 (PCR) (Negative) Coding Level of Care Code Critical Care 1st 30-74 mins Diagnoses Fracture of femoral neck, right, closed S72.001A Aortic stenosis, moderate I35.0 HTN (hypertension) I10 GISELL (acute kidney injury) N17.9 Acute encephalopathy G93.40 Respiratory failure with hypoxia J96.91
[2021-06-25] MEDS ORDERED: fentaNYL citrate 100 MCG/2 ML VIAL ONE (17:42)
--- NOTE | 2021-06-25 17:46 | Procedure Note ---
Procedure Note Date of Service June 25, 2021 Note Procedure date: Noted above Procedure: fiberoptic bronchoscopy Pre-procedure indication: Probable aspiration, pulmonary infiltrate acute hypoxic respiratory failure Post-procedure Diagnosis: same as above Prior to Procedure: Informed Consent: The risks, benefits, indications, potential complications, and alternatives were explained to the patient's and informed consent obtained. Attending Staff: Shauna Plunkett DO Resident/APC: Not applicable Skin Prep: Not applicable Anesthesia: Continuous infusion The identity of the patient was confirmed and a bedside time out was performed. Description of Procedure: Fiberoptic bronchoscopy was performed via endotracheal tube. Bronchioalveolar lavage right middle lobe was performed. Findings included: Mucus impactions and noted white foreign body-like material that I pre sume to be pill fragments from a probable aspiration Complications: None Specimens: Bronchial washings sent for culture and Gram stain, fungal elements, AFB stain and culture, cell count differential. Estimated blood loss: Zero Coding CPT Codes Pulmonary/Thoracic - Pulmonary and Thoracic: 22367 Dx bronchoscopy/BAL ([id number]) [facility] [place]odes ([place]) Pulmonary/Thoracic Procedure 1: Pulmonary and Thoracic: 41832 Dx bronchoscopy/BAL
[2021-06-25 18:05] LABS: Appearance Urine Turbid (Clear); Bacteria Urine Automated 1+ (Negative); Bilirubin Urine Negative (Negative); Blood Urine 3+ (Negative); Color Urine Yellow; Epithelial Cell Urine Auto >30 /lpf (0-5); Glucose Urine UA Negative (Negative); Ketones Urine Negative (Negative); Leukocyte Esterase Urine 3+ (Negative); Nitrite Urine Negative (Negative); Protein Urine 2+ (Negative); Specific Gravity Urine 1.018 (1.000-1.030); Urobilinogen Urine Negative (Negative); WBC Urine Automated >30 /hpf (0-5); pH Urine 5.5 (4.5-7.5)
[2021-06-25] MEDS ORDERED: ROCURONIUM BROMIDE 10 MG/ML 5 ML VIAL IV ONE (20:19)
[2021-06-25] MEDS ORDERED: ETOMIDATE 2 MG/ML 20 ML VIAL IV ONE (20:19)
[2021-06-25] MEDS: PIPERACILLIN/TAZOBACTAM 4.5 GM in DEXTROSE 5% 100 ML IV SCH (20:30)
[2021-06-25] MEDS: ROSUVASTATIN CALCIUM 5 MG TAB PO SCH (21:07)
[2021-06-25] MEDS: AMITRIPTYLINE HCL 25 MG TAB PO SCH (21:07)
[2021-06-26] MEDS: PIPERACILLIN/TAZOBACTAM 4.5 GM in DEXTROSE 5% 100 ML IV SCH (04:20)
[2021-06-26 04:49] LABS: Basophils # (auto) 0.01 K/uL (0-0.2); Basophils % (auto) 0.1 %; Hematocrit (blood only) 27.9 % (37-47); Hemoglobin 8.8 g/dL (12.0-16.0); Immature Granulocytes # (auto) 0.09 K/uL (0.00-0.02); Immature Granulocytes % (auto) 0.5 %; Lymphocytes # (auto) 0.62 K/uL (1.2-3.4); Lymphocytes % (auto) 3.5 %; Mean Corpuscular Hemoglobin 29.5 pg (25-34); Mean Corpuscular Hgb Conc 31.5 g/dL (32-36); Mean Corpuscular Volume 93.6 fL (80-100); Mean Platelet Volume 9.6 fL (7.4-10.4); Monocytes # (auto) 0.42 K/uL (0.11-0.59); Monocytes % (auto) 2.3 %; Neutrophils # (auto) 16.82 K/uL (1.4-6.5); Neutrophils % (auto) 93.6 %; Platelet Count 217 K/uL (130-400); RDW Standard Deviation 47.7 fL (36.4-46.3); Red Blood Count 2.98 M/uL (4.2-5.4); White Blood Count 17.96 K/uL (4.8-10.8)
[2021-06-26 05:10] LABS: BUN Creatinine Ratio 16.8 (10-20); Creatinine Clr Calc Pharmacy 37.4 ml/min; Est GFR (African American) 41.7 ml/min; Est GFR (Non-African American) 35.9 ml/min; Magnesium 1.9 mg/dl (1.8-2.4); Potassium 4.2 mmol/L (3.5-5.1)
[2021-06-26 05:17] LABS: iSTAT Allen Test Pass; iSTAT Art Bld Gas pCO2 Correct 37 mmHg (35-46); iSTAT Art Bld Gas pH Corrected 7.371 (7.35-7.45); iSTAT Arterial Blood Gas HCO3 22 meg/L (19-24); iSTAT Arterial Blood Gas pCO2 37 mmHg (35-46); iSTAT Arterial Blood Gas pH 7.37 (7.35-7.45); iSTAT Arterial Blood Gas pO2 140 mmHg (80-95); iSTAT Arterial Blood Gas pO2 C 140; iSTAT Carbon Dioxide 23 mmol/L (24-31); iSTAT Hematocrit 27 % (37-47); iSTAT Hemoglobin 9.2 g/dl (12.0-16.0); iSTAT Potassium 3.8 mmol/L (3.3-5.0); iSTAT Site R Radial; iSTAT Sodium 140 mmol/L (135-144)
[2021-06-26] MEDS: propofoL 1,000 MG/100 ML VIAL IV SCH ×2 (05:20→10:11)
[2021-06-26] MEDS: LEVOTHYROXINE SODIUM 150 MCG TABLET PO SCH (06:28)
[2021-06-26] MEDS: HYDROXYCHLOROQUINE SULFATE 200 MG TAB PO SCH (08:10)
[2021-06-26] MEDS: ESCITALOPRAM OXALATE 10 MG TAB PO SCH (08:10)
--- NOTE | 2021-06-26 08:18 | Hospitalist Progress Note ---
Date of Service June 26, 2021 Assessment & Plan (1) Respiratory failure with hypoxia: Plan: Patient remains intubated for airway protection. Patient came in with hypoxia with no improvement on BIPAP. 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 Plan is to extubate patient later today. Will continue to try to diurese patient. Will consider 2d echo. treated empirically with zosyn. Update: In afternoon, patient is awake and extubated. Had discussion with , patient is looking into TAVR and hip surgery. will d/w Dr. De Leon tomorrow if any workup can be done while patient is admitted. (2) Acute encephalopathy: Plan: Patient appeared consufed prior to intubation, may be secondary to hypoxia (3) Aspiration pneumonia: Plan: Patient had emesis, prior to admission will monitor (4) Hypoxemia: (5) HTN (hypertension): Plan: hold metoprolol, montior BP (6) Aortic stenosis: Plan: no correction planned at this time. (7) GISELL (acute kidney injury): Plan: Gentle hydration. Admission and Anticipated Discharge Date Admission Date: June 25, 2021 Subjective Patient is intubated. Review of Systems Review of Systems: Unobtainable due to endotracheal tube Physical Exam ENMT: external ear and nose normal, oropharynx normal (intubated) Neck: trachea midline, no thyromegaly Respiratory: normal respiratory effort, lungs clear to auscultation Cardiovascular: RRR, no murmur, no edema Gastrointestinal (Abdomen): normal bowel sounds, soft, nontender, no hepatosplenomegaly (colostomy bag noted.) Musculoskeletal: no cyanosis or clubbing, extremities motor strength 5/5 Skin: no rashes, warm and dry Neurologic: + obtunded (sedated and intubated) Lymphatic: no cervical or axillary lymphadenopathy Results & Data Results & Data ([facility]) Vital Signs (Past 12 Hours) Vital Signs Temp Pulse Resp BP Pulse Ox 06/26/21 07:38 66 12 99 06/26/21 06:14 74 185/84 H 99 06/26/21 05:44 36.5 C 72 185/81 H 99 06/26/21 05:14 70 165/95 H 98 06/26/21 04:44 72 178/85 H 100 06/26/21 04:14 68 171/83 H 100 06/26/21 03:44 36.5 C 73 175/91 H 100 06/26/21 03:14 70 167/96 H 100 06/26/21 02:50 69 14 100 06/26/21 02:44 70 162/81 H 99 06/26/21 02:14 72 167/89 H 100 06/26/21 01:44 77 172/76 H 100 06/26/21 01:14 73 164/81 H 99 06/26/21 00:44 73 152/104 H 98 06/26/21 00:14 75 164/80 H 99 06/25/21 23:44 76 153/89 H 99 06/25/21 23:35 77 06/25/21 23:14 36.6 C 75 154/77 H 99 06/25/21 22:44 76 141/81 H 98 06/25/21 22:18 87 12 99 06/25/21 22:15 79 154/77 H 100 06/25/21 21:44 78 147/72 H 99 06/25/21 21:14 81 150/71 H 99 06/25/21 20:44 81 140/72 99 PG Care Time/CCT Total # of Minutes Spent Total Time Spent with Patient: Total time spent is greater than 50% in coordination of care (as documented) at patient's floor/unit and/or counseling patient: Coding Level of Care Code 96703 Subseq Hosp Care Lvl 3 Diagnoses Respiratory failure with hypoxia J96.91 Acute encephalopathy G93.40 Aspiration pneumonia J69.0 Aspiration pneumonia type: unspecified Laterality: bilateral Lung location: unspecified part of lung Hypoxemia R09.02 HTN (hypertension) I10 Aortic stenosis I35.0 GISELL (acute kidney injury) N17.9 Time Spent (min) 35 (1) Aspiration pneumonia Aspiration pneumonia type: unspecified Laterality: bilateral Lung location: unspecified part of lung Qualified Code(s): J69.0 - Pneumonitis due to inhalation of food and vomit
[2021-06-26] MEDS ORDERED: ENOXAPARIN INJ 30 MG/0.3 ML SYR SQ SCH (09:00)
--- NOTE | 2021-06-26 09:35 | Critical Care Progress Note ---
Date of Service June 26, 2021 Assessment & Plan (1) Acute encephalopathy: Plan: Reason Critically Ill: 71-year-old female with acute hypoxic respiratory failure secondary to probable aspiration with acute encephalopathy PLAN: Neuro: Acute encephalopathy: Improving -Likely multifactorial: Toxic metabolic -Holding sedatives following extubation Resp: Acute hypoxic respiratory failure: Improved -Extubation this morning -Discontinue antibiotics CV: Aortic stenosis -No definitive plan for correction at this time Hypertension -Restart metoprolol 25 twice daily Fluids/Renal: Acute kidney injury: Minimal improvement -Gentle hydration Normosol at 80 mils per hour ID: Aspiration pneumonitis -Discontinuing antibiotics GI/Nutrition: N.p.o. -Speech therapy consult Heme: Anemia DVT prophylaxis: Lovenox, increased dose for improved kidney function Endocrine: ICU hyperglycemia protocol Check A1c in a.m. Orthopedics: Right hip fracture -continued nonweightbearing status Vascular access: Peripheral IVs Code Status: DNR in event of cardiac arrest Disposition: Stable for downgrade after noon today (2) GISELL (acute kidney injury): (3) Fracture of femoral neck, right, closed: (4) Aortic stenosis, moderate: (5) HTN (hypertension): (6) Respiratory failure with hypoxia: Admission and Anticipated Discharge Date Admission Date: June 25, 2021 Subjective No overnight events, following commands intermittently this morning Review of Systems Review of Systems: Unobtainable due to endotracheal tube Physical Exam Physical Exam: General: Arouses with deep stimuli. nontoxic. Skin: Warm, dry, Head: Atraumatic Ears, nose, mouth and throat: airway obscured by endotracheal tube Cardiovascular: Normal peripheral perfusion Respiratory: no respiratory distress Gastrointestinal: Non distended Musculoskeletal: No deformity Results & Data Results & Data ([facility]) Vital Signs (Past 12 Hours) Vital Signs Temp Pulse Resp BP Pulse Ox 06/26/21 08:15 84 164/83 H 06/26/21 07:38 66 12 99 06/26/21 07:36 65 188/81 H 99 06/26/21 07:14 70 179/96 H 99 06/26/21 06:44 70 191/96 H 99 06/26/21 06:14 74 185/84 H 99 06/26/21 05:44 36.5 C 72 185/81 H 99 06/26/21 05:14 70 165/95 H 98 06/26/21 04:44 72 178/85 H 100 07/27/21 04:14 68 171/83 H 100 06/26/21 03:44 36.5 C 73 175/91 H 100 06/26/21 03:14 70 167/96 H 100 06/26/21 02:50 69 14 100 06/26/21 02:44 70 162/81 H 99 06/26/21 02:14 72 167/89 H 100 06/26/21 01:44 77 172/76 H 100 06/26/21 01:14 73 164/81 H 99 06/26/21 00:44 73 152/104 H 98 06/26/21 00:14 75 164/80 H 99 06/25/21 23:44 76 153/89 H 99 06/25/21 23:35 77 06/25/21 23:14 36.6 C 75 154/77 H 99 06/25/21 22:44 76 141/81 H 98 06/25/21 22:18 87 12 99 06/25/21 22:15 79 154/77 H 100 06/25/21 21:44 78 147/72 H 99 Coding Level of Care Code 56674 Subseq Hosp Care Lvl 3 Diagnoses Acute encephalopathy G93.40 GISELL (acute kidney injury) N17.9 Fracture of femoral neck, right, closed S72.001A Aortic stenosis, moderate I35.0 HTN (hypertension) I10 Respiratory failure with hypoxia J96.91
[2021-06-26] MEDS ORDERED: DEXTROSE 50% 50 ML SYRINGE IV PRN (10:15)
[2021-06-26] MEDS ORDERED: CARBOHYDRATES FOR HYPOGLYCEMIA PO PRN (10:15)
[2021-06-26] MEDS ORDERED: GLUCAGON FOR INJ 1 MG VIAL IM PRN (10:15)
[2021-06-26] MEDS ORDERED: GLUCOSE 40% GEL 15 GM TUBE PO PRN (10:15)
[2021-06-26] MEDS ORDERED: GLUCOSE 10 TABS/TUBE PO PRN (10:15)
--- NOTE | 2021-06-26 10:24 | XRay Report ---
XR chest 1V portable CLINICAL HISTORY: f/u COMPARISON STUDY: June 25, 2021 FINDINGS: No pneumothorax. Redemonstration of moderate left pleural effusion associated with atelectasis/infiltrate at the left lower lung. Lung volumes remain decreased with crowded lung markings. Linear density seen at the right mid lung might represent atelectasis. Cardiomediastinal silhouette is unchanged. Aorta is calcified. Pulmonary vasculature is obscured.. Osseous structures: Osteopenia. Degenerative changes of the spine. Tip of endotracheal tube is seen projecting 2.2 cm above david. Stable position of the left subclavian catheter. Interval placement of gastric tube with fenestrated side-port below level of hemidiaphragm and tip ou tside the view. IMPRESSION: 1. Stable moderate pleural effusion associated with atelectasis/infiltrate at the left lower lung. 2. Limited exam due to low inspiratory effort. Small atelectasis at the right mid lung area 3. Stable cardiomediastinal silhouette and possible pulmonary edema. 4. Tip of endotracheal tube is seen 2.2 cm above david. Please note that expected position for endo tracheal tube tip is 3 to 5 cm above david. The rest of support apparatus as above. ACT 112: Negative or not required by law. The above report was generated using voice recognition software. It may contain grammatical, syntax o r spelling errors. Electronically signed by: Madelien Combs DO 06/26/2021 10:23 AM
[2021-06-26] MEDS ORDERED: NOREPINEPHRINE/D5W 8 MG/508 ML IV ONE (11:31)
[2021-06-26] MEDS: METOPROLOL TARTRATE 25 MG TAB PO SCH ×2 (11:57→20:41)
[2021-06-26] MEDS: INSULIN ASPART 100 UNITS/ML 3 ML PEN SC SCH ×3 (11:59→20:38)
--- NOTE | 2021-06-26 15:10 | Cardiology Consultation ---
Date of Consultation June 26, 2021 Assessment & Plan (1) Severe aortic stenosis: Patient with severe aortic stenosis which had been asymptomatic at baseline due to her limited mobility from chronic orthopedic and other comorbidities. There was a concern with proceeding to operative repair of her hip fracture in the context of severe aortic stenosis, evaluation at [place] by cardiology recommended the following: -If right femoral neck fx is managed non-op or with intertrochanteric pinning, no further workup of aortic stenosis is warranted as inpatient. -If total hip arthroplasty is anticipated, patient will require further evaluation with coronary angiogram to evaluate risk of ischemia with aortic stenosis during surgery. In communicating with Dr. De Leon (her regular gas specialist), he noted that the [place] cardiologists were considering transcutaneous aortic valve replacement (TAVR) as well. There also was a mention of her being transferred to [facility] in [place], it was unclear to me whether this was based on family preference or other considerations. Currently, she is stable. It remains unclear as to the cause of her decompensation prompting this admission, possibly aspiration pneumonia related to mental status changes. It seems unlikely to me that she would have developed acute congestive heart failure at bedrest while at [facility] in the absence of IV fluid resuscitation or other precipitating factor. At this point, I would be reluctant to add yet another voice to the recommendations regarding definitive management of this patient's severe aortic stenosis. Major intervention such as TAVR is obviously dependent upon the ope rative team's perspective, therefore would proceed with either follow-up at [place] or reevaluation at [facility] as planned. There are no specific interventions we can offer here beyond volume management (she is diuresing well, 4 L negative overnight) and optimizing her hemodynamics (currently her BP and heart rate are favorable). Dr. De Leon will see her tomorrow, he is her regular gas specialist and is very familiar with her cardiac and medical status. (2) Aspiration pneumonia: (3) Respiratory failure with hypoxia: (4) Subcapital fracture of right hip: (5) Acquired lymphedema of lower extremity: History of Present Illness Attending Physician: Juan Chen History of Present Illness 71-year-old woman with severe but previously asymptomatic aortic stenosis (in the context of very limited physical activity due to multiple comorbidities) and recent right hip fracture for which operative management was deferred due to concerns about her aortic stenosis, who was admitted yesterday with acute change in mental status secondary to respiratory failure/hypoxia. She was intubated overnight and extubated this morning. She had confusion prior to intubation but was alert and interactive at the time of my evaluation this afternoon. She denied any dyspnea exertion at baseline, but due to multiple medical problems (even prior to her hip fracture) she ambulated only short distances. These problems include chronic pelvic fracture, lymphedema, spinal stenosis, and chronic daytime somnolence. She denies any chest pain, subjective palpitations, presyncope, or syncope at baseline. At the time of my evaluation, she was comfortable in bed on supplemental oxygen at rest. Allergies Allergy/AdvReac Type Severity Reaction Status Date / Time pollen extracts Allergy Intermediate RUNNY Verified 06/25/21 14:41 NOSE, ITCHY EYES, SNEEZING sulfamethoxazole Allergy Unknown Shakiness Verified 06/25/21 14:41 [From Bactrim] trimethoprim [From Bactrim] Allergy Unknown Shakiness Verified 06/25/21 14:41 Home Medications Medication Instructions Recorded Confirmed Type mirabegron 50 mg tablet,extended 50 mg PO QAM 06/15/19 06/25/21 History release 24 hr (Myrbetriq) multivitamin (Multiple Vitamins) 1 tab PO QAM 06/15/19 06/25/21 History amoxicillin 500 mg capsule 500 mg PO QAM cap 06/16/19 06/25/21 History budesonide-formoterol HFA 80 2 puffs INH BIDM PRN 06/16/19 06/25/21 History mcg-4.5 mcg/actuation aerosol inhaler (Symbicort) escitalopram oxalate 20 mg tablet 30 mg PO QAM tab 06/16/19 06/25/21 History (Lexapro) hydroxychloroquine 200 mg tablet 100 mg PO QAM tab 06/16/19 06/25/21 History (Plaquenil) pantoprazole 40 mg tablet,delayed 40 mg PO QAM 06/16/19 06/25/21 History release (Protonix) ascorbic acid (vitamin C) 500 mg 500 mg PO BID 09/15/19 06/25/21 History tablet (Vitamin C) cholecalciferol (vitamin D3) 50 2,000 unit PO BIDM 09/15/19 06/25/21 History mcg (2,000 unit) capsule (Vitamin D3) amitriptyline 25 mg tablet 25 mg PO HS tab 05/08/20 06/25/21 History tamsulosin 0.4 mg capsule 0.4 mg PO QAM 05/17/20 06/25/21 History levothyroxine 150 mcg tablet 150 mcg PO QAM 04/23/21 06/25/21 History pregabalin 100 mg capsule 100 mg PO TID 04/23/21 06/25/21 History rosuvastatin 5 mg tablet 5 mg PO HS 04/23/21 06/25/21 History acetaminophen 325 mg tablet 650 mg PO Q6 PRN 05/23/21 06/25/21 History oxycodone 5 mg tablet 5 mg PO Q6 PRN 05/23/21 06/25/21 History enoxaparin 40 mg/0.4 mL 40 mg SUBCUT DAILY 06/25/21 06/25/21 History subcutaneous syringe (Lovenox) gabapentin 300 mg capsule 300 mg PO TIDM 06/25/21 06/25/21 History ipratropium 0.5 mg-albuterol 3 mg 3 ml INHALATION Q4H PRN 06/25/21 06/25/21 History (2.5 mg base)/3 mL nebulization soln metoprolol succinate 25 mg 25 mg PO HS 06/25/21 06/25/21 History tablet,extended release 24 hr spironolactone 25 mg tablet 25 mg PO QAM 06/25/21 06/25/21 History sulindac 200 mg tablet 100 mg PO BID PRN 06/25/21 06/25/21 History Patient History Medical History (Updated 06/26/21 @ 14:48 by Carlin Porter MD) Acid reflux OCCASSIONAL Anal cancer (~03/2008) HX OF Arthritis Bladder stone Brittle bones CURRENT FRACTURE R HIP, MULTIPLE PELVICE BREAKS AND FRACTURE IN BONE BELOW KNEE Carpal tunnel syndrome, bilateral Cervical cancer (~05/1990) HX OF Closed head injury Colorectal cancer HX OF Degenerative joint disease of both hips DVT (deep venous thrombosis) L LEG YRS AGO/NONE SINCE 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 History of pelvic fracture History of recurrent UTIs NONE CURRENT/ON MAINTENANCE ABX FOR Incomplete bladder emptying Iron deficiency HX OF Left knee DJD Lymphedema THERAPY FOR Pathologic acetabular fracture Pelvic fracture Pressure ulcer of right buttock, stage 1 Seasonal allergies Small bowel obstruction Spinal stenosis Ulnar neuropathy of both upper extremities Urge and stress incontinence Surgical History Colostomy in place H/O foot surgery History of carpal tunnel release of both wrists History of colonoscopy History of hernia repair X2 SURGERIES WITH STOMA RELOCATED FOR BOTH HERNIA SURGERIES History of hysterectomy History of urologic surgery HX URETERAL STENT AND SINCE REMOVED History of wisdom tooth extraction Nausea and vomiting after administration of anesthetic agent Family History Diabetes Sister Brother Father Grandmother Coronary heart disease Sister Father Nephrolithiasis Sister Myocardial infarction Father Breast cancer Sister Hypertension Father Social History Smoking Status: Never smoker Second Hand Exposure: No; Hx Alcohol Use: No Hx Substance Use: No Preferred Language: Yi Communication Ability: Effective Visual Impairment: Limited Hearing Ability: Normal 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 BP normotensive to mildly hypertensive. Pulse 86 bpm and regular. Skin: no ecchymoses or generalized lesions. HEENT: unremarkable. Neck: Jugular venous pulse prison to the angle of the jaw with increased respiratory variation, cannot appreciate obvious carotid transmitted murmur or bruit. Lungs: Few basilar crackles, no wheezing. Generally clear. Cardiac: regular rhythm, harsh 4/6 crescendo decrescendo systolic ejection murmur at the right upper sternal border radiating widely, there is a readily audible closure sound at the right upper sternal border but this may be pulmonic closure since I could not easily discern splitting of S2. No diastolic murmur. Abdomen: benign. Extremities: Trace to 1+ pretibial edema, radial and dorsalis pedis pulses intact. Neurologic: normal affect, nonfocal. Results & Data ([facility]) Laboratory Results WBC 17.96, hemoglobin 8.8, platelet count 217,000. Normal electrolytes, BUN 24, creatinine 1.44 (down from 1.65). Negative troponin on admission. Diagnostic Findings ECG on admission shows sinus tachycardia 121 BPM, minor nonspecific ST abnormality anterolateral leads. Compared with 05/23/2021 ECG, heart rate increased by 26 bpm, nonspecific ST abnormality was new. Chest x-ray today showed stable moderate pleural effusion on the left, small atelectasis on the right, "possible" pulmonary edema. Echocardiogram at [place] 05/27/2021 showed normal systolic function (EF 75%), moderate LVH with diastolic dysfunction, severe aortic stenosis (valve area 0.76 cm), mild mitral regurgitation with top normal pulmonary artery systolic pressure. PG Care Time/CCT Total # of Minutes Spent Total Time Spent with Patient: Total time spent is greater than 50% in coordination of care (as documented) at patient's floor/unit and/or counseling patient: Coding Level of Care Code 24670 Initial Inpt Care Lvl 3 Diagnoses Severe aortic stenosis I35.0 Aspiration pneumonia J69.0 Aspiration pneumonia type: unspecified Laterality: bilateral Lung location: unspecified part of lung Respiratory failure with hypoxia J96.91 Subcapital fracture of right hip S72.011A Encounter type: initial encounter Fracture type: closed Acquired lymphedema of lower extremity I89.0 (1) Aspiration pneumonia Aspiration pneumonia type: unspecified Laterality: bilateral Lung location: unspecified part of lung Qualified Code(s): J69.0 - Pneumonitis due to inhalation of food and vomit (2) Subcapital fracture of right hip Encounter type: initial encounter Fracture type: closed Qualified Code(s): S72.011A - Unspecified intracapsular fracture of right femur, initial encounter for closed fracture
[2021-06-26] MEDS ORDERED: ACETAMINOPHEN 325 MG TAB PO PRN (15:32)
[2021-06-26] MEDS: oxyCODONE HCL IR 5 MG TAB (IMMEDIATE RELEASE) PO PRN (16:01)
[2021-06-26] MEDS: AMITRIPTYLINE HCL 25 MG TAB PO SCH (20:40)
[2021-06-26] MEDS: ROSUVASTATIN CALCIUM 5 MG TAB PO SCH (20:41)
[2021-06-27] MEDS: LEVOTHYROXINE SODIUM 150 MCG TABLET PO SCH (03:27)
[2021-06-27] MEDS: oxyCODONE HCL IR 5 MG TAB (IMMEDIATE RELEASE) PO PRN ×3 (03:27→15:35)
[2021-06-27] MEDS: INSULIN ASPART 100 UNITS/ML 3 ML PEN SC SCH ×4 (08:24→20:18)
[2021-06-27] MEDS: METOPROLOL TARTRATE 25 MG TAB PO SCH ×2 (08:25→20:21)
[2021-06-27] MEDS: HYDROXYCHLOROQUINE SULFATE 200 MG TAB PO SCH (08:25)
[2021-06-27] MEDS: ENOXAPARIN INJ 40 MG/0.4 ML SYR SQ SCH (08:26)
[2021-06-27] MEDS: ESCITALOPRAM OXALATE 10 MG TAB PO SCH (08:26)
--- NOTE | 2021-06-27 09:37 | Cardiology Progress Note ---
Date of Service June 27, 2021 Assessment & Plan Admission and Anticipated Discharge Date Admission Date: June 25, 2021 Subjective She denies any chest pain chest pressure or chest heaviness. She does have a cough. She denies any fevers or chills. She notes some mild shortness of breath although she did not appear in any significant distress. She is having some symptoms of vertigo she denies any lightheadedness with change in position. She does have chronic lower extremity edema worse on the left compared to the right Results & Data ([facility]) Vital Signs (Past 12 Hours) Vital Signs Temp Pulse Pulse Resp BP Pulse Ox 06/27/21 08:00 37.1 C 89 16 118/60 99 06/27/21 04:32 38.0 C H 93 H 18 131/64 96 06/26/21 23:59 103 H 06/26/21 23:00 37.8 C H 103 H 22 146/79 H 96 she is awake alert and oriented x3 HEENT: 2+ carotid upstrokes she does have bilateral bruits radiating from her heart Lungs: Coarse breath sounds bilaterally Abdomen: Soft nontender distended positive bowel sounds Heart: Regular rate and rhythm there is a harsh crescendo decrescendo murmur which is 3 out of 6 in late peaking S2 is now preserved there are no appreciable diastolic murmurs Extremities: Mild to moderate edema of the left leg with mild edema of the right leg (1) Severe aortic stenosis: Patient with severe aortic stenosis which had been asymptomatic at baseline due to her limited mobility from chronic orthopedic and other comorbidities. There was a concern with proceeding to operative repair of her hip fracture in the context of severe aortic stenosis, evaluation at [place] by cardiology recommended the following: -If right femoral neck fx is managed non-op or with intertrochanteric pinning, no further workup of aortic stenosis is warranted as inpatient. -If total hip arthroplasty is anticipated, patient will require further evaluation with coronary angiogram to evaluate risk of ischemia with aortic stenosis during surgery. I did reach out to [facility]. It appears that the inpatient service did not notify the structural heart disease team about the potential for Phyllis needing a TAVR as an outpatient. Once she gets over her aspiration pneumonia we can then proceed with a work-up for TAVR placement. The challenge is she is nonweightbearing which complicates transfers from where she is living to the hospital. Her cardiac catheterization can be done here at [facility]. She would need a trip to [facility] for CT an giography for a TAVR protocol and to meet with the structural heart disease team, CT surgery, and anesthesia. She then would have to make a second trip to [facility] for placement of her TAVR. Once that is completed then down the road she could have orthopedic surgery. Clinically from a cardiac standpoint she is currently stable. Once she is discharged please notify us if she is going back to [facility] and then we can start arranging an appropriate work-up in discussion with Phyllis and her . (2) Aspiration pneumonia: (3) Respiratory failure with hypoxia: (4) Subcapital fracture of right hip: (5) Acquired lymphedema of lower extremity:
--- NOTE | 2021-06-27 13:59 | XRay Report ---
XR hip RT 2V w pelvis CLINICAL HISTORY: h/o R femoral neck fracture. Right hip pain. COMPARISON STUDY: Right hip 05/23/2021. FINDINGS: No significant change in the basicervical fracture of the right femoral neck. This demonstr ates up to 7 mm of distraction. No significant healing identified. There are old nonunited right pelv ic ring fractures. There are also old left pelvic fractures with a also nonunited. Advanced degenerat chris changes within the bilateral hips. No dislocation. Surgical clips again noted within the pelvis a nd a left lower quadrant ostomy. IMPRESSION: 1. No change in the distracted basicervical fracture of the right femoral neck. No significant healin g. 2. No change in the multiple additional nonunited old pelvic fractures. ACT 112: Negative or not required by law. Electronically signed by: Ben Gant M.D. 06/27/2021 1:58 PM
--- NOTE | 2021-06-27 16:06 | Orthopedic Consultation ---
Date of Consultation June 27, 2021 Assessment & Plan (1) Severe aortic stenosis: (2) Subcapital fracture of right hip: Recommend the patient remain nonweightbearing on the right lower extremity. Agree with protection against pressure ulcers on her heels and sacrum. She will need to reschedule her follow-up with Dr. Ponce. No orthopedic surgery is indicated at present. Patient will need to follow-up with Dr. Parmar in [place] as well as with cardiology for management of her aortic s tenosis. DVT prophylaxis per the internal medicine team. Orthopedics will sign off. Feel free to contact us with any questions. (3) Pelvic fracture: (4) Respiratory failure with hypoxia: History of Present Illness Attending Physician: Juan Poe Valechiquitarenea History of Present Illness 71 yo female with h/o anal cancer/ colostomy, status post radiation to her pelvis, who fell back in May resulting in a femoral neck fracture on the right. She was also found to have inferior and superior pubic rami fractures at the time. She was transferred to [facility] for definitive fixation. However, work-up revealed critical aortic stenosis and no surgery was performed. She has been at [facility] nonweightbearing on the right lower extremity. She actually had follow-up scheduled with Dr. Marinelli in [place] yesterday regarding her right hip. However, she was admitted to the intensive care unit 2 days ago for decreasing her mental status over the last 4 to 5 days and hypoxia, difficulty breathing and decreased mentation. In the ER, patient did not respond to BIPAP as her oxygen level remaind low. She then had an episode of emesis and required emergent intubation to help protect her airways. She was extubated yesterday morning. Orthopedics is now consulted for an opinion on her right femoral neck fracture, bilateral pubic rami fractures, and right acetabular fracture. Patient was seen and examined the intensive care unit. She reports that her hip is painful when she attempts to put any weight down on it although she has been doing her best to maintain nonweightbearing as instructed. Denies any numbness or tingling down her leg. Allergies Allergy/AdvReac Type Severity Reaction Status Date / Time pollen extracts Allergy Intermediate RUNNY Verified 06/25/21 14:41 NOSE, ITCHY EYES, SNEEZING sulfamethoxazole Allergy Unknown Shakiness Verified 06/25/21 14:41 [From Bactrim] trimethoprim [From Bactrim] Allergy Unknown Shakiness Verified 06/25/21 14:41 Home Medications Medication Instructions Recorded Confirmed Type mirabegron 50 mg tablet,extended 50 mg PO QAM 06/15/19 06/25/21 History release 24 hr (Myrbetriq) multivitamin (Multiple Vitamins) 1 tab PO QAM 06/15/19 06/25/21 History amoxicillin 500 mg capsule 500 mg PO QAM cap 06/16/19 06/25/21 History budesonide-formoterol HFA 80 2 puffs INH BIDM PRN 06/16/19 06/25/21 History mcg-4.5 mcg/actuation aerosol inhaler (Symbicort) escitalopram oxalate 20 mg tablet 30 mg PO QAM tab 06/16/19 06/25/21 History (Lexapro) hydroxychloroquine 200 mg tablet 100 mg PO QAM tab 06/16/19 06/25/21 History (Plaquenil) pantoprazole 40 mg tablet,delayed 40 mg PO QAM 06/16/19 06/25/21 History release (Protonix) ascorbic acid (vitamin C) 500 mg 500 mg PO BID 09/15/19 06/25/21 History tablet (Vitamin C) cholecalciferol (vitamin D3) 50 2,000 unit PO BIDM 09/15/19 06/25/21 History mcg (2,000 unit) capsule (Vitamin D3) amitriptyline 25 mg tablet 25 mg PO HS tab 05/08/20 06/25/21 History tamsulosin 0.4 mg capsule 0.4 mg PO QAM 05/17/20 06/25/21 History levothyroxine 150 mcg tablet 150 mcg PO QAM 04/23/21 06/25/21 History pregabalin 100 mg capsule 100 mg PO TID 04/23/21 06/25/21 History rosuvastatin 5 mg tablet 5 mg PO HS 04/23/21 06/25/21 History acetaminophen 325 mg tablet 650 mg PO Q6 PRN 05/23/21 06/25/21 History oxycodone 5 mg tablet 5 mg PO Q6 PRN 05/23/21 06/25/21 History enoxaparin 40 mg/0.4 mL 40 mg SUBCUT DAILY 06/25/21 06/25/21 History subcutaneous syringe (Lovenox) gabapentin 300 mg capsule 300 mg PO TIDM 06/25/21 06/25/21 History ipratropium 0.5 mg-albuterol 3 mg 3 ml INHALATION Q4H PRN 06/25/21 06/25/21 History (2.5 mg base)/3 mL nebulization soln metoprolol succinate 25 mg 25 mg PO HS 06/25/21 06/25/21 History tablet,extended release 24 hr spironolactone 25 mg tablet 25 mg PO QAM 06/25/21 06/25/21 History sulindac 200 mg tablet 100 mg PO BID PRN 06/25/21 06/25/21 History Patient History Medical History Acid reflux OCCASSIONAL Anal cancer (~03/2008) HX OF Arthritis Bladder stone Brittle bones CURRENT FRACTURE R HIP, MULTIPLE PELVICE BREAKS AND FRACTURE IN BONE BELOW KN EE Carpal tunnel syndrome, bilateral Cervical cancer (~05/1990) HX OF Closed head injury Colorectal cancer HX OF Degenerative joint disease of both hips DVT (deep venous thrombosis) L LEG YRS AGO/NONE SINCE 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 History of pelvic fracture History of recurrent UTIs NONE CURRENT/ON MAINTENANCE ABX FOR Incomplete bladder emptying Iron deficiency HX OF Left knee DJD Lymphedema THERAPY FOR Pathologic acetabular fracture Pelvic fracture Pressure ulcer of right buttock, stage 1 Seasonal allergies Small bowel obstruction Spinal stenosis Ulnar neuropathy of both upper extremities Urge and stress incontinence Surgical History Colostomy in place H/O foot surgery History of carpal tunnel release of both wrists History of colonoscopy History of hernia repair X2 SURGERIES WITH STOMA RELOCATED FOR BOTH HERNIA SURGERIES History of hysterectomy History of urologic surgery HX URETERAL STENT AND SINCE REMOVED History of wisdom tooth extraction Nausea and vomiting after administration of anesthetic agent Family History Sister Coronary heart disease Diabetes Nephrolithiasis Breast cancer Brother Diabetes Father Coronary heart disease Diabetes Hypertension Myocardial infarction Grandmother Diabetes Social History Smoking Status: Never smoker Second Hand Exposure: No; Hx Alcohol Use: No Hx Substance Use: No Preferred Language: Argentine Communication Ability: Unable Visual Impairment: Limited Hearing Ability: Normal Bag Tester Required: No Beliefs That Will Affect Care: Jainism Jainism Beliefs: pentecostal- [facility] [place] marital status: Current Living Situation: [facility] Current Living Situation Comment: [facility] current occupational status: retired Feels Safe at Home: Yes Assistive Devices: Oxygen - Continuous Physical Exam Physical Exam: On exam she is alert and appropriate conversant. Her accompanies her at the bedside. She is able to wiggle her toes on the right lower extremity. She is also able to dorsi and plantarflex her right ankle. Unable to flex her hip or knee secondary to pain in the hip. She reports intact sensation to light touch in the dorsal and plantar aspects of her foot as well as a femoral nerve distribution. Toes are warm and well-perfused. Skin is intact over the right hip. She has boots in place to protect against heel ulcers. Results & Data ([facility]) Vital Signs (Past 12 Hours) Vital Signs Temp Pulse Pulse Resp BP Pulse Ox 06/27/21 12:00 36.8 C 89 20 140/79 97 06/27/21 08:00 37.1 C 82 89 16 118/60 99 06/27/21 04:32 38.0 C H 93 H 18 131/64 96 Laboratory Results 06/27/21 06/27/21 06/26/21 Range/Units 11:59 08:22 20:35 POC Glucose 91 131 H 81 (70-99) mg/dl 06/26/21 Range/Units 16:57 POC Glucose 109 H (70-99) mg/dl Pending at discharge 06/25/21 17:49 Non-Contracts Officer Cytology [[facility]] Urgent Procedures Closed [endoscopic] biopsy of small intestine (09/26/11) Dilation of Left Ureter with Intraluminal Device, Via Natural or Artificial Opening Endoscopic (04/23/21) Endoscopy of large intestine through artificial stoma (09/26/11) Extirpation of Matter from Bladder, Via Natural or Artificial Opening Endoscopic (04/23/21) Injection of other agent into spinal canal (07/24/11) Injection of therapeutic substance into joint or ligament (08/29/11) Injection or infusion of other therapeutic or prophylactic substance (07/05/15) Other interview and evaluation (09/11/11) Transfusion of packed cells (12/20/13) Transurethral clearance of bladder (11/08/11) Diagnostic Findings Laboratory Results WBC 17.96 K/uL (4.8-10.8) H 06/26/21 04:30 RBC 2.98 M/uL (4.2-5.4) L 06/26/21 04:30 Hgb 8.8 g/dL (12.0-16.0) L 06/26/21 04:30 POC Hgb 9.2 g/dl (12.0-16.0) L 06/26/21 05:01 Hct 27.9 % (37-47) L 06/26/21 04:30 POC Hct 27 % (37-47) L 06/26/21 05:01 MCV 93.6 fL (80-100) 06/26/21 04:30 MCH 29.5 pg (25-34) 06/26/21 04:30 MCHC 31.5 g/dL (32-36) L 06/26/21 04:30 RDW Std Deviation 47.7 fL (36.4-46.3) H 06/26/21 04:30 RDW Coeff of Anh 14.0 % (11.5-14.5) 06/26/21 04:30 Plt Count 217 K/uL (130-400) 06/26/21 04:30 MPV 9.6 fL (7.4-10.4) 06/26/21 04:30 Immature Gran % (Auto) 0.5 % 06/26/21 04:30 Neut % (Auto) 93.6 % 06/26/21 04:30 Lymph % (Auto) 3.5 % 06/26/21 04:30 [place] % (Auto) 2.3 % 06/26/21 04:30 Eos % (Auto) 0.0 % 06/26/21 04:30 Baso % (Auto) 0.1 % 06/26/21 04:30 Neut # (Auto) 16.82 K/uL (1.4-6.5) H 06/26/21 04:30 Lymph # (Auto) 0.62 K/uL (1.2-3.4) L 06/26/21 04:30 [place] # (Auto) 0.42 K/uL (0.11-0.59) 06/26/21 04:30 Eos # (Auto) 0.00 K/uL (0-0.5) 06/26/21 04:30 Baso # (Auto) 0.01 K/uL (0-0.2) 06/26/21 04:30 Immature Gran # (Auto) 0.09 K/uL (0.00-0.02) H 06/26/21 04:30 PT 10.5 Seconds (9.0-12.0) 06/25/21 12:45 INR 1.0 (0.9-1.1) 06/25/21 12:45 APTT 26.9 Seconds (21.0-31.0) 06/25/21 12:45 PTT Ratio 1.0 06/25/21 12:45 Sample Site R Radial 06/26/21 05:01 POC pH 7.37 (7.35-7.45) 06/26/21 05:01 POC pCO2 37 mmHg (35-46) 06/26/21 05:01 POC pO2 140 mmHg (80-95) H 06/26/21 05:01 POC HCO3 22 robert/L (19-24) 06/26/21 05:01 POC Total CO2 23 mmol/L (24-31) L 06/26/21 05:01 POC Base Excess -4.0 robert/L (-9-1.8) 06/26/21 05:01 ABG pH (Temp Correct) 7.371 (7.35-7.45) 06/26/21 05:01 ABG pCO2 (Temp Corrct 37 mmHg (35-46) 06/26/21 05:01 POC ABG pO2 at Pt Temp 140 06/26/21 05:01 POC ABG O2 Sat 99.0 % (90-95) H 06/26/21 05:01 Robe Test Pass 06/26/21 05:01 O2 Delivery Device Ventilator 06/26/21 05:01 POC O2 Rate 12 06/26/21 05:01 Tidal Volume 450 06/26/21 05:01 PEEP 5 06/26/21 05:01 POC Sodium 140 mmol/L (135-144) 06/26/21 05:01 Sodium 139 mmol/L (136-145) 06/26/21 04:30 POC Potassium 3.8 mmol/L (3.3-5.0) 06/26/21 05:01 Potassium 4.2 mmol/L (3.5-5.1) 06/26/21 04:30 POC Chloride 102 mmol/L (101-112) 06/25/21 12:50 Chloride 109 mmol/L (98-107) H 06/26/21 04:30 Carbon Dioxide 23 mmol/L (21-32) 06/26/21 04:30 POC Total CO2 23 mmol/L (24-31) L 06/25/21 12:50 Anion Gap 7.0 (3-11) 06/26/21 04:30 POC Anion Gap 16.0 mmol/L (16-25) 06/25/21 12:50 POC BUN 30 mg/dl (7-18) H 06/25/21 12:50 BUN 24 mg/dl (7-18) H 06/26/21 04:30 Creatinine 1.44 mg/dl (0.6-1.2) H 06/26/21 04:30 POC Creatinine 1.8 mg/dl (0.6-1.3) H 06/25/21 12:50 Est Cr Clr Drug Dosing 37.4 ml/min 06/26/21 04:30 Est GFR ( Amer) 41.7 ml/min 06/26/21 04:30 Est GFR (Non-Af Amer) 35.9 ml/min 06/26/21 04:30 BUN/Creatinine Ratio 16.8 (10-20) 06/26/21 04:30 Glucose 153 mg/dl (70-99) H 06/26/21 04:30 POC Glucose 91 mg/dl (70-99) 06/27/21 11:59 POC Glucose (other) 104 mg/dl (70-99) H 06/25/21 12:50 Lactate 1.5 mmol/L (0.4-2.0) 06/25/21 13:22 Calcium 8.0 mg/dl (8.5-10.1) L 06/26/21 04:30 POC Ioniz Calcium Amy 1.12 mmol/l (1.12-1.32) 06/25/21 12:50 Phosphorus 3.0 mg/dl (2.5-4.9) 06/26/21 04:30 Magnesium 1.9 mg/dl (1.8-2.4) 06/26/21 04:30 Total Bilirubin 0.5 mg/dl (0.2-1) 06/25/21 12:45 AST 44 U/L (15-37) H 06/25/21 12:45 ALT 35 U/L (12-78) 06/25/21 12:45 Alkaline Phosphatase 150 U/L (45-117) H 06/25/21 12:45 Troponin I < 0.015 ng/ml (0-0.045) 06/25/21 12:45 Total Protein 7.9 gm/dl (6.4-8.2) 06/25/21 12:45 Albumin 3.1 gm/dl (3.4-5.0) L 06/25/21 12:45 Globulin 4.8 gm/dl (2.5-4.0) H 06/25/21 12:45 Albumin/Globulin Ratio 0.6 (0.9-2) L 06/25/21 12:45 Procalcitonin 0.26 ng/ml (0-0.5) 06/25/21 12:45 Specimen Hemolysis 06/26/21 04:30 Urine Color Yellow 06/25/21 17:45 Urine Appearance Turbid (Clear) A 06/25/21 17:45 Urine pH 5.5 (4.5-7.5) 06/25/21 17:45 Ur Specific [place] 1.018 (1.000-1.030) 06/25/21 17:45 Urine Protein 2+ (Negative) H 06/25/21 17:45 Urine Glucose (UA) Negative (Negative) 06/25/21 17:45 Urine Ketones Negative (Negative) 06/25/21 17:45 Urine Blood 3+ (Negative) H 06/25/21 17:45 Urine Nitrite Negative (Negative) 06/25/21 17:45 Urine Bilirubin Negative (Negative) 06/25/21 17:45 Urine Urobilinogen Negative (Negative) 06/25/21 17:45 Ur Leukocyte Esterase 3+ (Negative) H 06/25/21 17:45 Urine WBC (Auto) >30 /hpf (0-5) H 06/25/21 17:45 Urine RBC (Auto) 10-30 /hpf (0-4) H 06/25/21 17:45 U Hyaline Cast (Auto) 1-5 /lpf (0-5) 06/25/21 17:45 U Epithel Cells (Auto) >30 /lpf (0-5) H 06/25/21 17:45 Urine Bacteria (Auto) 1+ (Negative) H 06/25/21 17:45 Urine Yeast Not Reportable 06/25/21 17:45 Nasal Screen MRSA (PCR) Positive (Negative) A 06/25/21 17:12 COVID-19 Eval Order Covid19 at [facility] 06/25/21 14:23 SARS-CoV-2 (PCR) NEGATIVE (Negative) 06/25/21 14:23 Impressions Abdomen/Pelvis CTA 06/25/21 12:57 CT angio abdomen pelvis w con CLINICAL HISTORY: vomiting, altered mental status COMPARISON STUDY: CT of the abdomen and pelvis May 03, 2021. TECHNIQUE: Helical axial images of the abdomen and pelvis were obtained during arterial phase following intravenous injection 120 cc of Optiray 320 IV. Sagittal and coronal reconstructions were viewed as well as maximal intensity projections on an independent 3-D workstation. Automated exposure control was utilized for the study. A dose lowering technique was utilized adhering to the principles of ALARA. FINDINGS: Please note that the chest CT will be reported separately. No pneumatosis, free air or portal venous gas is present. Anasarca is noted with body wall edema. No hepatic lesions are identified. There is no biliary or pancreatic ductal dilatation. There are gallstones within the gallbladder. There is no evidence for acute cholecystitis. There is no evidence for a bowel obstruction. The caliber of the abdominal aorta is normal. There is no abdominal aortic dissection. Branch vessels are grossly patent. Severe right hydroureteronephrosis is again noted. This is similar to prior exam. Marked right renal cortical thinning is again noted. Moderate to severe left hydronephrosis has slightly progressed. The left ureteral stent has been removed. There is a 4 mm left renal calculus. There are no ureteral calculi. Postoperative findings within the pelvis are noted as well as old posttraumatic findings with nonunited fractures of the bilateral pubic rami, right acetabulum and left iliac bone. Note is made of a mildly distracted right femoral neck fracture. There is a right hip joint effusion. A descending colostomy is noted with parastomal hernia. There is no bowel obstruction. IMPRESSION: 1. No bowel obstruction. Left lower quadrant colostomy with parastomal hernia, unchanged. 2. Anasarca with body wall edema. 3. Subacute minimally distracted right femoral neck fracture without significant callus formation. 4. Moderate to severe left hydroureteronephrosis, slightly increased since prior exam. Interval removal of the left ureteral stent. 4 mm left renal calculus. No ureteral calculi. 5. No significant change in severe right hydroureteronephrosis. 6. Chronic nonunited pelvic fractures, as described above. ACT 112: Negative or not required by law. Electronically signed by: Ruddy Og M.D. 06/25/2021 2:57 PM Chest CTA 06/25/21 12:57 CT ANGIOGRAPHY OF THE CHEST, PULMONARY EMBOLUS PROTOCOL CLINICAL HISTORY: Respiratory difficulty. Tachypnea. COMPARISON STUDY: Chest CT January 06, 2012. Chest radiograph performed earlier today. TECHNIQUE: Following IV administration of 120 mL of Optiray, helical axial images of the chest were obtained utilizing the pulmonary embolus protocol. Maximal intensity projections and sagittal and coronal reformats were viewed on an independent 3D workstation. IV contrast was administered without complication. Automated exposure control was utilized for the study. A dose lowering technique was utilized adhering to the principles of ALARA. CT DOSE: 2324.54 mGy.cm FINDINGS: No pulmonary emboli are identified although the segmental and subsegmental pulmonary arteries are suboptimally assessed due to respiratory motion. There is no thoracic aortic dissection. A small hiatal hernia is present. There is moderate cardiomegaly. There is no pericardial effusion. Tip of the endotracheal tube is 7 mm above the chronic. Left subclavian [id number]-[id number]-Cobr is in place. No enlarged thoracic lymph nodes are identified. There is extensive left lower lobe airspace opacity with slight loss. There is moderate right lower lobe airspace opacity. There is mild bilateral upper lobe airspace opacities. Note is made of a 2.4 cm subpleural ground glass opacity within the right upper lobe. Interlobular septal thickening is noted. Lungs are suboptimally assessed due to respiratory motion. IMPRESSION: 1. No pulmonary emboli identified although segmental and subsegmental pulmonary arteries suboptimally assessed due to respiratory motion. 2. Multifocal airspace opacities throughout the lungs, greatest within the left lower lobe. The findings could reflect aspiration pneumonitis, pneumonia or atelectasis. Follow up chest CT in 3 months to ensure resolution is recommended. 3. Tip of endotracheal tube 7 mm above the david. 4. Interlobular septal thickening suggestive of mild interstitial pulmonary edema. ACT 112: Negative or not required by law. Electronically signed by: Ruddy Og M.D. 06/25/2021 2:[address] 06/25/21 12:57 CT OF THE HEAD WITHOUT CONTRAST CLINICAL HISTORY: Altered mental status. COMPARISON STUDY: Head CT May 03, 2021. TECHNIQUE: Helical axial images of the head were obtained without IV contrast. Automated exposure control was utilized for the study. A dose lowering technique was utilized adhering to the principles of ALARA. FINDINGS: Secretions within the nasopharynx are likely related to intubation. No acute intracranial hemorrhage, midline shift or mass effect is present. Ventricular system is stable. Basal cisterns are patent. White matter hypodensities are similar to prior exam and suggest small vessel disease. There are no findings to suggest acute dural sinus thrombosis or acute territorial infarct. There is no calvarial fracture. IMPRESSION: No acute intracranial findings. No change in appearance of the brain. ACT 112: Negative or not required by law. Electronically signed by: Ruddy Og M.D. 06/25/2021 2:18 PM Chest X-Ray 06/26/21 07:00 XR chest 1V portable CLINICAL HISTORY: f/u COMPARISON STUDY: June 25, 2021 FINDINGS: No pneumothorax. Redemonstration of moderate left pleural effusion associated with atelectasis/infiltrate at the left lower lung. Lung volumes remain decreased with crowded lung markings. Linear density seen at the right mid lung might represent atelectasis. Cardiomediastinal silhouette is unchanged. Aorta is calcified. Pulmonary vasculature is obscured.. Osseous structures: Osteopenia. Degenerative changes of the spine. Tip of endotracheal tube is seen projecting 2.2 cm above david. Stable position of the left subclavian catheter. Interval placement of gastric tube with fenestrated side-port below level of hemidiaphragm and tip outside the view. IMPRESSION: 1. Stable moderate pleural effusion associated with atelectasis/infiltrate at the left lower lung. 2. Limited exam due to low inspiratory effort. Small atelectasis at the right mid lung area 3. Stable cardiomediastinal silhouette and possible pulmonary edema. 4. Tip of endotracheal tube is seen 2.2 cm above david. Please note that expected position for endotracheal tube tip is 3 to 5 cm above david. The rest of support apparatus as above. ACT 112: Negative or not required by law. The above report was generated using voice recognition software. It may contain grammatical, syntax or spelling errors. Electronically signed by: Madeline Combs DO 06/26/2021 10:23 AM Hip/Pelvis X-Ray 06/27/21 11:29 XR hip RT 2V w pelvis CLINICAL HISTORY: h/o R femoral neck fracture. Right hip pain. COMPARISON STUDY: Right hip 05/23/2021. FINDINGS: No significant change in the basicervical fracture of the right femoral neck. This demonstrates up to 7 mm of distraction. No significant healing identified. There are old nonunited right pelvic ring fractures. There are also old left pelvic fractures with a also nonunited. Advanced degenerative changes within the bilateral hips. No dislocation. Surgical clips again noted within the pelvis and a left lower quadrant ostomy. IMPRESSION: 1. No change in the distracted basicervical fracture of the right femoral neck. No significant healing. 2. No change in the multiple additional nonunited old pelvic fractures. ACT 112: Negative or not required by law. Electronically signed by: Ben Gant M.D. 06/27/2021 1:58 PM (1) Subcapital fracture of right hip Encounter type: initial encounter Fracture type: closed Qualified Code(s): S72.011A - Unspecified intracapsular fracture of right femur, initial encounter for closed fracture
[2021-06-27 19:05] LABS: BUN Creatinine Ratio 18.6 (10-20); Calcium 8.1 mg/dl (8.5-10.1); Creatinine Clr Calc Pharmacy 39.1 ml/min; Est GFR (Non-African American) 38.9 ml/min; Potassium 3.7 mmol/L (3.5-5.1)
[2021-06-27] MEDS: LEVALBUTEROL HCL 1.25 MG/3 ML NEB NEB SCH (19:28)
--- NOTE | 2021-06-27 19:48 | XRay Report ---
XR chest 1V portable CLINICAL HISTORY: wheezing COMPARISON STUDY: June 26, 2021 FINDINGS: No pneumothorax. No pleural effusion. Left retrocardiac opacity seen and could represent atelectasis or infiltrate. Lung volumes are decrea sed with crowded lung markings. Cardiomediastinal silhouette is slightly prominent and unchanged since prior. Aorta is calcified. Pulmonary vasculature is obscured.. Osseous structures: Osteopenia. Degenerative changes of the spine. Stable position of left-sided central venous line. Interval removal of endotracheal and gastric tubes . Gas-filled loops of bowel are seen within upper abdomen. Overall evaluation is limited due to overlyi ng wires. IMPRESSION: 1. Atelectasis or infiltrate within left retrocardiac region. 2. Previously seen left-sided pleural effusion is no longer visualized. 3. Pulmonary edema. Prominent cardiac silhouette. 4. Interval removal of endotracheal and gastric tubes. ACT 112: Negative or not required by law. The above report was generated using voice recognition software. It may contain grammatical, syntax o r spelling errors. Electronically signed by: Madeline Combs DO 06/27/2021 7:47 PM
[2021-06-27] MEDS: ROSUVASTATIN CALCIUM 5 MG TAB PO SCH (20:20)
[2021-06-27] MEDS: AMITRIPTYLINE HCL 25 MG TAB PO SCH (20:21)
--- NOTE | 2021-06-27 21:24 | Hospitalist Progress Note ---
Date of Service June 27, 2021 Assessment & Plan (1) Respiratory failure with hypoxia: Plan: Resolved. Out of the ICU. No longer intubated I/O are negative. Paytient is now wheezing. Will resume Home inhalers but placed on scheduled. ordered xopenez and x ray. X ray was negative, but lungs were not expanded. will order incentive spirometry (2) Acute encephalopathy: Plan: Patient appeared consufed prior to intubation, may be secondary to hypoxia Resolved (3) Aspiration pneumonia: Plan: Patient had emesis, prior to admission will monitor (4) Hypoxemia: (5) HTN (hypertension): Plan: hold metoprolol, montior BP (6) Aortic stenosis: Plan: no correction planned at this time. (7) GISELL (acute kidney injury): Plan: Gentle hydration. Admission and Anticipated Discharge Date Admission Date: June 25, 2021 Subjective Patient seen and examined at bedside. Patient reports that she feels short of breath. Review of Systems Review of Systems: All systems reviewed & are unremarkable except as noted in HPI & below Physical Exam Physical Exam: General: NAD, but using accesory muscles o breath ENMT: external ear and nose normal, oropharynx normal (intubated) Neck: trachea midline, no thyromegaly Respiratory: normal respiratory effort, bilateral wheezing Cardiovascular: RRR, no murmur, no edema Gastrointestinal (Abdomen): normal bowel sounds, soft, nontender, no hepatosplenomegaly (colostomy bag noted.) Musculoskeletal: no cyanosis or clubbing, extremities motor strength 5/5 Skin: no rashes, warm and dry Neurologic: AAOX3 Lymphatic: no cervical or axillary lymphadenopathy Results & Data Results & Data ([facility]) Vital Signs (Past 12 Hours) Vital Signs Temp Pulse Pulse Pulse Resp BP BP 06/27/21 19:42 37.1 C 95 H 20 152/80 H 06/27/21 19:29 84 18 06/27/21 16:06 84 150/86 H 06/27/21 12:06 89 140/79 06/27/21 12:00 36.8 C 89 20 140/79 Pulse Ox 06/27/21 19:42 98 06/27/21 19:29 94 06/27/21 16:06 100 06/27/21 12:06 98 06/27/21 12:00 97 PG Care Time/CCT Total # of Minutes Spent Total Time Spent with Patient: Total time spent is greater than 50% in coordination of care (as documented) at patient's floor/unit and/or counseling patient: Coding Level of Care Code 24297 Subseq Hosp Care Lvl 3 Diagnoses Respiratory failure with hypoxia J96.91 Acute encephalopathy G93.40 Aspiration pneumonia J69.0 Aspiration pneumonia type: unspecified Laterality: bilateral Lung location: unspecified part of lung Hypoxemia R09.02 HTN (hypertension) I10 Aortic stenosis I35.0 GISELL (acute kidney injury) N17.9 Time Spent (min) 35 (1) Aspiration pneumonia Aspiration pneumonia type: unspecified Laterality: bilateral Lung location: unspecified part of lung Qualified Code(s): J69.0 - Pneumonitis due to inhalation of food and vomit
[2021-06-28] MEDS: LEVALBUTEROL HCL 1.25 MG/3 ML NEB NEB SCH ×4 (01:11→19:53)
[2021-06-28 06:07] LABS: Creatinine Clr Calc Pharmacy 47.7 ml/min; Est GFR (African American) 54.7 ml/min; Est GFR (Non-African American) 47.2 ml/min
[2021-06-28] MEDS: oxyCODONE HCL IR 5 MG TAB (IMMEDIATE RELEASE) PO PRN ×2 (06:27→14:21)
[2021-06-28] MEDS: LEVOTHYROXINE SODIUM 150 MCG TABLET PO SCH (06:29)
[2021-06-28] MEDS: INSULIN ASPART 100 UNITS/ML 3 ML PEN SC SCH ×4 (07:34→22:10)
[2021-06-28] MEDS: ESCITALOPRAM OXALATE 10 MG TAB PO SCH (08:29)
[2021-06-28] MEDS: HYDROXYCHLOROQUINE SULFATE 200 MG TAB PO SCH (08:30)
[2021-06-28] MEDS: METOPROLOL TARTRATE 25 MG TAB PO SCH (08:30)
[2021-06-28] MEDS: ENOXAPARIN INJ 40 MG/0.4 ML SYR SQ SCH (08:30)
[2021-06-28] MEDS: FLUTICASONE/VILANTEROL 100/25MCG 14 PUFFS/INHALER INH SCH (08:31)
--- NOTE | 2021-06-28 08:31 | XRay Report ---
XR chest 1V portable HISTORY: Wheezing. pleural effusion COMPARISON: Chest 06/27/2021. FINDINGS: Left subclavian Port-A-Cath remains at the distal SVC. This remains unchanged. No pneumotho rax. No pleural fusions. The heart remains enlarged. Improved aeration at the lung bases. Mild diffus e interstitial thickening has also improved. This suggests resolving pulmonary edema/pneumonia. IMPRESSION: 1. Improved aeration within the lungs consistent with a resolving pulmonary edema/pneumonia. 2. Stable cardiomegaly. ACT 112: Negative or not required by law. Electronically signed by: Ben Gant M.D. 06/28/2021 8:30 AM
[2021-06-28] MEDS: FLUTICASONE PROPIONATE NA SPR 16 GM BTL SCH (12:00)
[2021-06-28] MEDS: GABAPENTIN 300 MG CAP PO SCH ×2 (12:00→17:22)
[2021-06-28] MEDS: MIRABEGRON ER 25 MG TAB PO SCH (12:00)
[2021-06-28] MEDS: TAMSULOSIN HCL 0.4 MG CAP PO SCH (12:01)
[2021-06-28] MEDS: PREGABALIN 100 MG CAP PO SCH ×2 (14:20→22:18)
[2021-06-28] MEDS: AMITRIPTYLINE HCL 25 MG TAB PO SCH (22:09)
[2021-06-28] MEDS: ROSUVASTATIN CALCIUM 5 MG TAB PO SCH (22:09)
[2021-06-28] MEDS: METOPROLOL SUCC 25MG EXT REL TAB PO SCH (22:09)
--- NOTE | 2021-06-28 22:19 | Hospitalist Progress Note ---
Date of Service June 28, 2021 Assessment & Plan (1) Respiratory failure with hypoxia: Plan: Resolved. Out of the ICU. No longer intubated I/O are negative. Paytient is no longer wheezing. Will resume Home inhalers but placed on scheduled. ordered xopenez and x ray. X ray was negative, but lungs were not expanded. will order flutter valve. order LABA/ICS patient on lyrica/gabapentin. this may cause respiratory depression, (2) Acute encephalopathy: Plan: Patient appeared consufed prior to intubation, may be secondary to hypoxia Resolved (3) Aspiration pneumonia: Plan: Patient had emesis, prior to admission will monitor (4) Hypoxemia: (5) HTN (hypertension): Plan: hold metoprolol, montior BP (6) Aortic stenosis: Plan: TAVR will likely be done as outpatient. (7) GISELL (acute kidney injury): Plan: Gentle hydration. Admission and Anticipated Discharge Date Admission Date: June 25, 2021 Subjective 71 yo female reports feeling better. She is less short of breath today. She denes coughing up phlegm. Undecided if she wants to go home. Review of Systems Review of Systems: All systems reviewed & are unremarkable except as noted in HPI & below Physical Exam Physical Exam: General: NAD ENMT: external ear and nose normal, oropharynx normal (intubated) Neck: trachea midline, no thyromegaly Respiratory: normal respiratory effort, improved breath sounds, no wheezing Cardiovascular: RRR, no murmur, no edema Gastrointestinal (Abdomen): normal bowel sounds, soft, nontender, no hepatosplenomegaly (colostomy bag noted.) Musculoskeletal: no cyanosis or clubbing, extremities motor strength 5/5 Skin: no rashes, warm and dry Neurologic: AAOX3 Lymphatic: no cervical or axillary lymphadenopathy Results & Data Results & Data ([facility]) Vital Signs (Past 12 Hours) Vital Signs Temp Pulse Pulse Pulse Resp BP Pulse Ox 06/28/21 22:07 162/78 H 06/28/21 19:53 80 18 98 06/28/21 19:02 36.9 C 81 20 148/80 H 100 06/28/21 16:47 78 06/28/21 16:02 36.9 C 77 18 119/56 L 94 06/28/21 13:14 73 16 98 06/28/21 11:50 36.5 C 78 19 151/72 H 97 PG Care Time/CCT Total # of Minutes Spent Total Time Spent with Patient: Total time spent is greater than 50% in coordination of care (as documented) at patient's floor/unit and/or counseling patient: Coding Level of Care Code 06848 Subseq Hosp Care Lvl 3 Diagnoses Respiratory failure with hypoxia J96.91 Acute encephalopathy G93.40 Aspiration pneumonia J69.0 Aspiration pneumonia type: unspecified Laterality: bilateral Lung location: unspecified part of lung Hypoxemia R09.02 HTN (hypertension) I10 Aortic stenosis I35.0 GISELL (acute kidney injury) N17.9 Time Spent (min) 35 Comment long discussion with patient (1) Aspiration pneumonia Aspiration pneumonia type: unspecified Laterality: bilateral Lung location: unspecified part of lung Qualified Code(s): J69.0 - Pneumonitis due to inhalation of food and vomit
[2021-06-29] MEDS: LEVALBUTEROL HCL 1.25 MG/3 ML NEB NEB SCH ×4 (00:23→19:28)
[2021-06-29] MEDS: oxyCODONE HCL IR 5 MG TAB (IMMEDIATE RELEASE) PO PRN ×2 (05:55→23:16)
[2021-06-29] MEDS: LEVOTHYROXINE SODIUM 150 MCG TABLET PO SCH (05:55)
[2021-06-29] MEDS: INSULIN ASPART 100 UNITS/ML 3 ML PEN SC SCH ×4 (07:49→21:01)
[2021-06-29] MEDS: GABAPENTIN 300 MG CAP PO SCH ×3 (08:08→16:33)
[2021-06-29] MEDS: ENOXAPARIN INJ 40 MG/0.4 ML SYR SQ SCH (08:08)
[2021-06-29] MEDS: FLUTICASONE PROPIONATE NA SPR 16 GM BTL SCH (08:09)
[2021-06-29] MEDS: FLUTICASONE/VILANTEROL 100/25MCG 14 PUFFS/INHALER INH SCH (08:09)
[2021-06-29] MEDS: ESCITALOPRAM OXALATE 10 MG TAB PO SCH (08:09)
[2021-06-29] MEDS: HYDROXYCHLOROQUINE SULFATE 200 MG TAB PO SCH (08:10)
[2021-06-29] MEDS: TAMSULOSIN HCL 0.4 MG CAP PO SCH (08:11)
[2021-06-29] MEDS: SPIRONOLACTONE 25 MG TAB PO SCH (08:11)
[2021-06-29] MEDS: MIRABEGRON ER 25 MG TAB PO SCH (08:11)
[2021-06-29] MEDS: PREGABALIN 100 MG CAP PO SCH ×3 (08:14→21:03)
--- NOTE | 2021-06-29 20:44 | Hospitalist Progress Note ---
Date of Service June 29, 2021 Assessment & Plan (1) Respiratory failure with hypoxia: Plan: Resolved. Out of the ICU. No longer intubated I/O are negative. Paytient is no longer wheezing. Will resume Home inhalers but placed on scheduled. ordered xopenez and x ray. X ray was negative, but lungs were not expanded. will order flutter valve. order LABA/ICS patient on lyrica/gabapentin. this may cause respiratory depression, (2) Acute encephalopathy: Plan: Patient appeared consufed prior to intubation, may be secondary to hypoxia Resolved (3) Aspiration pneumonia: Plan: Patient had emesis, prior to admission will monitor (4) Hypoxemia: (5) HTN (hypertension): Plan: hold metoprolol, montior BP (6) Aortic stenosis: Plan: TAVR will likely be done as outpatient. (7) GISELL (acute kidney injury): Plan: Gentle hydration. Admission and Anticipated Discharge Date Admission Date: June 25, 2021 Subjective Patient is resting comfortably Review of Systems Review of Systems: All systems reviewed & are unremarkable except as noted in HPI & below Physical Exam Physical Exam: General: NAD ENMT: external ear and nose normal, oropharynx normal (intubated) Neck: trachea midline, no thyromegaly Respiratory: normal respiratory effort, improved breath sounds, no wheezing Cardiovascular: RRR, no murmur, no edema Gastrointestinal (Abdomen): normal bowel sounds, soft, nontender, no hepatosplenomegaly (colostomy bag noted.) Musculoskeletal: no cyanosis or clubbing, extremities motor strength 5/5 Skin: no rashes, warm and dry Neurologic: AAOX3 Lymphatic: no cervical or axillary lymphadenopathy Results & Data Results & Data ([facility]) Vital Signs (Past 12 Hours) Vital Signs Temp Pulse Resp BP Pulse Ox 06/29/21 19:30 75 18 97 06/29/21 19:25 37.1 C 84 20 162/70 H 94 06/29/21 15:28 36.8 C 79 18 152/74 H 06/29/21 13:03 76 18 97 06/29/21 11:43 36.7 C 74 18 117/53 L 100 PG Care Time/CCT Total # of Minutes Spent Total Time Spent with Patient: Total time spent is greater than 50% in coordination of care (as documented) at patient's floor/unit and/or counseling patient: Coding Level of Care Code 48218 Subseq Hosp Care Lvl 2 Diagnoses Respiratory failure with hypoxia J96.91 Acute encephalopathy G93.40 Aspiration pneumonia J69.0 Aspiration pneumonia type: unspecified Laterality: bilateral Lung location: unspecified part of lung Hypoxemia R09.02 HTN (hypertension) I10 Aortic stenosis I35.0 GISELL (acute kidney injury) N17.9 (1) Aspiration pneumonia Aspiration pneumonia type: unspecified Laterality: bilateral Lung location: unspecified part of lung Qualified Code(s): J69.0 - Pneumonitis due to inhalation of food and vomit
[2021-06-29] MEDS: ROSUVASTATIN CALCIUM 5 MG TAB PO SCH (21:03)
[2021-06-29] MEDS: AMITRIPTYLINE HCL 25 MG TAB PO SCH (21:03)
[2021-06-29] MEDS: METOPROLOL SUCC 25MG EXT REL TAB PO SCH (21:03)
[2021-06-30] MEDS: LEVALBUTEROL HCL 1.25 MG/3 ML NEB NEB SCH ×4 (00:27→19:24)
[2021-06-30] MEDS: LEVOTHYROXINE SODIUM 150 MCG TABLET PO SCH (05:48)
[2021-06-30] MEDS: INSULIN ASPART 100 UNITS/ML 3 ML PEN SC SCH ×4 (09:14→20:37)
[2021-06-30] MEDS: GABAPENTIN 300 MG CAP PO SCH ×2 (09:14→16:54)
[2021-06-30] MEDS: FLUTICASONE PROPIONATE NA SPR 16 GM BTL SCH (09:15)
[2021-06-30] MEDS: FLUTICASONE/VILANTEROL 100/25MCG 14 PUFFS/INHALER INH SCH (09:15)
[2021-06-30] MEDS: ENOXAPARIN INJ 40 MG/0.4 ML SYR SQ SCH (09:15)
[2021-06-30] MEDS: ESCITALOPRAM OXALATE 10 MG TAB PO SCH (09:15)
[2021-06-30] MEDS: HYDROXYCHLOROQUINE SULFATE 200 MG TAB PO SCH (09:16)
[2021-06-30] MEDS: SPIRONOLACTONE 25 MG TAB PO SCH (09:17)
[2021-06-30] MEDS: MIRABEGRON ER 25 MG TAB PO SCH (09:17)
[2021-06-30] MEDS: TAMSULOSIN HCL 0.4 MG CAP PO SCH (09:18)
[2021-06-30] MEDS: PREGABALIN 100 MG CAP PO SCH ×3 (09:22→19:54)
[2021-06-30] MEDS: oxyCODONE HCL IR 5 MG TAB (IMMEDIATE RELEASE) PO PRN ×2 (09:22→18:34)
--- NOTE | 2021-06-30 14:41 | Hospitalist Progress Note ---
Date of Service June 30, 2021 Assessment & Plan (1) Respiratory failure with hypoxia: Plan: Resolved. Out of the ICU. No longer intubated I/O are negative. Paytient is no longer wheezing. Will resume Home inhalers but placed on scheduled. ordered xopenez and x ray. X ray was negative, but lungs were not expanded. will order flutter valve. order LABA/ICS patient on lyrica/gabapentin. this may cause respiratory depression, (2) Acute encephalopathy: Plan: Patient appeared consufed prior to intubation, may be secondary to hypoxia Resolved (3) Aspiration pneumonia: Plan: Patient had emesis, prior to admission will monitor (4) Hypoxemia: (5) HTN (hypertension): Plan: hold metoprolol, montior BP (6) Aortic stenosis: Plan: TAVR will likely be done as outpatient. (7) GISELL (acute kidney injury): Plan: Gentle hydration. Admission and Anticipated Discharge Date Admission Date: June 25, 2021 Subjective Patient reports no new symptoms today. She feels comfortable. Review of Systems Review of Systems: All systems reviewed & are unremarkable except as noted in HPI & below Physical Exam Constitutional: WD/WN, vitals as above ENMT: external ear and nose normal, oropharynx normal Neck: trachea midline, no thyromegaly Respiratory: normal respiratory effort, lungs clear to auscultation Cardiovascular: RRR, no murmur, no edema Gastrointestinal (Abdomen): normal bowel sounds, soft, nontender, no hepatosplenomegaly (colostomy bag noted.) Musculoskeletal: no cyanosis or clubbing, extremities motor strength 5/5 Skin: no rashes, warm and dry Psychiatric: A+Ox3, euthymic affect Lymphatic: no cervical or axillary lymphadenopathy Results & Data Results & Data ([facility]) Vital Signs (Past 12 Hours) Vital Signs Temp Pulse Pulse Resp BP BP Pulse Ox 06/30/21 13:04 88 20 94 06/30/21 12:09 36.8 C 65 19 96/55 L 96 06/30/21 07:38 36.5 C 78 19 151/68 H 100 06/30/21 07:15 77 20 98 06/30/21 04:15 36.4 C L 75 12 143/65 H 99 PG Care Time/CCT Total # of Minutes Spent Total Time Spent with Patient: Total time spent is greater than 50% in coordination of care (as documented) at patient's floor/unit and/or counseling patient: Coding Level of Care Code 92173 Subseq Hosp Care Lvl 2 Diagnoses Respiratory failure with hypoxia J96.91 Acute encephalopathy G93.40 Aspiration pneumonia J69.0 Aspiration pneumonia type: unspecified Laterality: bilateral Lung location: unspecified part of lung Hypoxemia R09.02 HTN (hypertension) I10 Aortic stenosis I35.0 GISELL (acute kidney injury) N17.9 (1) Aspiration pneumonia Aspiration pneumonia type: unspecified Laterality: bilateral Lung location: unspecified part of lung Qualified Code(s): J69.0 - Pneumonitis due to inhalation of food and vomit
[2021-06-30] MEDS: METOPROLOL SUCC 25MG EXT REL TAB PO SCH (19:53)
[2021-06-30] MEDS: AMITRIPTYLINE HCL 25 MG TAB PO SCH (19:53)
[2021-06-30] MEDS: ROSUVASTATIN CALCIUM 5 MG TAB PO SCH (19:54)
[2021-07-01] MEDS: LEVALBUTEROL HCL 1.25 MG/3 ML NEB NEB SCH ×4 (01:08→19:31)
[2021-07-01] MEDS: oxyCODONE HCL IR 5 MG TAB (IMMEDIATE RELEASE) PO PRN ×3 (02:33→13:49)
[2021-07-01] MEDS: LEVOTHYROXINE SODIUM 150 MCG TABLET PO SCH (06:01)
[2021-07-01] MEDS: INSULIN ASPART 100 UNITS/ML 3 ML PEN SC SCH ×2 (07:44→11:47)
[2021-07-01] MEDS: GABAPENTIN 300 MG CAP PO SCH ×2 (07:45→16:47)
[2021-07-01] MEDS: FLUTICASONE PROPIONATE NA SPR 16 GM BTL SCH (07:45)
[2021-07-01] MEDS: ESCITALOPRAM OXALATE 10 MG TAB PO SCH (07:46)
[2021-07-01] MEDS: ENOXAPARIN INJ 40 MG/0.4 ML SYR SQ SCH (07:46)
[2021-07-01] MEDS: FLUTICASONE/VILANTEROL 100/25MCG 14 PUFFS/INHALER INH SCH (07:47)
[2021-07-01] MEDS: HYDROXYCHLOROQUINE SULFATE 200 MG TAB PO SCH (07:48)
[2021-07-01] MEDS: MIRABEGRON ER 25 MG TAB PO SCH (07:48)
[2021-07-01] MEDS: SPIRONOLACTONE 25 MG TAB PO SCH (07:49)
[2021-07-01] MEDS: TAMSULOSIN HCL 0.4 MG CAP PO SCH (07:49)
[2021-07-01] MEDS: PREGABALIN 100 MG CAP PO SCH ×3 (07:54→19:52)
[2021-07-01 08:44] LABS: Creatinine Clr Calc Pharmacy 53.1 ml/min; Est GFR (African American) 62.5 ml/min; Est GFR (Non-African American) 53.9 ml/min
[2021-07-01] MEDS: AMITRIPTYLINE HCL 25 MG TAB PO SCH (19:50)
[2021-07-01] MEDS: METOPROLOL SUCC 25MG EXT REL TAB PO SCH (19:51)
[2021-07-01] MEDS: ROSUVASTATIN CALCIUM 5 MG TAB PO SCH (19:53)
--- NOTE | 2021-07-01 20:51 | Hospitalist Progress Note ---
Date of Service July 01, 2021 Assessment & Plan (1) Respiratory failure with hypoxia: Plan: Resolved. Out of the ICU. No longer intubated I/O are negative. Paytient is no longer wheezing. Resumed Home inhalers but placed on scheduled (PRN at home). ordered xopenex as needed and x ray. X ray was negative, but lungs were not expanded. ordered flutter valve. ordered LABA/ICS patient on lyrica/gabapentin. this may cause respiratory depression, titrating off gabapentin. (2) Acute encephalopathy: Plan: Patient appeared consufed prior to intubation, may be secondary to hypoxia Resolved (3) Aspiration pneumonia: Plan: Patient had emesis, prior to admission will monitor (4) Hypoxemia: (5) HTN (hypertension): Plan: hold metoprolol, montior BP (6) Aortic stenosis: Plan: TAVR will likely be done as outpatient. Dr De Leon is working on arranging TAVR at [facility] (7) GISELL (acute kidney injury): Plan: Gentle hydration. Admission and Anticipated Discharge Date Admission Date: June 25, 2021 Subjective Patient reports her breathing has improved. Review of Systems Review of Systems: All systems reviewed & are unremarkable except as noted in HPI & below Physical Exam Constitutional: WD/WN, vitals as above ENMT: external ear and nose normal, oropharynx normal Neck: trachea midline, no thyromegaly Respiratory: normal respiratory effort, lungs clear to auscultation Cardiovascular: RRR, no murmur, no edema Gastrointestinal (Abdomen): normal bowel sounds, soft, nontender, no hepatosplenomegaly (colostomy bag noted.) Musculoskeletal: no cyanosis or clubbing, extremities motor strength 5/5 Skin: no rashes, warm and dry Neurologic: normal touch/pain/proprioception Psychiatric: A+Ox3, euthymic affect Lymphatic: no cervical or axillary lymphadenopathy Results & Data Results & Data ([facility]) Vital Signs (Past 12 Hours) Vital Signs Temp Pulse Resp BP Pulse Ox 07/01/21 20:37 37.3 C 20 L 20 144/73 H 90 07/01/21 19:34 89 18 91 07/01/21 16:50 36.8 C 86 16 132/67 99 07/01/21 13:04 80 19 94 07/01/21 12:58 37.0 C 84 16 129/64 96 PG Care Time/CCT Total # of Minutes Spent Total Time Spent with Patient: Total time spent is greater than 50% in coordination of care (as documented) at patient's floor/unit and/or counseling patient: Coding Level of Care Code 39604 Subseq Hosp Care Lvl 2 Diagnoses Respiratory failure with hypoxia J96.91 Acute encephalopathy G93.40 Aspiration pneumonia J69.0 Aspiration pneumonia type: unspecified Laterality: bilateral Lung location: unspecified part of lung Hypoxemia R09.02 HTN (hypertension) I10 Aortic stenosis I35.0 GISELL (acute kidney injury) N17.9 Time Spent (min) 25 (1) Aspiration pneumonia Aspiration pneumonia type: unspecified Laterality: bilateral Lung location: unspecified part of lung Qualified Code(s): J69.0 - Pneumonitis due to inhalation of food and vomit
[2021-07-02] MEDS: LEVALBUTEROL HCL 1.25 MG/3 ML NEB NEB SCH ×4 (00:03→20:24)
[2021-07-02] MEDS: LEVOTHYROXINE SODIUM 150 MCG TABLET PO SCH (05:44)
[2021-07-02 08:07] LABS: Hematocrit (blood only) 26.9 % (37-47); Hemoglobin 8.3 g/dL (12.0-16.0); Mean Corpuscular Hemoglobin 29.2 pg (25-34); Mean Corpuscular Hgb Conc 30.9 g/dL (32-36); Mean Corpuscular Volume 94.7 fL (80-100); Nucleated RBC # (auto) 0.07 K/uL (0-0); Nucleated RBC % (auto) 0.7 %; Platelet Count 313 K/uL (130-400); RDW Coefficient of Variation 14.7 % (11.5-14.5); RDW Standard Deviation 50.4 fL (36.4-46.3); Red Blood Count 2.84 M/uL (4.2-5.4); White Blood Count 9.35 K/uL (4.8-10.8)
[2021-07-02 08:35] LABS: ALC (manual) 1.72 K/uL (1.2-3.4); ANC (manual) 5.82 K/uL (1.4-6.5); Basophils # (manual) 0.08 K/uL (0-0.2); Basophils % (manual) 0.9 %; Eosinophils # (manual) 0.82 K/uL (0-0.5); Eosinophils % (manual) 8.8 %; Lymphocytes # (manual) 1.72 K/uL (1.2-3.4); Lymphocytes % (manual) 18.4 %; Metamyelocytes # (manual) 0.17 K/uL (0-0); Metamyelocytes % (manual) 1.8 %; Monocytes % (manual) 5.3 %; Myelocytes # (manual) 0.24 K/uL (0-0); Myelocytes % (manual) 2.6 %; Neutrophils # (manual) 5.82 K/uL (1.4-6.5); Neutrophils % (manual) 62.2 %; Tear Drop Cells Occasional
[2021-07-02 08:37] LABS: Albumin Level 2.5 gm/dl (3.4-5.0); BUN Creatinine Ratio 20.6 (10-20); Calcium 9.3 mg/dl (8.5-10.1); Creatinine Clr Calc Pharmacy 43.6 ml/min; Est GFR (African American) 49.4 ml/min; Est GFR (Non-African American) 42.6 ml/min; Magnesium 1.7 mg/dl (1.8-2.4); Potassium 4.1 mmol/L (3.5-5.1)
[2021-07-02 08:40] LABS: Albumin Globulin Ratio 0.6 (0.9-2); Bilirubin,Total 0.4 mg/dl (0.2-1); Globulin 4.1 gm/dl (2.5-4.0); Total Protein 6.6 gm/dl (6.4-8.2)
[2021-07-02] MEDS: FLUTICASONE PROPIONATE NA SPR 16 GM BTL SCH (08:40)
[2021-07-02] MEDS: FLUTICASONE/VILANTEROL 100/25MCG 14 PUFFS/INHALER INH SCH (08:40)
[2021-07-02] MEDS: oxyCODONE HCL IR 5 MG TAB (IMMEDIATE RELEASE) PO PRN (08:40)
[2021-07-02] MEDS: GABAPENTIN 300 MG CAP PO SCH ×2 (08:40→17:16)
[2021-07-02] MEDS: MIRABEGRON ER 25 MG TAB PO SCH (08:41)
[2021-07-02] MEDS: HYDROXYCHLOROQUINE SULFATE 200 MG TAB PO SCH (08:41)
[2021-07-02] MEDS: TAMSULOSIN HCL 0.4 MG CAP PO SCH (08:41)
[2021-07-02] MEDS: SPIRONOLACTONE 25 MG TAB PO SCH (08:41)
[2021-07-02] MEDS: ESCITALOPRAM OXALATE 10 MG TAB PO SCH (08:41)
--- NOTE | 2021-07-02 08:42 | XRay Report ---
XR chest 1V portable CLINICAL HISTORY: cough COMPARISON STUDY: Chest CT June 25, 2021. Chest radiograph June 28, 2021. FINDINGS: Left subclavian central line is in place. Cardiomediastinal silhouette is stable. Pulmonary vascular congestion is noted. This has increased. There is mild left basilar opacity. There is minim al right basilar opacity. There is a trace left pleural effusion. There is no pneumothorax. IMPRESSION: 1. Increase in pulmonary vascular congestion. Trace left pleural effusion. 2. Mild bibasilar opacities which may reflect an infectious process or atelectasis. ACT 112: Negative or not required by law. Electronically signed by: Ruddy Og M.D. 07/02/2021 8:40 AM
[2021-07-02] MEDS: ENOXAPARIN INJ 40 MG/0.4 ML SYR SQ SCH (08:44)
[2021-07-02] MEDS: PREGABALIN 100 MG CAP PO SCH ×3 (08:49→21:25)
--- NOTE | 2021-07-02 16:37 | Hospitalist Progress Note ---
Date of Service July 02, 2021 Assessment & Plan (1) Respiratory failure with hypoxia: Plan: Presumed to be from aspiration pneumonia +/- COPD +/- sedating medications. Required intubation and ICU admission. - Continue LABA/ICS - Xopenex Q6h standing - Titrating off sedating meds (2) GISELL (acute kidney injury): Plan: Baseline Cr ~1.0. CKD Stage III. - Cr up to 1.65 on admission. - Cr down to 1.0 on 07/01, but now back up to 1.25. Only change I see what addition of spironolactone on 06/29. - Monitor; consider stopping if Cr continues to rise. (3) Aspiration pneumonia: Plan: Patient had emesis, prior to admission. - Evaluated by [facility] on 06/26 without overt concerns. Discharge recs include: * Regular diet * Fully upright and alert for eating and drinking * Single bites / small sips / slow rate (4) Acute encephalopathy: Plan: Patient appeared consufed prior to intubation, may be secondary to hypoxia. - Resolved (5) HTN (hypertension): Plan: BP presently 145/60. - Continue metoprolol XL (6) Aortic stenosis: Plan: Severe aortic stenosis, though with her relatively minimal exertion, it is presently deemed to be asymptomatic. - Seen by Dr. De Leon in the hospital. TAVR will likely be done as outpatient. - Will be able to get her cardiac catheterization here. - Will need CT angiography with TAVR protocol at [place] along with meeting the cardiac team, CT surgery team, and anesthesia. Would then need to go back out for the actual TAVR. - Will need to notify Dr. De Leon when she is going back to [facility] to c tommyue process. (7) Fracture of femoral neck, right, closed: Plan: Orthopedics consulted on 06/27 for her right femoral neck fracture. This happened during a fall in May 2021. - Presently non-weightbearing on RLE. - Plan for follow-up with Dr. Marinelli at [place] once she has her TAVR completed. (8) Hypothyroid: Plan: Last TSH was 0.7 this admission which is coming down quickly from 14 in 03/2021 and 8 in 05/2021. Pharmacy records indicate it was adjusted from 112 mcg to 150 mcg in 03/[address] Amaya. - Continue home levothyroxine, but drop dose to 125 mcg (9) Urge and stress incontinence: Plan: - Continue home mirabegron & tamsulosin (10) DVT prophylaxis: Plan: Lovenox 40 mg SQ daily Admission and Anticipated Discharge Date Admission Date: June 25, 2021 Subjective Feels well. At baseline. Reports no fevers/chills, chest pain, shortness of breath, abdominal pain, nausea, or vomiting. Physical Exam Constitutional: WD/WN, vitals as above Eyes: EOM intact bilaterally; no conjunctival abnormality ENMT: external ear and nose normal, oropharynx normal Neck: trachea midline, no thyromegaly normal visual inspection Respiratory: normal respiratory effort, lungs clear to auscultation no respiratory distress Cardiovascular: RRR, no murmur, no edema Gastrointestinal (Abdomen): Inspection/Auscultation: abdomen normal to inspection; abdomen not distended Musculoskeletal: no cyanosis or clubbing, extremities motor strength 5/5 Skin: no rashes, warm and dry Neurologic: moves all extremities and awake Psychiatric: Orientation: alert, oriented to person and cooperative Results & Data Results & Data ([facility]) Vital Signs (Past 12 Hours) Vital Signs Temp Pulse Pulse Resp BP Pulse Ox 07/02/21 13:19 78 18 92 07/02/21 11:38 37.0 C 77 18 144/62 H 99 07/02/21 08:00 88 07/02/21 07:52 36.9 C 82 19 147/70 H 99 07/02/21 07:15 72 18 98 PG Care Time/CCT Total # of Minutes Spent Total Time Spent with Patient: Total time spent is greater than 50% in coordination of care (as documented) at patient's floor/unit and/or counseling patient: Coding Level of Care Code 44165 Subseq Hosp Care Lvl 3 Diagnoses Respiratory failure with hypoxia J96.91 Acute encephalopathy G93.40 Aspiration pneumonia J69.0 Aspiration pneumonia type: unspecified Laterality: bilateral Lung location: unspecified part of lung HTN (hypertension) I10 Aortic stenosis I35.0 GISELL (acute kidney injury) N17.9 Fracture of femoral neck, right, closed S72.001A DVT prophylaxis Z29.9 Hypothyroid E03.9 Urge and stress incontinence N39.46 (1) Aspiration pneumonia Aspiration pneumonia type: unspecified Laterality: bilateral Lung location: unspecified part of lung Qualified Code(s): J69.0 - Pneumonitis due to inhalation of food and vomit
[2021-07-02] MEDS: ROSUVASTATIN CALCIUM 5 MG TAB PO SCH (21:18)
[2021-07-02] MEDS: AMITRIPTYLINE HCL 25 MG TAB PO SCH (21:18)
[2021-07-02] MEDS: METOPROLOL SUCC 25MG EXT REL TAB PO SCH (21:18)
[2021-07-03] MEDS: LEVALBUTEROL HCL 1.25 MG/3 ML NEB NEB SCH ×3 (00:39→12:48)
[2021-07-03] MEDS ORDERED: LEVOTHYROXINE SODIUM 125 MCG TABLET PO SCH (06:30)
[2021-07-03] MEDS: PREGABALIN 100 MG CAP PO SCH ×2 (08:33→15:12)
[2021-07-03] MEDS: GABAPENTIN 300 MG CAP PO SCH (08:33)
[2021-07-03] MEDS: MIRABEGRON ER 25 MG TAB PO SCH (08:33)
[2021-07-03] MEDS: HYDROXYCHLOROQUINE SULFATE 200 MG TAB PO SCH (08:34)
[2021-07-03] MEDS: ESCITALOPRAM OXALATE 10 MG TAB PO SCH (08:34)
[2021-07-03] MEDS: TAMSULOSIN HCL 0.4 MG CAP PO SCH (08:34)
[2021-07-03] MEDS: FLUTICASONE/VILANTEROL 100/25MCG 14 PUFFS/INHALER INH SCH (08:35)
[2021-07-03] MEDS: ENOXAPARIN INJ 40 MG/0.4 ML SYR SQ SCH (08:35)
[2021-07-03] MEDS: FLUTICASONE PROPIONATE NA SPR 16 GM BTL SCH (08:36)
[2021-07-03] MEDS: SPIRONOLACTONE 25 MG TAB PO SCH (08:36)
[2021-07-03] MEDS: oxyCODONE HCL IR 5 MG TAB (IMMEDIATE RELEASE) PO PRN (08:44)
[2021-07-03 09:10] LABS: Hematocrit (blood only) 28.6 % (37-47); Hemoglobin 8.9 g/dL (12.0-16.0); Mean Corpuscular Hemoglobin 29.7 pg (25-34); Mean Corpuscular Hgb Conc 31.1 g/dL (32-36); Mean Corpuscular Volume 95.3 fL (80-100); Nucleated RBC # (auto) 0.02 K/uL (0-0); Nucleated RBC % (auto) 0.3 %; Platelet Count 357 K/uL (130-400); RDW Coefficient of Variation 14.8 % (11.5-14.5); RDW Standard Deviation 51.3 fL (36.4-46.3); White Blood Count 9.21 K/uL (4.8-10.8)
[2021-07-03 09:41] LABS: BUN Creatinine Ratio 21.7 (10-20); Calcium 9.1 mg/dl (8.5-10.1); Creatinine Clr Calc Pharmacy 43.8 ml/min; Est GFR (African American) 49.9 ml/min; Est GFR (Non-African American) 43.1 ml/min; Magnesium 1.8 mg/dl (1.8-2.4); Potassium 4.1 mmol/L (3.5-5.1)
[2021-07-03 09:43] LABS: Phosphorus 3.2 mg/dl (2.5-4.9)
--- NOTE | 2021-07-03 16:46 | Discharge Summary ---
Date of Service July 03, 2021 Admission HPI Per Admitting Provider 71 yo female with h/o anal cancer/ colostomy, of her right hip that has not undergone definitive operative management secondary to discovery of an aortic stenosis. is at bedside and he reports that she had been decreasing her mental status and conversations he had daily with her over the last 4 to 5 days and then recently she was transferred from [facility] to the ER for hypoxia difficulty breathing and decreased mentation. Patient did not respond to BIPAP as her oxygen level remaind low. She then had an episode of emesis and required emergent intubation to help protect her airways. Admission was then called. Principal Diagnosis Aspiration Altered mental status Discharge Exam Constitutional WD/WN, vitals as above Eyes EOM intact bilaterally; no conjunctival abnormality ENMT external ear and nose normal, oropharynx normal Neck trachea midline, no thyromegaly normal visual inspection Respiratory normal respiratory effort, lungs clear to auscultation no respiratory distress Cardiovascular RRR, no murmur, no edema Gastrointestinal (Abdomen) Inspection/Auscultation: abdomen normal to inspection; abdomen not distended Musculoskeletal no cyanosis or clubbing, extremities motor strength 5/5 Skin no rashes, warm and dry Neurologic moves all extremities and awake Psychiatric Orientation: alert, oriented to person and cooperative Discharge Data Allergies Allergy/AdvReac Type Severity Reaction Status Date / Time pollen extracts Allergy Intermediate RUNNY Verified 06/25/21 14:41 NOSE, ITCHY EYES, SNEEZING sulfamethoxazole Allergy Unknown Shakiness Verified 06/25/21 14:41 [From Bactrim] trimethoprim [From Bactrim] Allergy Unknown Shakiness Verified 06/25/21 14:41 Consultations 06/25/21 16:02 Consult Technical Specialist Stat 06/26/21 09:33 Consult Cardiology Routine 06/27/21 10:32 Consult Orthopedic Surgery Routine Ordered Studies 06/25/21 12:57 CT angio abdomen pelvis w con Stat CT angio chest PE protocol Stat CT head/brain wo con Stat Hospital Course (1) Respiratory failure with hypoxia: Presumed to be from aspiration. Required intubation and ICU admission. - Continue LABA/ICS - Xopenex Q6h standing - Had bronchoscopy on admission which showed some likely white pill fragments. Likely an episode of acute aspiration. She was on antibiotics temporarily, but f inished prior to discharge. (2) GISELL (acute kidney injury): Baseline Cr ~1.0. CKD Stage III. - Cr up to 1.65 on admission. - Cr down to 1.0 on 07/01, but now back up to 1.25. Only change I see what addition of spironolactone on 06/29. - Stable Cr. Could consider recheck of BMP in 1 week. (3) Aspiration pneumonia: Patient had emesis, prior to admission. Bronch results as above. - Evaluated by PROFESSIONAL BONDSMAN on 06/26 without overt concerns. Discharge recs include: * Regular diet * Fully upright and alert for eating and drinking * Single bites / small sips / slow rate (4) Acute encephalopathy: Patient appeared confused prior to intubation, may be secondary to hyp oxia. - Resolved (5) HTN (hypertension): BP presently 145/60. - Continue metoprolol XL (6) Aortic stenosis: Severe aortic stenosis, though with her relatively minimal exertion, it is presently deemed to be asymptomatic. - Seen by Dr. De Leon in the hospital. TAVR will likely be done as outpatient. - Will be able to get her cardiac catheterization here. - Will need CT angiography with TAVR protocol at [place] along with meeting the cardiac team, CT surgery team, and anesthesia. Would then need to go back out for the actual TAVR. - Will need to notify Dr. De Leon when she is going back to [facility] to continue process. (7) Fracture of femoral neck, right, closed: Orthopedics consulted on 06/27 for her right femoral neck fracture. This happened during a fall in May 2021. - Presently non-weightbearing on RLE. - Plan for follow-up with Dr. Marinelli at [place] once she has her TAVR completed. (8) Hypothyroid: Last TSH was 0.7 this admission which is coming down quickly from 14 in 03/2021 and 8 in 05/2021. Pharmacy records indicate it was adjusted from 112 mcg to 150 mcg in 03/[address] Amaya. - Continue home levothyroxine, but drop dose to 125 mcg (9) Urge and stress incontinence: - Continue home mirabegron & tamsulosin (10) DVT prophylaxis: Lovenox 40 mg SQ daily Total Time Total Time Spent Total Time Spent (In Minutes): 35 Discharge Plan Discharge Items Patient Disposition: Transfer [facility] Fac Reason For Visit: HYPOXIA Discharge Diagnosis: Low oxygen levels, pneumonia Activity: Resume your previous activity Weightbearing: Right non-weightbearing Non-emergency contact: Primary Care Provider, Surgeon and Agricultural Equipment Mechanic Call non-emergency contact if: your symptoms worsen Follow-up/Referrals: [facility] [Primary Care Provider] - Devin De Leon, [Physician] - (Please see Dr. De Leon in the next 1-2 weeks to help continue your aortic valve replacement (TAVR).) Diet: Heart Healthy Addtl Attending Provider Instructions: Ms. Sweeney, Ryan were admitted to the hospital with low oxygen levels that we believe were because of a pneumonia. We believe that with your vomiting and aspiration, you inhaled some pill fragments and had trouble breathing. You were on antibiotics for a while, and finished the course. The speech folks also saw you and gave some recommendations to help avoid this in the future. At this time, you are breathing stably, and are ready to return to [facility]. Please see Dr. De Leon in the next 1-2 weeks to help continue your aortic valve replacement (TAVR). The orthopedic surgery at [place] (Dr. Marinelli) plans to repair your leg when your TAVR is done. Pending Studies at Discharge: No Stand-Alone Forms: My [facility] Skilled Items Patient informed of condition?: Yes DNR: No Discharge Level of Care: Skilled Communicable Disease: No Discharge Prognosis: Stable Lines: None Urinary Catheter: No Medications and DC Order Prescriptions: Continued pantoprazole [Protonix] 40 mg tablet,delayed release (DR/EC) 40 mg PO QAM RF: 0 multivitamin [Multiple Vitamins] tablet 1 tab PO QAM RF: 0 Myrbetriq 50 mg tablet extended release 24 hr 50 mg PO QAM RF: 0 Symbicort 80-4.5 mcg/actuation HFA aerosol inhaler 2 puffs INH BIDM PRN (Reason: SEASONAL ALLERGIES) RF: 0 escitalopram oxalate [Lexapro] 20 mg tablet 30 mg PO QAM RF: 0 hydroxychloroquine [Plaquenil] 200 mg tablet 100 mg PO QAM RF: 0 ascorbic acid (vitamin C) [Vitamin C] 500 mg Tablet 500 mg PO BID RF: 0 cholecalciferol (vitamin D3) [Vitamin D3] 2,000 unit Capsule 2,000 unit PO BIDM RF: 0 amitriptyline 25 mg tablet 25 mg PO HS RF: 0 tamsulosin 0.4 mg capsule 0.4 mg PO QAM RF: 0 rosuvastatin 5 mg tablet 5 mg PO HS RF: 0 pregabalin 100 mg capsule 100 mg PO TID RF: 0 acetaminophen 325 mg Tablet 650 mg PO Q6 PRN (Reason: Fever Or Pain) RF: 0 ipratropium-albuterol 0.5 mg-3 mg(2.5 mg base)/3 mL Solution For Nebulization 3 ml INHALATION Q4H PRN (Reason: Shortness Of Breath) RF: 0 spironolactone 25 mg tablet 25 mg PO QAM RF: 0 metoprolol succinate 25 mg tablet extended release 24 hr 25 mg PO HS RF: 0 sulindac 200 mg Tablet 100 mg PO BID PRN (Reason: Pain) RF: 0 enoxaparin [Lovenox] 40 mg/0.4 mL Syringe 40 mg SUBCUT DAILY RF: 0 oxycodone 5 mg tablet 5 mg PO Q6 PRN (Reason: Pain) Qty: 5 RF: 0 Changed gabapentin 300 mg Capsule 200 mg PO BID Qty: 0 RF: 0 levothyroxine 150 mcg tablet 125 mcg PO QAM Qty: 0 RF: 0 Discontinued amoxicillin 500 mg capsule 500 mg PO QAM RF: 0 Discharge Orders: Discharge Order (Routine); Ordered 07/03/21 Ordered By: Tad Morin Admission Data Admit Date/Time: 06/25/21 15:45 Attending Provider: Tad Morin Admit Provider: Claudio Plunkett Primary Care Provider: [facility] Other Providers: Claudio Plunkett ; Carlin Porter ; [facility] ; [facility] ; Dixon Vee ; Barney Soria ; Ann Cota ; Roopa Vargas ; Willem Romero ; Lizandro Nguyen ; Tucker Sanchez ; Tucker Augustin ; Jojo Pascual ; Bina Chao ; Bambi Santoyo ; Lesli Morin Other Interventions: Discharge Summary Assessment (RN) Last Done: 07/03/21 15:15 Coding Level of Care Code D/C DAY MANAGEMENT >30 MINS Diagnoses Respiratory failure with hypoxia J96.91 GISELL (acute kidney injury) N17.9 Aspiration pneumonia J69.0 Aspiration pneumonia type: unspecified Laterality: bilateral Lung location: unspecified part of lung Acute encephalopathy G93.40 HTN (hypertension) I10 Aortic stenosis I35.0 Fracture of femoral neck, right, closed S72.001A Hypothyroid E03.9 Urge and stress incontinence N39.46 DVT prophylaxis Z29.9
== END 2021-07-03 16:10 | DRG 208 ==
LOC: ED 12:36 → SUATTDRO 15:45 → 1E 15:45 → 2S 06-27 14:00